=== PATIENT | male | born 1935 | race Caucasian/White ===

== ENCOUNTER → 2017-04-30 07:19 | Outpatient (REF) | payer MEDICARE, SELFPAY ==
[2017-04-30 08:04] LABS: Color, Urine Yellow (Yellow); Glucose, Dipstick 50 mg/dl (Normal); Ketone-Dipstick Negative (Negative); Leukocyte Esterase-Dipstick Negative /ul (Negative); Nitrite-Dipstick Negative (Negative); Occult Blood-Urine 150 /ul (Negative); Protein-Dipstick Negative (Negative); Urine Bilirubin Dipstick Negative (Negative); Urine Clarity Clear (Clear); Urine Urobilinogen 1 mg/dl (Normal); Urine pH 6.5 (5.0 - 8.0)
== END ==
LOC: OLS.WHLCAR 07:19
PROVIDERS: Visit Provider Family Medicine
DX: J18.9 Pneumonia, unspecified organism (principal); N40.1 Benign prostatic hyperplasia with lower urinary tract symptoms
CPT/HCPCS: 81002; 87086

== ENCOUNTER → 2017-05-02 05:00 | Outpatient (REF) | payer MEDICARE, OTHER, SELFPAY ==
[2017-05-02 09:34] LABS: Absolute Lymphocyte Count 1.07 X10^3/ul (0.83-4.51); Absolute Neutrophil Count 4.5 X10^3/uL (2.0-7.7); Basophil# 0.01 X10^3/uL; Basophil% 0.2 % (0-1); Eosinophil# 0.22 X10^3/uL; Eosinophils% 3.4 % (0-5); Hematocrit 33.1 % (40-54); Hemoglobin 10.2 g/dl (13.0-16.5); Lymphocyte # 1.07 X10^3/ul (4.0); Lymphocyte % 16.3 % (19-41); Mean Corp Hgb Conc 30.8 g/gl (32-36); Mean Corpuscular Hgb 29.3 pg (27.0-32.0); Mean Corpuscular Volume 95.1 fL (80-94); Mean Platelet Vol. 11.5 fl (6.2-12.0); Monocyte# 0.74 X10^3/uL; Monocyte% 11.3 % (0-10); Neutrophil # 4.52 X10^3/uL (2.7-7.7); Neutrophil % 68.8 % (47-70); POSITIVE COUNT NO; POSITIVE DIFFERENTIAL NO; POSITIVE MORPHOLOGY NO; Platelet Count 154 K/mm3 (150-450); RBC Distribution Width CV 15.7 % (11.6-14.6); RBC Distribution Width SD 54.6 fl (35.1-43.9); Red Blood Count 3.48 M/mm3 (4.6-6.2); White Blood Count 6.6 K/mm3 (4.4-11.0)
[2017-05-02 09:40] LABS: Anion Gap 8 (5-15); BUN 13 mg/dL (7-18); BUN/Creat Ratio 13.8 RATIO (10-20); Calcium,Total 8.9 mg/dL (8.5-10.1); Chloride 105 mmol/L (98-107); Creatinine, Serum 0.94 mg/dL (0.70-1.30); EST Glomerular Filtration Rate 81 mL/min (>60); Est Glom Filt Rate - Afr Amer 98 mL/min (>60); Glucose 82 mg/dL (70-110); Potassium 3.3 mmol/L (3.5-5.1); Sodium Level 141 mmol/L (136-145)
== END ==
LOC: OLS.WHLCAR 05:00
PROVIDERS: Visit Provider Family Medicine
DX: N39.0 Urinary tract infection, site not specified (principal)
CPT/HCPCS: 36415; 80048; 85025

== ENCOUNTER 2017-05-24 11:00 | Outpatient (RCR) | payer MEDICARE, OTHER, SELFPAY ==
[2017-05-01 00:58] VITALS: BP 136/76; PULSE 66; RESP 24; TEMP 36.6
[2017-05-10 10:59] VITALS: BP 106/57; PULSE 64; RESP 18; TEMP 36.1
--- NOTE | 2017-05-10 15:20 | PCM.WC.PN ---
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 Status: Chronic Current Visit: Yes Code(s): L97.322 - Non-pressure chronic ulcer of left ankle with fat layer exposed (2) Ulcer of left lower extremity with fat layer exposed Status: Acute Current Visit: Yes Code(s): L97.922 - Non-pressure chronic ulcer of unspecified part of left lower leg with fat layer exposed (3) Fall Status: Chronic Current Visit: Yes Qualifiers: Code(s): W19.XXXA - Unspecified fall, initial encounter (4) Peripheral vascular disease Status: Chronic Current Visit: Yes Code(s): I73.9 - Peripheral vascular disease, unspecified (5) Diabetes mellitus with polyneuropathy Status: Chronic Current Visit: Yes Qualifiers: Diabetes mellitus type: type 2 Code(s): E11.42 - Type 2 diabetes mellitus with diabetic polyneuropathy (6) 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 left ankle ulcer. Left leg new. History of Wound: This 81 year old male returns to clinic for bilateral ankle ulcerations and left leg ulcer. He denies fever, chills, nausea, vomiting. These are chronic. He denies pain. He wore his offloading donuts this past week. He applies Regranex daily. His caregiver is with him today and has confirmed his vascular surgery follow-up was May 04 and he missed it due to illness. This has been rescheduled for May 23. He had a new fall and has a new ulcer to his left leg. Progress of Wound: Left leg wound new. Stable right ankle. Stable left ankle - Physical Exam Vital Signs Temp Pulse Resp BP 96.9 F L 64 18 106/57 L 05/10/17 10:59 05/10/17 10:59 05/10/17 10:59 05/10/17 10:59 General: Alert, Oriented x3, Cooperative Extremities: No cyanosis, Capillary Refill Less than 3 Seconds, No Calf Tenderness - Negative Nusrat and Morrison sign bilateral, Diminished Peripheral Pulses, Edema - Bilateral lower extremity Skin: Ulcer/ Wound - No purulence, no erythema, no streaking, no deep tissue exposed. The skin is atrophic and hairless. Wound Measurements and Assessment - Nurse 1 - General Ulcer Measurement Start: 05/10/17 10:57 Freq: Status: Active Protocol: Activity Type Activity Date Activity User E-Sign Co-Sign Detail Recorded Client Recorded Date Recorded By Document 05/10/17 10:59 DL [id number] 05/10/17 11:19 DL 05/10/17 10:59 Wound Center Nurse 1 [Ulcer Assessment Protocol: WC.WD.LOC] #11 L So -Current Size (cm) - Length 1 -Current Size (cm) - Width 0.7 -Current Size (cm) - Depth 0.1 -Total Square Cm 0.7 -Photo Taken Yes -Exudate Amt Small (1-33%) -Exudate Type Sanguineous -Wound Margin Distinct, Outline Attached -Granulation Amt Large (67-100%) -Granulation Quality Red -Necrosis Amt Small (1-33%) -Necrotic Tissue Type Adherent Slough -Texture (Shawanda-wound Skin Appearance) No Abnormality -Moisture (Shawanda-wound Skin Appearance No Abnormality ) -Color (Shawanda-wound Skin Appearance) No Abnormality -Temperature (Shawanda-wound Skin No Abnormality Appearance) (Pt Warm) -Ulcer Cleansing Wound Cleanser -Foul Odor after Cleansing No -Anesthetic Used 4% Lidocaine Solution #12 L Med Lower leg -Current Size (cm) - Length 4.2 -Current Size (cm) - Width 3.8 -Current Size (cm) - Depth 0.1 -Total Square Cm 15.96 -Photo Taken Yes -Classification - Thickness Full Thickness without Exposed Support Structure -Exudate Amt Small (1-33%) -Exudate Type Serosanguineous -Wound Margin Distinct, Outline Attached -Granulation Amt Large (67-100%) -Granulation Quality [place] Red -Necrosis Amt Small (1-33%) -Necrotic Tissue Type Adherent Slough -Structure Exposed N/A -Texture (Shawanda-wound Skin Appearance) No Abnormality -Moisture (Shawanda-wound Skin Appearance No Abnormality ) -Color (Shawanda-wound Skin Appearance) Hemosiderin Staining -Temperature (Shawanda-wound Skin No Abnormality Appearance) (Pt Warm) -Ulcer Cleansing Wound Cleanser -Foul Odor after Cleansing No -Anesthetic Used 4% Lidocaine Solution #10- RT GR TOE (SKIN TEAR) -Current Size (cm) - Length 0.1 -Current Size (cm) - Width 0.1 -Current Size (cm) - Depth 0.1 -Total Square Cm 0.01 -Photo Taken No -Exudate Amt None Present (0 %) -Wound Margin Flat & Intact -Granulation Amt Large (67-100%) -Granulation Quality Pale -Necrosis Amt Small (1-33%) -Necrotic Tissue Type Adherent Slough -Structure Exposed N/A -Texture (Shawanda-wound Skin Appearance) Scarring -Moisture (Shawanda-wound Skin Appearance Dry/Scaly ) -Color (Shawanda-wound Skin Appearance) No Abnormality Hemosiderin Staining -Temperature (Shawanda-wound Skin No Abnormality Appearance) (Pt Warm) -Tenderness on Palpation (Shawanda-wound No Skin Appearance) -Ulcer Cleansing Rinsed/ Irrigated with Saline -Foul Odor after Cleansing No -Anesthetic Used 4% Lidocaine Solution #2 L Med Ankle -Current Size (cm) - Length 0.4 -Current Size (cm) - Width 0.5 -Current Size (cm) - Depth 0.1 -Total Square Cm 0.20 -Photo Taken No -Exudate Amt Small (1-33%) -Exudate Type Serosanguineous -Wound Margin Distinct, Outline Attached -Granulation Amt Small (1-33%) -Granulation Quality [place] -Necrosis Amt Small (1-33%) -Necrotic Tissue Type Adherent Slough -Structure Exposed N/A -Texture (Shawanda-wound Skin Appearance) Scarring -Moisture (Shawanda-wound Skin Appearance Dry/Scaly ) -Color (Shawanda-wound Skin Appearance) No Abnormality Hemosiderin Staining -Temperature (Shawanda-wound Skin No Abnormality Appearance) (Pt Warm) -Ulcer Cleansing Wound Cleanser -Foul Odor after Cleansing No -Anesthetic Used 4% Lidocaine Solution #1 R Lat Ankle -Current Size (cm) - Length 1 -Current Size (cm) - Width 0.5 -Current Size (cm) - Depth 0.2 -Total Square Cm 0.5 -Photo Taken No -Exudate Amt None Present (0 %) -Wound Margin Distinct, Outline Attached -Granulation Amt Large (67-100%) -Granulation Quality Pale [place] -Necrosis Amt Small (1-33%) -Necrotic Tissue Type Adherent Slough -Structure Exposed N/A -Texture (Shawanda-wound Skin Appearance) Scarring -Moisture (Shawanda-wound Skin Appearance Dry/Scaly ) -Color (Shawanda-wound Skin Appearance) Hemosiderin Staining -Temperature (Shawanda-wound Skin No Abnormality Appearance) (Pt Warm) -Tenderness on Palpation (Shawanda-wound No Skin Appearance) -Ulcer Cleansing Wound Cleanser -Foul Odor after Cleansing No -Anesthetic Used 4% Lidocaine Solution [Edema Assessment] -Point of measurement (cm from the 34 medial instep) -Point of Measurement (cm from the 20.7 medial instep) -Point of measurement (cm from the 37 medial instep) -Point of Measurement (cm from the 20.3 medial instep) WC - Nurse 2 - General Ulcer CM Notes Start: 05/10/17 10:57 Freq: Status: Active Protocol: Activity Type Activity Date Activity User E-Sign Co-Sign Detail Recorded Client Recorded Date Recorded By Document 05/10/17 11:32 [id number] 05/10/17 11:36 GHASSAN 05/10/17 11:32 Wound Center Nurse 2 [Procedure/Treatment] #11 L So -Time 11:33 -Correct Patient Yes -Correct Side, Site, Position Yes -Correct Procedure Yes -Procedure Performed Yes -Type of Procedure Debridement -Clinical Debridement Subcutaneous -Post Debridement Size (cm) - Length 1 -Post Debridement Size (cm) - Width 0.8 -Post Debridement Size (cm) - Depth 0.1 -Total Square Cm 0.8 -Wound/Ulcer Outcome Not Healed -Ulcer Cleansing Rinsed/ Irrigated with Saline -Foul Odor after Cleansing No -Bioengineered Tissue No -Cetacaine [place] No -Bleeding Controlled with Pressure -Treatment Response Procedure Tolerated Well #12 L Med Lower leg -Time 11:34 -Correct Patient Yes -Correct Side, Site, Position Yes -Correct Procedure Yes -Procedure Performed Yes -Type of Procedure Debridement -Clinical Debridement Subcutaneous -Post Debridement Size (cm) - Length 4.3 -Post Debridement Size (cm) - Width 3.8 -Post Debridement Size (cm) - Depth 0.1 -Total Square Cm 16.34 -Wound/Ulcer Outcome Not Healed -Ulcer Cleansing Rinsed/ Irrigated with Saline -Foul Odor after Cleansing No -Bioengineered Tissue No -Cetacaine [place] No -Bleeding Controlled with Pressure -Treatment Response Procedure Tolerated Well #10- RT GR TOE (SKIN TEAR) -Time 11:34 -Post Debridement Size (cm) - Length 0 -Post Debridement Size (cm) - Width 0 -Post Debridement Size (cm) - Depth 0 -Total Square Cm 0 -Wound/Ulcer Outcome Healed- Epithelialized #2 L Med Ankle -Time 11:34 -Correct Patient Yes -Correct Side, Site, Position Yes -Correct Procedure Yes -Procedure Performed Yes -Type of Procedure Debridement -Clinical Debridement Subcutaneous -Post Debridement Size (cm) - Length 0.5 -Post Debridement Size (cm) - Width 0.5 -Post Debridement Size (cm) - Depth 0.1 -Total Square Cm 0.25 -Wound/Ulcer Outcome Not Healed -Ulcer Cleansing Rinsed/ Irrigated with Saline -Foul Odor after Cleansing No -Bioengineered Tissue No -Cetacaine [place] No -Bleeding Controlled with Pressure -Treatment Response Procedure Tolerated Well #1 R Lat Ankle -Time 11:35 -Correct Patient Yes -Correct Side, Site, Position Yes -Correct Procedure Yes -Procedure Performed Yes -Type of Procedure Debridement -Clinical Debridement Subcutaneous -Post Debridement Size (cm) - Length 1 -Post Debridement Size (cm) - Width 0.6 -Post Debridement Size (cm) - Depth 0.2 -Total Square Cm 0.6 -Wound/Ulcer Outcome Not Healed -Ulcer Cleansing Rinsed/ Irrigated with Saline -Foul Odor after Cleansing No -Bioengineered Tissue No -Cetacaine [place] No -Bleeding Controlled with Pressure -Treatment Response Procedure Tolerated Well [See Physician Procedure note for Specifics] Pain Scale: 0-10 Numeric [Pain] -Is Patient Pain Free? Yes Musculoskeletal: No Tenderness to Palpation of Joints or Extremities, Muscle Wasting, Tenderness - Palpation to left leg ulcer Neurological: - - Lack of epicritic sensation of bilateral feet Psych/Mental Status: Normal Affect, Appropriate Debridement Note Post-Debridement Measurements/Treatment WC - Nurse 2 - General Ulcer CM Notes Start: 05/10/17 10:57 Freq: Status: Active Protocol: Activity Type Activity Date Activity User E-Sign Co-Sign Detail Recorded Client Recorded Date Recorded By Document 05/10/17 11:32 GHASSAN [id number] 05/10/17 11:36 GHASSAN 05/10/17 11:32 Wound Center Nurse 2 #11 L So -Time 11:33 -Correct Patient Yes -Correct Side, Site, Position Yes -Correct Procedure Yes -Procedure Performed Yes -Type of Procedure Debridement -Clinical Debridement Subcutaneous -Post Debridement Size (cm) - Length 1 -Post Debridement Size (cm) - Width 0.8 -Post Debridement Size (cm) - Depth 0.1 -Total Square Cm 0.8 -Wound/Ulcer Outcome Not Healed -Ulcer Cleansing Rinsed/ Irrigated with Saline -Foul Odor after Cleansing No -Bioengineered Tissue No -Cetacaine [place] No -Bleeding Controlled with Pressure -Treatment Response Procedure Tolerated Well #12 L Med Lower leg -Time 11:34 -Correct Patient Yes -Correct Side, Site, Position Yes -Correct Procedure Yes -Procedure Performed Yes -Type of Procedure Debridement -Clinical Debridement Subcutaneous -Post Debridement Size (cm) - Length 4.3 -Post Debridement Size (cm) - Width 3.8 -Post Debridement Size (cm) - Depth 0.1 -Total Square Cm 16.34 -Wound/Ulcer Outcome Not Healed -Ulcer Cleansing Rinsed/ Irrigated with Saline -Foul Odor after Cleansing No -Bioengineered Tissue No -Cetacaine [place] No -Bleeding Controlled with Pressure -Treatment Response Procedure Tolerated Well #10- RT GR TOE (SKIN TEAR) -Time 11:34 -Post Debridement Size (cm) - Length 0 -Post Debridement Size (cm) - Width 0 -Post Debridement Size (cm) - Depth 0 -Total Square Cm 0 -Wound/Ulcer Outcome Healed- Epithelialized #2 L Med Ankle -Time 11:34 -Correct Patient Yes -Correct Side, Site, Position Yes -Correct Procedure Yes -Procedure Performed Yes -Type of Procedure Debridement -Clinical Debridement Subcutaneous -Post Debridement Size (cm) - Length 0.5 -Post Debridement Size (cm) - Width 0.5 -Post Debridement Size (cm) - Depth 0.1 -Total Square Cm 0.25 -Wound/Ulcer Outcome Not Healed -Ulcer Cleansing Rinsed/ Irrigated with Saline -Foul Odor after Cleansing No -Bioengineered Tissue No -Cetacaine [place] No -Bleeding Controlled with Pressure -Treatment Response Procedure Tolerated Well #1 R Lat Ankle -Time 11:35 -Correct Patient Yes -Correct Side, Site, Position Yes -Correct Procedure Yes -Procedure Performed Yes -Type of Procedure Debridement -Clinical Debridement Subcutaneous -Post Debridement Size (cm) - Length 1 -Post Debridement Size (cm) - Width 0.6 -Post Debridement Size (cm) - Depth 0.2 -Total Square Cm 0.6 -Wound/Ulcer Outcome Not Healed -Ulcer Cleansing Rinsed/ Irrigated with Saline -Foul Odor after Cleansing No -Bioengineered Tissue No -Cetacaine [place] No -Bleeding Controlled with Pressure -Treatment Response Procedure Tolerated Well Pain Scale: 0-10 Numeric Is Patient Pain Free? Yes Wound debrided: Leg Laterality: Left Wound Grade/Stage: Grade 1 Type of Debridement: Excisional debridement Anesthesia Used: 4% Lidocaine Solution Depth: in the subcutaneous layer Percentage of wound debrided: 100 Instrument Used: 5mm curette Tissue Removed: Fibrous, devitalized subcutaneous, biofilm, slough Severity: Fat Layer Exposed Amount of bleeding with debridement: Mild Bleeding Controlled with: Pressure Patient tolerated procedure well - Additional Wound Wound debrided: Medial ankle Laterality: Left Wound Grade/Stage: Grade 1 Type of Debridement: Excisional debridement Anesthesia Used: 4% Lidocaine Solution Depth: Down to and including healthy tissue, in the subcutaneous layer Percentage of wound debrided: 100 Instrument Used: 5mm curette Tissue Removed: Fibrous, devitalized subcutaneous, biofilm, slough Severity: Fat Layer Exposed Amount of bleeding with debridement: Mild Bleeding Controlled with: Pressure Patient tolerated procedure: Patient tolerated procedure well - Additional Wound Wound debrided: Lateral ankle Laterality: Right Wound Grade/Stage: Grade 1 Type of Debridement: Excisional debridement Anesthesia Used: 4% Lidocaine Solution Depth: in the subcutaneous layer Percentage of wound debrided: 100 Instrument Used: 5mm curette Tissue Removed: Fibrous, devitalized subcutaneous, biofilm, slough Severity: Limited To Skin Breakdown Amount of bleeding with debridement: Mild Bleeding Controlled with: Pressure Patient tolerated procedure: Patient tolerated procedure well Assessment/Plan Active Problems 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 medial left ankle ulcer with fat layer exposed. Left leg ulcer -status post fall/recurrent. Uncontrolled diabetes with neuropathy. peripheral vascular disease. lower extremity edema. malnutrition. continued fall risk Plan: I reviewed and discussed his case. Subcutaneous debridement was performed to the right and left ankle ulcers and the left leg also. I educated him on the importance of offloading. To continue to wear offloading donut. Return to regranex daily use to the ankles. To apply hydrogel with collagen and Adaptic to the left leg. His last set of labs were also reviewed including CBC (9.7), CMP, hemoglobin A1C 14.0 to assess medical stability and healing potential. This was reviewed already. His labs will be updated at this time and the following were ordered: CBC, CMP, prealbumin. His hemoglobin A1c was 8% which demonstrates uncontrolled daily blood sugars. He does have a h/o PVD with intervention with Dr. Castro at an outside facility. To continue on pletal and plavix. To f/u with Dr. Castro has been rescheduled for May 23, 2017. He previously recommended a repeat TIFFANIE and his follow-up date was rescheduled for early May. Additional procedures will be considered if there is a status change and continued nonhealing. I reviewed his previous notes from Dr. 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 subtotal [employer] occlusion Left worse than right with reconstitution to mid popliteal and tibial distally. h/o right stent to old Right iliac stent. 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 PVR right thigh 0.55, calf 0.46, PT 0.44 nand DF 0.51 biphasic and digital brachial index 0.26. left PT 0.42 monophasic, DP 0.5 biphasic, and digital brachial index 0.23. His venous studies were obtained with vein abnormalities noted; f/u with Dr. Castro; the plan is to monitor. To optimize his diet from a diabetes and protein supplement standpoint. I recommended nutritional dietitian referral. He is demonstrating significant delays in healing and understands he is at continued risk for limb loss. Pending next vascular evaluation and potential recommendations he will be considered for a palliative care plan. He is already on a complex care plan at this time. To RTC 1 week or call sooner if problems or questions.
--- NOTE | 2017-05-10 15:31 | PN.PCM_ITS ---
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 Status: Chronic Current Visit: Yes Code(s): L97.322 - Non-pressure chronic ulcer of left ankle with fat layer exposed (2) Ulcer of left lower extremity with fat layer exposed Status: Acute Current Visit: Yes Code(s): L97.922 - Non-pressure chronic ulcer of unspecified part of left lower leg with fat layer exposed (3) Fall Status: Chronic Current Visit: Yes Qualifiers: Code(s): W19.XXXA - Unspecified fall, initial encounter (4) Peripheral vascular disease Status: Chronic Current Visit: Yes Code(s): I73.9 - Peripheral vascular disease, unspecified (5) Diabetes mellitus with polyneuropathy Status: Chronic Current Visit: Yes Qualifiers: Diabetes mellitus type: type 2 Code(s): E11.42 - Type 2 diabetes mellitus with diabetic polyneuropathy (6) 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 left ankle ulcer. Left leg new. History of Wound: This 81 year old male returns to clinic for bilateral ankle ulcerations and left leg ulcer. He denies fever, chills, nausea, vomiting. These are chronic. He denies pain. He wore his offloading donuts this past week. He applies Regranex daily. His caregiver is with him today and has confirmed his vascular surgery follow-up was May 04 and he missed it due to illness. This has been rescheduled for May 23. He had a new fall and has a new ulcer to his left leg. Progress of Wound: Left leg wound new. Stable right ankle. Stable left ankle - Physical Exam Vital Signs Temp Pulse Resp BP 96.9 F L 64 18 106/57 L 05/10/17 10:59 05/10/17 10:59 05/10/17 10:59 05/10/17 10:59 General: Alert, Oriented x3, Cooperative Extremities: No cyanosis, Capillary Refill Less than 3 Seconds, No Calf Tenderness - Negative Nusrat and Morrison sign bilateral, Diminished Peripheral Pulses, Edema - Bilateral lower extremity Skin: Ulcer/ Wound - No purulence, no erythema, no streaking, no deep tissue exposed. The skin is atrophic and hairless. Wound Measurements and Assessment - Nurse 1 - General Ulcer Measurement Start: 05/10/17 10:57 Freq: Status: Active Protocol: Activity Type Activity Date Activity User E-Sign Co-Sign Detail Recorded Client Recorded Date Recorded By Document 05/10/17 10:59 DL [id number] 05/10/17 11:19 DL 05/10/17 10:59 Wound Center Nurse 1 [Ulcer Assessment Protocol: WC.WD.LOC] #11 L So -Current Size (cm) - Length 1 -Current Size (cm) - Width 0.7 -Current Size (cm) - Depth 0.1 -Total Square Cm 0.7 -Photo Taken Yes -Exudate Amt Small (1-33%) -Exudate Type Sanguineous -Wound Margin Distinct, Outline Attached -Granulation Amt Large (67-100%) -Granulation Quality Red -Necrosis Amt Small (1-33%) -Necrotic Tissue Type Adherent Slough -Texture (Shawanda-wound Skin Appearance) No Abnormality -Moisture (Shawanda-wound Skin Appearance No Abnormality ) -Color (Shawanda-wound Skin Appearance) No Abnormality -Temperature (Shawanda-wound Skin No Abnormality Appearance) (Pt Warm) -Ulcer Cleansing Wound Cleanser -Foul Odor after Cleansing No -Anesthetic Used 4% Lidocaine Solution #12 L Med Lower leg -Current Size (cm) - Length 4.2 -Current Size (cm) - Width 3.8 -Current Size (cm) - Depth 0.1 -Total Square Cm 15.96 -Photo Taken Yes -Classification - Thickness Full Thickness without Exposed Support Structure -Exudate Amt Small (1-33%) -Exudate Type Serosanguineous -Wound Margin Distinct, Outline Attached -Granulation Amt Large (67-100%) -Granulation Quality [place] Red -Necrosis Amt Small (1-33%) -Necrotic Tissue Type Adherent Slough -Structure Exposed N/A -Texture (Shawanda-wound Skin Appearance) No Abnormality -Moisture (Shawanda-wound Skin Appearance No Abnormality ) -Color (Shawanda-wound Skin Appearance) Hemosiderin Staining -Temperature (Shawanda-wound Skin No Abnormality Appearance) (Pt Warm) -Ulcer Cleansing Wound Cleanser -Foul Odor after Cleansing No -Anesthetic Used 4% Lidocaine Solution #10- RT GR TOE (SKIN TEAR) -Current Size (cm) - Length 0.1 -Current Size (cm) - Width 0.1 -Current Size (cm) - Depth 0.1 -Total Square Cm 0.01 -Photo Taken No -Exudate Amt None Present (0 %) -Wound Margin Flat & Intact -Granulation Amt Large (67-100%) -Granulation Quality Pale -Necrosis Amt Small (1-33%) -Necrotic Tissue Type Adherent Slough -Structure Exposed N/A -Texture (Shawanda-wound Skin Appearance) Scarring -Moisture (Shawanda-wound Skin Appearance Dry/Scaly ) -Color (Shawanda-wound Skin Appearance) No Abnormality Hemosiderin Staining -Temperature (Shawanda-wound Skin No Abnormality Appearance) (Pt Warm) -Tenderness on Palpation (Shawanda-wound No Skin Appearance) -Ulcer Cleansing Rinsed/ Irrigated with Saline -Foul Odor after Cleansing No -Anesthetic Used 4% Lidocaine Solution #2 L Med Ankle -Current Size (cm) - Length 0.4 -Current Size (cm) - Width 0.5 -Current Size (cm) - Depth 0.1 -Total Square Cm 0.20 -Photo Taken No -Exudate Amt Small (1-33%) -Exudate Type Serosanguineous -Wound Margin Distinct, Outline Attached -Granulation Amt Small (1-33%) -Granulation Quality [place] -Necrosis Amt Small (1-33%) -Necrotic Tissue Type Adherent Slough -Structure Exposed N/A -Texture (Shawanda-wound Skin Appearance) Scarring -Moisture (Shawanda-wound Skin Appearance Dry/Scaly ) -Color (Shawanda-wound Skin Appearance) No Abnormality Hemosiderin Staining -Temperature (Shawanda-wound Skin No Abnormality Appearance) (Pt Warm) -Ulcer Cleansing Wound Cleanser -Foul Odor after Cleansing No -Anesthetic Used 4% Lidocaine Solution #1 R Lat Ankle -Current Size (cm) - Length 1 -Current Size (cm) - Width 0.5 -Current Size (cm) - Depth 0.2 -Total Square Cm 0.5 -Photo Taken No -Exudate Amt None Present (0 %) -Wound Margin Distinct, Outline Attached -Granulation Amt Large (67-100%) -Granulation Quality Pale [place] -Necrosis Amt Small (1-33%) -Necrotic Tissue Type Adherent Slough -Structure Exposed N/A -Texture (Shawanda-wound Skin Appearance) Scarring -Moisture (Shawanda-wound Skin Appearance Dry/Scaly ) -Color (Shawanda-wound Skin Appearance) Hemosiderin Staining -Temperature (Shawanda-wound Skin No Abnormality Appearance) (Pt Warm) -Tenderness on Palpation (Shawanda-wound No Skin Appearance) -Ulcer Cleansing Wound Cleanser -Foul Odor after Cleansing No -Anesthetic Used 4% Lidocaine Solution [Edema Assessment] -Point of measurement (cm from the 34 medial instep) -Point of Measurement (cm from the 20.7 medial instep) -Point of measurement (cm from the 37 medial instep) -Point of Measurement (cm from the 20.3 medial instep) WC - Nurse 2 - General Ulcer CM Notes Start: 05/10/17 10:57 Freq: Status: Active Protocol: Activity Type Activity Date Activity User E-Sign Co-Sign Detail Recorded Client Recorded Date Recorded By Document 05/10/17 11:32 [id number] 05/10/17 11:36 GHASSAN 05/10/17 11:32 Wound Center Nurse 2 [Procedure/Treatment] #11 L So -Time 11:33 -Correct Patient Yes -Correct Side, Site, Position Yes -Correct Procedure Yes -Procedure Performed Yes -Type of Procedure Debridement -Clinical Debridement Subcutaneous -Post Debridement Size (cm) - Length 1 -Post Debridement Size (cm) - Width 0.8 -Post Debridement Size (cm) - Depth 0.1 -Total Square Cm 0.8 -Wound/Ulcer Outcome Not Healed -Ulcer Cleansing Rinsed/ Irrigated with Saline -Foul Odor after Cleansing No -Bioengineered Tissue No -Cetacaine [place] No -Bleeding Controlled with Pressure -Treatment Response Procedure Tolerated Well #12 L Med Lower leg -Time 11:34 -Correct Patient Yes -Correct Side, Site, Position Yes -Correct Procedure Yes -Procedure Performed Yes -Type of Procedure Debridement -Clinical Debridement Subcutaneous -Post Debridement Size (cm) - Length 4.3 -Post Debridement Size (cm) - Width 3.8 -Post Debridement Size (cm) - Depth 0.1 -Total Square Cm 16.34 -Wound/Ulcer Outcome Not Healed -Ulcer Cleansing Rinsed/ Irrigated with Saline -Foul Odor after Cleansing No -Bioengineered Tissue No -Cetacaine [place] No -Bleeding Controlled with Pressure -Treatment Response Procedure Tolerated Well #10- RT GR TOE (SKIN TEAR) -Time 11:34 -Post Debridement Size (cm) - Length 0 -Post Debridement Size (cm) - Width 0 -Post Debridement Size (cm) - Depth 0 -Total Square Cm 0 -Wound/Ulcer Outcome Healed- Epithelialized #2 L Med Ankle -Time 11:34 -Correct Patient Yes -Correct Side, Site, Position Yes -Correct Procedure Yes -Procedure Performed Yes -Type of Procedure Debridement -Clinical Debridement Subcutaneous -Post Debridement Size (cm) - Length 0.5 -Post Debridement Size (cm) - Width 0.5 -Post Debridement Size (cm) - Depth 0.1 -Total Square Cm 0.25 -Wound/Ulcer Outcome Not Healed -Ulcer Cleansing Rinsed/ Irrigated with Saline -Foul Odor after Cleansing No -Bioengineered Tissue No -Cetacaine [place] No -Bleeding Controlled with Pressure -Treatment Response Procedure Tolerated Well #1 R Lat Ankle -Time 11:35 -Correct Patient Yes -Correct Side, Site, Position Yes -Correct Procedure Yes -Procedure Performed Yes -Type of Procedure Debridement -Clinical Debridement Subcutaneous -Post Debridement Size (cm) - Length 1 -Post Debridement Size (cm) - Width 0.6 -Post Debridement Size (cm) - Depth 0.2 -Total Square Cm 0.6 -Wound/Ulcer Outcome Not Healed -Ulcer Cleansing Rinsed/ Irrigated with Saline -Foul Odor after Cleansing No -Bioengineered Tissue No -Cetacaine [place] No -Bleeding Controlled with Pressure -Treatment Response Procedure Tolerated Well [See Physician Procedure note for Specifics] Pain Scale: 0-10 Numeric [Pain] -Is Patient Pain Free? Yes Musculoskeletal: No Tenderness to Palpation of Joints or Extremities, Muscle Wasting, Tenderness - Palpation to left leg ulcer Neurological: - - Lack of epicritic sensation of bilateral feet Psych/Mental Status: Normal Affect, Appropriate Debridement Note Post-Debridement Measurements/Treatment WC - Nurse 2 - General Ulcer CM Notes Start: 05/10/17 10:57 Freq: Status: Active Protocol: Activity Type Activity Date Activity User E-Sign Co-Sign Detail Recorded Client Recorded Date Recorded By Document 05/10/17 11:32 GHASSAN [id number] 05/10/17 11:36 GHASSAN 05/10/17 11:32 Wound Center Nurse 2 #11 L So -Time 11:33 -Correct Patient Yes -Correct Side, Site, Position Yes -Correct Procedure Yes -Procedure Performed Yes -Type of Procedure Debridement -Clinical Debridement Subcutaneous -Post Debridement Size (cm) - Length 1 -Post Debridement Size (cm) - Width 0.8 -Post Debridement Size (cm) - Depth 0.1 -Total Square Cm 0.8 -Wound/Ulcer Outcome Not Healed -Ulcer Cleansing Rinsed/ Irrigated with Saline -Foul Odor after Cleansing No -Bioengineered Tissue No -Cetacaine [place] No -Bleeding Controlled with Pressure -Treatment Response Procedure Tolerated Well #12 L Med Lower leg -Time 11:34 -Correct Patient Yes -Correct Side, Site, Position Yes -Correct Procedure Yes -Procedure Performed Yes -Type of Procedure Debridement -Clinical Debridement Subcutaneous -Post Debridement Size (cm) - Length 4.3 -Post Debridement Size (cm) - Width 3.8 -Post Debridement Size (cm) - Depth 0.1 -Total Square Cm 16.34 -Wound/Ulcer Outcome Not Healed -Ulcer Cleansing Rinsed/ Irrigated with Saline -Foul Odor after Cleansing No -Bioengineered Tissue No -Cetacaine [place] No -Bleeding Controlled with Pressure -Treatment Response Procedure Tolerated Well #10- RT GR TOE (SKIN TEAR) -Time 11:34 -Post Debridement Size (cm) - Length 0 -Post Debridement Size (cm) - Width 0 -Post Debridement Size (cm) - Depth 0 -Total Square Cm 0 -Wound/Ulcer Outcome Healed- Epithelialized #2 L Med Ankle -Time 11:34 -Correct Patient Yes -Correct Side, Site, Position Yes -Correct Procedure Yes -Procedure Performed Yes -Type of Procedure Debridement -Clinical Debridement Subcutaneous -Post Debridement Size (cm) - Length 0.5 -Post Debridement Size (cm) - Width 0.5 -Post Debridement Size (cm) - Depth 0.1 -Total Square Cm 0.25 -Wound/Ulcer Outcome Not Healed -Ulcer Cleansing Rinsed/ Irrigated with Saline -Foul Odor after Cleansing No -Bioengineered Tissue No -Cetacaine [place] No -Bleeding Controlled with Pressure -Treatment Response Procedure Tolerated Well #1 R Lat Ankle -Time 11:35 -Correct Patient Yes -Correct Side, Site, Position Yes -Correct Procedure Yes -Procedure Performed Yes -Type of Procedure Debridement -Clinical Debridement Subcutaneous -Post Debridement Size (cm) - Length 1 -Post Debridement Size (cm) - Width 0.6 -Post Debridement Size (cm) - Depth 0.2 -Total Square Cm 0.6 -Wound/Ulcer Outcome Not Healed -Ulcer Cleansing Rinsed/ Irrigated with Saline -Foul Odor after Cleansing No -Bioengineered Tissue No -Cetacaine [place] No -Bleeding Controlled with Pressure -Treatment Response Procedure Tolerated Well Pain Scale: 0-10 Numeric Is Patient Pain Free? Yes Wound debrided: Leg Laterality: Left Wound Grade/Stage: Grade 1 Type of Debridement: Excisional debridement Anesthesia Used: 4% Lidocaine Solution Depth: in the subcutaneous layer Percentage of wound debrided: 100 Instrument Used: 5mm curette Tissue Removed: Fibrous, devitalized subcutaneous, biofilm, slough Severity: Fat Layer Exposed Amount of bleeding with debridement: Mild Bleeding Controlled with: Pressure Patient tolerated procedure well - Additional Wound Wound debrided: Medial ankle Laterality: Left Wound Grade/Stage: Grade 1 Type of Debridement: Excisional debridement Anesthesia Used: 4% Lidocaine Solution Depth: Down to and including healthy tissue, in the subcutaneous layer Percentage of wound debrided: 100 Instrument Used: 5mm curette Tissue Removed: Fibrous, devitalized subcutaneous, biofilm, slough Severity: Fat Layer Exposed Amount of bleeding with debridement: Mild Bleeding Controlled with: Pressure Patient tolerated procedure: Patient tolerated procedure well - Additional Wound Wound debrided: Lateral ankle Laterality: Right Wound Grade/Stage: Grade 1 Type of Debridement: Excisional debridement Anesthesia Used: 4% Lidocaine Solution Depth: in the subcutaneous layer Percentage of wound debrided: 100 Instrument Used: 5mm curette Tissue Removed: Fibrous, devitalized subcutaneous, biofilm, slough Severity: Limited To Skin Breakdown Amount of bleeding with debridement: Mild Bleeding Controlled with: Pressure Patient tolerated procedure: Patient tolerated procedure well Assessment/Plan Active Problems 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 medial left ankle ulcer with fat layer exposed. Left leg ulcer -status post fall/ recurrent. Uncontrolled diabetes with neuropathy. peripheral vascular disease. lower extremity edema. malnutrition. continued fall risk Plan: I reviewed and discussed his case. Subcutaneous debridement was performed to the right and left ankle ulcers and the left leg also. I educated him on the importance of offloading. To continue to wear offloading donut. Return to regranex daily use to the ankles. To apply hydrogel with collagen and Adaptic to the left leg. His last set of labs were also reviewed including CBC (9.7), CMP, hemoglobin A1C 14.0 to assess medical stability and healing potential. This was reviewed already. His labs will be updated at this time and the following were ordered: CBC, CMP, prealbumin. His hemoglobin A1c was 8 % which demonstrates uncontrolled daily blood sugars. He does have a h/o PVD with intervention with Dr. Castro at an outside facility. To continue on pletal and plavix. To f/u with Dr. Castro has been rescheduled for May 23, 2017. He previously recommended a repeat TIFFANIE and his follow-up date was rescheduled for early May. Additional procedures will be considered if there is a status change and continued nonhealing. I reviewed his previous notes from Dr. 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 h/o right stent to old Right iliac stent. 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 PVR right thigh 0.55, calf 0.46, PT 0.44 nand DF 0.51 biphasic and digital brachial index 0.26. left PT 0.42 monophasic, DP 0.5 biphasic, and digital brachial index 0.23. His venous studies were obtained with vein abnormalities noted; f/u with Dr. Castro; the plan is to monitor. To optimize his diet from a diabetes and protein supplement standpoint. I recommended nutritional dietitian referral. He is demonstrating significant delays in healing and understands he is at continued risk for limb loss. Pending next vascular evaluation and potential recommendations he will be considered for a palliative care plan. He is already on a complex care plan at this time. To RTC 1 week or call sooner if problems or questions.
[2017-05-17 14:15] VITALS: BP 111/54; PULSE 67; RESP 16; TEMP 36.7
--- NOTE | 2017-05-17 21:20 | PN.PCM_ITS ---
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 Status: Chronic Code(s): L97.322 - Non-pressure chronic ulcer of left ankle with fat layer exposed (2) Ulcer of left lower extremity with fat layer exposed Status: Acute Code(s): L97.922 - Non-pressure chronic ulcer of unspecified part of left lower leg with fat layer exposed (3) Fall Status: Chronic Qualifiers: Code(s): W19.XXXA - Unspecified fall, initial encounter (4) Peripheral vascular disease Status: Chronic Code(s): I73.9 - Peripheral vascular disease, unspecified (5) Diabetes mellitus with polyneuropathy Status: Chronic Qualifiers: Diabetes mellitus type: type 2 Qualified Code(s): E11.42 - Type 2 diabetes mellitus with diabetic polyneuropathy Code(s): E11.42 - Type 2 diabetes mellitus with diabetic polyneuropathy (6) 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 left ankle ulcer. Left leg. History of Wound: This 81 year old male returns to clinic for bilateral ankle ulcerations and left leg ulcer. He denies fever, chills, nausea, vomiting. These are chronic. He denies pain. He wore his offloading donuts this past week. He also wears protective leg sleeps that are patent to prevent skin tears. He applies Regranex daily to the ankle ulcers and Lisa to his leg wound. His caregiver is with him today and has confirmed his vascular surgery follow-up was May 04 and he missed it due to illness. This has been rescheduled for May 23. Progress of Wound: Left leg wound. Stable right ankle. Stable left ankle - Physical Exam Vital Signs Temp Pulse Resp BP 98.0 F 67 16 111/54 L 05/17/17 14:15 05/17/17 14:15 05/17/17 14:15 05/17/17 14:15 General: Alert, Oriented x3, Cooperative Extremities: No cyanosis, Capillary Refill Less than 3 Seconds, No Calf Tenderness - Negative Nusrat and Morrison sign bilateral, Diminished Peripheral Pulses, Edema - Minimal bilateral lower extremities Skin: Ulcer/ Wound - No purulence, no erythema, streaking, odor, no infection. The skin is atrophic and hairless. Wound Measurements and Assessment - Nurse 1 - General Ulcer Measurement Start: 05/10/17 10:57 Freq: Status: Active Protocol: Activity Type Activity Date Activity User E-Sign Co-Sign Detail Recorded Client Recorded Date Recorded By Document 05/17/17 14:15 MW [id number] 05/17/17 14:38 MW 05/17/17 14:15 Wound Center Nurse 1 [Ulcer Assessment Protocol: WC.WD.LOC] #11 L So -Combined with other wound No -Current Size (cm) - Length 0.3 -Current Size (cm) - Width 0.3 -Current Size (cm) - Depth 0.1 -Total Square Cm 0.09 -Photo Taken No -Epithelialization None Present -Tunneling No -Undermining/Tunneling No -Circular Undermining No -Exudate Amt None Present (0 %) -Wound Margin Flat & Intact -Granulation Amt None Present (0 %) -Granulation Quality N/A -Slough/Fibrin Yes -Necrosis Amt Small (1-33%) -Necrotic Tissue Type Adherent Slough -Structure Exposed N/A -Texture (Shawanda-wound Skin Appearance) Assessed Localized Edema -Moisture (Shawanda-wound Skin Appearance Assessed ) Dry/Scaly -Color (Shawanda-wound Skin Appearance) No Abnormality Assessed -Temperature (Shawanda-wound Skin No Abnormality Appearance) (Pt Warm) -Tenderness on Palpation (Shawanda-wound No Skin Appearance) -Ulcer Cleansing Rinsed/ Irrigated with Saline -Foul Odor after Cleansing No -Anesthetic Used 4% Lidocaine Solution #12 L Med Lower leg -Combined with other wound No -Current Size (cm) - Length 3.4 -Current Size (cm) - Width 1.3 -Current Size (cm) - Depth 0.1 -Total Square Cm 4.42 -Photo Taken No -Epithelialization None Present -Tunneling No -Undermining/Tunneling No -Circular Undermining No -Exudate Amt Small (1-33%) -Exudate Type Serosanguineous -Wound Margin Flat & Intact -Granulation Amt Medium (34-66%) -Granulation Quality Red -Slough/Fibrin Yes -Necrosis Amt Small (1-33%) -Necrotic Tissue Type Adherent Slough -Structure Exposed N/A -Texture (Shawanda-wound Skin Appearance) Assessed Localized Edema -Moisture (Shawanda-wound Skin Appearance Assessed ) Dry/Scaly -Color (Shawanda-wound Skin Appearance) No Abnormality Assessed -Temperature (Shawanda-wound Skin No Abnormality Appearance) (Pt Warm) -Tenderness on Palpation (Shawanda-wound No Skin Appearance) -Ulcer Cleansing Rinsed/ Irrigated with Saline -Foul Odor after Cleansing No -Anesthetic Used 4% Lidocaine Solution #2 L Med Ankle -Combined with other wound No -Current Size (cm) - Length 0.3 -Current Size (cm) - Width 0.5 -Current Size (cm) - Depth 0.1 -Total Square Cm 0.15 -Photo Taken No -Epithelialization None Present -Tunneling No -Undermining/Tunneling No -Circular Undermining No -Exudate Amt Small (1-33%) -Exudate Type Serosanguineous -Wound Margin Flat & Intact -Granulation Amt Small (1-33%) -Granulation Quality [place] -Slough/Fibrin Yes -Necrosis Amt Medium (34-66%) -Necrotic Tissue Type Adherent Slough -Structure Exposed None/Limited to Skin Breakdown -Texture (Shawanda-wound Skin Appearance) Assessed Localized Edema -Moisture (Shawanda-wound Skin Appearance Assessed ) Dry/Scaly -Color (Shawanda-wound Skin Appearance) Assessed Erythema -Temperature (Shawanda-wound Skin No Abnormality Appearance) (Pt Warm) -Tenderness on Palpation (Shawanda-wound No Skin Appearance) -Ulcer Cleansing Rinsed/ Irrigated with Saline -Foul Odor after Cleansing No -Anesthetic Used 4% Lidocaine Solution #1 R Lat Ankle -Combined with other wound No -Current Size (cm) - Length 0.5 -Current Size (cm) - Width 0.5 -Current Size (cm) - Depth 0.1 -Total Square Cm 0.25 -Photo Taken No -Epithelialization None Present -Tunneling No -Undermining/Tunneling No -Circular Undermining No -Exudate Amt Small (1-33%) -Exudate Type Serosanguineous -Wound Margin Flat & Intact -Granulation Amt Small (1-33%) -Granulation Quality [place] -Slough/Fibrin Yes -Necrosis Amt Medium (34-66%) -Necrotic Tissue Type Adherent Slough -Structure Exposed None/Limited to Skin Breakdown -Texture (Shawanda-wound Skin Appearance) Assessed Localized Edema -Moisture (Shawanda-wound Skin Appearance Assessed ) Dry/Scaly -Color (Shawanda-wound Skin Appearance) Assessed Erythema -Temperature (Shawanda-wound Skin No Abnormality Appearance) (Pt Warm) -Tenderness on Palpation (Shawanda-wound No Skin Appearance) -Ulcer Cleansing Rinsed/ Irrigated with Saline -Foul Odor after Cleansing No -Anesthetic Used 4% Lidocaine Solution [Edema Assessment] -Lower Limb Edema Present Yes -Right Calf (cm) 36.0 -Right Ankle (cm) 21.6 -Left Calf (cm) 37.8 -Left Ankle (cm) 22.0 WC - Nurse 2 - General Ulcer CM Notes Start: 05/10/17 10:57 Freq: Status: Active Protocol: Activity Type Activity Date Activity User E-Sign Co-Sign Detail Recorded Client Recorded Date Recorded By Document 05/17/17 15:09 [id number] 05/17/17 15:12 05/17/17 15:09 Wound Center Nurse 2 [Procedure/Treatment] #11 L So -Time 15:09 -Correct Patient Yes -Correct Side, Site, Position Yes -Correct Procedure Yes -Procedure Performed Yes -Type of Procedure Debridement -Clinical Debridement Subcutaneous -Post Debridement Size (cm) - Length 0.4 -Post Debridement Size (cm) - Width 0.4 -Post Debridement Size (cm) - Depth 0.1 -Total Square Cm 0.16 -Wound/Ulcer Outcome Not Healed -Ulcer Cleansing Rinsed/ Irrigated with Saline -Foul Odor after Cleansing No -Bioengineered Tissue No -Cetacaine [place] No -Bleeding Controlled with Pressure -Treatment Response Procedure Tolerated Well #12 L Med Lower leg -Time 15:10 -Correct Patient Yes -Correct Side, Site, Position Yes -Correct Procedure Yes -Procedure Performed Yes -Type of Procedure Debridement -Clinical Debridement Subcutaneous -Post Debridement Size (cm) - Length 3.5 -Post Debridement Size (cm) - Width 1.3 -Post Debridement Size (cm) - Depth 0.1 -Total Square Cm 4.55 -Wound/Ulcer Outcome Not Healed -Ulcer Cleansing Rinsed/ Irrigated with Saline -Foul Odor after Cleansing No -Bioengineered Tissue No -Cetacaine [place] No -Bleeding Controlled with Pressure -Treatment Response Procedure Tolerated Well #2 L Med Ankle -Time 15:10 -Correct Patient Yes -Correct Side, Site, Position Yes -Correct Procedure Yes -Procedure Performed Yes -Type of Procedure Debridement -Clinical Debridement Subcutaneous -Post Debridement Size (cm) - Length 0.4 -Post Debridement Size (cm) - Width 0.5 -Post Debridement Size (cm) - Depth 0.1 -Total Square Cm 0.20 -Wound/Ulcer Outcome Not Healed -Ulcer Cleansing Rinsed/ Irrigated with Saline -Foul Odor after Cleansing No -Bioengineered Tissue No -Cetacaine [place] No -Bleeding Controlled with Pressure -Treatment Response Procedure Tolerated Well #1 R Lat Ankle -Time 15:11 -Correct Patient Yes -Correct Side, Site, Position Yes -Correct Procedure Yes -Procedure Performed Yes -Type of Procedure Debridement -Clinical Debridement Subcutaneous -Post Debridement Size (cm) - Length 0.6 -Post Debridement Size (cm) - Width 0.5 -Post Debridement Size (cm) - Depth 0.1 -Total Square Cm 0.30 -Wound/Ulcer Outcome Not Healed -Ulcer Cleansing Rinsed/ Irrigated with Saline -Foul Odor after Cleansing No -Bioengineered Tissue No -Cetacaine [place] No -Bleeding Controlled with Pressure -Treatment Response Procedure Tolerated Well [See Physician Procedure note for Specifics] Pain Scale: 0-10 Numeric [Pain] -Is Patient Pain Free? Yes Musculoskeletal: No Tenderness to Palpation of Joints or Extremities, Muscle Wasting, - - Compartments lower extremity soft bilateral Neurological: - - Lack of epicritic sensation to bilateral foot Psych/Mental Status: Normal Affect, Appropriate Debridement Note Post-Debridement Measurements/Treatment WC - Nurse 2 - General Ulcer CM Notes Start: 05/10/17 10:57 Freq: Status: Active Protocol: Activity Type Activity Date Activity User E-Sign Co-Sign Detail Recorded Client Recorded Date Recorded By Document 05/10/17 11:32 [id number] 05/10/17 11:36 Document 05/17/17 15:09 [id number] 05/17/17 15:12 05/10/17 05/17/17 11:32 15:09 Wound Center Nurse 2 #11 L So -Time 11:33 15:09 -Correct Patient Yes Yes -Correct Side, Site, Position Yes Yes -Correct Procedure Yes Yes -Procedure Performed Yes Yes -Type of Procedure Debridement Debridement -Clinical Debridement Subcutaneous Subcutaneous -Post Debridement Size (cm) - Length 1 0.4 -Post Debridement Size (cm) - Width 0.8 0.4 -Post Debridement Size (cm) - Depth 0.1 0.1 -Total Square Cm 0.8 0.16 -Wound/Ulcer Outcome Not Healed Not Healed -Ulcer Cleansing Rinsed/ Rinsed/ Irrigated with Irrigated with Saline Saline -Foul Odor after Cleansing No No -Bioengineered Tissue No No -Cetacaine [place] No No -Bleeding Controlled with Pressure Pressure -Treatment Response Procedure Procedure Tolerated Well Tolerated Well #12 L Med Lower leg -Time 11:34 15:10 -Correct Patient Yes Yes -Correct Side, Site, Position Yes Yes -Correct Procedure Yes Yes -Procedure Performed Yes Yes -Type of Procedure Debridement Debridement -Clinical Debridement Subcutaneous Subcutaneous -Post Debridement Size (cm) - Length 4.3 3.5 -Post Debridement Size (cm) - Width 3.8 1.3 -Post Debridement Size (cm) - Depth 0.1 0.1 -Total Square Cm 16.34 4.55 -Wound/Ulcer Outcome Not Healed Not Healed -Ulcer Cleansing Rinsed/ Rinsed/ Irrigated with Irrigated with Saline Saline -Foul Odor after Cleansing No No -Bioengineered Tissue No No -Cetacaine [place] No No -Bleeding Controlled with Pressure Pressure -Treatment Response Procedure Procedure Tolerated Well Tolerated Well #10- RT GR TOE (SKIN TEAR) -Time 11:34 -Post Debridement Size (cm) - Length 0 -Post Debridement Size (cm) - Width 0 -Post Debridement Size (cm) - Depth 0 -Total Square Cm 0 -Wound/Ulcer Outcome Healed- Epithelialized #2 L Med Ankle -Time 11:34 15:10 -Correct Patient Yes Yes -Correct Side, Site, Position Yes Yes -Correct Procedure Yes Yes -Procedure Performed Yes Yes -Type of Procedure Debridement Debridement -Clinical Debridement Subcutaneous Subcutaneous -Post Debridement Size (cm) - Length 0.5 0.4 -Post Debridement Size (cm) - Width 0.5 0.5 -Post Debridement Size (cm) - Depth 0.1 0.1 -Total Square Cm 0.25 0.20 -Wound/Ulcer Outcome Not Healed Not Healed -Ulcer Cleansing Rinsed/ Rinsed/ Irrigated with Irrigated with Saline Saline -Foul Odor after Cleansing No No -Bioengineered Tissue No No -Cetacaine [place] No No -Bleeding Controlled with Pressure Pressure -Treatment Response Procedure Procedure Tolerated Well Tolerated Well #1 R Lat Ankle -Time 11:35 15:11 -Correct Patient Yes Yes -Correct Side, Site, Position Yes Yes -Correct Procedure Yes Yes -Procedure Performed Yes Yes -Type of Procedure Debridement Debridement -Clinical Debridement Subcutaneous Subcutaneous -Post Debridement Size (cm) - Length 1 0.6 -Post Debridement Size (cm) - Width 0.6 0.5 -Post Debridement Size (cm) - Depth 0.2 0.1 -Total Square Cm 0.6 0.30 -Wound/Ulcer Outcome Not Healed Not Healed -Ulcer Cleansing Rinsed/ Rinsed/ Irrigated with Irrigated with Saline Saline -Foul Odor after Cleansing No No -Bioengineered Tissue No No -Cetacaine [place] No No -Bleeding Controlled with Pressure Pressure -Treatment Response Procedure Procedure Tolerated Well Tolerated Well Pain Scale: 0-10 Numeric Is Patient Pain Free? Yes Yes Wound debrided: Lateral ankle Laterality: Right Wound Grade/Stage: Grade 1 Type of Debridement: Excisional debridement Anesthesia Used: 4% Lidocaine Solution Depth: in the subcutaneous layer Percentage of wound debrided: 100 Instrument Used: #15 blade Tissue Removed: Fibrous, devitalized subcutaneous, biofilm, slough Severity: Fat Layer Exposed Amount of bleeding with debridement: Mild Bleeding Controlled with: Pressure Patient tolerated procedure well - Additional Wound Wound debrided: Medial ankle Laterality: Left Wound Grade/Stage: Grade 1 Type of Debridement: Excisional debridement Anesthesia Used: 4% Lidocaine Solution Depth: in the subcutaneous layer Percentage of wound debrided: 100 Instrument Used: #15 blade Tissue Removed: Fibrous, devitalized subcutaneous, biofilm, slough Severity: Fat Layer Exposed Amount of bleeding with debridement: Mild Bleeding Controlled with: Pressure Patient tolerated procedure: Patient tolerated procedure well - Additional Wound Wound debrided: Leg Laterality: Left Wound Grade/Stage: Grade 1 Type of Debridement: Excisional debridement Anesthesia Used: 4% Lidocaine Solution Depth: in the subcutaneous layer Percentage of wound debrided: 100 Instrument Used: #15 blade Tissue Removed: Fibrous, devitalized subcutaneous, biofilm, slough Severity: Fat Layer Exposed Amount of bleeding with debridement: Mild Bleeding Controlled with: Pressure Patient tolerated procedure: Patient tolerated procedure well Assessment/Plan Assessment: lateral right ankle ulcer with fat layer exposed. medial left ankle ulcer with fat layer exposed. Left leg ulcer with fat layer exposed. Uncontrolled diabetes with neuropathy. peripheral vascular disease. lower extremity edema. malnutrition. continued fall risk Plan: I reviewed and discussed his case. Subcutaneous debridement was performed to the right and left ankle ulcers and the left leg also. I educated him on the importance of offloading. To continue to wear offloading donut and protective leg sleeves bilateral. Return to regranex daily use to the ankles. To apply hydrogel with collagen and Adaptic to the left leg. His last set of labs were also reviewed including CBC (9.7), CMP, hemoglobin A1C 14.0 to assess medical stability and healing potential. This was reviewed already. His labs will be updated at this time and the following were ordered: CBC, CMP, prealbumin. His hemoglobin A1c was 8% which demonstrates uncontrolled daily blood sugars. He does have a h/o PVD with intervention with Dr. Castro at an outside facility. To continue on pletal and plavix. To f/u with Dr. Castro has been rescheduled for May 23, 2017. He previously recommended a repeat TIFFANIE and his follow-up date was rescheduled for early May. Additional procedures will be considered if there is a status change and continued nonhealing. I reviewed his previous notes from Dr. 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 subtotal SOFTWARE WRITER occlusion Left worse than right with reconstitution to mid popliteal and tibial distally. h/o right stent to old Right iliac stent. PREVENTIVE MEDICINE PHYSICIAN CVA and PREVENTIVE MEDICINE PHYSICIAN Left TIERRA through profunda. PVR right thigh 0.55, calf 0.46, PT 0.44 nand DF 0.51 biphasic and digital brachial index 0.26. left PT 0.42 monophasic, DP 0.5 biphasic, and digital brachial index 0.23. His venous studies were obtained with vein abnormalities noted; f/u with Dr. Castro; the plan is to monitor. To optimize his diet from a diabetes and protein supplement standpoint. He is demonstrating significant delays in healing and understands he is at continued risk for limb loss. Pending next vascular evaluation and potential recommendations he will be considered for a palliative care plan. He is already on a complex care plan at this time. To RTC 1 week or call sooner if problems or questions.
[2017-05-24 11:14] VITALS: BP 118/63; PULSE 71; RESP 16; TEMP 36.8
--- NOTE | 2017-05-24 15:37 | PN.PCM_ITS ---
(1) Ulcer of left lower extremity with fat layer exposed Status: Acute Code(s): L97.922 - Non-pressure chronic ulcer of unspecified part of left lower leg with fat layer exposed (2) Peripheral vascular disease Status: Chronic Code(s): I73.9 - Peripheral vascular disease, unspecified (3) Diabetes mellitus with polyneuropathy Status: Chronic Qualifiers: Diabetes mellitus type: type 2 Qualified Code(s): E11.42 - Type 2 diabetes mellitus with diabetic polyneuropathy Code(s): E11.42 - Type 2 diabetes mellitus with diabetic polyneuropathy (4) Malnutrition Status: Chronic Code(s): E46 - Unspecified protein-calorie malnutrition (5) 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 left ankle ulcer. Left leg. History of Wound: This 81 year old male returns to clinic for bilateral ankle ulcerations and left leg ulcer. He denies fever, chills, nausea, vomiting. These are chronic. He denies pain. He wore his offloading donuts this past week. He also wears protective leg sleeps that are patent to prevent skin tears. He applies Regranex daily to the ankle ulcers and Lisa to his leg wound. His caregiver is with him today and has confirmed his vascular surgery follow-up was May 04 and he missed it due to illness. This has been rescheduled for May 23 and his not request is still in process. Progress of Wound: Left leg wound. Stable right ankle. Stable left ankle - Physical Exam Vital Signs Temp Pulse Resp BP 98.2 F 71 16 118/63 05/24/17 11:14 05/24/17 11:14 05/24/17 11:14 05/24/17 11:14 General: Alert, Oriented x3, Cooperative Extremities: No cyanosis, Capillary Refill Less than 3 Seconds, No Calf Tenderness, Diminished Peripheral Pulses, Edema Skin: Ulcer/ Wound - No purulence, no erythema, no streaking, no infection, no kumar tissue loss. His skin is atrophic. Wound Measurements and Assessment - Nurse 1 - General Ulcer Measurement Start: 05/10/17 10:57 Freq: Status: Active Protocol: Activity Type Activity Date Activity User E-Sign Co-Sign Detail Recorded Client Recorded Date Recorded By Document 05/24/17 11:14 [facility] [id number] 05/24/17 11:28 [facility] 05/24/17 11:14 Wound Center Nurse 1 [Ulcer Assessment Protocol: KAT.WD.LOC] #11 L So -Combined with other wound No -Current Size (cm) - Length 0 -Current Size (cm) - Width 0 -Current Size (cm) - Depth 0 -Total Square Cm 0 -Epithelialization Large 67-100% #12 L Med Lower leg -Combined with other wound No -Current Size (cm) - Length 3.4 -Current Size (cm) - Width 1.3 -Current Size (cm) - Depth 0.1 -Total Square Cm 4.42 -Photo Taken No -Epithelialization Small 1-33% -Tunneling No -Undermining/Tunneling No -Exudate Amt Small (1-33%) -Exudate Type Serosanguineous -Wound Margin Distinct, Outline Attached -Granulation Amt Large (67-100%) -Granulation Quality Red -Slough/Fibrin No -Necrosis Amt None Present (0 %) -Structure Exposed None/Limited to Skin Breakdown -Texture (Shawanda-wound Skin Appearance) Scarring -Moisture (Shawanda-wound Skin Appearance Assessed ) -Color (Shawanda-wound Skin Appearance) Hemosiderin Staining -Temperature (Shawanda-wound Skin No Abnormality Appearance) (Pt Warm) -Tenderness on Palpation (Shawanda-wound No Skin Appearance) -Ulcer Cleansing Wound Cleanser -Foul Odor after Cleansing No -Anesthetic Used 5% Lidocaine Gel #2 L Med Ankle -Combined with other wound No -Current Size (cm) - Length 0.3 -Current Size (cm) - Width 0.4 -Current Size (cm) - Depth 0.1 -Total Square Cm 0.12 -Photo Taken No -Epithelialization Small 1-33% -Tunneling No -Undermining/Tunneling No -Exudate Amt Small (1-33%) -Exudate Type Serosanguineous -Wound Margin Distinct, Outline Attached -Granulation Amt Large (67-100%) -Granulation Quality [place] -Necrosis Amt Small (1-33%) -Necrotic Tissue Type Adherent Slough -Structure Exposed None/Limited to Skin Breakdown -Texture (Shawanda-wound Skin Appearance) Scarring -Moisture (Shawanda-wound Skin Appearance Assessed ) -Color (Shawanda-wound Skin Appearance) Erythema -Temperature (Shawanda-wound Skin No Abnormality Appearance) (Pt Warm) -Tenderness on Palpation (Shawanda-wound No Skin Appearance) -Ulcer Cleansing Wound Cleanser -Foul Odor after Cleansing No -Anesthetic Used 5% Lidocaine Gel #1 R Lat Ankle -Combined with other wound No -Current Size (cm) - Length 0.8 -Current Size (cm) - Width 0.3 -Current Size (cm) - Depth 0.2 -Total Square Cm 0.24 -Photo Taken No -Tunneling No -Undermining/Tunneling No -Exudate Amt Small (1-33%) -Exudate Type Serosanguineous -Wound Margin Distinct, Outline Attached -Granulation Amt None Present (0 %) -Slough/Fibrin Yes -Necrosis Amt Large (67-100%) -Necrotic Tissue Type Adherent Slough -Structure Exposed N/A -Texture (Shawanda-wound Skin Appearance) Scarring -Moisture (Shawanda-wound Skin Appearance Dry/Scaly ) -Color (Shawanda-wound Skin Appearance) Erythema -Temperature (Shawanda-wound Skin No Abnormality Appearance) (Pt Warm) -Tenderness on Palpation (Shawanda-wound No Skin Appearance) -Ulcer Cleansing Wound Cleanser -Foul Odor after Cleansing No -Anesthetic Used 5% Lidocaine Gel [Edema Assessment] -Lower Limb Edema Present Yes -Right Calf (cm) 33.7 -Right Ankle (cm) 22.3 -Left Calf (cm) 36.8 -Left Ankle (cm) 21.7 WC - Nurse 2 - General Ulcer CM Notes Start: 05/10/17 10:57 Freq: Status: Active Protocol: Activity Type Activity Date Activity User E-Sign Co-Sign Detail Recorded Client Recorded Date Recorded By Document 05/24/17 12:05 [id number] 05/24/17 12:07 05/24/17 12:05 Wound Center Nurse 2 [Procedure/Treatment] #12 L Med Lower leg -Time 12:05 -Correct Patient Yes -Correct Side, Site, Position Yes -Correct Procedure Yes -Procedure Performed Yes -Type of Procedure Debridement -Clinical Debridement Subcutaneous -Post Debridement Size (cm) - Length 3.5 -Post Debridement Size (cm) - Width 1.4 -Post Debridement Size (cm) - Depth 0.1 -Total Square Cm 4.90 -Wound/Ulcer Outcome Not Healed -Ulcer Cleansing Rinsed/ Irrigated with Saline -Foul Odor after Cleansing No -Bioengineered Tissue No -Cetacaine [place] No -Topical Lidocaine (%) 5 -Bleeding Controlled with Pressure -Treatment Response Procedure Tolerated Well #2 L Med Ankle -Time 12:06 -Correct Patient Yes -Correct Side, Site, Position Yes -Correct Procedure Yes -Procedure Performed Yes -Type of Procedure Debridement -Clinical Debridement Subcutaneous -Post Debridement Size (cm) - Length 0.4 -Post Debridement Size (cm) - Width 0.5 -Post Debridement Size (cm) - Depth 0.1 -Total Square Cm 0.20 -Wound/Ulcer Outcome Not Healed -Ulcer Cleansing Rinsed/ Irrigated with Saline -Foul Odor after Cleansing No -Bioengineered Tissue No -Cetacaine [place] No -Topical Lidocaine (%) 5 -Bleeding Controlled with Pressure -Treatment Response Procedure Tolerated Well #1 R Lat Ankle -Time 12:06 -Correct Patient Yes -Correct Side, Site, Position Yes -Correct Procedure Yes -Procedure Performed Yes -Type of Procedure Debridement -Clinical Debridement Subcutaneous -Post Debridement Size (cm) - Length 0.9 -Post Debridement Size (cm) - Width 0.3 -Post Debridement Size (cm) - Depth 0.2 -Total Square Cm 0.27 -Wound/Ulcer Outcome Not Healed -Ulcer Cleansing Rinsed/ Irrigated with Saline -Foul Odor after Cleansing No -Bioengineered Tissue No -Cetacaine [place] No -Topical Lidocaine (%) 5 -Bleeding Controlled with Pressure -Treatment Response Procedure Tolerated Well [See Physician Procedure note for Specifics] Pain Scale: 0-10 Numeric [Pain] -Is Patient Pain Free? Yes Musculoskeletal: Muscle Wasting Neurological: - - Lack of epicritic sensation light touch bilateral Psych/Mental Status: Normal Affect, Appropriate Debridement Note Post-Debridement Measurements/Treatment WC - Nurse 2 - General Ulcer CM Notes Start: 05/10/17 10:57 Freq: Status: Active Protocol: Activity Type Activity Date Activity User E-Sign Co-Sign Detail Recorded Client Recorded Date Recorded By Document 05/10/17 11:32 GHASSAN [id number] 05/10/17 11:36 JF Document 05/17/17 15:09 JF [id number] 05/17/17 15:12 JF Document 05/24/17 12:05 TM [id number] 05/24/17 12:07 TM 05/10/17 05/17/17 05/24/17 11:32 15:09 12:05 Wound Center Nurse 2 #11 L So -Time 11:33 15:09 -Correct Patient Yes Yes -Correct Side, Site, Position Yes Yes -Correct Procedure Yes Yes -Procedure Performed Yes Yes -Type of Procedure Debridement Debridement -Clinical Debridement Subcutaneous Subcutaneous -Post Debridement Size (cm) - Length 1 0.4 -Post Debridement Size (cm) - Width 0.8 0.4 -Post Debridement Size (cm) - Depth 0.1 0.1 -Total Square Cm 0.8 0.16 -Wound/Ulcer Outcome Not Healed Not Healed -Ulcer Cleansing Rinsed/ Rinsed/ Irrigated with Irrigated with Saline Saline -Foul Odor after Cleansing No No -Bioengineered Tissue No No -Cetacaine [place] No No -Bleeding Controlled with Pressure Pressure -Treatment Response Procedure Procedure Tolerated Well Tolerated Well #12 L Med Lower leg -Time 11:34 15:10 12:05 -Correct Patient Yes Yes Yes -Correct Side, Site, Position Yes Yes Yes -Correct Procedure Yes Yes Yes -Procedure Performed Yes Yes Yes -Type of Procedure Debridement Debridement Debridement -Clinical Debridement Subcutaneous Subcutaneous Subcutaneous -Post Debridement Size (cm) - Length 4.3 3.5 3.5 -Post Debridement Size (cm) - Width 3.8 1.3 1.4 -Post Debridement Size (cm) - Depth 0.1 0.1 0.1 -Total Square Cm 16.34 4.55 4.90 -Wound/Ulcer Outcome Not Healed Not Healed Not Healed -Ulcer Cleansing Rinsed/ Rinsed/ Rinsed/ Irrigated with Irrigated with Irrigated with Saline Saline Saline -Foul Odor after Cleansing No No No -Bioengineered Tissue No No No -Cetacaine [place] No No No -Topical Lidocaine (%) 5 -Bleeding Controlled with Pressure Pressure Pressure -Treatment Response Procedure Procedure Procedure Tolerated Well Tolerated Well Tolerated Well #10- RT GR TOE (SKIN TEAR) -Time 11:34 -Post Debridement Size (cm) - Length 0 -Post Debridement Size (cm) - Width 0 -Post Debridement Size (cm) - Depth 0 -Total Square Cm 0 -Wound/Ulcer Outcome Healed- Epithelialized #2 L Med Ankle -Time 11:34 15:10 12:06 -Correct Patient Yes Yes Yes -Correct Side, Site, Position Yes Yes Yes -Correct Procedure Yes Yes Yes -Procedure Performed Yes Yes Yes -Type of Procedure Debridement Debridement Debridement -Clinical Debridement Subcutaneous Subcutaneous Subcutaneous -Post Debridement Size (cm) - Length 0.5 0.4 0.4 -Post Debridement Size (cm) - Width 0.5 0.5 0.5 -Post Debridement Size (cm) - Depth 0.1 0.1 0.1 -Total Square Cm 0.25 0.20 0.20 -Wound/Ulcer Outcome Not Healed Not Healed Not Healed -Ulcer Cleansing Rinsed/ Rinsed/ Rinsed/ Irrigated with Irrigated with Irrigated with Saline Saline Saline -Foul Odor after Cleansing No No No -Bioengineered Tissue No No No -Cetacaine [place] No No No -Topical Lidocaine (%) 5 -Bleeding Controlled with Pressure Pressure Pressure -Treatment Response Procedure Procedure Procedure Tolerated Well Tolerated Well Tolerated Well #1 R Lat Ankle -Time 11:35 15:11 12:06 -Correct Patient Yes Yes Yes -Correct Side, Site, Position Yes Yes Yes -Correct Procedure Yes Yes Yes -Procedure Performed Yes Yes Yes -Type of Procedure Debridement Debridement Debridement -Clinical Debridement Subcutaneous Subcutaneous Subcutaneous -Post Debridement Size (cm) - Length 1 0.6 0.9 -Post Debridement Size (cm) - Width 0.6 0.5 0.3 -Post Debridement Size (cm) - Depth 0.2 0.1 0.2 -Total Square Cm 0.6 0.30 0.27 -Wound/Ulcer Outcome Not Healed Not Healed Not Healed -Ulcer Cleansing Rinsed/ Rinsed/ Rinsed/ Irrigated with Irrigated with Irrigated with Saline Saline Saline -Foul Odor after Cleansing No No No -Bioengineered Tissue No No No -Cetacaine [place] No No No -Topical Lidocaine (%) 5 -Bleeding Controlled with Pressure Pressure Pressure -Treatment Response Procedure Procedure Procedure Tolerated Well Tolerated Well Tolerated Well Pain Scale: 0-10 Numeric Is Patient Pain Free? Yes Yes Yes Wound debrided: Medial ankle Laterality: Left Wound Grade/Stage: Grade 1 Type of Debridement: Excisional debridement Anesthesia Used: 4% Lidocaine Solution Depth: in the subcutaneous layer Percentage of wound debrided: 100 Instrument Used: #15 blade Tissue Removed: Fibrous, devitalized subcutaneous, biofilm, slough Severity: Fat Layer Exposed Amount of bleeding with debridement: Mild Bleeding Controlled with: Pressure Patient tolerated procedure well - Additional Wound Wound debrided: Lateral ankle Laterality: Right Wound Grade/Stage: Grade 1 Type of Debridement: Excisional debridement Anesthesia Used: 4% Lidocaine Solution Depth: in the subcutaneous layer Percentage of wound debrided: 100 Instrument Used: #15 blade Tissue Removed: Fibrous, devitalized subcutaneous, biofilm, slough Severity: Fat Layer Exposed Amount of bleeding with debridement: Mild Bleeding Controlled with: Pressure Patient tolerated procedure: Patient tolerated procedure well - Additional Wound Wound debrided: Leg Laterality: Left Wound Grade/Stage: Grade 1 Type of Debridement: Excisional debridement Anesthesia Used: 4% Lidocaine Solution Depth: in the subcutaneous layer Percentage of wound debrided: 100 Instrument Used: #15 blade Tissue Removed: Fibrous, devitalized subcutaneous, biofilm, slough Severity: Fat Layer Exposed Amount of bleeding with debridement: Mild Bleeding Controlled with: Pressure Patient tolerated procedure: Patient tolerated procedure well Assessment/Plan Assessment: lateral right ankle ulcer with fat layer exposed. medial left ankle ulcer with fat layer exposed. Left leg ulcer with fat layer exposed. Uncontrolled diabetes with neuropathy. peripheral vascular disease. lower extremity edema. malnutrition. continued fall risk Plan: I reviewed and discussed his case. Subcutaneous debridement was performed to the right and left ankle ulcers and the left leg also. I educated him on the importance of offloading. To continue to wear offloading donut and protective leg sleeves bilateral. Return to regranex daily use to the ankles. To apply hydrogel with collagen and Adaptic to the left leg. His last set of labs were also reviewed including CBC (9.7), CMP, hemoglobin A1C 14.0 to assess medical stability and healing potential. This was reviewed already. His labs will be updated at this time and the following were ordered: CBC, CMP, prealbumin. His hemoglobin A1c was 8% which demonstrates uncontrolled daily blood sugars. He does have a h/o PVD with intervention with Dr. Castro at an outside facility. To continue on pletal and plavix. To f/u with Dr. Castro has been rescheduled for May 23, 2017. He previously recommended a repeat TIFFANIE and his follow-up date was rescheduled for early May. Additional procedures will be considered if there is a status change and continued nonhealing. I reviewed his previous notes from Dr. 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 h/o right stent to old Right iliac stent. 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 PVR right thigh 0.55, calf 0.46, PT 0.44 nand DF 0.51 biphasic and digital brachial index 0.26. left PT 0.42 monophasic, DP 0.5 biphasic, and digital brachial index 0.23. His venous studies were obtained with vein abnormalities noted; f/u with Dr. Castro; the plan is to monitor. Notes are requested and his forward going plan will be modified accordingly. To optimize his diet from a diabetes and protein supplement standpoint. He is demonstrating significant delays in healing and understands he is at continued risk for limb loss. . To RTC 1 week or call sooner if problems or questions.
== END 2017-05-31 23:59 ==
LOC: WC 11:00
PROVIDERS: Visit Provider Podiatrist
DX: E11.622 Type 2 diabetes mellitus with other skin ulcer (principal); L97.322 Non-pressure chronic ulcer of left ankle with fat layer exposed; E11.51 Type 2 diabetes mellitus with diabetic peripheral angiopathy without gangrene; E11.42 Type 2 diabetes mellitus with diabetic polyneuropathy; L97.312 Non-pressure chronic ulcer of right ankle with fat layer exposed; L97.822 Non-pressure chronic ulcer of other part of left lower leg with fat layer exposed; E11.65 Type 2 diabetes mellitus with hyperglycemia; R60.0 Localized edema
CPT/HCPCS: 11042

== ENCOUNTER → 2017-06-14 05:00 | Outpatient (REF) | payer MEDICARE, OTHER, SELFPAY ==
[2017-06-14 09:23] LABS: Hematocrit 32.9 % (40-54); Hemoglobin 10.2 g/dl (13.0-16.5); Mean Corpuscular Hgb 30.2 pg (27.0-32.0); Mean Corpuscular Volume 97.3 fL (80-94); Mean Platelet Vol. 12.1 fl (6.2-12.0); Platelet Count 143 K/mm3 (150-450); RBC Distribution Width SD 50.6 fl (35.1-43.9); Red Blood Count 3.38 M/mm3 (4.6-6.2); White Blood Count 4.8 K/mm3 (4.4-11.0)
[2017-06-14 09:26] LABS: Scan Indicated on CBC? Y/N NO
[2017-06-14 09:32] LABS: Anion Gap 7 (5-15); BUN 23 mg/dL (7-18); BUN/Creat Ratio 21.3 RATIO (10-20); Chloride 102 mmol/L (98-107); Creatinine, Serum 1.08 mg/dL (0.70-1.30); EST Glomerular Filtration Rate 69 mL/min (>60); Est Glom Filt Rate - Afr Amer 84 mL/min (>60); Glucose 130 mg/dL (74-106); Potassium 4.2 mmol/L (3.5-5.1); Sodium Level 138 mmol/L (136-145)
== END ==
LOC: OLS.WHLCAR 05:00
PROVIDERS: Visit Provider Family Medicine
DX: E11.9 Type 2 diabetes mellitus without complications (principal); E78.5 Hyperlipidemia, unspecified; J44.9 Chronic obstructive pulmonary disease, unspecified; I11.0 Hypertensive heart disease with heart failure; I50.9 Heart failure, unspecified
CPT/HCPCS: 36415; 80048; 85027

== ENCOUNTER → 2017-07-12 05:00 | Outpatient (REF) | payer MEDICARE, OTHER, SELFPAY ==
[2017-07-12 09:20] LABS: Anion Gap 7 (5-15); BUN 16 mg/dL (7-18); BUN/Creat Ratio 16.4 RATIO (10-20); Calcium,Total 8.3 mg/dL (8.5-10.1); Chloride 104 mmol/L (98-107); Creatinine, Serum 0.98 mg/dL (0.70-1.30); EST Glomerular Filtration Rate 78 mL/min (>60); Est Glom Filt Rate - Afr Amer 94 mL/min (>60); Glucose 106 mg/dL (74-106); Potassium 3.1 mmol/L (3.5-5.1); Sodium Level 142 mmol/L (136-145)
[2017-07-12 09:23] LABS: Hematocrit 30.5 % (40-54); Hemoglobin 9.3 g/dl (13.0-16.5); Mean Corp Hgb Conc 30.5 g/gl (32-36); Mean Corpuscular Hgb 30.5 pg (27.0-32.0); Mean Platelet Vol. 11.7 fl (6.2-12.0); Platelet Count 131 K/mm3 (150-450); RBC Distribution Width CV 14.9 % (11.6-14.6); RBC Distribution Width SD 52.5 fl (35.1-43.9); Red Blood Count 3.05 M/mm3 (4.6-6.2); Scan Indicated on CBC? Y/N NO; White Blood Count 5.5 K/mm3 (4.4-11.0)
[2017-07-12 09:32] LABS: BNP,B-Type NATRIURETIC PEPTIDE 700.3 pg/mL (0-100)
== END ==
LOC: OLS.WHLCAR 05:00
PROVIDERS: Visit Provider Family Medicine
DX: Z03.89 Encounter for observation for other suspected diseases and conditions ruled out (principal)
CPT/HCPCS: 36415; 80048; 83880; 85027

== ENCOUNTER → 2017-07-14 05:00 | Outpatient (REF) | payer MEDICARE, OTHER, SELFPAY ==
[2017-07-14 08:06] LABS: ALB/GLOB Ratio 0.9 RATIO (0.9-2.4); AST(SGOT) 17 U/L (15-37); Alanine Aminotransfer ALT/SGPT 32 U/L (16-61); Albumin, Serum 3.1 g/dL (3.2-5.0); Alkaline Phosphatase 182 U/L (45-117); Anion Gap 6 (5-15); BUN 16 mg/dL (7-18); BUN/Creat Ratio 15.4 RATIO (10-20); Calcium,Total 8.5 mg/dL (8.5-10.1); Chloride 104 mmol/L (98-107); Creatinine, Serum 1.04 mg/dL (0.70-1.30); EST Glomerular Filtration Rate 73 mL/min (>60); Est Glom Filt Rate - Afr Amer 88 mL/min (>60); Globulin 3.4 g/dL (2.2-4.2); Glucose 97 mg/dL (74-106); Potassium 3.5 mmol/L (3.5-5.1); Protein, Total 6.5 g/dL (6.4-8.2); Sodium Level 145 mmol/L (136-145)
[2017-07-14 08:10] LABS: International Normalized Ratio 1.2; Prothrombin Time (Protime)PT. 15.5 SECONDS (11.7-14.9)
== END ==
LOC: OLS.WHLCAR 05:00
PROVIDERS: Visit Provider Family Medicine
DX: Z79.01 Long term (current) use of anticoagulants (principal); Z79.899 Other long term (current) drug therapy
CPT/HCPCS: 36415; 80053; 85610

== ENCOUNTER → 2017-07-19 05:00 | Outpatient (REF) | payer MEDICARE, OTHER, SELFPAY ==
[2017-07-19 08:46] LABS: Anion Gap 6 (5-15); BUN 19 mg/dL (7-18); Calcium,Total 9.1 mg/dL (8.5-10.1); Chloride 98 mmol/L (98-107); Creatinine, Serum 1.12 mg/dL (0.70-1.30); EST Glomerular Filtration Rate 67 mL/min (>60); Est Glom Filt Rate - Afr Amer 81 mL/min (>60); Glucose 124 mg/dL (74-106); Potassium 3.7 mmol/L (3.5-5.1); Sodium Level 140 mmol/L (136-145)
[2017-07-19 09:13] LABS: BNP,B-Type NATRIURETIC PEPTIDE 728.2 pg/mL (0-100)
== END ==
LOC: OLS.WHLCAR 05:00
PROVIDERS: Visit Provider Family Medicine
DX: I50.9 Heart failure, unspecified (principal)
CPT/HCPCS: 36415; 80048; 83880

== ENCOUNTER → 2017-07-22 01:30 | Outpatient (REF) | payer MEDICARE, OTHER, SELFPAY | LOC: OLS.WHLCAR 01:30 | PROVIDERS: Visit Provider Family Medicine | DX: J18.9 Pneumonia, unspecified organism (principal) | CPT/HCPCS: 87449 ==

== ENCOUNTER → 2017-07-26 05:00 | Outpatient (REF) | payer MEDICARE, OTHER, SELFPAY ==
[2017-07-26 08:48] LABS: Anion Gap 6 (5-15); BUN 21 mg/dL (7-18); BUN/Creat Ratio 17.9 RATIO (10-20); Calcium,Total 9.1 mg/dL (8.5-10.1); Chloride 98 mmol/L (98-107); Creatinine, Serum 1.17 mg/dL (0.70-1.30); EST Glomerular Filtration Rate 63 mL/min (>60); Est Glom Filt Rate - Afr Amer 77 mL/min (>60); Glucose 146 mg/dL (74-106); Potassium 3.6 mmol/L (3.5-5.1); Sodium Level 138 mmol/L (136-145)
[2017-07-26 09:10] LABS: BNP,B-Type NATRIURETIC PEPTIDE 451.4 pg/mL (0-100)
== END ==
LOC: OLS.WHLCAR 05:00
PROVIDERS: Visit Provider Family Medicine
DX: I11.0 Hypertensive heart disease with heart failure (principal); I50.9 Heart failure, unspecified; E11.9 Type 2 diabetes mellitus without complications; E78.5 Hyperlipidemia, unspecified; J44.9 Chronic obstructive pulmonary disease, unspecified
CPT/HCPCS: 36415; 80048; 83880

== ENCOUNTER → 2017-09-11 06:55 | Outpatient (REF) | payer MEDICARE, OTHER, SELFPAY ==
[2017-09-11 09:25] LABS: Hematocrit 32.4 % (40-54); Hemoglobin 10.6 g/dl (13.0-16.5); Mean Corp Hgb Conc 32.7 g/gl (32-36); Mean Corpuscular Hgb 31.2 pg (27.0-32.0); Mean Corpuscular Volume 95.3 fL (80-94); Mean Platelet Vol. 11.8 fl (6.2-12.0); Platelet Count 170 K/mm3 (150-450); RBC Distribution Width CV 13.6 % (11.6-14.6); RBC Distribution Width SD 45.2 fl (35.1-43.9); White Blood Count 8.1 K/mm3 (4.4-11.0)
[2017-09-11 09:29] LABS: Scan Indicated on CBC? Y/N NO
[2017-09-11 09:29] LABS: Color, Urine Yellow (Yellow); Glucose, Dipstick 100 mg/dl (Normal); Ketone-Dipstick Negative (Negative); Leukocyte Esterase-Dipstick 500 /ul (Negative); Nitrite-Dipstick Negative (Negative); Occult Blood-Urine 250 /ul (Negative); Protein-Dipstick 30 mg/dl (Negative); Specific Gravity, Urine 1.015 (1.002-1.030); Urine Bilirubin Dipstick Negative (Negative); Urine Clarity Clear (Clear); Urine Urobilinogen Normal (Normal)
[2017-09-11 09:33] LABS: Anion Gap 11 (5-15); BUN 76 mg/dL (7-18); BUN/Creat Ratio 41.1 RATIO (10-20); Calcium,Total 9.5 mg/dL (8.5-10.1); Chloride 102 mmol/L (98-107); Creatinine, Serum 1.85 mg/dL (0.70-1.30); EST Glomerular Filtration Rate 37 mL/min (>60); Est Glom Filt Rate - Afr Amer 45 mL/min (>60); Glucose 246 mg/dL (74-106); Potassium 4.9 mmol/L (3.5-5.1); Sodium Level 136 mmol/L (136-145)
[2017-09-11 10:02] LABS: Hemoglobin A1c 9.4 % (4.2-6.3)
== END ==
LOC: OLS.WHLCAR 06:55
PROVIDERS: Visit Provider Family Medicine
DX: I11.0 Hypertensive heart disease with heart failure (principal); I50.9 Heart failure, unspecified; J44.9 Chronic obstructive pulmonary disease, unspecified; E11.9 Type 2 diabetes mellitus without complications; E78.5 Hyperlipidemia, unspecified; N40.0 Benign prostatic hyperplasia without lower urinary tract symptoms
CPT/HCPCS: 36415; 80048; 81002; 83036; 85027; 87086; 87088

== ENCOUNTER → 2017-09-15 05:30 | Outpatient (REF) | payer MEDICARE, OTHER, SELFPAY ==
[2017-09-15 07:25] LABS: Anion Gap 8 (5-15); BUN 89 mg/dL (7-18); BUN/Creat Ratio 37.4 RATIO (10-20); Chloride 101 mmol/L (98-107); Creatinine, Serum 2.38 mg/dL (0.70-1.30); EST Glomerular Filtration Rate 28 mL/min (>60); Est Glom Filt Rate - Afr Amer 34 mL/min (>60); Glucose 199 mg/dL (74-106); Potassium 5.4 mmol/L (3.5-5.1); Sodium Level 134 mmol/L (136-145)
== END ==
LOC: OLS.WHLCAR 05:30
PROVIDERS: Visit Provider Family Medicine
DX: I11.0 Hypertensive heart disease with heart failure (principal); I50.9 Heart failure, unspecified; J44.9 Chronic obstructive pulmonary disease, unspecified; E11.9 Type 2 diabetes mellitus without complications
CPT/HCPCS: 36415; 80048

== ENCOUNTER → 2017-09-16 13:00 | Outpatient (REF) | payer MEDICARE, OTHER, SELFPAY ==
[2017-09-16 14:34] LABS: Bacteria 0 SEEN /hpf (None Seen); Mucous, Urine 0 SEEN /hpf (<or=2+); Red Blood Cells-Urine 0 SEEN /hpf (0-5); Squamous Epithelial Cells - UA 0 SEEN /hpf (0-5)
[2017-09-16 14:40] LABS: Color, Urine Yellow (Yellow); Glucose, Dipstick Normal (Normal); Ketone-Dipstick 5 mg/dl (Negative); Leukocyte Esterase-Dipstick 500 /ul (Negative); Nitrite-Dipstick Negative (Negative); Occult Blood-Urine 250 /ul (Negative); Protein-Dipstick 100 mg/dl (Negative); Urine Bilirubin Dipstick Negative (Negative); Urine Clarity Turbid (Clear); Urine Urobilinogen Normal (Normal)
[2017-09-16 14:46] LABS: White Blood Cells 0-5 SEEN /hpf (0-5)
== END ==
LOC: OLS.WHLCAR 13:00
PROVIDERS: Visit Provider Family Medicine
DX: N39.0 Urinary tract infection, site not specified (principal)
CPT/HCPCS: 81001; 87086; 87088

== ENCOUNTER → 2017-09-18 05:00 | Outpatient (REF) | payer MEDICARE, OTHER, SELFPAY ==
[2017-09-18 09:42] LABS: Hematocrit 30.4 % (40-54); Hemoglobin 9.9 g/dl (13.0-16.5); Mean Corp Hgb Conc 32.6 g/gl (32-36); Mean Corpuscular Volume 95.3 fL (80-94); Mean Platelet Vol. 10.8 fl (6.2-12.0); Platelet Count 198 K/mm3 (150-450); RBC Distribution Width CV 13.6 % (11.6-14.6); RBC Distribution Width SD 44.6 fl (35.1-43.9); Red Blood Count 3.19 M/mm3 (4.6-6.2); White Blood Count 10.2 K/mm3 (4.4-11.0)
[2017-09-18 09:45] LABS: Scan Indicated on CBC? Y/N NO
[2017-09-18 10:01] LABS: BUN 77 mg/dL (7-18); Creatinine, Serum 1.55 mg/dL (0.70-1.30); Glucose 162 mg/dL (74-106)
[2017-09-18 10:02] LABS: Anion Gap 10 (5-15); BUN/Creat Ratio 49.7 RATIO (10-20); Calcium,Total 9.1 mg/dL (8.5-10.1); Chloride 106 mmol/L (98-107); EST Glomerular Filtration Rate 46 mL/min (>60); Est Glom Filt Rate - Afr Amer 55 mL/min (>60); Potassium 5.4 mmol/L (3.5-5.1); Sodium Level 139 mmol/L (136-145)
== END ==
LOC: OLS.WHLCAR 05:00
PROVIDERS: Visit Provider Family Medicine
DX: E11.9 Type 2 diabetes mellitus without complications (principal); I11.0 Hypertensive heart disease with heart failure; I50.9 Heart failure, unspecified
CPT/HCPCS: 36415; 80048; 85027

== ENCOUNTER → 2017-09-20 05:00 | Outpatient (REF) | payer MEDICARE, OTHER, SELFPAY ==
[2017-09-20 08:41] LABS: ALB/GLOB Ratio 0.7 RATIO (0.9-2.4); AST(SGOT) 24 U/L (15-37); Alanine Aminotransfer ALT/SGPT 45 U/L (16-61); Albumin, Serum 2.4 g/dL (3.2-5.0); Alkaline Phosphatase 105 U/L (45-117); Anion Gap 8 (5-15); BUN 59 mg/dL (7-18); BUN/Creat Ratio 43.4 RATIO (10-20); Calcium,Total 7.4 mg/dL (8.5-10.1); Chloride 100 mmol/L (98-107); Creatinine, Serum 1.36 mg/dL (0.70-1.30); EST Glomerular Filtration Rate 53 mL/min (>60); Est Glom Filt Rate - Afr Amer 64 mL/min (>60); Globulin 3.3 g/dL (2.2-4.2); Glucose 170 mg/dL (74-106); Potassium 4.5 mmol/L (3.5-5.1); Protein, Total 5.7 g/dL (6.4-8.2); Sodium Level 129 mmol/L (136-145)
[2017-09-20 08:45] LABS: Hematocrit 27.3 % (40-54); Hemoglobin 8.6 g/dl (13.0-16.5); Mean Corp Hgb Conc 31.5 g/gl (32-36); Mean Corpuscular Hgb 30.5 pg (27.0-32.0); Mean Corpuscular Volume 96.8 fL (80-94); Platelet Count 189 K/mm3 (150-450); RBC Distribution Width CV 13.5 % (11.6-14.6); Red Blood Count 2.82 M/mm3 (4.6-6.2); White Blood Count 9.4 K/mm3 (4.4-11.0)
[2017-09-20 08:46] LABS: Scan Indicated on CBC? Y/N NO
== END ==
LOC: OLS.WHLCAR 05:00
PROVIDERS: Visit Provider Family Medicine
DX: I50.9 Heart failure, unspecified (principal)
CPT/HCPCS: 36415; 80053; 85027

== ENCOUNTER → 2017-10-11 19:45 | Outpatient (REF) | payer MEDICARE, OTHER, SELFPAY ==
[2017-10-12 08:59] LABS: Color, Urine Yellow (Yellow); Glucose, Dipstick Normal (Normal); Ketone-Dipstick Negative (Negative); Leukocyte Esterase-Dipstick 500 /ul (Negative); Nitrite-Dipstick Negative (Negative); Occult Blood-Urine 50 /ul (Negative); Protein-Dipstick 100 mg/dl (Negative); Specific Gravity, Urine 1.015 (1.002-1.030); Urine Bilirubin Dipstick Negative (Negative); Urine Clarity Cloudy (Clear); Urine Urobilinogen Normal (Normal)
[2017-10-12 09:08] LABS: Bacteria 4+ /hpf (None Seen); Mucous, Urine RARE /hpf (<or=2+); Red Blood Cells-Urine 0-5 SEEN /hpf (0-5); Squamous Epithelial Cells - UA 0-5 SEEN /hpf (0-5); White Blood Cells 10-25 SEEN /hpf (0-5)
== END ==
LOC: OLS.WHLCAR 19:45
PROVIDERS: Visit Provider Family Medicine
DX: N40.0 Benign prostatic hyperplasia without lower urinary tract symptoms (principal); J44.9 Chronic obstructive pulmonary disease, unspecified
CPT/HCPCS: 81001; 87077; 87086; 87088; 87186

== ENCOUNTER → 2017-11-24 06:50 | Outpatient (REF) | payer MEDICARE, OTHER, SELFPAY ==
[2017-11-24 07:51] LABS: Anion Gap 7 (5-15); BUN 49 mg/dL (7-18); BUN/Creat Ratio 32.7 RATIO (10-20); Calcium,Total 8.8 mg/dL (8.5-10.1); Chloride 103 mmol/L (98-107); EST Glomerular Filtration Rate 48 mL/min (>60); Est Glom Filt Rate - Afr Amer 58 mL/min (>60); Glucose 175 mg/dL (74-106); Potassium 4.5 mmol/L (3.5-5.1); Sodium Level 140 mmol/L (136-145)
== END ==
LOC: OLS.WHLCAR 06:50
PROVIDERS: Visit Provider Family Medicine
DX: I50.9 Heart failure, unspecified (principal); N18.9 Chronic kidney disease, unspecified
CPT/HCPCS: 36415; 80048

== ENCOUNTER → 2017-12-12 05:00 | Outpatient (REF) | payer MEDICARE, OTHER, SELFPAY ==
[2017-12-12 10:21] LABS: Hematocrit 30.7 % (40-54); Hemoglobin 9.8 g/dl (13.0-16.5); Mean Corp Hgb Conc 31.9 g/gl (32-36); Mean Corpuscular Hgb 32.9 pg (27.0-32.0); Platelet Count 181 K/mm3 (150-450); RBC Distribution Width CV 12.5 % (11.6-14.6); RBC Distribution Width SD 45.9 fl (35.1-43.9); Red Blood Count 2.98 M/mm3 (4.6-6.2); White Blood Count 6.2 K/mm3 (4.4-11.0)
[2017-12-12 10:39] LABS: Scan Indicated on CBC? Y/N NO
[2017-12-12 11:11] LABS: Anion Gap 10 (5-15); BUN 53 mg/dL (7-18); BUN/Creat Ratio 32.3 RATIO (10-20); Calcium,Total 9.2 mg/dL (8.5-10.1); Chloride 101 mmol/L (98-107); Creatinine, Serum 1.64 mg/dL (0.70-1.30); EST Glomerular Filtration Rate 43 mL/min (>60); Est Glom Filt Rate - Afr Amer 52 mL/min (>60); Glucose 186 mg/dL (74-106); Potassium 4.3 mmol/L (3.5-5.1); Sodium Level 136 mmol/L (136-145)
== END ==
LOC: OLS.WHLCAR 05:00
PROVIDERS: Visit Provider Family Medicine
DX: I50.9 Heart failure, unspecified (principal); E11.9 Type 2 diabetes mellitus without complications; I10 Essential (primary) hypertension; E78.5 Hyperlipidemia, unspecified; J44.9 Chronic obstructive pulmonary disease, unspecified
CPT/HCPCS: 36415; 80048; 85027

== ENCOUNTER → 2018-03-05 05:00 | Outpatient (REF) | payer MEDICARE, OTHER, SELFPAY ==
[2018-03-05 08:42] LABS: Hematocrit 29.7 % (40-54); Hemoglobin 9.1 g/dl (13.0-16.5); Mean Corp Hgb Conc 30.6 g/gl (32-36); Mean Corpuscular Hgb 31.5 pg (27.0-32.0); Mean Corpuscular Volume 102.8 fL (80-94); Mean Platelet Vol. 11.1 fl (6.2-12.0); Platelet Count 156 K/mm3 (150-450); RBC Distribution Width CV 12.9 % (11.6-14.6); RBC Distribution Width SD 47.4 fl (35.1-43.9); Red Blood Count 2.89 M/mm3 (4.6-6.2); White Blood Count 6.8 K/mm3 (4.4-11.0)
[2018-03-05 08:48] LABS: Anion Gap 7 (5-15); BUN 30 mg/dL (7-18); BUN/Creat Ratio 24.6 RATIO (10-20); Calcium,Total 8.7 mg/dL (8.5-10.1); Chloride 103 mmol/L (98-107); Creatinine, Serum 1.22 mg/dL (0.70-1.30); EST Glomerular Filtration Rate 60 mL/min (>60); Est Glom Filt Rate - Afr Amer 73 mL/min (>60); Glucose 135 mg/dL (74-106); Potassium 3.6 mmol/L (3.5-5.1); Sodium Level 144 mmol/L (136-145)
[2018-03-05 08:50] LABS: Scan Indicated on CBC? Y/N NO
== END ==
LOC: OLS.WHLCAR 05:00
PROVIDERS: Visit Provider Family Medicine
DX: I50.9 Heart failure, unspecified (principal)
CPT/HCPCS: 36415; 80048; 85027

== ENCOUNTER → 2018-03-15 05:00 | Outpatient (REF) | payer MEDICARE, OTHER, SELFPAY ==
[2018-03-15 08:54] LABS: Anion Gap 7 (5-15); BUN 27 mg/dL (7-18); BUN/Creat Ratio 20.5 RATIO (10-20); Calcium,Total 8.5 mg/dL (8.5-10.1); Chloride 102 mmol/L (98-107); Creatinine, Serum 1.32 mg/dL (0.70-1.30); EST Glomerular Filtration Rate 55 mL/min (>60); Est Glom Filt Rate - Afr Amer 67 mL/min (>60); Glucose 144 mg/dL (74-106); Hematocrit 28.2 % (40-54); Hemoglobin 8.6 g/dl (13.0-16.5); Mean Corp Hgb Conc 30.5 g/gl (32-36); Mean Corpuscular Hgb 31.5 pg (27.0-32.0); Mean Corpuscular Volume 103.3 fL (80-94); Mean Platelet Vol. 11.6 fl (6.2-12.0); Platelet Count 162 K/mm3 (150-450); Potassium 3.8 mmol/L (3.5-5.1); RBC Distribution Width CV 13.2 % (11.6-14.6); RBC Distribution Width SD 47.9 fl (35.1-43.9); Red Blood Count 2.73 M/mm3 (4.6-6.2); Sodium Level 142 mmol/L (136-145); White Blood Count 5.8 K/mm3 (4.4-11.0)
[2018-03-15 09:02] LABS: Scan Indicated on CBC? Y/N NO
[2018-03-15 09:18] LABS: Hemoglobin A1c 7.6 % (4.2-6.3)
== END ==
LOC: OLS.WHLCAR 05:00
PROVIDERS: Visit Provider Family Medicine
DX: I11.0 Hypertensive heart disease with heart failure (principal); I50.9 Heart failure, unspecified; J44.9 Chronic obstructive pulmonary disease, unspecified; E11.9 Type 2 diabetes mellitus without complications; I10 Essential (primary) hypertension; E78.5 Hyperlipidemia, unspecified
CPT/HCPCS: 36415; 80048; 83036; 85027

== ENCOUNTER → 2018-04-02 04:00 | Outpatient (REF) | payer MEDICARE, OTHER, SELFPAY ==
[2018-04-02 07:55] LABS: Anion Gap 8 (5-15); BUN 105 mg/dL (7-18); BUN/Creat Ratio 52.8 RATIO (10-20); Chloride 100 mmol/L (98-107); Creatinine, Serum 1.99 mg/dL (0.70-1.30); EST Glomerular Filtration Rate 34 mL/min (>60); Est Glom Filt Rate - Afr Amer 41 mL/min (>60); Glucose 242 mg/dL (74-106); Potassium 4.8 mmol/L (3.5-5.1); Sodium Level 137 mmol/L (136-145)
[2018-04-02 08:10] LABS: Hematocrit 29.2 % (40-54); Hemoglobin 9.3 g/dl (13.0-16.5); Mean Corp Hgb Conc 31.8 g/gl (32-36); Mean Corpuscular Hgb 31.7 pg (27.0-32.0); Mean Corpuscular Volume 99.7 fL (80-94); Mean Platelet Vol. 12.3 fl (6.2-12.0); Platelet Count 150 K/mm3 (150-450); RBC Distribution Width CV 13.1 % (11.6-14.6); RBC Distribution Width SD 46.1 fl (35.1-43.9); Red Blood Count 2.93 M/mm3 (4.6-6.2); White Blood Count 7.5 K/mm3 (4.4-11.0)
[2018-04-02 08:24] LABS: Scan Indicated on CBC? Y/N NO
--- OUTSIDE RECORDS SUMMARY | 2018-05-26 02:38 | XMS RPT_ITS ---
:1935 Author Organization [place] Support Name Relationship Address Phone Erwin Laia Unavailable [address] + [place] [address] Judy Ojeda Unavailable [address] + [place] [address] R Unavailable Unavailable Unavailable Luke, Khushi Unavailable [address] + [place] [address] HardeepDillon stantone Unavailable [address] + [place] [address] R Unavailable Unavailable Unavailable Luke, Khushi Unavailable [address] + [place] [address] Judy Ojeda Unavailable [address] + [place] [address] R Unavailable Unavailable Unavailable Luke, Khushi Unavailable [address] + [place] [address] Dillon Ojedae Unavailable [address] + [place] [address] R Unavailable Unavailable Unavailable Luke, Kuhshi Unavailable [address] + [place] [address] Dillon Ojedae Unavailable [address] + [place] [address] R Unavailable Unavailable Unavailable Luke, Khushi Unavailable [address] + [place] [address] Dillon Ojedae Unavailable [address] + [place] [address] R Unavailable Unavailable Unavailable Luke, Khushi Unavailable [address] + [place] [address] HardeepDillon stantone Unavailable [address] + [place] [address] R Unavailable Unavailable Unavailable Luke, Khushi Unavailable [address] + [place] [address] HardeepDillon stantone Unavailable [address] + [place] [address] R Unavailable Unavailable Unavailable Luke, Khushi Unavailable [address] + [place] [address] Hardeep Judy Unavailable [address] + [place] [address] R Unavailable Unavailable Unavailable Luke, Khushi Unavailable [address] + [place] [address] Hardeep Judy Unavailable [address] + [place] [address] R Unavailable Unavailable Unavailable Luke, Khushi Unavailable [address] + [place] [address] Hardeep Ujdy Unavailable [address] + [place] [address] R Unavailable Unavailable Unavailable Luke, Khushi Unavailable [address] + [place] [address] HardeepDillon stantone Unavailable [address] + [place] [address] R Unavailable Unavailable Unavailable Luke, Khushi Unavailable [address] + [place] [address] Hardeep Judy Unavailable [address] + [place] [address] R Unavailable Unavailable Unavailable Luke, Khushi Unavailable [address] + [place] [address] Hardeep Judy Unavailable [address] + [place] [address] R Unavailable Unavailable Unavailable Luke, Khushi Unavailable [address] + [place] [address] Hardeep Judy Unavailable [address] + [place] [address] R Unavailable Unavailable Unavailable Luke, Khushi Unavailable [address] + [place] [address] Hardeep Judy Unavailable [address] + [place] [address] R Unavailable Unavailable Unavailable Luke, Khushi Unavailable [address] + [place] [address] Dillon Ojedae Unavailable [address] + [place] [address] R Unavailable Unavailable Unavailable Luke, Khushi Unavailable [address] + [place] [address] HardeepDillone Unavailable [address] + [place] [address] R Unavailable Unavailable Unavailable Luke, Khushi Unavailable [address] + [place] [address] HardeepDillone Unavailable [address] + [place] [address] R Unavailable Unavailable Unavailable Lkue, Khushi Unavailable [address] + [place] [address] HardeepDillon stantone Unavailable [address] + [place] [address] R Unavailable Unavailable Unavailable Luke, Khushi Unavailable [address] + [place] [address] HardeepDillon stantone Unavailable [address] + [place] [address] R Unavailable Unavailable Unavailable Luke, Khushi Unavailable [address] + [place] [address] HardeepDillone Unavailable [address] + [place] [address] R Unavailable Unavailable Unavailable Luke, Khushi Unavailable [facility] [address] + [place] [address] Dillon Ojedae Unavailable [address] + [place] [address] R Unavailable Unavailable Unavailable Luke, Khushi Unavailable [address] + [place] [address] HardeepDillon stantone Unavailable [address] + [place] [address] R Unavailable Unavailable Unavailable Luke, Khushi Unavailable [address] + [place] [address] HardeepDillon stantone Unavailable [address] + [place] [address] R Unavailable Unavailable Unavailable Luke, Khushi Unavailable [facility] [address] + [place] [address] Judy Ojeda Unavailable [address] + [place] [address] R Unavailable Unavailable Unavailable KHUSHI LAI Unavailable [facility] [address] + [place] [address] JUDY OJEDA Unavailable [address] + [place] [address] R Unavailable Unavailable Unavailable Care Team Providers Name Role Phone Xavier Cohen Attending Unavailable Fascione, Isamar Attending Unavailable Soto, Itz Primary Care Unavailable Fascione, Isamar Attending Unavailable Castro, José Antonio Stevenson Attending Unavailable Cohen, Xavier Primary Care Unavailable Cohen, Xavier Attending Unavailable Fascione, Isamar Attending Unavailable Cohen, Xavier Attending Unavailable Fascione, Isamar Attending Unavailable Cohen, Xavier Attending Unavailable Cohen, Xavier Attending Unavailable Cohen, Xavier Attending Unavailable Cohen, Xavier Attending Unavailable Cohen, Xavier Attending Unavailable Cohen, Xavier Attending Unavailable Cohen, Xavier Attending Unavailable Cohen, Xavier Attending Unavailable Cohen, Xavier Attending Unavailable Cohen, Xavier Attending Unavailable Cohen, Xavier Attending Unavailable Cohen, Xavier Attending Unavailable Cohen, Xavier Attending Unavailable Cohen, Xavier Attending Unavailable Cohen, Xavier Attending Unavailable Cohen, Xavier Attending Unavailable Cohen, Xavier Attending Unavailable Cohen, Xavier Attending Unavailable Cohen, Xavier Attending Unavailable PROBLEMS PROBLEMS DATE TYPE CONDITION / CODE ATTENDING STATUS SOURCE 04/12/2018 Unknown I50.9 - Heart Xavier Cohen Active [place] failure, unspecified Community / I50.9(ICD-10) Hospital Repository 04/05/2018 Unknown E11.9 - Type 2 Xavier Cohen Active [place] diabetes mellitus Community without complications Hospital / E11.9(ICD-10) Repository 04/05/2018 Unknown I10 - Essential Xavier Cohen Active [place] (primary) Community hypertension / Hospital I10(ICD-10) Repository 04/05/2018 Unknown E78.5 - Cohen, Xavier Active [place] Hyperlipidemia, Community unspecified / Hospital E78.5(ICD-10) Repository 04/05/2018 Unknown J44.9 - Chronic Xavier Cohen Active [place] obstructive pulmonary Community disease, unspecified Hospital / J44.9(ICD-10) Repository 01/10/2018 Unknown N18.9 - Chronic Noel, Xavier Active [place] kidney disease, Community unspecified / Hospital N18.9(ICD-10) Repository 01/19/2018 Unknown N40.0 - Benign Xavier Cohen Active [place] prostatic hyperplasia Community without lower urinary Hospital tract symptoms / Repository N40.0(ICD-10) 12/06/2017 Unknown N39.0 - Urinary tract Xavier Cohen Active [place] infection, site not Community specified / Hospital N39.0(ICD-10) Repository 09/22/2017 Unknown A48.1 - [employer]na[employer]' Xavier Cohen Active [place] disease / Community A48.1(ICD-10) Hospital Repository 10/24/2017 Unknown Z79.01 - detention Xavier Cohen Active [place] (current) use of Community anticoagulants / Hospital Z79.01(ICD-10) Repository 10/24/2017 Unknown Z79.899 - Other long Xavier Cohen Active [place] term (current) drug Community therapy / Hospital Z79.899(ICD-10) Repository 01/24/2018 Unknown Z03.89 - Encounter Xavier Cohen Active [place] for observation for Community other suspected Hospital diseases and Repository conditions ruled out / Z03.89(ICD-10) 05/23/2017 Unknown I70.222 - Castro, José Antonio A Active [place] Atherosclerosis of [facility] algaaciq arteries of Hospital extremities with rest Repository pain, left leg / I70.222(ICD-10) 05/23/2017 Unknown I70.238 - José Antonio Castro A Active [place] Atherosclerosis of [facility] algaaciq arteries of Hospital right leg with Repository ulceration of other part of lower right leg / I70.238(ICD-10) 05/23/2017 Unknown M79.89 - Other José Antonio Castro Active [place] specified soft tissue Community disorders / Hospital M79.89(ICD-10) Repository 05/23/2017 Unknown M79.604 - Pain in Janet Castrorodo Stevenson Active [place] right leg / Community M79.604(ICD-10) Hospital Repository 12/30/2016 Unknown PERIPHERAL VASCULAR Fascione, 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 Urine, Random TYPE CODE TESTS RESULT OUT OF RANGE REFERENCE UNITS LAB L400.3000 Yellow COLOR Normal Yellow LAB L400.3050 Clear Normal CLARITY Sl. Cloudy LAB L400.3200 Normal mg/dl Normal GLUCOSE, UR Normal LAB L400.3300 Negative mg/dL Normal BILIRUBIN URINE Negative LAB L400.3400 Negative mg/dl Normal KETONE UR Negative LAB L400.3465 1.002-1.030 Normal SP.GR. DIPSTX 1.015 LAB L400.3550 5.0 - 8.0 pH UR Normal 9.0 LAB L400.3600 Negative mg/dl High PROT DIPSTX 100 LAB L400.3700 Normal mg/dl Normal UROBILI Normal LAB L400.3750 Negative Normal NITRITE UR Negative LAB L400.3780 Negative /ul High OCCULT BLOOD-UR 250 LAB L400.3800 Negative /ul High LEUK ESTERASE 500 LAB L400.4050 0-5 /hpf WBC Normal >100 SEEN LAB L400.4100 0-5 /hpf Normal RBC-UA 0-5 SEEN LAB L400.4150 0-5 /hpf SQUAM Normal EPI 0-5 SEEN LAB L400.4300 None Seen /hpf 2+ Normal BACTERIA LAB L400.4350 <or=2+ /hpf 0 Normal MUCUS, URINE SEEN LAB L400.4800 <or=1+ /hpf Normal TRIPLE PHOS RARE Performed By: #### L400.0001 #### [facility] [address] [place], [address] Observed: 04/12/2018 Status: F Source: [place] CULTURE, URINE 12:00 AM [facility] NURSES AIDE WAS UNSURE IF RANDOM OR CLEAN CATCH, JUST THAT IT WAS COLLECTED IN A [facility] Urine Culture ORGANISM 1: Proteus mirabilis [place] Count >100,000 Proteus mirabilis: REACTION Amoxacillin/Clavulanic Acid $ <=2 S Ampicillin $ <=2 S Ampicillin/Sulbactam $ <=2 S Cefazolin $ <=4 S Cefepime $ <=1 S Ceftriaxone $ <=1 S Ciprofloxacin $ >=4 R Ertapenim $$$ <=0.5 S Gentamicin $ <=1 S Levofloxacin $ 4 I Nitrofurantoin $ 128 R Piperacillin/Tazobactam $$ <=4 S Tobramycin $ <=1 S Trimethoprim/Sulfametho $ <=20 S (NF) indicates non-formulary drug at [facility]. Approval by Infectious Disease Specialist required before non-formulary drugs may be ordered and/or dispensed. Performed By: #### M100.0650 #### [facility] [address] [place], [place], [address] BASIC METABOLIC Collected: 04/02/2018 Status: F Source: [place] PROFILE (BMP) 6:30 AM [facility] Order Comment: ROOM 302 TYPE CODE TESTS RESULT OUT OF RANGE REFERENCE UNITS LAB L501.0100 74-106 mg/dL High GLU 242 Result Comment: Glucose result greater than or equal to 200 mg/dL suggests DIABETES MELLITUS per A.D.A. criteria. Please note revised GLUCOSE reference range effective 2017. LAB L501.1000 7-18 mg/dL High alert BUN 105 Result Comment: Critical Result(s) Called at: 07:55:57 04/02/2018 by: Destinee Pederson to [facility] LAB L501.1100 0.70-1.30 mg/dL CREAT,SERUM High 1.99 Result Comment: The validity of the calculated GFR AND GFRAA in patients over 70 years has not been determined. Clinical correlation is essential. LAB L501.1110 >60 mL/min Low EST GFR 34 Result Comment: Non- GFR Calc LAB L501.1115 >60 mL/min Low EST GFR - AA 41 Result Comment: GFR Calc LAB L501.1300 10-20 RATIO High BUN/CRE 52.8 LAB L501.2200 8.5-10.1 mg/dL CA Normal 9.0 LAB L501.5300 136-145 mmol/L NA Normal 137 LAB L501.5600 3.5-5.1 mmol/L K Normal 4.8 LAB L501.5900 98-107 mmol/L CL Normal 100 LAB L501.6100 21.0-32.0 mmol/L Normal CO2 29.0 LAB L501.6200 5-15 Normal GAP 8 Performed By: #### L500.2500 #### [facility] [address] [place], [place], [address] CBC-COMPLETE BLOOD CNT Collected: 04/02/2018 Status: F Source: [place] NO DIFF 6:30 AM [facility] Order Comment: ROOM 302 TYPE CODE TESTS RESULT OUT OF RANGE REFERENCE UNITS LAB L100.1000 4.4-11.0 K/mm3 Normal WBC 7.5 LAB L100.1200 4.6-6.2 M/mm3 Low RBC 2.93 LAB L100.1300 13.0-16.5 g/dl Low HGB 9.3 LAB L100.1400 40-54 % Low HCT 29.2 LAB L100.1500 80-94 fL High MCV 99.7 LAB L100.1600 27.0-32.0 pg Normal MCH 31.7 LAB L100.1700 32-36 g/gl Low MCHC 31.8 LAB L100.1810 11.6-14.6 % Normal RDW CV 13.1 LAB L100.1820 35.1-43.9 fl High RDW SD 46.1 LAB L100.1900 150-450 K/mm3 Normal PLT 150 LAB L100.2000 6.2-12.0 fl High MPV 12.3 Performed By: #### L100.0500 #### [facility] [address] [place], [place], [address] BASIC METABOLIC Collected: 03/15/2018 Status: F Source: [place] PROFILE (BMP) 6:15 AM [facility] Order Comment: 302-1 TYPE CODE TESTS RESULT OUT OF RANGE REFERENCE UNITS LAB L501.0100 74-106 mg/dL High GLU 144 Result Comment: Fasting Glucose result greater than or equal to 126 mg/dL suggests DIABETES MELLITUS per A.D.A. criteria. Please note revised GLUCOSE reference range effective 2017. LAB L501.1000 7-18 mg/dL High BUN 27 LAB L501.1100 0.70-1.30 mg/dL High CREAT,SERUM 1.32 Result Comment: The validity of the calculated GFR AND GFRAA in patients over 70 years has not been determined. Clinical correlation is essential. LAB L501.1110 >60 mL/min Low EST GFR 55 Result Comment: Non- GFR Calc LAB L501.1115 >60 mL/min Normal EST GFR - AA 67 Result Comment: GFR Calc LAB L501.1300 10-20 RATIO High BUN/CRE 20.5 LAB L501.2200 8.5-10.1 mg/dL CA Normal 8.5 LAB L501.5300 136-145 mmol/L NA Normal 142 LAB L501.5600 3.5-5.1 mmol/L K Normal 3.8 LAB L501.5900 98-107 mmol/L CL Normal 102 LAB L501.6100 21.0-32.0 mmol/L High CO2 33.0 LAB L501.6200 5-15 Normal GAP 7 Performed By: #### L500.2500 #### [facility] [address] [place], [place], [id number] CBC-COMPLETE BLOOD CNT Collected: 03/15/2018 Status: F Source: [place] NO DIFF 6:15 AM [facility] Order Comment: 302-1 TYPE CODE TESTS RESULT OUT OF RANGE REFERENCE UNITS LAB L100.1000 4.4-11.0 K/mm3 Normal WBC 5.8 LAB L100.1200 4.6-6.2 M/mm3 Low RBC 2.73 LAB L100.1300 13.0-16.5 g/dl Low HGB 8.6 LAB L100.1400 40-54 % Low HCT 28.2 LAB L100.1500 80-94 fL High MCV 103.3 LAB L100.1600 27.0-32.0 pg Normal MCH 31.5 LAB L100.1700 32-36 g/gl Low MCHC 30.5 LAB L100.1810 11.6-14.6 % Normal RDW CV 13.2 LAB L100.1820 35.1-43.9 fl High RDW SD 47.9 LAB L100.1900 150-450 K/mm3 Normal PLT 162 LAB L100.2000 6.2-12.0 fl Normal MPV 11.6 Performed By: #### L100.0500 #### [facility] [address] [facility] [place], [place], [id number] HEMOGLOBIN A1C Collected: 03/15/2018 Status: F Source: [place] 6:15 AM [facility] Order Comment: 302-1 TYPE CODE TESTS RESULT OUT OF RANGE REFERENCE UNITS LAB L501.9985 4.2-6.3 % High HGB A1C 7.6 Performed By: #### L501.9985 #### [facility] [address] [place], [place], [id number] BASIC METABOLIC Collected: 03/05/2018 Status: F Source: [place] PROFILE (BMP) 6:35 AM [facility] Order Comment: 302-1 TYPE CODE TESTS RESULT OUT OF RANGE REFERENCE UNITS LAB L501.0100 74-106 mg/dL High GLU 135 Result Comment: Fasting Glucose result greater than or equal to 126 mg/dL suggests DIABETES MELLITUS per A.D.A. criteria. Please note revised GLUCOSE reference range effective 2017. LAB L501.1000 7-18 mg/dL High BUN 30 LAB L501.1100 0.70-1.30 mg/dL Normal CREAT,SERUM 1.22 Result Comment: The validity of the calculated GFR AND GFRAA in patients over 70 years has not been determined. Clinical correlation is essential. LAB L501.1110 >60 mL/min Normal EST GFR 60 Result Comment: Non- GFR Calc LAB L501.1115 >60 mL/min Normal EST GFR - AA 73 Result Comment: GFR Calc LAB L501.1300 10-20 RATIO High BUN/CRE 24.6 LAB L501.2200 8.5-10.1 mg/dL CA Normal 8.7 LAB L501.5300 136-145 mmol/L NA Normal 144 LAB L501.5600 3.5-5.1 mmol/L K Normal 3.6 LAB L501.5900 98-107 mmol/L CL Normal 103 LAB L501.6100 21.0-32.0 mmol/L High CO2 34.0 LAB L501.6200 5-15 Normal GAP 7 Performed By: #### L500.2500 #### [facility] [address] [place], [place], [address] CBC-COMPLETE BLOOD CNT Collected: 03/05/2018 Status: F Source: [place] NO DIFF 6:35 AM [facility] Order Comment: 302-1 TYPE CODE TESTS RESULT OUT OF RANGE REFERENCE UNITS LAB L100.1000 4.4-11.0 K/mm3 Normal WBC 6.8 LAB L100.1200 4.6-6.2 M/mm3 Low RBC 2.89 LAB L100.1300 13.0-16.5 g/dl Low HGB 9.1 LAB L100.1400 40-54 % Low HCT 29.7 LAB L100.1500 80-94 fL High MCV 102.8 LAB L100.1600 27.0-32.0 pg Normal MCH 31.5 LAB L100.1700 32-36 g/gl Low MCHC 30.6 LAB L100.1810 11.6-14.6 % Normal RDW CV 12.9 LAB L100.1820 35.1-43.9 fl High RDW SD 47.4 LAB L100.1900 150-450 K/mm3 Normal PLT 156 LAB L100.2000 6.2-12.0 fl Normal MPV 11.1 Performed By: #### L100.0500 #### [facility] [address] [place], [place], [id number] CBC-COMPLETE BLOOD CNT Collected: 12/12/2017 Status: F Source: [place] NO DIFF 9:10 AM [facility] Order Comment: 305/1 TYPE CODE TESTS RESULT OUT OF RANGE REFERENCE UNITS LAB L100.1000 4.4-11.0 K/mm3 Normal WBC 6.2 LAB L100.1200 4.6-6.2 M/mm3 Low RBC 2.98 LAB L100.1300 13.0-16.5 g/dl Low HGB 9.8 LAB L100.1400 40-54 % Low HCT 30.7 LAB L100.1500 80-94 fL High MCV 103.0 LAB L100.1600 27.0-32.0 pg High MCH 32.9 LAB L100.1700 32-36 g/gl Low MCHC 31.9 LAB L100.1810 11.6-14.6 % Normal RDW CV 12.5 LAB L100.1820 35.1-43.9 fl High RDW SD 45.9 LAB L100.1900 150-450 K/mm3 Normal PLT 181 LAB L100.2000 6.2-12.0 fl Normal MPV 11.0 Performed By: #### L100.0500 #### [facility] [address] [place], [address] BASIC METABOLIC Collected: 12/12/2017 Status: F Source: [place] PROFILE (BMP) 9:10 AM [facility] Order Comment: 305/1 TYPE CODE TESTS RESULT OUT OF RANGE REFERENCE UNITS LAB L501.0100 74-106 mg/dL High GLU 186 Result Comment: Fasting Glucose result greater than or equal to 126 mg/dL suggests DIABETES MELLITUS per A.D.A. criteria. Please note revised GLUCOSE reference range effective 2017. LAB L501.1000 7-18 mg/dL High BUN 53 LAB L501.1100 0.70-1.30 mg/dL High CREAT,SERUM 1.64 Result Comment: The validity of the calculated GFR AND GFRAA in patients over 70 years has not been determined. Clinical correlation is essential. LAB L501.1110 >60 mL/min Low EST GFR 43 Result Comment: Non- GFR Calc LAB L501.1115 >60 mL/min Low EST GFR - AA 52 Result Comment: GFR Calc LAB L501.1300 10-20 RATIO High BUN/CRE 32.3 LAB L501.2200 8.5-10.1 mg/dL CA Normal 9.2 LAB L501.5300 136-145 mmol/L NA Normal 136 LAB L501.5600 3.5-5.1 mmol/L K Normal 4.3 LAB L501.5900 98-107 mmol/L CL Normal 101 LAB L501.6100 21.0-32.0 mmol/L Normal CO2 25.0 LAB L501.6200 5-15 Normal GAP 10 Performed By: #### L500.2500 #### [facility] [address] [place] [address]. [place], [address] BASIC METABOLIC Collected: 11/24/2017 Status: F Source: [place] PROFILE (BMP) 6:50 AM [facility] TYPE CODE TESTS RESULT OUT OF RANGE REFERENCE UNITS LAB L501.0100 74-106 mg/dL High GLU 175 Result Comment: Fasting Glucose result greater than or equal to 126 mg/dL suggests DIABETES MELLITUS per A.D.A. criteria. Please note revised GLUCOSE reference range effective 2017. LAB L501.1000 7-18 mg/dL High BUN 49 LAB L501.1100 0.70-1.30 mg/dL High CREAT,SERUM 1.50 Result Comment: The validity of the calculated GFR AND GFRAA in patients over 70 years has not been determined. Clinical correlation is essential. LAB L501.1110 >60 mL/min Low EST GFR 48 Result Comment: Non- GFR Calc LAB L501.1115 >60 mL/min Low EST GFR - AA 58 Result Comment: GFR Calc LAB L501.1300 10-20 RATIO High BUN/CRE 32.7 LAB L501.2200 8.5-10.1 mg/dL CA Normal 8.8 LAB L501.5300 136-145 mmol/L NA Normal 140 LAB L501.5600 3.5-5.1 mmol/L K Normal 4.5 LAB L501.5900 98-107 mmol/L CL Normal 103 LAB L501.6100 21.0-32.0 mmol/L Normal CO2 30.0 LAB L501.6200 5-15 Normal GAP 7 Performed By: #### L500.2500 #### [facility] [address] [facility]. [place], [place], [address] HIV - [facility] Collected: 10/27/2017 Status: F Source: [place] 7:00 AM [facility] Order Comment: [facility]; PLEASE FAX RESULTS TO DON @ [employer] TYPE CODE TESTS RESULT OUT OF RANGE REFERENCE UNITS LAB L3890.6005 Nonreactive Normal HIV - [facility] Non-Reactive Performed By: #### L3890.6005 #### [facility] [address] [facility] [place], [place], [address] HEPATITIS B SURFACE Collected: 10/27/2017 Status: P Source: [place] AG 7:00 AM [facility] Order Comment: [facility]; PLEASE FAX RESULTS TO DON @ [facility] TYPE CODE TESTS RESULT OUT OF RANGE REFERENCE UNITS LAB L3100.0400 Negative Normal HB Negative SURF AG Result Comment: Performed at: - [facility] [id number] [employer]: David Tomas PhD, Phone: [phone] Performed By: #### L3100.0390, L3100.0725 #### [facility] (refer to report for specific site) refer to report for address and phone number HEPATITS C AB W/ Collected: 10/27/2017 Status: P Source: [place] VERIFICATION 7:00 AM [facility] Order Comment: [facility]; PLEASE FAX RESULTS TO DON @ [facility] TYPE CODE TESTS RESULT OUT OF RANGE REFERENCE UNITS LAB L3100.0750 0.0-0.9 s/co ratio Normal HCV Ab <0.1 LAB L3100.0765 . Normal COMMENT Comment Result Comment: Non reactive HCV antibody screen is consistent with no HCV infection, unless recent infection is suspected or other evidence exists to indicate HCV infection. Performed By: #### L3100.0390, L3100.0725 #### [facility] (refer to report for specific site) refer to report for address and phone number HEPATITIS B SURFACE Collected: 10/27/2017 Status: F Source: [place] AG 7:00 AM [facility] Order Comment: [facility]; PLEASE FAX RESULTS TO DON @ [facility] TYPE CODE TESTS RESULT OUT OF RANGE REFERENCE UNITS LAB L3100.0400 Negative Normal HB Negative SURF AG Result Comment: Performed at: [address] [id number] Gl[employer] Maker [employer]: David Tomas PhD, Phone: [phone] Performed By: #### L3100.0390, L3100.0725 #### [facility] (refer to report for specific site) refer to report for address and phone number HEPATITS C AB W/ Collected: 10/27/2017 Status: F Source: [place] VERIFICATION 7:00 AM [facility] Order Comment: [facility]; PLEASE FAX RESULTS TO DON @ [facility] TYPE CODE TESTS RESULT OUT OF RANGE REFERENCE UNITS LAB L3100.0750 0.0-0.9 s/co ratio Normal HCV Ab <0.1 LAB L3100.0765 . Normal COMMENT Comment Result Comment: Non reactive HCV antibody screen is consistent with no HCV infection, unless recent infection is suspected or other evidence exists to indicate HCV infection. Performed By: #### L3100.0390, L3100.0725 #### [facility] (refer to report for specific site) refer to report for address and phone number URINALYSIS, COMPLETE Collected: 10/11/2017 Status: F Source: [place] 7:45 PM [facility] Order Comment: How was Urine Obtained? Urine, Random TYPE CODE TESTS RESULT OUT OF RANGE REFERENCE UNITS LAB L400.3000 Yellow COLOR Normal Yellow LAB L400.3050 Clear Normal CLARITY Cloudy LAB L400.3200 Normal mg/dl Normal GLUCOSE, UR Normal LAB L400.3300 Negative mg/dL Normal BILIRUBIN URINE Negative LAB L400.3400 Negative mg/dl Normal KETONE UR Negative LAB L400.3465 1.002-1.030 Normal SP.GR. DIPSTX 1.015 LAB L400.3550 5.0 - 8.0 pH UR Normal 9.0 LAB L400.3600 Negative mg/dl High PROT DIPSTX 100 LAB L400.3700 Normal mg/dl Normal UROBILI Normal LAB L400.3750 Negative Normal NITRITE UR Negative LAB L400.3780 Negative /ul High 50 OCCULT BLOOD-UR LAB L400.3800 Negative /ul High LE[place] ESTERASE 500 LAB L400.4050 0-5 /hpf WBC Normal 10-25 SEEN LAB L400.4100 0-5 /hpf Normal RBC-UA 0-5 SEEN LAB L400.4150 0-5 /hpf SQUAM Normal EPI 0-5 SEEN LAB L400.4300 None Seen /hpf 4+ Normal BACTERIA LAB L400.4350 <or=2+ /hpf Normal MUCUS, URINE RARE Performed By: #### L400.0001 #### [facility] [address] [place], [place], [address] Observed: 10/11/2017 Status: F Source: [place] CULTURE, URINE 7:45 PM [facility] REPOS[facility] Urine Culture ORGANISM 1: Proteus mirabilis [place] Count >100,000 Proteus mirabilis: REACTION Amoxacillin/Clavulanic Acid $ 4 S Ampicillin $ <=2 S Ampicillin/Sulbactam $ <=2 S Cefazolin $ <=4 S Cefepime $ <=1 S Ceftriaxone $ <=1 S Ciprofloxacin $ 1 S Ertapenim $$$ <=0.5 S Gentamicin $ <=1 S Levofloxacin $ 1 S Nitrofurantoin $ 64 R Piperacillin/Tazobactam $$ <=4 S Tobramycin $ <=1 S Trimethoprim/Sulfametho $ <=20 S (NF) indicates non-formulary drug at [facility]. Approval by Infectious Disease Specialist required before non-formulary drugs may be ordered and/or dispensed. Performed By: #### M100.0650 #### [facility] [address] [place], [place], [address] BASIC METABOLIC Collected: 09/23/2017 Status: F Source: JACINTA CARRION ([facility]) 6:30 AM [facility] TYPE CODE TESTS RESULT OUT OF RANGE REFERENCE UNITS LAB L501.0100 74-106 mg/dL High GLU 152 Result Comment: Fasting Glucose result greater than or equal to 126 mg/dL suggests DIABETES MELLITUS per A.D.A. criteria. Please note revised GLUCOSE reference range effective 2017. LAB L501.1000 7-18 mg/dL High BUN 48 LAB L501.1100 0.70-1.30 mg/dL High CREAT,SERUM 1.45 Result Comment: The validity of the calculated GFR AND GFRAA in patients over 70 years has not been determined. Clinical correlation is essential. LAB L501.1110 >60 mL/min Low EST GFR 49 Result Comment: Non- GFR Calc LAB L501.1115 >60 mL/min Normal EST GFR - AA 60 Result Comment: GFR Calc LAB L501.1300 10-20 RATIO High BUN/CRE 33.1 LAB L501.2200 8.5-10.1 mg/dL CA Normal 9.2 LAB L501.5300 136-145 mmol/L Low NA 134 LAB L501.5600 3.5-5.1 mmol/L High K 5.3 LAB L501.5900 98-107 mmol/L CL Normal 104 LAB L501.6100 21.0-32.0 mmol/L Normal CO2 27.0 LAB L501.6200 5-15 Low GAP 3 Performed By: #### L500.2500 #### [facility] [address] [place], [address] COMPREHENSIVE METABOLIC Collected: 09/20/2017 Status: F Source: JACINTA LORENZANA 6:05 AM [facility] Order Comment: ROOM 305 TYPE CODE TESTS RESULT OUT OF RANGE REFERENCE UNITS LAB L501.0100 74-106 mg/dL High GLU 170 Result Comment: Fasting Glucose result greater than or equal to 126 mg/dL suggests DIABETES MELLITUS per A.D.A. criteria. Please note revised GLUCOSE reference range effective 2017. LAB L501.1000 7-18 mg/dL High BUN 59 LAB L501.1100 0.70-1.30 mg/dL High CREAT,SERUM 1.36 Result Comment: The validity of the calculated GFR AND GFRAA in patients over 70 years has not been determined. Clinical correlation is essential. LAB L501.1110 >60 mL/min Low EST GFR 53 Result Comment: Non- GFR Calc LAB L501.1115 >60 mL/min Normal EST GFR - AA 64 Result Comment: GFR Calc LAB L501.1300 10-20 RATIO High BUN/CRE 43.4 LAB L501.1500 6.4-8.2 g/dL Low T PROT 5.7 LAB L501.1800 3.2-5.0 g/dL Low ALB 2.4 LAB L501.1950 2.2-4.2 g/dL Normal GLOB 3.3 LAB L501.2000 0.9-2.4 RATIO Low A/G 0.7 LAB L501.2200 8.5-10.1 mg/dL Low CA 7.4 LAB L501.4100 15-37 U/L Normal AST 24 LAB L501.4305 45-117 U/L Normal ALK P 105 LAB L501.4405 16-61 U/L Normal ALT 45 LAB L501.4600 0.20-1.00 mg/dL T Normal BILI 0.20 LAB L501.5300 136-145 mmol/L Low NA 129 LAB L501.5600 3.5-5.1 mmol/L K Normal 4.5 LAB L501.5900 98-107 mmol/L CL Normal 100 LAB L501.6100 21.0-32.0 mmol/L Normal CO2 21.0 LAB L501.6200 5-15 Normal GAP 8 Performed By: #### L500.4050 #### [facility] [address] [place], [address] CBC-COMPLETE BLOOD CNT Collected: 09/20/2017 Status: F Source: JACINTA NO DIFF 6:05 AM [facility] Order Comment: ROOM 305 TYPE CODE TESTS RESULT OUT OF RANGE REFERENCE UNITS LAB L100.1000 4.4-11.0 K/mm3 Normal WBC 9.4 LAB L100.1200 4.6-6.2 M/mm3 Low RBC 2.82 LAB L100.1300 13.0-16.5 g/dl Low HGB 8.6 LAB L100.1400 40-54 % Low HCT 27.3 LAB L100.1500 80-94 fL High MCV 96.8 LAB L100.1600 27.0-32.0 pg Normal MCH 30.5 LAB L100.1700 32-36 g/gl Low MCHC 31.5 LAB L100.1810 11.6-14.6 % Normal RDW CV 13.5 LAB L100.1820 35.1-43.9 fl High RDW SD 45.0 LAB L100.1900 150-450 K/mm3 Normal PLT 189 LAB L100.2000 6.2-12.0 fl Normal MPV 11.0 Performed By: #### L100.0500 #### [facility] [address] [facility] [place], [place], [id number] CBC-COMPLETE BLOOD CNT Collected: 09/18/2017 Status: F Source: [place] NO DIFF 6:50 AM [facility] TYPE CODE TESTS RESULT OUT OF RANGE REFERENCE UNITS LAB L100.1000 4.4-11.0 K/mm3 Normal WBC 10.2 LAB L100.1200 4.6-6.2 M/mm3 Low RBC 3.19 LAB L100.1300 13.0-16.5 g/dl Low HGB 9.9 LAB L100.1400 40-54 % Low HCT 30.4 LAB L100.1500 80-94 fL High MCV 95.3 LAB L100.1600 27.0-32.0 pg Normal MCH 31.0 LAB L100.1700 32-36 g/gl Normal MCHC 32.6 LAB L100.1810 11.6-14.6 % Normal RDW CV 13.6 LAB L100.1820 35.1-43.9 fl High RDW SD 44.6 LAB L100.1900 150-450 K/mm3 Normal PLT 198 LAB L100.2000 6.2-12.0 fl Normal MPV 10.8 Performed By: #### L100.0500 #### [facility] [address] [facility] [place], [place], [id number] BASIC METABOLIC Collected: 09/18/2017 Status: F Source: [place] PROFILE (BMP) 6:50 AM [facility] Order Comment: ROOM 305 TYPE CODE TESTS RESULT OUT OF RANGE REFERENCE UNITS LAB L501.0100 74-106 mg/dL High GLU 162 Result Comment: Fasting Glucose result greater than or equal to 126 mg/dL suggests DIABETES MELLITUS per A.D.A. criteria. Please note revised GLUCOSE reference range effective 2017. LAB L501.1000 7-18 mg/dL High BUN 77 LAB L501.1100 0.70-1.30 mg/dL High CREAT,SERUM 1.55 Result Comment: The validity of the calculated GFR AND GFRAA in patients over 70 years has not been determined. Clinical correlation is essential. LAB L501.1110 >60 mL/min Low EST GFR 46 Result Comment: Non- GFR Calc LAB L501.1115 >60 mL/min Low EST GFR - AA 55 Result Comment: GFR Calc LAB L501.1300 10-20 RATIO High BUN/CRE 49.7 LAB L501.2200 8.5-10.1 mg/dL CA Normal 9.1 LAB L501.5300 136-145 mmol/L NA Normal 139 LAB L501.5600 3.5-5.1 mmol/L High K 5.4 LAB L501.5900 98-107 mmol/L CL Normal 106 LAB L501.6100 21.0-32.0 mmol/L Normal CO2 23.0 LAB L501.6200 5-15 Normal GAP 10 Performed By: #### L500.2500 #### [facility] [place] [place], [address] URINALYSIS, COMPLETE Collected: 09/16/2017 Status: F Source: [place] 1:00 PM [facility] Order Comment: How was Urine Obtained? Urine, Random TYPE CODE TESTS RESULT OUT OF RANGE REFERENCE UNITS LAB L400.3000 Yellow COLOR Normal Yellow LAB L400.3050 Clear Normal CLARITY Turbid LAB L400.3200 Normal mg/dl Normal GLUCOSE, UR Normal LAB L400.3300 Negative mg/dL Normal BILIRUBIN URINE Negative LAB L400.3400 Negative mg/dl High 5 KETONE UR LAB L400.3465 1.002-1.030 Normal SP.GR. DIPSTX 1.020 LAB L400.3550 5.0 - 8.0 pH UR Normal 6.0 LAB L400.3600 Negative mg/dl High PROT DIPSTX 100 LAB L400.3700 Normal mg/dl Normal UROBILI Normal LAB L400.3750 Negative Normal NITRITE UR Negative LAB L400.3780 Negative /ul High OCCULT BLOOD-UR 250 LAB L400.3800 Negative /ul High LEUK ESTERASE 500 LAB L400.4050 0-5 /hpf WBC Normal 0-5 SEEN LAB L400.4100 0-5 /hpf 0 Normal RBC-UA SEEN LAB L400.4150 0-5 /hpf SQUAM 0 Normal EPI SEEN LAB L400.4300 None Seen /hpf 0 Normal BACTERIA SEEN LAB L400.4350 <or=2+ /hpf 0 Normal MUCUS, URINE SEEN Performed By: #### L400.0001 #### [facility] [address] [facility] [place], [address] Observed: 09/16/2017 Status: F Source: [place] CULTURE, URINE 1:00 PM [facility] Urine Culture ORGANISM 1: Amber albicans [place] Count 25,000-50,000 Performed By: #### M100.0650 #### [facility] [address] [facility] [place], [address] BASIC METABOLIC Collected: 2017 Status: F Source: [place] PROFILE (BMP) 6:15 AM [facility] Order Comment: ROOM 305 TYPE CODE TESTS RESULT OUT OF RANGE REFERENCE UNITS LAB L501.0100 74-106 mg/dL High GLU 199 Result Comment: Fasting Glucose result greater than or equal to 126 mg/dL suggests DIABETES MELLITUS per A.D.A. criteria. Please note revised GLUCOSE reference range effective 2017. LAB L501.1000 7-18 mg/dL High BUN 89 LAB L501.1100 0.70-1.30 mg/dL High CREAT,SERUM 2.38 Result Comment: The validity of the calculated GFR AND GFRAA in patients over 70 years has not been determined. Clinical correlation is essential. LAB L501.1110 >60 mL/min Low EST GFR 28 Result Comment: Non- GFR Calc LAB L501.1115 >60 mL/min Low EST GFR - AA 34 Result Comment: GFR Calc LAB L501.1300 10-20 RATIO High BUN/CRE 37.4 LAB L501.2200 8.5-10.1 mg/dL CA Normal 9.0 LAB L501.5300 136-145 mmol/L Low NA 134 LAB L501.5600 3.5-5.1 mmol/L High K 5.4 LAB L501.5900 98-107 mmol/L CL Normal 101 LAB L501.6100 21.0-32.0 mmol/L Normal CO2 25.0 LAB L501.6200 5-15 Normal GAP 8 Performed By: #### L500.2500 #### [facility] [address] [facility] [place], [address] CBC-COMPLETE BLOOD CNT Collected: 09/11/2017 Status: F Source: [place] NO DIFF 6:55 AM [facility] TYPE CODE TESTS RESULT OUT OF RANGE REFERENCE UNITS LAB L100.1000 4.4-11.0 K/mm3 Normal WBC 8.1 LAB L100.1200 4.6-6.2 M/mm3 Low RBC 3.40 LAB L100.1300 13.0-16.5 g/dl Low HGB 10.6 LAB L100.1400 40-54 % Low HCT 32.4 LAB L100.1500 80-94 fL High MCV 95.3 LAB L100.1600 27.0-32.0 pg Normal MCH 31.2 LAB L100.1700 32-36 g/gl Normal MCHC 32.7 LAB L100.1810 11.6-14.6 % Normal RDW CV 13.6 LAB L100.1820 35.1-43.9 fl High RDW SD 45.2 LAB L100.1900 150-450 K/mm3 Normal PLT 170 LAB L100.2000 6.2-12.0 fl Normal MPV 11.8 Performed By: #### L100.0500 #### [facility] [address] [facility] [place], [place], [id number] BASIC METABOLIC Collected: 09/11/2017 Status: F Source: [place] PROFILE (BMP) 6:55 AM [facility] TYPE CODE TESTS RESULT OUT OF RANGE REFERENCE UNITS LAB L501.0100 74-106 mg/dL High GLU 246 Result Comment: Glucose result greater than or equal to 200 mg/dL suggests DIABETES MELLITUS per A.D.A. criteria. Please note revised GLUCOSE reference range effective 2017. LAB L501.1000 7-18 mg/dL High BUN 76 LAB L501.1100 0.70-1.30 mg/dL High CREAT,SERUM 1.85 Result Comment: The validity of the calculated GFR AND GFRAA in patients over 70 years has not been determined. Clinical correlation is essential. LAB L501.1110 >60 mL/min Low EST GFR 37 Result Comment: Non- GFR Calc LAB L501.1115 >60 mL/min Low EST GFR - AA 45 Result Comment: GFR Calc LAB L501.1300 10-20 RATIO High BUN/CRE 41.1 LAB L501.2200 8.5-10.1 mg/dL CA Normal 9.5 LAB L501.5300 136-145 mmol/L NA Normal 136 LAB L501.5600 3.5-5.1 mmol/L K Normal 4.9 LAB L501.5900 98-107 mmol/L CL Normal 102 LAB L501.6100 21.0-32.0 mmol/L Normal CO2 23.0 LAB L501.6200 5-15 Normal GAP 11 Performed By: #### L500.2500 #### [facility] [address] [facility] [place], [place], [address] HEMOGLOBIN A1C Collected: 09/11/2017 Status: F Source: [place] 6:55 AM [facility] TYPE CODE TESTS RESULT OUT OF RANGE REFERENCE UNITS LAB L501.9985 4.2-6.3 % High HGB A1C 9.4 Performed By: #### L501.9985 #### [facility] [address] [facility] [address] [place], [place], [address] URINALYSIS, ROUTINE Collected: 09/11/2017 Status: F Source: [place] ([place]) 1:00 AM [facility] Order Comment: How was Urine Obtained? Urine, Random TYPE CODE TESTS RESULT OUT OF RANGE REFERENCE UNITS LAB L400.3000 Yellow COLOR Normal Yellow LAB L400.3050 Clear Normal CLARITY Clear LAB L400.3200 Normal mg/dl High GLUCOSE, UR 100 LAB L400.3300 Negative mg/dL Normal BILIRUBIN URINE Negative LAB L400.3400 Negative mg/dl Normal KETONE UR Negative LAB L400.3465 1.002-1.030 Normal SP.GR. DIPSTX 1.015 LAB L400.3550 5.0 - 8.0 pH UR Normal 6.0 LAB L400.3600 Negative mg/dl High PROT 30 DIPSTX LAB L400.3700 Normal mg/dl Normal UROBILI Normal LAB L400.3750 Negative Normal NITRITE UR Negative LAB L400.3780 Negative /ul High OCCULT BLOOD-UR 250 LAB L400.3800 Negative /ul High LEUK ESTERASE 500 Performed By: #### L400.2011 #### [facility] [address] [place], [place], [address] Observed: 09/11/2017 Status: F Source: [place] CULTURE, URINE 1:00 AM [facility] Urine Culture ORGANISM 1: Mixed Gram Pos AND Gram Neg Org [place] Count 1000-10,000 MIX CULTURE Mixed contaminants. Submit a new specimen if indicated. Performed By: #### M100.0650 #### [facility] [address] [facility] [place], [address] BASIC METABOLIC Collected: 07/26/2017 Status: F Source: [place] PROFILE (BMP) 6:10 AM [facility] Order Comment: ROOM 305-1 HAMPDEN SYDNEY TYPE CODE TESTS RESULT OUT OF RANGE REFERENCE UNITS LAB L501.0100 74-106 mg/dL High GLU 146 Result Comment: Fasting Glucose result greater than or equal to 126 mg/dL suggests DIABETES MELLITUS per A.D.A. criteria. Please note revised GLUCOSE reference range effective 2017. LAB L501.1000 7-18 mg/dL High BUN 21 LAB L501.1100 0.70-1.30 mg/dL Normal CREAT,SERUM 1.17 Result Comment: The validity of the calculated GFR AND GFRAA in patients over 70 years has not been determined. Clinical correlation is essential. LAB L501.1110 >60 mL/min Normal EST GFR 63 Result Comment: Non- GFR Calc LAB L501.1115 >60 mL/min Normal EST GFR - AA 77 Result Comment: GFR Calc LAB L501.1300 10-20 RATIO Normal BUN/CRE 17.9 LAB L501.2200 8.5-10.1 mg/dL CA Normal 9.1 LAB L501.5300 136-145 mmol/L NA Normal 138 LAB L501.5600 3.5-5.1 mmol/L K Normal 3.6 LAB L501.5900 98-107 mmol/L CL Normal 98 LAB L501.6100 21.0-32.0 mmol/L High CO2 34.0 LAB L501.6200 5-15 Normal GAP 6 Performed By: #### L500.2500 #### [facility] [address] [place], [address] BNP,B-TYPE NATRIURETIC Collected: 07/26/2017 Status: F Source: [place] PEPTIDE 6:10 AM [facility] Order Comment: ROOM 305-1 MARIA ELENA TYPE CODE TESTS RESULT OUT OF RANGE REFERENCE UNITS LAB L503.6620 0-100 pg/mL High B-TYPE 451.4 RILEY PEP Performed By: #### L503.6620 #### [facility] [address] [facility] [place], [place], [address] Observed: 07/22/2017 Status: F Source: [place]TA LEGIONELLA ANTIGEN 1:30 AM [facility] REPOS[facility] Specimen Source: URINE, RANDOM Legionella, UR Legionella Antigen result interpretation: Negative Presumptive negative for Legionella pneumophila serogroup 1 antigen in urine, suggesting no recent or current infection. Legionella Ag, Urine Negative (See interpretation below) Performed By: #### M300.4500 #### [facility] [address] [facility] [place], [address] BASIC METABOLIC Collected: 07/19/2017 Status: F Source: [place] PROFILE (BMP) 6:20 AM [facility] Order Comment: ROOM 305-1 MARIA ELENA TYPE CODE TESTS RESULT OUT OF RANGE REFERENCE UNITS LAB L501.0100 74-106 mg/dL High GLU 124 Result Comment: Fasting Glucose result from 100 to 125 mg/dL suggests IMPAIRED HOMEOSTASIS per A.D.A. criteria. Please note revised GLUCOSE reference range effective 2017. LAB L501.1000 7-18 mg/dL High BUN 19 LAB L501.1100 0.70-1.30 mg/dL Normal CREAT,SERUM 1.12 Result Comment: The validity of the calculated GFR AND GFRAA in patients over 70 years has not been determined. Clinical correlation is essential. LAB L501.1110 >60 mL/min Normal EST GFR 67 Result Comment: Non- GFR Calc LAB L501.1115 >60 mL/min Normal EST GFR - AA 81 Result Comment: GFR Calc LAB L501.1300 10-20 RATIO Normal BUN/CRE 17.0 LAB L501.2200 8.5-10.1 mg/dL CA Normal 9.1 LAB L501.5300 136-145 mmol/L NA Normal 140 LAB L501.5600 3.5-5.1 mmol/L K Normal 3.7 LAB L501.5900 98-107 mmol/L CL Normal 98 LAB L501.6100 21.0-32.0 mmol/L High CO2 36.0 LAB L501.6200 5-15 Normal GAP 6 Performed By: #### L500.2500 #### [facility] [address] [place], [address] BNP,B-TYPE NATRIURETIC Collected: 07/19/2017 Status: F Source: [place] PEPTIDE 6:20 AM [facility] Order Comment: ROOM 305-1 MARIA ELENA TYPE CODE TESTS RESULT OUT OF RANGE REFERENCE UNITS LAB L503.6620 0-100 pg/mL High B-TYPE 728.2 RILEY PEP Performed By: #### L503.6620 #### [facility] [address] [place], [address] COMPREHENSIVE METABOLIC Collected: 07/14/2017 Status: F Source: [place] PROFIL 6:45 AM [facility] Order Comment: ROOM 305-1 TYPE CODE TESTS RESULT OUT OF RANGE REFERENCE UNITS LAB L501.0100 74-106 mg/dL Normal GLU 97 Result Comment: Please note revised GLUCOSE reference range effective 2017. LAB L501.1000 7-18 mg/dL Normal BUN 16 LAB L501.1100 0.70-1.30 mg/dL Normal CREAT,SERUM 1.04 Result Comment: The validity of the calculated GFR AND GFRAA in patients over 70 years has not been determined. Clinical correlation is essential. LAB L501.1110 >60 mL/min Normal EST GFR 73 Result Comment: Non- GFR Calc LAB L501.1115 >60 mL/min Normal EST GFR - AA 88 Result Comment: GFR Calc LAB L501.1300 10-20 RATIO Normal BUN/CRE 15.4 LAB L501.1500 6.4-8.2 g/dL T Normal PROT 6.5 LAB L501.1800 3.2-5.0 g/dL Low ALB 3.1 LAB L501.1950 2.2-4.2 g/dL Normal GLOB 3.4 LAB L501.2000 0.9-2.4 RATIO Normal A/G 0.9 LAB L501.2200 8.5-10.1 mg/dL CA Normal 8.5 LAB L501.4100 15-37 U/L Normal AST 17 LAB L501.4305 45-117 U/L High ALK P 182 LAB L501.4405 16-61 U/L Normal ALT 32 Result Comment: Please note revised ALT reference range effective 2017. LAB L501.4600 0.20-1.00 mg/dL Normal T BILI 0.80 LAB L501.5300 136-145 mmol/L Normal NA 145 LAB L501.5600 3.5-5.1 mmol/L Normal K 3.5 LAB L501.5900 98-107 mmol/L Normal CL 104 LAB L501.6100 21.0-32.0 mmol/L High CO2 35.0 LAB L501.6200 5-15 Normal GAP 6 Performed By: #### L500.4050 #### [facility] [address] [facility] [place], [place], [address] PROTHROMBIN TIME W/INR Collected: 07/14/2017 Status: F Source: [place] 6:45 AM [facility] Order Comment: ROOM 305-1 TYPE CODE TESTS RESULT OUT OF RANGE REFERENCE UNITS LAB L300.4150 11.7-14.9 SECONDS High PROTIME 15.5 LAB L300.4200 Normal INR 1.2 Performed By: #### L300.3900 #### [facility] [address] [facility] [place], [address] BASIC METABOLIC Collected: 07/12/2017 Status: F Source: [place] PROFILE (BMP) 7:10 AM [facility] Order Comment: ROOM 305-1 TYPE CODE TESTS RESULT OUT OF RANGE REFERENCE UNITS LAB L501.0100 74-106 mg/dL Normal GLU 106 Result Comment: Fasting Glucose result from 100 to 125 mg/dL suggests IMPAIRED HOMEOSTASIS per A.D.A. criteria. Please note revised GLUCOSE reference range effective 2017. LAB L501.1000 7-18 mg/dL Normal BUN 16 LAB L501.1100 0.70-1.30 mg/dL Normal CREAT,SERUM 0.98 Result Comment: The validity of the calculated GFR AND GFRAA in patients over 70 years has not been determined. Clinical correlation is essential. LAB L501.1110 >60 mL/min Normal EST GFR 78 Result Comment: Non- GFR Calc LAB L501.1115 >60 mL/min Normal EST GFR - AA 94 Result Comment: GFR Calc LAB L501.1300 10-20 RATIO Normal BUN/CRE 16.4 LAB L501.2200 8.5-10.1 mg/dL Low CA 8.3 LAB L501.5300 136-145 mmol/L NA Normal 142 LAB L501.5600 3.5-5.1 mmol/L Low K 3.1 LAB L501.5900 98-107 mmol/L CL Normal 104 LAB L501.6100 21.0-32.0 mmol/L Normal CO2 31.0 LAB L501.6200 5-15 Normal GAP 7 Performed By: #### L500.2500 #### [facility] [address] [place], [place], [address] CBC-COMPLETE BLOOD CNT Collected: 07/12/2017 Status: F Source: [place] NO DIFF 7:10 AM [facility] Order Comment: ROOM 305-1 TYPE CODE TESTS RESULT OUT OF RANGE REFERENCE UNITS LAB L100.1000 4.4-11.0 K/mm3 Normal WBC 5.5 LAB L100.1200 4.6-6.2 M/mm3 Low RBC 3.05 LAB L100.1300 13.0-16.5 g/dl Low HGB 9.3 LAB L100.1400 40-54 % Low HCT 30.5 LAB L100.1500 80-94 fL High MCV 100.0 LAB L100.1600 27.0-32.0 pg Normal MCH 30.5 LAB L100.1700 32-36 g/gl Low MCHC 30.5 LAB L100.1810 11.6-14.6 % High RDW CV 14.9 LAB L100.1820 35.1-43.9 fl High RDW SD 52.5 LAB L100.1900 150-450 K/mm3 Low PLT 131 LAB L100.2000 6.2-12.0 fl Normal MPV 11.7 Performed By: #### L100.0500 #### [facility] [address] [place], [address] BNP,B-TYPE NATRIURETIC Collected: 07/12/2017 Status: F Source: J[place] PEPTIDE 7:10 AM [facility] Order Comment: ROOM 305-1 TYPE CODE TESTS RESULT OUT OF RANGE REFERENCE UNITS LAB L503.6620 0-100 pg/mL High B-TYPE 700.3 RILEY PEP Performed By: #### L503.6620 #### [facility] [address] [facility] [place], [address] CBC-COMPLETE BLOOD CNT Collected: 06/14/2017 Status: F Source: [place] NO DIFF 7:03 AM [facility] Order Comment: ROOM 305-1 TYPE CODE TESTS RESULT OUT OF RANGE REFERENCE UNITS LAB L100.1000 4.4-11.0 K/mm3 Normal WBC 4.8 LAB L100.1200 4.6-6.2 M/mm3 Low RBC 3.38 LAB L100.1300 13.0-16.5 g/dl Low HGB 10.2 LAB L100.1400 40-54 % Low HCT 32.9 LAB L100.1500 80-94 fL High MCV 97.3 LAB L100.1600 27.0-32.0 pg Normal MCH 30.2 LAB L100.1700 32-36 g/gl Low MCHC 31.0 LAB L100.1810 11.6-14.6 % High RDW CV 15.0 LAB L100.1820 35.1-43.9 fl High RDW SD 50.6 LAB L100.1900 150-450 K/mm3 Low PLT 143 LAB L100.2000 6.2-12.0 fl High MPV 12.1 Performed By: #### L100.0500 #### [facility] [address] [place], [address] BASIC METABOLIC Collected: 06/14/2017 Status: F Source: [place] PROFILE (BMP) 7:03 AM [facility] Order Comment: ROOM 305-1 TYPE CODE TESTS RESULT OUT OF RANGE REFERENCE UNITS LAB L501.0100 74-106 mg/dL High GLU 130 Result Comment: Fasting Glucose result greater than or equal to 126 mg/dL suggests DIABETES MELLITUS per A.D.A. criteria. Please note revised GLUCOSE reference range effective 2017. LAB L501.1000 7-18 mg/dL High BUN 23 LAB L501.1100 0.70-1.30 mg/dL Normal CREAT,SERUM 1.08 Result Comment: The validity of the calculated GFR AND GFRAA in patients over 70 years has not been determined. Clinical correlation is essential. LAB L501.1110 >60 mL/min Normal EST GFR 69 Result Comment: Non- GFR Calc LAB L501.1115 >60 mL/min Normal EST GFR - AA 84 Result Comment: GFR Calc LAB L501.1300 10-20 RATIO High BUN/CRE 21.3 LAB L501.2200 8.5-10.1 mg/dL CA Normal 9.0 LAB L501.5300 136-145 mmol/L NA Normal 138 LAB L501.5600 3.5-5.1 mmol/L K Normal 4.2 LAB L501.5900 98-107 mmol/L CL Normal 102 LAB L501.6100 21.0-32.0 mmol/L Normal CO2 29.0 LAB L501.6200 5-15 Normal GAP 7 Performed By: #### L500.2500 #### [facility] [address] [place], [address] LOWER EXT ARTERIAL Observed: 05/24/2017 Status: F Source: [place] STUDY 11:27 AM [facility] REPOSITORY [facility] [address] [place] [address] 05/24/17 [id number] MR#: [id number] Acct: [id number] Name: Aundrea Ojeda Rep #: [id number] : 1935 81 From: José Antonio Castro MD Attending Dr: José Antonio Castro MD Status: REG CLI Ordering Dr: Date: 05/24/17 Location: [facility] Sex: M C Admitted: Arterial Study - Arterial Study Arterial Study: Patient: Aundrea Ojeda Record number: [id number] Date of scan 05/23/[address] Castro Indication patient with history of bilateral ulcers diabetes tobacco abuse Interpretation: Right lower extremity pulsatile flow noted at the ankle duplex with monophasic flow both vessels with an TIFFANIE 0.47 of the posterior tibial 0.51 in the dorsalis pedis Left lower extremity TIFFANIE 0.5 into the posterior tibial 0.67 of the dorsalis pedis with monophasic flow noted of both vessels. Impression: 1. 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 Left lower extremity with moderate arterial occlusive disease with monophasic flow noted and TIFFANIE 0.67 05/24/17 1127 <Electronically signed by José Antonio Castro MD> Date José Antonio Castro MD CC: Date Dictated: 05/24/17 1124 Date Transcribed: 05/24/17 112 Line Pilot: ELODIA Signed ARTERIAL DUPLEX US Observed: 05/24/2017 Status: F Source: [facility] 8:[address] [facility] Cardiovascular Services [address] [place] [address] Art Duplex US Bilat Lower Ext 05/23/17 1011 MR#: [id number] Acct: [id number] Name: Aundrea Ojeda Rep #: [id number] : 1935 81 From: José Antonio Castro MD Attending Dr: José Antonio Castro MD Status: REG CLI Ordering Dr: José Antonio Castro MD Date: 05/23/17 Location: [facility] Sex: M C Admitted: Reason For Study: Pain, ulcers, PVD Right Velocities Left Velocities Ext. Iliac Artery, dist = 260.0 cm./sec. Ext Iliac Artery, dist = 139.0 cm./sec. Common Femoral Artery, prox = 301.0 cm./sec. Common Femoral Artery, prox = 149.0 cm./sec. Profunda Femoral Artery = 165.0 cm./sec. Supf. Femoral Artery, prox = 10.2 cm./sec. Popliteal Artery, prox. = 55.7 cm./sec. Profunda Femoral Artery = 215.0 cm./sec. Popliteal Artery, mid = 64.5 cm./sec. Popliteal Artery, proximal, = 26.7 cm./sec. Popliteal Artery, dist = 29.9 cm./sec. Popliteal Artery, mid = 42.4 cm./sec. Post. Tibial Artery, prox = 26.4 cm./sec. Popliteal Artery, distal = 32.2 cm./sec. Ant. Tibial Artery, prox = 24.3 cm./sec. Post. Tibial Artery, prox = 33.4 cm./sec. Ant. Tibial Artery, mid = 21.7 cm./sec. Ant.Tibial Artery, prox = 19.2 cm./sec. Ant. Tibial Artery, dist = 16.0 cm./sec. Ant Tibial Artery, mid = 45.2 cm./sec. Unable to demonstrate flow SFA, Mid/Dist MOBILE CRANE OPERATOR and Ant. Tibial Artery, distal = 21.2 cm./sec. PER A. 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 Procedure Exam performed in department. Interpretation Summary 1. Right FACTORY ENGINEER stenosis. 2. Right sfa, posterior tibial and peroneal occlussion 3. Left sfa, posterior tibial and peroneal occlussion. Ordering Physician: José Antonio Castro Performed By: Brenda Beal RVT 05/24/17 0813 Date José Antonio Castro MD CC: José Antonio Castro MD Date Dictated: 05/23/17 101 Date Transcribed: 05/24/17812 Line Pilot: Signed CBC W/DIFF, AUTOMATED Collected: 05/02/2017 Status: F Source: [place] 7:20 AM [facility] Order Comment: 305-1 TYPE CODE TESTS RESULT OUT OF RANGE REFERENCE UNITS LAB L100.1000 4.4-11.0 K/mm3 Normal WBC 6.6 LAB L100.1200 4.6-6.2 M/mm3 Low RBC 3.48 LAB L100.1300 13.0-16.5 g/dl Low HGB 10.2 LAB L100.1400 40-54 % Low HCT 33.1 LAB L100.1500 80-94 fL High MCV 95.1 LAB L100.1600 27.0-32.0 pg Normal MCH 29.3 LAB L100.1700 32-36 g/gl Low MCHC 30.8 LAB L100.1810 11.6-14.6 % High RDW CV 15.7 LAB L100.1820 35.1-43.9 fl High RDW SD 54.6 LAB L100.1900 150-450 K/mm3 Normal PLT 154 LAB L100.2000 6.2-12.0 fl Normal MPV 11.5 LAB L100.2100 47-70 % Normal NEUT% 68.8 LAB L100.2200 19-41 % Low LY% 16.3 LAB L100.2300 0-10 % High MONO% 11.3 LAB L100.2400 0-5 % Normal EO% 3.4 LAB L100.2500 0-1 % Normal BASO% 0.2 LAB L100.2550 0.0-0.9 % Normal IM GRAN % 0.000 Result Comment: IG% - Immature Granulocytes (promyelocytes, myelocytes and metamyelocytes) > 1% indicates that a LEFT SHIFT is Present. LAB L100.2620 2.0-7.7 X10 3/uL Normal Absolute Neut 4.5 LAB L100.2720 0.83-4.51 X10 3/ul Normal Absolute Lymph 1.07 Performed By: #### L100.0100 #### [facility] [address] [place], [address] BASIC METABOLIC Collected: 05/02/2017 Status: F Source: [place] PROFILE (BMP) 7:20 AM [facility] Order Comment: 305-1 TYPE CODE TESTS RESULT OUT OF RANGE REFERENCE UNITS LAB L501.0100 70-110 mg/dL Normal GLU 82 LAB L501.1000 7-18 mg/dL Normal BUN 13 LAB L501.1100 0.70-1.30 mg/dL Normal 0.94 CREAT,SERUM Result Comment: The validity of the calculated GFR AND GFRAA in patients over 70 years has not been determined. Clinical correlation is essential. LAB L501.1110 >60 mL/min Normal EST GFR 81 Result Comment: Non- GFR Calc LAB L501.1115 >60 mL/min Normal EST GFR - AA 98 Result Comment: GFR Calc LAB L501.1300 10-20 RATIO Normal BUN/CRE 13.8 LAB L501.2200 8.5-10.1 mg/dL CA Normal 8.9 LAB L501.5300 136-145 mmol/L NA Normal 141 LAB L501.5600 3.5-5.1 mmol/L Low K 3.3 LAB L501.5900 98-107 mmol/L CL Normal 105 LAB L501.6100 21.0-32.0 mmol/L Normal CO2 28.0 LAB L501.6200 5-15 Normal GAP 8 Performed By: #### L500.2500 #### [facility] [address] [place], [address] URINALYSIS, ROUTINE Collected: 04/30/2017 Status: F Source: [place] (DIPSTICK) 12:00 AM [facility] Order Comment: How was Urine Obtained? CLEAN CATCH TYPE CODE TESTS RESULT OUT OF RANGE REFERENCE UNITS LAB L400.3000 Yellow COLOR Normal Yellow LAB L400.3050 Clear Normal CLARITY Clear LAB L400.3200 Normal mg/dl High 50 GLUCOSE, UR LAB L400.3300 Negative mg/dL Normal BILIRUBIN URINE Negative LAB L400.3400 Negative mg/dl Normal KETONE UR Negative LAB L400.3465 1.002-1.030 Normal SP.GR. DIPSTX 1.010 LAB L400.3550 5.0 - 8.0 pH UR Normal 6.5 LAB L400.3600 Negative mg/dl PROT Normal DIPSTX Negative LAB L400.3700 Normal mg/dl High 1 UROBILI LAB L400.3750 Negative Normal NITRITE UR Negative LAB L400.3780 Negative /ul High OCCULT BLOOD-UR 150 LAB L400.3800 Negative /ul LEUK Normal ESTERASE Negative Performed By: #### L400.2010 #### [facility] [address] [place], [address] Observed: 04/30/2017 Status: F Source: [place] CULTURE, URINE 12:00 AM [facility] Urine Culture Culture exhibits no growth. Performed By: #### M100.0650 #### [facility] [address] [place], [address] ALLERGIES ALLERGIES DATE TYPE / CODE NAME / CODE REACTION SEVERITY SOURCE 07/09/2016 Drug Iodinated Other Unknown [facility] Allergy/416 [facility] 302148(SNOM and IV Repository ED CT) Dye/[id number](R XNORM) 07/09/2016 Drug Iodinated Other Jacinta [facility] Allergy/416 [facility] 541234(SNOM and IV Repository ED CT) Dye/[id number](R XNORM) ENCOUNTERS ENCOUNTERS ADMIT/DISCHARGE ACCOUNT ADMITTING ENCOUNTER LOCATION SOURCE NUMBER [facility] 04/12/2018 [id number] Ambulatory Jacinta Massena 9 [facility] ing:KAYLEE.LEDALCA Repository R 04/02/2018 [id number] Ambulatory Massena Massena 0 [facility] ing:OLS.WHLCA Repository R 03/15/2018 [id number] Ambulatory Massena Massena 2 [facility] ing:KAYLEE.WHLCA Repository R 03/05/2018 [id number] Ambulatory Massena Massena 6 [facility] ing:KAYLEE.WHLCA Repository R 12/12/2017 [id number] Ambulatory Jacinta Jacinta 0 [facility] ing:KAYLEE.WHLCA Repository R 11/24/2017 [id number] Ambulatory Massena Mass[place] 6 [facility] ing:OLS.WHLCA Repository R 10/27/2017 [id number] Ambulatory Massena [facility] 1 [facility] ing:LABSPEC Repository 10/11/2017 [id number] Ambulatory Massena Jacinta 2 [facility] ing:OLS.WHLCA Repository R 09/23/2017 [id number] Ambulatory Jacinta Jacinta 3 [facility] ing:OLS.WHLCA Repository R 09/20/2017 [id number] Ambulatory Jacinta Jacinta 2 [facility] ing:OLS.WHLCA Repository R 09/18/2017 [id number] Ambulatory Massena Jacinta 0 [facility] ing:OLS.WHLCA Repository R 09/16/2017 [id number] Ambulatory Jacinta Massena 8 [facility] Hospital ing:OLS.WHLCA Repository R 2017 [id number] Ambulatory Jacinta Massena 9 [facility] Hospital ing:OLS.WHLCA Repository R 09/11/2017 [id number] Ambulatory Jacinta Jacinta 6 [facility] ing:OLS.WHLCA Repository R 07/26/2017 [id number] Ambulatory Jacinta Mass[place] 6 [facility] ing:OLS.WHLCA Repository R 07/22/2017 [id number] Ambulatory Massena Massena 1 [facility] ing:OLS.WHLCA Repository R 07/19/2017 [id number] Ambulatory Jacinta Jacinta 0 [facility] ing:OLS.WHLCA Repository R 07/14/2017 [id number] Ambulatory Massena Jacinta 4 [facility] ing:OLS.WHLCA Repository R 07/12/2017 [id number] Ambulatory Jacinta Massena 3 [facility] ing:OLS.WHLCA Repository R 06/14/2017 [id number] Ambulatory Massena Massena 3 [facility] ing:OLS.WHLCA Repository R 06/11/2017 [id number] Ambulatory Jacinta Jacinta 3 [facility] ing:WC Repository 05/24/2017/ [id number] Ambulatory Massena Jacinta 8 6 [facility] Hospital ing:WC Repository 05/23/2017 [id number] Ambulatory Jacinta Jacinta 0 [facility] ing:CVS Repository 05/02/2017 [id number] Ambulatory Jacinta Massena 3 [facility] ing:OLS.WHLCA Repository R 04/30/2017 [id number] Ambulatory Massena Jacinta 3 [facility] ing:OLS.WHLCA Repository R 04/26/2017/ [id number] Ambulatory Jacinta Massena 7 7 [facility] ing:WC Repository 04/19/2017 [id number] Ambulatory Jacinta Massena 8 [facility] ing:WC Repository PAYERS PAYERS ENCOUNTER GUARANTOR PAYER SUBSCRIBER SOURCE 04/12/2018 Duaine E [id number] Primary NOT GIVENUNK [place] Insurance:SELF PAY [place] Number: Effective Repository 269[address]Oqe: 330) Date:2018-04-12 [phone] () 04/02/2018 Duaine E [id number] Primary Duaine E [place] Insurance:MEDICARE MosesDOB: [facility] HEALTHY PART A [facility] [id number] Number: Repository [address]Pdm: [phone]) [id number] [phone] () Date:2018-04-02 04/02/2018 Secondary Duaine E Massena Insurance:[facility] [id number] Hospital Number: Repository [id number] Date:6395-16-41[address] [address]LI: 04/02/2018 Tertiary NOT GIVENUNK Jacinta Insurance:SELF PAY [facility] Number: Effective Repository Date:2018-04-02 03/15/2018 Duaine E [id number] Primary Duaine E [place] Insurance:MEDICARE MosesDOB[facility] [id number] Number: Repository [address]Qmq: 330 [id number] [phone] (HP) Date:2018-03-15 03/15/2018 Secondary Duaine E Massena Insurance:WPS MosesDOB: [facility] [id number] Hospital Number: Repository [id number] Date:5825-14-99CC [address], [place] [address]JM: 03/15/2018 Tertiary NOT GIVENUNK Jacinta Insurance:SELF PAY [facility] Hospital Number: Effective Repository Date:2018-03-15 03/05/2018 Duaine E [id number] Primary Duaine E [place] Insurance:MEDICARE MosesDOB: [place] [facility] [id number] Number: Repository [address]Alp: 330 [id number] [phone] () Date:2018-03-05 03/05/2018 Secondary Duaine E Massena Insurance:[facility] [id number] Hospital Number: Repository [id number] Date:5845-75-60[address], [place] [address]WI: 03/05/2018 Tertiary NOT GIVENUNK [place] Insurance:SELF PAY [facility] Hospital Number: Effective Repository Date:2018-03-05 12/12/2017 Duaine E [id number] Primary Duaine E [place] Insurance:MEDICARE MosesDOB: [facility] [place] [facility] [id number] Number: Repository [address]Agm: 330 [id number] [phone] (HP) Date:2017-12-12 12/12/2017 Secondary Duaine E Jacinta Insurance:S [facility]: [facility] [id number] Hospital Number: Repository [id number] Date:5748-06-49[address], [place] [address]FR: 12/12/2017 Tertiary NOT GIVENUNK [place] Insurance:SELF PAY Community [facility] Number: Effective Repository Date:2017-12-12 11/24/2017 Duaine E [id number] Primary Duaine E [place] Insurance:MEDICARE MosesDOB: [facility] [id number] [place] Number: Repository [address]Pfk: 330 [id number] [phone] () Date:2017-11-24 11/24/2017 Secondary Duaine E Massena Insurance:WPS MosesDOB: [facility] [id number] Hospital Number: Repository [id number] Date:9251-23-44UQ [address], [place] [address]TI: 11/24/2017 Tertiary NOT GIVENUNK Jacinta Insurance:SELF PAY [facility] Number: Effective Repository Date:2017-11-24 10/27/2017 Duaine E [id number] Primary NOT GIVENUNK [place] Insurance:SELF PAY [facility] [place] Number: Effective Repository [address]Qsd: 330) Date:2017-10-27 [phone] () 10/11/2017 Duaine E [id number] Primary Duaine E Jacinta [place] Insurance:MEDICARE MosesDOB: [facility] HEALTHY PART A [facility] [id number] State [facility], [place] Number: Repository [address]Xqo: 330 [id number] [phone] () Date:2017-10-11 10/11/2017 Secondary Duaine E Mass[place] Insurance:[facility]: [facility] [id number] Hospital Number: Repository [id number] Date:1150-30-53HZ [address], [place] [address]PB: 10/11/2017 Tertiary NOT GIVENUNK Jacinta Insurance:SELF PAY [facility] Number: Effective Repository Date:2017-10-11 09/23/2017 Duaine E [id number] Primary NOT GIVENUNK Jacinta [place] Insurance:SELF PAY [facility] [place] Number: Effective Repository [address]Piy: (330) Date:2017-09-23 [phone] () 09/20/2017 Duaine E [id number] Primary Duaine E [place] Insurance:MEDICARE MosesDOB: [place] [facility] [id number] State Hospital, [place] Number: Repository [address]Dwy: 330 [id number] [phone] (HP) Date:2017-09-20 09/20/2017 Secondary Duaine E Mass[place] Insurance:[facility] [id number] Hospital Number: Repository [id number] Date:9746-85-66QS [address], [place] [address]DY: 09/20/2017 Tertiary NOT GIVENUNK Jacinta Insurance:SELF PAY [facility] Number: Effective Repository Date:2017-09-20 09/18/2017 Duaine E [id number] Primary Duaine E [place] Insurance:MEDICARE MosesDOB: [facility] [facility] [id number][facility] [place] Number: Repository [address]Aym: 330 [id number] [phone] () Date:2017-09-18 09/18/2017 Secondary Duaine E Mass[place] Insurance:[facility]: [facility] [id number] Hospital Number: Repository [id number] Date:5943-28-96TY [address], [place] [address]KG: 09/18/2017 Tertiary NOT GIVENUNK Jacinta Insurance:SELF PAY [facility] Number: Effective Repository Date:2017-09-18 09/16/2017 Duaine E [id number] Primary Duaine E Mass[place] Insurance:MEDICARE MosesDOB: [facility]WE[place] [facility] [id number] State [facility], [place] Number: Repository [address]Gxj: 330 [id number] [phone] (HP) Date:2017-09-16 09/16/2017 Secondary Duaine E Massena Insurance:WPS MosesD[facility]: [facility] [id number] Hospital Number: Repository [id number] Date:2221-26-02RE [address], [place] [address]KA: 09/16/2017 Tertiary NOT GIVENUNK Jacinta Insurance:SELF PAY [facility] Hospital Number: Effective Repository Date:2017-09-16 2017 Duaine E [id number] Primary Duaine E Mass[place] Insurance:MEDICARE MosesDOB: [facility] [place] [facility] [id number] State [facility], [place] Number[place] Repository [address]Yba: 330 [id number] [phone] () Date:2017 2017 Secondary Duaine E Mass[place] Insurance:S [facility]resD[facility]: [facility] [id number] Hospital Number: Repository [id number] Date:9533-27-80DY [address], [place] [address]AZ: 2017 Tertiary NOT GIVENUNK Jacinta Insurance:SELF PAY [facility] Number: Effective Repository Date:2017 09/11/2017 Duaine E [id number] Primary Duaine E [place] Insurance:MEDICARE MosesDOB: [facility]WE[facility] [facility] [id number] State [facility], [place] Number: Repository [address]Fay: 330 [id number] [phone] (HP) Date:2017-09-11 09/11/2017 Secondary Duaine E Mass[place] Insurance:S MosesDOB: [facility] [id number] Hospital Number: Repository [id number] Date:4436-33-53EY [address], [place] [address]WV: 09/11/2017 Tertiary NOT GIVENUNK [place] Insurance:SELF PAY Community [facility] Hospital Number: Effective Repository Date:2017-09-11 07/26/2017 Duaine E [id number] Primary Duaine E [place] Insurance:MEDICARE MosesDOB: [place] [facility] [id number] Number: Repository [address]Fhp: (964) [id number] [phone] (HP) Date:2017-07-26 07/26/2017 Secondary Duaine E Mass[place] Insurance:WPS MosesDOB: [facility] FOR [facility] [id number] Hospital Number: Repository [id number] Date:4496-43-71HL [address], [place] [address]RQ: 07/26/2017 Tertiary NOT GIVENUNK Jacinta Insurance:SELF PAY Community [facility] Hospital Number: Effective Repository Date:2017-07-26 07/22/2017 Duaine E [id number] Primary Duaine E [place] Insurance:MEDICARE MosesDOB: [place] [facility] [id number]. Francis at [place] Number: Repository [address]Oey: 330 [id number] [phone] () Date:2017-07-22 07/22/2017 Secondary Duaine E Mass[place] Insurance:WPS MosesDOB: [facility] [id number] Hospital Number: Repository [id number] Date:0544-93-00JK [address], [place] [address]NW: 07/22/2017 Tertiary NOT GIVENUNK Jacinta Insurance:SELF PAY Community [facility] Hospital Number: Effective Repository Date:2017-07-22 07/19/2017 Duaine E [id number] Primary Duaine E [place] Insurance:MEDICARE MosesDOB: [place] [facility] [id number]. Francis at [place] Number: Repository [address]Mny: 330 [id number] [phone] (HP) Date:2017-07-19 07/19/2017 Secondary Duaine E Mass[place] Insurance:S MosesDOB: [facility] [id number] Hospital Number: Repository [id number] Date:7620-20-39GJ [address], [place] [address]JV: 07/19/2017 Tertiary NOT GIVENUNK Jacinta Insurance:SELF PAY [facility] Number: Effective Repository Date:2017-07-19 07/14/2017 Duaine E [id number] Primary Duaine E [place] Insurance:MEDICARE MosDOB: [facility] HEALTHY PART A [facility] [id number]. Francis at [place] Number: Repository [address]Enk: 330 [id number] [phone] () Date:2017-07-14 07/14/2017 Secondary Duaine E Jacinta Insurance:[facility] MosesDOB: [facility] [id number] Hospital Number: Repository [id number] Date:0460-68-35HJ [address], [place] [address]GE: 07/14/2017 Tertiary NOT GIVENUNK [place] Insurance:SELF PAY [facility] Number: Effective Repository Date:2017-07-14 07/12/2017 Duaine E [id number] Primary NOT GIVENUNK [place] Insurance:SELF PAY [facility] [place] Number: Effective Repository [address]Awh: 330) Date:2017-07-12 [phone] () 06/14/2017 Duaine E [id number] Primary Duaine E [place] Insurance:MEDICARE MosesDOB: [facility] [id number]. Francis at [place] Number: Repository [address]Bbi: 330 [id number] [phone] () Date:2017-06-14 06/14/2017 Secondary Duaine E Jacinta Insurance:S [facility]: [place] [id number] Hospital Number: Repository [id number] Date:7799-07-72RT [address], [place] [address]XX: 06/14/2017 Tertiary NOT GIVENUNK [place] Insurance:SELF PAY [facility] Hospital Number: Effective Repository Date:2017-06-14 06/11/2017 DUAINE E [id number] Primary DUAINE E [place] Insurance:MEDICARE MOSESDOB: [place] [facility] [id number][place] Number: Repository [address]Nwl: 330 [id number] [phone] () Date:1999[birth year]08-30 06/11/2017 Secondary DUAINE E [place] Insurance:WPS MOSESDOB: [facility] [id number] Hospital Number: Repository [id number] Date:6652-23-21UD [address], [place] [address]AW: 06/11/2017 Tertiary NOT GIVENUNK [place] Insurance:SELF PAY [facility] Hospital Number: Effective Repository Date:2017-06-01 05/24/2017 DUAINE E [id number] Primary DUAINE E [place] Insurance:MEDICARE MOSESDOB: [facility] [id number]. Francis [facility] [place] Number: Repository [address]Mdj: 330 [id number] [phone] (HP) Date:1999-08-30 05/24/2017 Secondary DUAINE E [place] Insurance:WPS MOSESDOB: [facility] [id number] Hospital Number: Repository [id number] Date:9382-51-23MQ [address], [place] [address]CB: 05/24/2017 Tertiary NOT GIVENUNK [place] Insurance:SELF PAY [facility] Hospital Number: Effective Repository Date:2017-05-01 05/23/2017 DUAINE E [id number] Primary DUAINE E Jacinta [place] Insurance:MEDICARE MOSESDOB: [place] [facility] [id number], [place] Number: Repository [address]Hvz: 330 [id number] [phone] () Date:2017-04-25 05/23/2017 Secondary DUAINE E Jacinta Insurance:[facility]: [facility] [id number] Hospital Number: Repository [id number] Date:6227-51-71FD [facility] [address], [place] [address]QU: 05/23/2017 Tertiary NOT GIVENUNK [place] Insurance:SELF PAY [facility] [facility] Hospital Number: Effective Repository Date:2017-04-25 05/02/2017 Duaine E [id number] Primary Duaine E [place] Insurance:MEDICARE MosesDOB: [facility] [id number] [place] Repository [id number]: [phone] [id number] [phone] () Date:2017-05-02 05/02/2017 Secondary Duaine E Jacinta Insurance:[facility]: [facility] [place] [id number] Hospital Number: Repository [id number] Date:5936-63-84HI [facility] [address], [place] [address]NM: 05/02/2017 Tertiary NOT GIVENUNK Jacinta Insurance:SELF PAY [facility] Hospital Number: Effective Repository Date:2017-05-02 04/30/2017 Duaine E [id number] Primary Duaine E [place] Insurance:MEDICARE MosesDOB: [facility] [id number] Number: Repository [id number]: [phone] [id number] [phone] () Date:2017-04-30 04/30/2017 Secondary NOT GIVENUNK [place] Insurance:SELF PAY [facility] Hospital Number: Effective Repository Date:2017-04-30 04/26/2017 Duaine E [id number] Primary Duaine E Jac[place] Insurance:MEDICARE MosesDOB[facility] [id number] Number: Repository [id number]: [id number] [phone] Date:1999-08-30 () 04/26/2017 Secondary Duaine E Jacinta Insurance:[facility]: [facility] [place] [id number] Hospital Number: Repository [id number] Date:1027-36-[address] [address]MI: 04/26/2017 Tertiary NOT GIVENUNK Jacinta Insurance:SELF PAY [facility] Number: Effective Repository Date:2017-04-02 04/19/2017 DUAINE E [id number] Primary DUAINE E Jacinta [place], [place] Insurance:MEDICARE MOSDOB: [facility] [id number]: (330) PART A [facility] [id number] Hospital [phone] () Number: Repository [id number] Date:1999-08-30 04/19/2017 Secondary KENDY E Jacinta Insurance:[facility]: [facility] [place] [id number] Hospital Number: Repository [id number] Date:8539-28-93[address], [place] [address]QJ:
== END ==
LOC: OLS.WHLCAR 04:00
PROVIDERS: Visit Provider Family Medicine
DX: I50.9 Heart failure, unspecified (principal)
CPT/HCPCS: 36415; 80048; 85027

== ENCOUNTER → 2018-04-12 07:49 | Outpatient (REF) | payer MEDICARE, OTHER, SELFPAY ==
[2018-04-13 07:50] LABS: Mucous, Urine 0 SEEN /hpf (<or=2+)
[2018-04-13 08:14] LABS: Color, Urine Yellow (Yellow); Glucose, Dipstick Normal (Normal); Ketone-Dipstick Negative (Negative); Leukocyte Esterase-Dipstick 500 /ul (Negative); Nitrite-Dipstick Negative (Negative); Occult Blood-Urine 250 /ul (Negative); Protein-Dipstick 100 mg/dl (Negative); Specific Gravity, Urine 1.015 (1.002-1.030); Urine Bilirubin Dipstick Negative (Negative); Urine Clarity Sl. Cloudy (Clear); Urine Urobilinogen Normal (Normal)
[2018-04-13 08:21] LABS: White Blood Cells >100 SEEN /hpf (0-5)
[2018-04-13 08:22] LABS: Red Blood Cells-Urine 0-5 SEEN /hpf (0-5); Squamous Epithelial Cells - UA 0-5 SEEN /hpf (0-5)
[2018-04-13 08:25] LABS: Triple Phosphate Crystals Ur RARE /hpf (<or=1+)
[2018-04-13 08:28] LABS: Bacteria 2+ /hpf (None Seen)
--- OUTSIDE RECORDS SUMMARY | 2018-05-29 19:22 | XMS RPT_ITS ---
:1935 Author Organization [place] Support Name Relationship Address Phone RENETTA LAIA Unavailable [address] + [place] [address] JUDY MEIER Unavailable [address] + [place] [address] R Unavailable Unavailable Unavailable MING, KHUSHI Unavailable [address] + [place] [address] HARDEEPASHLYN STANTONE Unavailable [address] + [place] [address] R Unavailable Unavailable Unavailable MING, KHUSHI Unavailable [address] + [place] [address] JUDY MEIER Unavailable [address] + [place] [address] R Unavailable Unavailable Unavailable MING, KHUSHI Unavailable [address] + [place] [address] ASHLYN MEIERE Unavailable [address] + [place] [address] R Unavailable Unavailable Unavailable MING, KHUSHI Unavailable [address] + [place] [address] ASHLYN MEIERE Unavailable [address] + [place] [address] R Unavailable Unavailable Unavailable MING, KHUSHI Unavailable [address] + [place] [address] ASHLYN MEIERE Unavailable [address] + [place] [address] R Unavailable Unavailable Unavailable MING, KHUSHI Unavailable [address] + [place] [address] HARDEEPASHLYNE Unavailable [address] + [place] [address] R Unavailable Unavailable Unavailable Ming, Khushi Unavailable [address] + [place] [address] HardeepAshlyn stantone Unavailable [address] + [place] [address] R Unavailable Unavailable Unavailable Ming, Khushi Unavailable [address] + [place] [address] Hardeep Judy Unavailable [address] + [place] [address] R Unavailable Unavailable Unavailable Ming, Khushi Unavailable [address] + [place] [address] Hardeep Judy Unavailable [address] + [place] [address] R Unavailable Unavailable Unavailable Ming, Khushi Unavailable [address] + [place] [address] Hardeep Judy Unavailable [address] + [place] [address] R Unavailable Unavailable Unavailable Ming, Khushi Unavailable [address] + [place] [address] HardeepAshlyn stantone Unavailable [address] + [place] [address] R Unavailable Unavailable Unavailable Ming, Khushi Unavailable [address] + [place] [address] Hardeep Judy Unavailable [address] + [place] [address] R Unavailable Unavailable Unavailable Ming, Khushi Unavailable [address] + [place] [address] Hardeep Judy Unavailable [address] + [place] [address] R Unavailable Unavailable Unavailable Ming, Khushi Unavailable [address] + [place] [address] Hardeep Judy Unavailable [address] + [place] [address] R Unavailable Unavailable Unavailable Ming, Khushi Unavailable [address] + [place] [address] Hardeep Judy Unavailable [address] + [place] [address] R Unavailable Unavailable Unavailable Ming, Khushi Unavailable [address] + [place] [address] Judy Meier Unavailable [address] + [place] [address] R Unavailable Unavailable Unavailable Ming, Khushi Unavailable [address] + [place] [address] HardeepAshlyne Unavailable [address] + [place] [address] R Unavailable Unavailable Unavailable Ming, Khushi Unavailable [address] + [place] [address] HardeepAshlyne Unavailable [address] + [place] [address] R Unavailable Unavailable Unavailable Ming, Khushi Unavailable [address] + [place] [address] HardeepAshlyn stantone Unavailable [address] + [place] [address] R Unavailable Unavailable Unavailable Ming, Khushi Unavailable [address] + [place] [address] HardeepAshlyn stantone Unavailable [address] + [place] [address] R Unavailable Unavailable Unavailable Ming, Khushi Unavailable [address] + [place] [address] HardeepAshlyn stantone Unavailable [address] + [place] [address] R Unavailable Unavailable Unavailable Ming, Khushi Unavailable [address] + [place] [address] Ashlyn Meiere Unavailable [address] + [place] [address] R Unavailable Unavailable Unavailable Ming, Khushi Unavailable [address] + [place] [address] HardeepAshlyn stantone Unavailable [address] + [place] [address] R Unavailable Unavailable Unavailable Ming, Khushi Unavailable [address] + [place] [address] HardeepAshlyn stantone Unavailable [address] + [place] [address] R Unavailable Unavailable Unavailable Ming, Khushi Unavailable [address] + [place] [address] Judy Meier Unavailable [address] + [place] [address] R Unavailable Unavailable Unavailable Khushi Lai Unavailable [facility] [address] + [place] [address] Judy Meier Unavailable [address] + [place] [address] R Unavailable Unavailable Unavailable Khushi Lai Unavailable [facility] [address] + [place] [address] Judy Meier Unavailable [address] + [place] [address] R Unavailable Unavailable Unavailable Khushi Lai Unavailable [facility] [address] + [place] [address] Ashlyn Meiere Unavailable [address] + [place] [address] R Unavailable Unavailable Unavailable Khushi Lai Unavailable [facility] [address] + [place] [address] Judy Meier Unavailable [address] + [place] [address] R Unavailable Unavailable Unavailable Care Team Providers Name Role Phone Nela Marrufo Attending Unavailable Marrufo, Nela Primary Care Unavailable Jopperi, Narciso Admitting Unavailable Jopperi, Narciso Referring Unavailable Bill, Javier Attending Unavailable Jopperi, Narciso Admitting Unavailable Jopperi, Narciso Attending Unavailable Jopperi, Narciso Referring Unavailable Marrufo, Nela Primary Care Unavailable Jopperi, Narciso Consulting Unavailable Jopperi, Narciso Admitting Unavailable Bill, Javier Attending Unavailable Jopperi, Narciso Referring Unavailable Marrufo, Nela Primary Care Unavailable Bill, Javier Consulting Unavailable Jopperi, Narciso Admitting Unavailable Bill, Javier Attending Unavailable Jopperi, Narciso Referring Unavailable Marrufo, Nela Primary Care Unavailable Bill, Javier Consulting Unavailable Jopperi, Narciso Admitting Unavailable Bill, Javier Attending Unavailable Jopperi, Narciso Referring Unavailable Marrufo, Nela Primary Care Unavailable Bill, Javier Consulting Unavailable Isamar Kitchen Attending Unavailable Isamar Kitchen Attending Unavailable Nela Marrufo Attending Unavailable Marrufo, Nela Attending Unavailable MarrufoNela Attending Unavailable Marrufo, Nela Attending Unavailable Jopperi, Narciso Admitting Unavailable Bill, Javier Attending Unavailable Jopperi, Narciso Referring Unavailable Marrufo, Nela Primary Care Unavailable Bill, Javier Consulting Unavailable Jopperi, Narciso Admitting Unavailable Bill, Javier Attending Unavailable Jopperi, Narciso Referring Unavailable Marrufo, Nela Primary Care Unavailable Bill, Javier Consulting Unavailable Marrufo, Nela Attending Unavailable Marrufo, Nela Attending Unavailable Marrufo, Nela Attending Unavailable Marrufo, Nela Attending Unavailable Marrufo, Nela Attending Unavailable Marrufo, Nela Attending Unavailable Marrufo, Nela Attending Unavailable Marrufo, Nela Attending Unavailable Marrufo, Nela Attending Unavailable Marrufo, Nela Attending Unavailable Marrufo, Nela Attending Unavailable Marrufo, Nela Attending Unavailable Marrufo, Nela Attending Unavailable Marrufo, Nela Attending Unavailable Marrufo, Nela Attending Unavailable José Antonio Maldonado Attending Unavailable Marrufo, Nela Primary Care Unavailable PROBLEMS PROBLEMS DATE TYPE CONDITION / CODE ATTENDING STATUS SOURCE 05/23/2018 Unknown I50.9 - Heart Bill, Javier Active [place] failure, unspecified Community / I50.9(ICD-10) Hospital Repository 05/03/2018 Unknown R31.9 - Hematuria, Nela Marrufo Active [place] unspecified / Community R31.9(ICD-10) Hospital Repository 04/05/2018 Unknown E11.9 - Type 2 Nela Marrufo Active [place] diabetes mellitus Community without complications Hospital / E11.9(ICD-10) Repository 04/05/2018 Unknown I10 - Essential Nela Marrufo Active [place] (primary) Community hypertension / Hospital I10(ICD-10) Repository 04/05/2018 Unknown E78.5 - Nela Marrufo Active [place] Hyperlipidemia, Community unspecified / Hospital E78.5(ICD-10) Repository 04/05/2018 Unknown J44.9 - Chronic Nela Marrufo Active [place] obstructive pulmonary Community disease, unspecified Hospital / J44.9(ICD-10) Repository 01/10/2018 Unknown N18.9 - Chronic Nela Marrufo Active [place] kidney disease, Community unspecified / Hospital N18.9(ICD-10) Repository 01/19/2018 Unknown N40.0 - Benign Nela Marrufo Active [place] prostatic hyperplasia Community without lower urinary Hospital tract symptoms / Repository N40.0(ICD-10) 12/06/2017 Unknown N39.0 - Urinary tract Nela Marrufo Active [place] infection, site not Community specified / Hospital N39.0(ICD-10) Repository 09/22/2017 Unknown 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 - 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 / Community A48.1(ICD-10) Hospital Repository 10/24/2017 Unknown Z79.01 - FDC Nela Marrufo Active [place] (current) use of Community anticoagulants / Hospital Z79.01(ICD-10) Repository 10/24/2017 Unknown Z79.899 - Other long Nela Marrufo Active [place] term (current) drug Community therapy / Hospital Z79.899(ICD-10) Repository 01/24/2018 Unknown Z03.89 - Encounter Nela Marrufo Active [place] for observation for Community other suspected Hospital diseases and Repository conditions ruled out / Z03.89(ICD-10) 05/23/2017 Unknown I70.222 - José Antonio Maldonado A Active [place] Atherosclerosis of Community [place] arteries of Hospital extremities with rest Repository pain, left leg / I70.222(ICD-10) 05/23/2017 Unknown I70.238 - José Antonio Maldonado Active [place] Atherosclerosis of [facility] [place] arteries of Hospital right leg with Repository ulceration of other part of lower right leg / I70.238(ICD-10) 05/23/2017 Unknown M79.89 - Other José Antonio Maldonado Active [place] specified soft tissue Community disorders / Hospital M79.89(ICD-10) Repository 05/23/2017 Unknown M79.604 - Pain in Matthew José Antonio Stevenson Active [place] right leg / Community M79.604(ICD-10) Hospital Repository PROCEDURES PROCEDURES No Procedure Records FoundRESULTS RESULTS TRANSFER TO EXTENDED Observed: 05/18/2018 Status: F Source: [facility] 5:16 PM [facility] REPOSITORY [facility] Medical Records Department [address] [place] [id number] Transfer to Extended Care MR#: [id number] Acct: [id number] Name: ED MEIER Rep #: [id number] : 1935 82 From: Javier Khan MD PCP: Nela Marrufo MD Status: DIS IN ED MEIER (Patient) (Health Ins. Claim No.) (Day of Discharge to Facility) Certification of patient admission REQUIRED AT TIME OF ADMISSION. I CERTIFY THAT POST-HOSPITAL ECF SERVICES ARE REQUIRED TO BE GIVEN ON AN IN-PATIENT BASIS BECAUSE OF THE ABOVE NAMED PATIENT'S NEED FOR LONG TERM CARE ON A CONTINUING BASIS FOR THE CONDITION(S) FOR WHICH HE/SHE WAS RECEIVING IN-PATIENT HOSPITAL SERVICES PRIOR TO HIS/HER TRANSFER TO THE [facility]. 05/18/18 1129 <Electronically signed by Javier Khan MD> Date Javier Khan MD ADDENDUM by Javier Khan MD on 05/18/18 at 1716 Code Visit In and examined on 05/18/2018. Discharge medication reconciliation done. Patient is stable to be discharged today. 05/18/18 1716 <Electronically signed by Javier Khan MD> Date Javier Khan MD cc: Nela Marrufo MD * Signed - Diet 05/13/18 20:27 Diet: Cardiac/Low Cholesterol Food consistency:: Regular Liquid Consistency:: Regular/Thin Type of Dietary Supplement:: Glucerna Shake - Routine Orders/Code Status Suppository Type: Dulcolax 10mg Suppository Frequency: Daily PRN Routine Lab Work: CBC, BMP - every week starting on 05/21/18 for electrolytes - Wound(s) bridge of nose Wound Type: Abrasion - Therapies Weight Bearing: Weight bearing as tolerated Extremity Affected:: Bilateral Lower Physical Therapy: Eval and Treat Occupational Therapy: Eval and Treat Speech Therapy: Eval and Treat - Allergies/Procedures Done in Hospital Allergies/Adverse Reactions: Allergies Iodinated Contrast- Oral and IV Dye [Iodinated Contrast Media - IV Dye] Allergy (Verified 07/09/16 19:04) Other - Type of Care/Length of Stay Estimated LOS: Convalescent Care Less Than 30 days Type of Care Needed: Skilled Rehab Potential: Good Prognosis: Good - Additional Orders/Day of Discharge Day of Discharge: 05/17/18 - Dietary and Speech Recommendations Dietitian Recommendations/Changes: Suggest diet change to 1800 calorie, cardiac, low sodium with 1500 ml FR. Skin appears intact--? need for continued Lloyd. Will make glucerna shake with meals only 120 ml due to fluid restriction AND good PO at this time. - Follow Up Care Primary Care Physician: Nela Marrufo MD [Primary Care Provider] - Please follow up with your Primary Care Physician in: in 1 weeks Please Follow Up With: Gilmar Haddad MD When: 2-3 weeks Please Follow Up With: Panfilo Cifuentes MD When: in 4 weeks 05/18/18 1129 <Electronically signed by Javier Khan MD> Date Javier Khan MD CC: Nela Marrufo MD Signed DISCHARGE SUMMARY Observed: 05/18/2018 Status: F Source: [place] 5:15 PM [facility] REPOSITORY [facility] Medical Records Department [address] [place] [address] [place] [address] Discharge Summary 05/18/18 1712 MR#: [id number] Acct: [id number] Name: ED MEIER Rep #: [id number] : 1935 82 From: Javier Khan MD PCP: Nela Marrufo MD Status: DIS IN Y Location: [place] [id number] 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) Chronic ulcer of left ankle with fat layer exposed (Chronic) Ulcer of right foot with fat layer exposed (Chronic) Fall (Chronic) Congestive heart failure (Chronic) Acute kidney injury (Chronic) Peripheral vascular disease (Chronic) Diabetes mellitus with polyneuropathy (Chronic) 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) Edema, lower extremity (Chronic) Malnutrition (Chronic) BPH (benign prostatic hypertrophy) (Chronic) Hypertension (Chronic) Coronary artery disease (Chronic) Chronic ulcer of ankle (Chronic) Edema (Chronic) PAOD (peripheral arterial occlusive disease) (Chronic) Aortic valve stenosis (Chronic) Benign essential hypertension (Chronic) Chronic obstructive lung disease (Chronic) DM type 2 (diabetes mellitus, type 2) (Chronic) CAD (coronary artery disease) (Chronic) Hx of CABG (Chronic) Peripheral neuropathy (Chronic) Venous (peripheral) insufficiency (Chronic) Hyperlipidemia (Chronic) Hospital Course and Treatment Operations: None Summary of Care Provided: [] This 82-year-old gentleman with history of congestive heart failure, peripheral arterial disease was admitted with progressive worsening of shortness of breath for several days. Patient was started on BiPAP and diuretics. Patient also has pyuria in UA, 5200 cells but nitrite negative. 1. Acute heart failure, systolic in nature: 2D echo was done shows then reported estimated EF 40% with moderate segmental systolic dysfunction with akinetic inferobasal and inferior septal region. He lost about 10 pounds of fluid weight Lasix 40 mg IV is decreased to twice daily. Patient had total 6-7 times urine output on the top, he is urinary incontinent and on diaper. Fluid restriction of 1500 cc/day. Patient is discharged on Lasix 40 mg oral twice daily. Follow-up BMP and CBC on Monday in consultation with PCP. Near syncope secondary to hypotension/intravascular fluid shift: Advised to hold Lasix if systolic blood pressures less than 120. Monitor intake and output in care home. 2. Acute Proteus mirabilis UTI on recurrent UTI Urine culture shows more than 100,000 Proteus mirabilis pansensitive except nitrofurantoin. As patient has recently Keflex, antibiotic changed to amoxicillin. Does have a history of Proteus and Pseudomonas urinary tract infection. Most recently was Proteus which was sensitive to ceftriaxone. Recently treated with Keflex for 7 days in care home in March 2018. Patient discharged on 3 more days of amoxicillin. Patient may benefited by urology follow-up with history of recurrent UTI to look for a stone. 3. Acute hypoxic respiratory failure Improved with BiPAP Wean as tolerated 4. DVT prophylaxis patient is already on Eliquis 5. Advanced care planning: Confirmed the patient still is DNR Comfort Care arrest Discharge medication reconciliation done. Discharge follow- up instructions completed. Discharge process discussed with the patient. Patient is being discharged to care home. Total time spent, exact 35 minutes on discharge meds reconciliation, examination, review of imaging and blood test and discussion with the patient on follow-up instructions. Subjective: Discharge was held yesterday as patient got dizzy and mild hypotensive before discharge. Blood pressure was 90/54 for which patient was given normal saline bolus and blood pressure recovered. The morning patient did not have chest pain or shortness of breath or dizziness or near syncope symptoms. Objective: General: Alert, Oriented x3, Cooperative HEENT: Atraumatic, PERRLA, EOMI, Normocephalic Neck: Supple, No JVD, Negative Carotid Bruits Lungs: Air entry diminished in bilateral lung bases. Bibasilar occasional crepitations present. Cardiovascular: Regular rate, Normal S1, Normal S2, systolic murmur at left sternal border Abdomen: Bowel Sounds Present, Soft, Non Tender Extremities: Capillary Refill Less than 3 Seconds, Edema Skin: No rashes, No breakdown Musculoskeletal: No Tenderness to Palpation of Joints or Extremities Neurological: Cranial nerves II-XII grossly intact Psych/Mental Status: Normal Affect, Appropriate - Physical Exam Vital Signs Temp Pulse Resp BP Pulse Ox 98.4 F 70 18 113/39 L 93 05/18/18 12:30 05/18/18 12:30 05/18/18 12:30 05/18/18 12:30 05/18/18 12:30 Oxygen Flow Rate (L/min) 2 Oxygen Delivery Method Room Air Weight: 211 lb 13.828 oz Body Mass Index (BMI) 29.8 Finger Stick Blood Glucose 134 Intake and Output for Last 24 Hours Intake Total 1350 / 1350 920 / 920 460 / 460 Output Total 50 / 50 Balance 1350 / 1350 870 / 870 460 / 460 POC Glucose POC Glucose 171 H 134 H 181 H POC Glucose 135 H 101 87 Home Medications: Medications to take at Discharge Loratadine [Claritin] 10 mg PO DAILY 10/30/13 Metoprolol Tartrate [Lopressor (beta melissa)] 50 mg PO BID 10/30/13 Clopidogrel Bisulfate [Plavix] 75 mg PO DAILY 02/04/16 Finasteride [Proscar] 5 mg PO DAILY tablet 07/13/16 Acetaminophen [Tylenol] 1,000 mg PO Q8H PRN #0 tablet 08/22/16 Bisacodyl [Dulcolax] 10 mg RECTAL DAILY PRN #0 suppos. 08/22/16 Fluoxetine [Prozac] 20 mg PO DAILY capsule 08/22/16 Ipratropium/Albuterol Sulfate [Duoneb] 3 ml INHALATION Q4H.RT PRN #0 ampul.neb 08/22/16 Iron Polysaccharide Complex [Ferrex 150] 150 mg PO DAILYCM capsule 08/22/16 Nutritional Supplement [Lloyd - ORANGE FLAVOR] 1 packet PO BIDCM packet 08/22/16 Polyethylene Glycol 3350 [Miralax] 17 gm PO DAILY packet 08/22/16 Senna/Docusate Sodium [Senokot-S] 2 tablet PO BID tablet 08/22/16 Albuterol Aerosols [Ventolin Aerosols] 2.5 mg INHALATION Q4H PRN PRN 05/13/18 Apixaban [Eliquis] 2.5 mg PO BID 05/13/18 Aspirin E.C. [Ecotrin] 81 mg PO DAILY@0800 05/13/18 Guaifenesin [Mucinex] 600 mg PO BID 05/13/18 Insulin Aspart [Novolog Flexpen] 10 units SC TIDAC 05/13/18 Insulin Detemir [Levemir FlexPen] 50 units SC DAILY 05/13/18 Lisinopril [Zestril] 20 mg PO DAILY 05/13/18 Metolazone [Zaroxolyn] 2.5 mg PO DAILY 05/13/18 Omeprazole [Prilosec] 20 mg PO DAILY 05/13/18 Tamsulosin HCl [Flomax] 0.4 mg PO DAILY 05/13/18 Amoxicillin [Amoxil] 500 mg PO Q12 #7 cap 05/17/18 Furosemide [Lasix] 40 mg PO BID #0 05/17/18 Potassium Chloride [K-Dur] 40 meq PO DAILYCM #14 tablet 05/17/18 Following Prescrptions Were Given to Patient: Amoxicillin [Amoxil] 500 mg PO Q12 #7 cap Potassium Chloride [K-Dur] 40 meq PO DAILYCM #14 tablet Primary Care Physician: Nela Marrufo MD [Primary Care Provider] - Please follow up with your Primary Care Physician in: in 1 weeks Please Follow Up With: Gilmar Haddad MD When: 2-3 weeks Please Follow Up With: Panfilo Cifuentes MD When: in 4 weeks Medical Necessity - Tobacco Use Smoking Status: Former smoker Tobacco Use: Non-smoker Meaningful Use Info Meaningful Use Diagnoses (Choose all that apply): None applicable Code Visit Inpatient E AND M: 43445 Disch Hosp 05/18/18 7924 <Electronically signed by Javier Bill MD> Date Javier Khan MD Cosigner Signature (if applicable): Date CC: Nela Marrufo MD; Javier Khan MD Signed BEDSIDE GLUCOSE Collected: 05/18/2018 Status: F Source: [place] 11:52 AM [facility] REPOSITORY TYPE CODE TESTS RESULT OUT OF REFERENCE UNITS RANGE LAB L501.080 70-110 mg/dL High BEDSIDE GLU 171 Result Comment: MANAGEMENT OF PATIENT CARE PER NURSING PROTOCOL Performed By: #### L501.080 #### [facility] Laboratory Point of Care [address] [place], [place] [id number] BEDSIDE GLUCOSE Collected: 05/18/2018 Status: F Source: [place] 6:46 AM [facility] REPOSITORY TYPE CODE TESTS RESULT OUT OF REFERENCE UNITS RANGE LAB L501.080 70-110 mg/dL High BEDSIDE GLU 134 Result Comment: MANAGEMENT OF PATIENT CARE PER NURSING PROTOCOL Performed By: #### L501.080 #### [facility] Laboratory Point of Care [address] [place] [address] BEDSIDE GLUCOSE Collected: 05/17/2018 Status: F Source: [place] 10:29 PM [facility] REPOSITORY TYPE CODE TESTS RESULT OUT OF REFERENCE UNITS RANGE LAB L501.080 70-110 mg/dL High BEDSIDE GLU 181 Result Comment: MANAGEMENT OF PATIENT CARE PER NURSING PROTOCOL Performed By: #### L501.080 #### [facility] Laboratory Point of Care [address] [place] [address] BEDSIDE GLUCOSE Collected: 05/17/2018 Status: F Source: [place] 7:24 PM [facility] REPOSITORY TYPE CODE TESTS RESULT OUT OF REFERENCE UNITS RANGE LAB L501.080 70-110 mg/dL High BEDSIDE GLU 135 Result Comment: MANAGEMENT OF PATIENT CARE PER NURSING PROTOCOL Performed By: #### L501.080 #### [facility] Laboratory Point of Care [address] [place] [address] BEDSIDE GLUCOSE Collected: 05/17/2018 Status: F Source: [place] 6:29 PM [facility] REPOSITORY TYPE CODE TESTS RESULT OUT OF RANGE REFERENCE UNITS LAB L501.080 70-110 mg/dL Normal BEDSIDE GLU 101 Result Comment: MANAGEMENT OF PATIENT CARE PER NURSING PROTOCOL Performed By: #### L501.080 #### [facility] Laboratory Point of Care [address] [place] [address] BEDSIDE GLUCOSE Collected: 05/17/2018 Status: F Source: [place] 5:50 PM [facility] REPOSITORY TYPE CODE TESTS RESULT OUT OF RANGE REFERENCE UNITS LAB L501.080 70-110 mg/dL Normal BEDSIDE GLU 87 Result Comment: MANAGEMENT OF PATIENT CARE PER NURSING PROTOCOL Performed By: #### L501.080 #### [facility] Laboratory Point of Care [address] [place] [address] TRANSFER TO EXTENDED Observed: 05/17/2018 Status: F Source: [place] [facility] 5:21 PM [facility] REPOSITORY [facility] Medical Records Department [address] [place] [address] Transfer to Extended Care MR#: [id number] Acct: [id number] Name: ED MEIER Rep #: [id number] : 1935 82 From: Javier Khan MD PCP: Nela Marrufo MD Status: ADM IN ED MEIER (Patient) (Health Ins. Claim No.) (Day of Discharge to Facility) Certification of patient admission REQUIRED AT TIME OF ADMISSION. I CERTIFY THAT POST-HOSPITAL ECF SERVICES ARE REQUIRED TO BE GIVEN ON AN IN-PATIENT BASIS BECAUSE OF THE ABOVE NAMED PATIENT'S NEED FOR LONG TERM CARE ON A CONTINUING BASIS FOR THE CONDITION(S) FOR WHICH HE/SHE WAS RECEIVING IN-PATIENT HOSPITAL SERVICES PRIOR TO HIS/HER TRANSFER TO THE F. 05/17/18 1336 <Electronically signed by Javier Khan MD> Date Javier Khan MD ADDENDUM by Javier Khan MD on 05/17/18 at 1721 Code Visit Follow-up urologist, in 3-4 weeks for recurrent UTI 05/17/18 1721 <Electronically signed by Javier Khan MD> Date Javier Khan MD cc: Nela Marrufo MD * Signed - Diet 05/13/18 20:27 Diet: Cardiac/Low Cholesterol Food consistency:: Regular Liquid Consistency:: Regular/Thin Type of Dietary Supplement:: Glucerna Shake - Routine Orders/Code Status Suppository Type: Dulcolax 10mg Suppository Frequency: Daily PRN Routine Lab Work: CBC, BMP - every week starting on 05/21/18 for electrolytes - Wound(s) bridge of nose Wound Type: Abrasion - Therapies Weight Bearing: Weight bearing as tolerated Extremity Affected:: Bilateral Lower Physical Therapy: Eval and Treat Occupational Therapy: Eval and Treat Speech Therapy: Eval and Treat - Allergies/Procedures Done in Hospital Allergies/Adverse Reactions: Allergies Iodinated Contrast- Oral and IV Dye [Iodinated Contrast Media - IV Dye] Allergy (Verified 07/09/16 19:04) Other - Type of Care/Length of Stay Estimated LOS: Convalescent Care Less Than 30 days Type of Care Needed: Skilled Rehab Potential: Good Prognosis: Good - Additional Orders/Day of Discharge Day of Discharge: 05/17/18 - Dietary and Speech Recommendations Dietitian Recommendations/Changes: Suggest diet change to 1800 calorie, cardiac, low sodium with 1500 ml FR. Skin appears intact--? need for continued Lloyd. Will make glucerna shake with meals only 120 ml due to fluid restriction AND good PO at this time. - Follow Up Care Primary Care Physician: Nela Marrufo MD [Primary Care Provider] - Please follow up with your Primary Care Physician in: in 1 weeks Please Follow Up With: Gilmar Haddad MD When: 2-3 weeks Please Follow Up With: Panfilo Cifuentes MD When: in 4 weeks 05/17/18 1336 <Electronically signed by Javier Khan MD> Date Javier Khan MD CC: Nela Marrufo MD Signed DISCHARGE SUMMARY Observed: 05/17/2018 Status: F Source: [place] 5:20 PM [facility] REPOSITORY [facility] Medical Records Department [address] [place] [address] Discharge Summary 05/17/18 1141 MR#: [id number] Acct: [id number] Name: ED MEIER Rep #: [id number] : 1935 82 From: Javier Khan MD PCP: Nela Marrufo MD Status: ADM IN Location: [place] [address] 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) Chronic ulcer of left ankle with fat layer exposed (Chronic) Ulcer of right foot with fat layer exposed (Chronic) Fall (Chronic) Congestive heart failure (Chronic) Acute kidney injury (Chronic) Peripheral vascular disease (Chronic) Diabetes mellitus with polyneuropathy (Chronic) 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) Edema, lower extremity (Chronic) Malnutrition (Chronic) BPH (benign prostatic hypertrophy) (Chronic) Hypertension (Chronic) Coronary artery disease (Chronic) Chronic ulcer of ankle (Chronic) Edema (Chronic) PAOD (peripheral arterial occlusive disease) (Chronic) Aortic valve stenosis (Chronic) Benign essential hypertension (Chronic) Chronic obstructive lung disease (Chronic) DM type 2 (diabetes mellitus, type 2) (Chronic) CAD (coronary artery disease) (Chronic) Hx of CABG (Chronic) Peripheral neuropathy (Chronic) Venous (peripheral) insufficiency (Chronic) Hyperlipidemia (Chronic) Hospital Course and Treatment Operations: None Summary of Care Provided: [] This 82-year-old gentleman with history of congestive heart failure, peripheral arterial disease was admitted with progressive worsening of shortness of breath for several days. Patient was started on BiPAP and diuretics. Patient also has pyuria in UA, 5200 cells but nitrite negative. 1. Acute heart failure, systolic in nature: 2D echo was done shows then reported estimated EF 40% with moderate segmental systolic dysfunction with akinetic inferobasal and inferior septal region. He lost about 10 pounds of fluid weight Lasix 40 mg IV is decreased to twice daily. Patient had total 6-7 times urine output on the top, he is urinary incontinent and on diaper. Fluid restriction of 1500 cc/day. Patient is discharged on Lasix 40 mg oral twice daily. Follow-up BMP and CBC on Monday in consultation with PCP. 2. Acute Proteus mirabilis UTI on recurrent UTI Urine culture shows more than 100,000 Proteus mirabilis pansensitive except nitrofurantoin. As patient has recently Keflex, antibiotic changed to amoxicillin. Does have a history of Proteus and Pseudomonas urinary tract infection. Most recently was Proteus which was sensitive to ceftriaxone. Recently treated with Keflex for 7 days in care home in March 2018. Patient discharged on 3 more days of amoxicillin. Patient may benefited by urology follow-up with history of recurrent UTI to look for a stone. 3. Acute hypoxic respiratory failure Improved with BiPAP Wean as tolerated 4. DVT prophylaxis patient is already on Eliquis 5. Advanced care planning: Confirmed the patient still is DNR Comfort Care arrest Discharge medication reconciliation done. Discharge follow- up instructions completed. Discharge process discussed with the patient. Patient is being discharged to care home. Total time spent, exact 35 minutes on discharge meds reconciliation, examination, review of imaging and blood test and discussion with the patient on follow-up instructions. Patient Problems: Active and Suspected Problems CHF (congestive heart failure) (Acute) UTI (urinary tract infection) (Acute) Subjective: Seen and examined. Patient is more comfortable. Pulse ox 93% on room air although he is on baseline 3 L of oxygen at home. No shortness of breath. Objective: General: Alert, Oriented x3, Cooperative HEENT: Atraumatic, PERRLA, EOMI, Normocephalic Neck: Supple, No JVD, Negative Carotid Bruits Lungs: Air entry diminished in bilateral lung bases, although improved. Bibasilar occasional crepitations present. Cardiovascular: Regular rate, Normal S1, Normal S2, systolic murmur at left sternal border Abdomen: Bowel Sounds Present, Soft, Non Tender Extremities: Capillary Refill Less than 3 Seconds, Edema Skin: No rashes, No breakdown Musculoskeletal: No Tenderness to Palpation of Joints or Extremities Neurological: Cranial nerves II-XII grossly intact Psych/Mental Status: Normal Affect, Appropriate - Physical Exam Vital Signs Temp Pulse Resp BP Pulse Ox 97.9 F 63 17 102/52 L 93 05/17/18 11:20 05/17/18 11:20 05/17/18 11:20 05/17/18 11:20 05/17/18 11:20 Oxygen Flow Rate (L/min) 2 Oxygen Delivery Method Room Air Weight: 210 lb 15.718 oz Body Mass Index (BMI) 29.8 Finger Stick Blood Glucose 134 Intake and Output for Last 24 Hours Intake Total 1040 / 1040 1350 / 1350 595 / 595 Output Total 300 / 300 50 / 50 Balance 740 / 740 1350 / 1350 545 / 545 Microbiology Past 72 Hours 05/13/18 17:58 Urine Culture - Final Urine Catheter - Catheter Proteus mirabilis Laboratory Tests Past 24 Hrs WBC 8.1 RBC 3.20 L Hgb 9.9 L Hct 32.7 L MCV 102.2 H MCH 30.9 MCHC 30.3 L RDW 12.9 POC Glucose POC Glucose 172 H 146 H 201 H POC Glucose 200 H 93 87 Home Medications: Medications to take at Discharge Loratadine [Claritin] 10 mg PO DAILY 10/30/13 Metoprolol Tartrate [Lopressor (beta melissa)] 50 mg PO BID 10/30/13 Clopidogrel Bisulfate [Plavix] 75 mg PO DAILY 02/04/16 Finasteride [Proscar] 5 mg PO DAILY tablet 07/13/16 Acetaminophen [Tylenol] 1,000 mg PO Q8H PRN #0 tablet 08/22/16 Bisacodyl [Dulcolax] 10 mg RECTAL DAILY PRN #0 suppos. 08/22/16 Fluoxetine [Prozac] 20 mg PO DAILY capsule 08/22/16 Ipratropium/Albuterol Sulfate [Duoneb] 3 ml INHALATION Q4H.RT PRN #0 ampul.neb 08/22/16 Iron Polysaccharide Complex [Ferrex 150] 150 mg PO DAILYCM capsule 08/22/16 Nutritional Supplement [Lloyd - ORANGE FLAVOR] 1 packet PO BIDCM packet 08/22/16 Polyethylene Glycol 3350 [Miralax] 17 gm PO DAILY packet 08/22/16 Senna/Docusate Sodium [Senokot-S] 2 tablet PO BID tablet 08/22/16 Albuterol Aerosols [Ventolin Aerosols] 2.5 mg INHALATION Q4H PRN PRN 05/13/18 Apixaban [Eliquis] 2.5 mg PO BID 05/13/18 Aspirin E.C. [Ecotrin] 81 mg PO DAILY@0800 05/13/18 Guaifenesin [Mucinex] 600 mg PO BID 05/13/18 Insulin Aspart [Novolog Flexpen] 10 units SC TIDAC 05/13/18 Insulin Detemir [Levemir FlexPen] 50 units SC DAILY 05/13/18 Lisinopril [Zestril] 20 mg PO DAILY 05/13/18 Metolazone [Zaroxolyn] 2.5 mg PO DAILY 05/13/18 Omeprazole [Prilosec] 20 mg PO DAILY 05/13/18 Tamsulosin HCl [Flomax] 0.4 mg PO DAILY 05/13/18 Amoxicillin [Amoxil] 500 mg PO Q12 #7 cap 05/17/18 Furosemide [Lasix] 40 mg PO BID #0 05/17/18 Potassium Chloride [K-Dur] 40 meq PO DAILYCM #14 tablet 05/17/18 Following Prescrptions Were Given to Patient: Amoxicillin [Amoxil] 500 mg PO Q12 #7 cap Potassium Chloride [K-Dur] 40 meq PO DAILYCM #14 tablet Primary Care Physician: Nela Marrufo MD [Primary Care Provider] - Medical Necessity - Tobacco Use Smoking Status: Former smoker Tobacco Use: Non-smoker Meaningful Use Info Meaningful Use Diagnoses (Choose all that apply): None applicable Code Visit Inpatient E AND M: 02636 Disch Hosp 05/17/18 1720 <Electronically signed by Javier Khan MD> Date Javier Khan MD Cosigner Signature (if applicable): Date CC: Nela Marrufo MD; Javier Khan MD Signed BEDSIDE GLUCOSE Collected: 05/17/2018 Status: F Source: [place] 11:23 AM [facility] REPOSITORY TYPE CODE TESTS RESULT OUT OF REFERENCE UNITS RANGE LAB L501.080 70-110 mg/dL High BEDSIDE GLU 172 Result Comment: MANAGEMENT OF PATIENT CARE PER NURSING PROTOCOL Performed By: #### L501.080 #### [facility] Point of Care [address] [place] [address] BEDSIDE GLUCOSE Collected: 05/17/2018 Status: F Source: [place] 6:49 AM [facility] REPOSITORY TYPE CODE TESTS RESULT OUT OF REFERENCE UNITS RANGE LAB L501.080 70-110 mg/dL High BEDSIDE GLU 146 Result Comment: MANAGEMENT OF PATIENT CARE PER NURSING PROTOCOL Performed By: #### L501.080 #### [facility] Point of Care [address] [place] [address] CBC W/DIFF, AUTOMATED Collected: 05/17/2018 Status: F Source: [place] 6:15 AM [facility] REPOSITORY TYPE CODE TESTS RESULT OUT OF RANGE REFERENCE UNITS LAB L100.1000 4.4-11.0 K/mm3 Normal WBC 8.1 LAB L100.1200 4.6-6.2 M/mm3 Low RBC 3.20 LAB L100.1300 13.0-16.5 g/dl Low HGB 9.9 LAB L100.1400 40-54 % Low HCT 32.7 LAB L100.1500 80-94 fL High MCV 102.2 LAB L100.1600 27.0-32.0 pg Normal MCH 30.9 LAB L100.1700 32-36 g/gl Low MCHC 30.3 LAB L100.1810 11.6-14.6 % Normal RDW CV 12.9 LAB L100.1820 35.1-43.9 fl High RDW SD 46.9 LAB L100.1900 150-450 K/mm3 Normal PLT 231 LAB L100.2000 6.2-12.0 fl Normal MPV 10.5 LAB L100.2100 47-70 % Normal NEUT% 62.6 LAB L100.2200 19-41 % Low LY% 16.5 LAB L100.2300 0-10 % High MONO% 13.4 LAB L100.2400 0-5 % High EO% 5.3 LAB L100.2500 0-1 % Normal BASO% 0.7 LAB L100.2550 0.0-0.9 % High IM GRAN % 1.500 Result Comment: IG% - Immature Granulocytes (promyelocytes, myelocytes and metamyelocytes) > 1% indicates that a LEFT SHIFT is Present. LAB L100.2620 2.0-7.7 X10 3/uL Normal Absolute Neut 5.1 LAB L100.2720 0.83-4.51 X10 3/ul Normal Absolute Lymph 1.34 Performed By: #### L100.0100 #### [facility] [address] [place], [address] BASIC METABOLIC Collected: 05/17/2018 Status: F Source: [place] PROFILE (BMP) 6:15 AM [facility] REPOSITORY TYPE CODE TESTS RESULT OUT OF RANGE REFERENCE UNITS LAB L501.0100 74-106 mg/dL High GLU 142 Result Comment: Fasting Glucose result greater than or equal to 126 mg/dL suggests DIABETES MELLITUS per A.D.A. criteria. Please note revised GLUCOSE reference range effective 2017. LAB L501.1000 7-18 mg/dL High BUN 79 LAB L501.1100 0.70-1.30 mg/dL High CREAT,SERUM 1.82 Result Comment: The validity of the calculated GFR AND GFRAA in patients over 70 years has not been determined. Clinical correlation is essential. LAB L501.1110 >60 mL/min Low EST GFR 38 Result Comment: Non- GFR Calc LAB L501.1115 >60 mL/min Low EST GFR - AA 46 Result Comment: GFR Calc LAB L501.1255 ml/min Normal Estimated CRCL 33.75 LAB L501.1300 10-20 RATIO High BUN/CRE 43.4 LAB L501.2200 8.5-10 mg/dL Normal .1 CA 9.7 LAB L501.5300 136-14 mmol/L Normal 5 NA 141 LAB L501.5600 3.5-5. mmol/L Normal 1 K 3.9 LAB L501.5900 98-107 mmol/L Normal CL 99 LAB L501.6100 21.0-3 mmol/L High 2.0 CO2 34.0 LAB L501.6200 5-15 Normal GAP 8 Performed By: #### L500.2500 #### [facility] [address] [place], [address] BEDSIDE GLUCOSE Collected: 05/16/2018 Status: F Source: [place] 9:11 PM [facility] REPOSITORY TYPE CODE TESTS RESULT OUT OF REFERENCE UNITS RANGE LAB L501.080 70-110 mg/dL High BEDSIDE GLU 201 Result Comment: MANAGEMENT OF PATIENT CARE PER NURSING PROTOCOL Performed By: #### L501.080 #### [facility] Point of Care [address] [place] [address] BEDSIDE GLUCOSE Collected: 05/16/2018 Status: F Source: [place] 4:34 PM [facility] REPOSITORY TYPE CODE TESTS RESULT OUT OF REFERENCE UNITS RANGE LAB L501.080 70-110 mg/dL High BEDSIDE GLU 200 Result Comment: Dr Leong Followed MANAGEMENT OF PATIENT CARE PER NURSING PROTOCOL Performed By: #### L501.080 #### [facility] Point of Care [address] [place] [address] BEDSIDE GLUCOSE Collected: 05/16/2018 Status: F Source: [place] 11:33 AM [facility] REPOSITORY TYPE CODE TESTS RESULT OUT OF RANGE REFERENCE UNITS LAB L501.080 70-110 mg/dL Normal BEDSIDE GLU 93 Result Comment: MANAGEMENT OF PATIENT CARE PER NURSING PROTOCOL Performed By: #### L501.080 #### [facility] Point of Care [address] [place] [address] BEDSIDE GLUCOSE Collected: 05/16/2018 Status: F Source: [place] 11:32 AM [facility] REPOSITORY TYPE CODE TESTS RESULT OUT OF RANGE REFERENCE UNITS LAB L501.080 70-110 mg/dL Normal BEDSIDE GLU 87 Result Comment: MANAGEMENT OF PATIENT CARE PER NURSING PROTOCOL Performed By: #### L501.080 #### [facility] Point of Care [address] [place] [address] BEDSIDE GLUCOSE Collected: 05/16/2018 Status: F Source: [place] 7:07 AM [facility] REPOSITORY TYPE CODE TESTS RESULT OUT OF REFERENCE UNITS RANGE LAB L501.080 70-110 mg/dL High BEDSIDE GLU 137 Result Comment: MANAGEMENT OF PATIENT CARE PER NURSING PROTOCOL Performed By: #### L501.080 #### [facility] Point of Care [address] [place] [address] BASIC METABOLIC Collected: 05/16/2018 Status: F Source: [place] PROFILE (BMP) 5:45 AM [facility] REPOSITORY TYPE CODE TESTS RESULT OUT OF RANGE REFERENCE UNITS LAB L501.0100 74-106 mg/dL High GLU 142 Result Comment: Fasting Glucose result greater than or equal to 126 mg/dL suggests DIABETES MELLITUS per A.D.A. criteria. Please note revised GLUCOSE reference range effective 2017. LAB L501.1000 7-18 mg/dL High BUN 56 LAB L501.1100 0.70-1.30 mg/dL High CREAT,SERUM 1.55 Result Comment: The validity of the calculated GFR AND GFRAA in patients over 70 years has not been determined. Clinical correlation is essential. LAB L501.1110 >60 mL/min Low EST GFR 46 Result Comment: Non- GFR Calc LAB L501.1115 >60 mL/min Low EST GFR - AA 55 Result Comment: GFR Calc LAB L501.1255 ml/min Normal Estimated CRCL 39.63 LAB L501.1300 10-20 RATIO High BUN/CRE 36.1 LAB L501.2200 8.5-10 mg/dL Normal .1 CA 9.2 LAB L501.5300 136-14 mmol/L Normal 5 NA 140 LAB L501.5600 3.5-5. mmol/L Normal 1 K 3.9 LAB L501.5900 98-107 mmol/L Normal CL 101 LAB L501.6100 21.0-3 mmol/L High 2.0 CO2 33.0 LAB L501.6200 5-15 Normal GAP 6 Performed By: #### L500.2500, L501.5200 #### [facility] [address] [place], [address] MAGNESIUM Collected: 05/16/2018 Status: F Source: [place] 5:45 AM [facility] REPOSITORY TYPE CODE TESTS RESULT OUT OF RANGE REFERENCE UNITS LAB L501.5200 1.6-2.6 mg/dL Normal MG 2.3 Performed By: #### L500.2500, L501.5200 #### [facility] [address] [place], [address] BEDSIDE GLUCOSE Collected: 05/15/2018 Status: F Source: [place] 9:54 PM [facility] REPOSITORY TYPE CODE TESTS RESULT OUT OF REFERENCE UNITS RANGE LAB L501.080 70-110 mg/dL High BEDSIDE GLU 113 Result Comment: MANAGEMENT OF PATIENT CARE PER NURSING PROTOCOL Performed By: #### L501.080 #### [facility] Point of Care [address] [place] [address] 12 LEAD ELECTROCARDIOGRAM Observed: 05/15/2018 Status: F Source: [place] 5:10 PM [facility] REPOSITORY [facility] Cardiovascular Services [address] [place] [address] 12 Lead EKG 05/13/18 1503 MR#: [id number] Acct: [id number] Name: ED MEIER Rep #: [id number] : 1935 82 From: Gilmar Haddad MD [facility]ending Dr[facility]: ADM IN Ordering Dr: Domonique Brown MD Date: 05/13/18 Location: U Sex: M C Admitted: 05/13/18 Test Reason : SOB Blood Pressure : / mmHG Vent. Rate : 059 BPM Atrial Rate : 061 BPM P-R Int : 000 ms QRS Dur : 128 ms QT Int : 458 ms P-R-T Axes : -20 -27 080 degrees QTc Int : 453 ms Normal sinus rhythm Left bundle branch block Abnormal ECG Confirmed by GILMAR HADDAD MD ([id number]), mapping editor EUGENE MARRUFO ([id number]) on 05/15/2018 5:10:02 PM Referred By: Narciso Gordon Confirmed By:GILMAR HADDAD MD 05/15/18 1710 Date Gilmar Haddad MD CC: Domonique Brown MD; Narciso Gordon DO; Nela Marrufo MD; Javier Khan MD Signed BEDSIDE GLUCOSE Collected: 05/15/2018 Status: F Source: [place] 4:05 PM [facility] REPOSITORY TYPE CODE TESTS RESULT OUT OF REFERENCE UNITS RANGE LAB L501.080 70-110 mg/dL High BEDSIDE GLU 221 Result Comment: MANAGEMENT OF PATIENT CARE PER NURSING PROTOCOL Performed By: #### L501.080 #### [facility] Point of Care [address] [place] [address] BEDSIDE GLUCOSE Collected: 05/15/2018 Status: F Source: [place] 11:05 AM [facility] REPOSITORY TYPE CODE TESTS RESULT OUT OF REFERENCE UNITS RANGE LAB L501.080 70-110 mg/dL High BEDSIDE GLU 173 Result Comment: MANAGEMENT OF PATIENT CARE PER NURSING PROTOCOL Performed By: #### L501.080 #### [facility] Point of Care [address] [place] [address] BEDSIDE GLUCOSE Collected: 05/15/2018 Status: F Source: [place] 6:40 AM [facility] REPOSITORY TYPE CODE TESTS RESULT OUT OF REFERENCE UNITS RANGE LAB L501.080 70-110 mg/dL High BEDSIDE GLU 152 Result Comment: MANAGEMENT OF PATIENT CARE PER NURSING PROTOCOL Performed By: #### L501.080 #### [facility] Point of Care [address] [place] [address] CBC W/DIFF, AUTOMATED Collected: 05/15/2018 Status: F Source: [place] 6:00 AM [facility] REPOSITORY TYPE CODE TESTS RESULT OUT OF RANGE REFERENCE UNITS LAB L100.1000 4.4-11.0 K/mm3 Normal WBC 7.7 LAB L100.1200 4.6-6.2 M/mm3 Low RBC 2.73 LAB L100.1300 13.0-16.5 g/dl Low HGB 8.5 LAB L100.1400 40-54 % Low HCT 28.2 LAB L100.1500 80-94 fL High MCV 103.3 LAB L100.1600 27.0-32.0 pg Normal MCH 31.1 LAB L100.1700 32-36 g/gl Low MCHC 30.1 LAB L100.1810 11.6-14.6 % Normal RDW CV 13.5 LAB L100.1820 35.1-43.9 fl High RDW SD 50.4 LAB L100.1900 150-450 K/mm3 Normal PLT 185 LAB L100.2000 6.2-12.0 fl Normal MPV 10.6 LAB L100.2100 47-70 % Normal NEUT% 66.5 LAB L100.2200 19-41 % Low LY% 14.2 LAB L100.2300 0-10 % High MONO% 17.3 LAB L100.2400 0-5 % Normal EO% 1.4 LAB L100.2500 0-1 % Normal BASO% 0.3 LAB L100.2550 0.0-0.9 % Normal IM GRAN % 0.300 Result Comment: IG% - Immature Granulocytes (promyelocytes, myelocytes and metamyelocytes) > 1% indicates that a LEFT SHIFT is Present. LAB L100.2620 2.0-7.7 X10 3/uL Normal Absolute Neut 5.1 LAB L100.2720 0.83-4.51 X10 3/ul Normal Absolute Lymph 1.09 Performed By: #### L100.0100 #### [facility] [address] [place] [address]. [place], [address] BASIC METABOLIC Collected: 05/15/2018 Status: F Source: [place] PROFILE (BMP) 6:00 AM [facility] REPOSITORY TYPE CODE TESTS RESULT OUT OF RANGE REFERENCE UNITS LAB L501.0100 74-106 mg/dL High GLU 153 Result Comment: Fasting Glucose result greater than or equal to 126 mg/dL suggests DIABETES MELLITUS per A.D.A. criteria. Please note revised GLUCOSE reference range effective 2017. LAB L501.1000 7-18 mg/dL High BUN 46 LAB L501.1100 0.70-1.30 mg/dL High CREAT,SERUM 1.53 Result Comment: The validity of the calculated GFR AND GFRAA in patients over 70 years has not been determined. Clinical correlation is essential. LAB L501.1110 >60 mL/min Low EST GFR 46 Result Comment: Non- GFR Calc LAB L501.1115 >60 mL/min Low EST GFR - AA 56 Result Comment: GFR Calc LAB L501.1255 ml/min Normal Estimated CRCL 40.15 LAB L501.1300 10-20 RATIO High BUN/CRE 30.1 LAB L501.2200 8.5-10 mg/dL Normal .1 CA 9.0 LAB L501.5300 136-14 mmol/L Normal 5 NA 141 LAB L501.5600 3.5-5. mmol/L Low 1 K 3.4 LAB L501.5900 98-107 mmol/L Normal CL 103 LAB L501.6100 21.0-3 mmol/L Normal 2.0 CO2 32.0 LAB L501.6200 5-15 Normal GAP 6 Performed By: #### L500.2500 #### [facility] [address] [place], [address] BEDSIDE GLUCOSE Collected: 05/14/2018 Status: F Source: [place] 9:34 PM [facility] REPOSITORY TYPE CODE TESTS RESULT OUT OF REFERENCE UNITS RANGE LAB L501.080 70-110 mg/dL High BEDSIDE GLU 175 Result Comment: MANAGEMENT OF PATIENT CARE PER NURSING PROTOCOL Performed By: #### L501.080 #### [facility] Point of Care [address] [place] [address] BEDSIDE GLUCOSE Collected: 05/14/2018 Status: F Source: [place] 4:30 PM [facility] REPOSITORY TYPE CODE TESTS RESULT OUT OF REFERENCE UNITS RANGE LAB L501.080 70-110 mg/dL Low BEDSIDE GLU 64 Result Comment: MANAGEMENT OF PATIENT CARE PER NURSING PROTOCOL Performed By: #### L501.080 #### [facility] Point of Care [address] [place] [address] ECHOCARDIOGRAM COMPLETE Observed: 05/14/2018 Status: F Source: [place] 3:17 PM [facility] REPOSITORY [facility] Cardiovascular Services [address] [place] [address] Echo Complete 05/14/18 1332 MR#: [id number] Acct: [id number] Name: ED MEIER Rep #: [id number] : 1935 82 From: Gilmar Haddad MD Attending Dr: Javier Khan MD Status: ADM IN Ordering Dr: Narciso Gordon DO Date: 05/13/18 Location: [facility] Sex: M C Admitted: 05/13/18 Reason For Study: CHF Procedure This was a 2D Doppler, Color Flow transthoracic echocardiogram. The study was technically limited. Exam performed portable in patient room. Left Ventricle Normal LV size. The estimated ejection fraction is 40 %. Moderate segmental systolic dysfunction (see wall motion). Infero-Basal: Akinetic. Basal inferoseptal: Akinetic. Mid-anteroseptal : Akinetic. The rest of the wall segments are hypokinetic. Right Ventricle Normal RV size. ICD or pacer leads identified within the right ventricle. Normal systolic function. Atria The left atrium is mildly enlarged. Normal right atrium. Mitral Valve Normal mitral valve. Mild (1+) eccentric mitral valve insufficiency. Tricuspid Valve Normal tricuspid valve. Moderate (2+) tricuspid valve insufficiency. Pulmonary artery systolic pressure is 74 mmHg. Severe pulmonary hypertension. Aortic Valve Trisinus/trileaflet aortic valve. Pulmonic Valve Normal pulmonic valve. Great Vessels Normal aortic root. The pulmonary artery is normal size. Normal inferior vena cava. Pericardium/Pleural No pericardial effusion. Medication Definity deferred due to elevated PAP. MMode/2D Measurements AND Calculations LVIDd: 5.2 cm IVSd: 0.95 cm Ao root diam: 3.0 cm LVIDs: 4.3 cm LVPWd: 0.93 cm RVDd: 4.1 cm FS: 15.7 % LAV(MOD-bp): 82.1 ml LA A4 area: 25.5 cm2 LA dimension(2D): 4.6 cm LAV(MOD-bp) Indexed: 35.2 ml/m2 LAV(MOD-sp2): 82.6 ml LAV(MOD-sp4): 82.0 ml RA A4 area: 20.1 cm2 Time Measurements MV dec time: 0.23 sec Doppler Measurements AND Calculations MV E max nedra: 130.3 cm/sec Ao V2 max: 154.4 cm/sec LV V1 max: 85.8 cm/sec MV A max nedra: 47.6 cm/sec Ao max P.5 mmHg LV V1 max P.9 mmHg MV E/A: 2.7 TR max nedra: 413.8 cm/sec TR max P.5 mmHg Interpretation Summary Normal LV size. The estimated ejection fraction is 40 %. Pulmonary artery systolic pressure is 74 mmHg. Severe pulmonary hypertension. Moderate segmental systolic dysfunction (see wall motion). Compared to the previous the RV pressures are higher Ordering Physician: Narciso Gordon Referring Physician: NELA MARRUFO Performed By: Essie Nolasco, DANIEL, RVT 05/14/18 1517 Date Gilmar Haddad MD CC: Narciso Gordon DO; Nela Marrufo MD; Javier Khan MD Date Dictated: 05/14/18 1332 Date Transcribed: 05/14/18 1517 Is Technician: Signed BEDSIDE GLUCOSE Collected: 05/14/2018 Status: F Source: [place] 11:26 AM [facility] REPOSITORY TYPE CODE TESTS RESULT OUT OF REFERENCE UNITS RANGE LAB L501.080 70-110 mg/dL High BEDSIDE GLU 220 Result Comment: MANAGEMENT OF PATIENT CARE PER NURSING PROTOCOL Performed By: #### L501.080 #### [facility] Point of Care [address] [place], [place] [address] BEDSIDE GLUCOSE Collected: 05/14/2018 Status: F Source: [place] 6:43 AM [facility] REPOSITORY TYPE CODE TESTS RESULT OUT OF REFERENCE UNITS RANGE LAB L501.080 70-110 mg/dL High BEDSIDE GLU 198 Result Comment: MANAGEMENT OF PATIENT CARE PER NURSING PROTOCOL Performed By: #### L501.080 #### [facility] Point of Care [address] [place] [address] BASIC METABOLIC Collected: 05/14/2018 Status: F Source: [place] PROFILE (BMP) 2:57 AM [facility] REPOSITORY TYPE CODE TESTS RESULT OUT OF RANGE REFERENCE UNITS LAB L501.0100 74-106 mg/dL High GLU 165 Result Comment: Fasting Glucose result greater than or equal to 126 mg/dL suggests DIABETES MELLITUS per A.D.A. criteria. Please note revised GLUCOSE reference range effective 2017. LAB L501.1000 7-18 mg/dL High BUN 33 LAB L501.1100 0.70-1.30 mg/dL High CREAT,SERUM 1.43 Result Comment: The validity of the calculated GFR AND GFRAA in patients over 70 years has not been determined. Clinical correlation is essential. LAB L501.1110 >60 mL/min Low EST GFR 50 Result Comment: Non- GFR Calc LAB L501.1115 >60 mL/min Normal EST GFR - AA 61 Result Comment: GFR Calc LAB L501.1255 ml/min Normal Estimated CRCL 42.96 LAB L501.1300 10-20 RATIO High BUN/CRE 23.1 LAB L501.2200 8.5-10 mg/dL Normal .1 CA 8.8 LAB L501.5300 136-14 mmol/L Normal 5 NA 144 LAB L501.5600 3.5-5. mmol/L Normal 1 K 3.9 LAB L501.5900 98-107 mmol/L Normal CL 106 LAB L501.6100 21.0-3 mmol/L Normal 2.0 CO2 29.0 LAB L501.6200 5-15 Normal GAP 9 Performed By: #### L500.2500 #### [facility] [address] [facility] [place], [place], [address] TROPONIN-I Collected: 05/14/2018 Status: F Source: [place] 2:57 AM [facility] REPOSITORY Order Comment: 'TROP' Serial specimen #1, #2 or #3: 3 TYPE CODE TESTS RESULT OUT OF RANGE REFERENCE UNITS LAB L501.4010 <0.045 ng/mL High 0.122 TROPONIN-I Result Comment: TROPONIN-I EXPECTED VALUES <0.045 Negative 0.045 - 0.590 Consistent with Cardiac Damage > OR = 0.600 Critical Value Not every elevated troponin is indicative of AK. These values should be used with clinical judgement in examining the patient's clinical picture for diagnosis. To establish a diagnosis of AK versus myocardial injury, there must be a demonstrated rise and/or fall in the troponin values, in addition to ischemic symptoms, EKG changes, new regional wall motion abnormality, and/or angiographical evidence. PLEASE NOTE: REFERENCE RANGES EDITED 17 Performed By: #### L501.4010 #### [facility] [address] [facility] [place], [place], [address] CBC W/DIFF, AUTOMATED Collected: 05/14/2018 Status: F Source: [place] 2:57 AM [facility] REPOSITORY TYPE CODE TESTS RESULT OUT OF RANGE REFERENCE UNITS LAB L100.1000 4.4-11.0 K/mm3 Normal WBC 9.2 LAB L100.1200 4.6-6.2 M/mm3 Low RBC 2.94 LAB L100.1300 13.0-16.5 g/dl Low HGB 9.1 LAB L100.1400 40-54 % Low HCT 30.1 LAB L100.1500 80-94 fL High MCV 102.4 LAB L100.1600 27.0-32.0 pg Normal MCH 31.0 LAB L100.1700 32-36 g/gl Low MCHC 30.2 LAB L100.1810 11.6-14.6 % Normal RDW CV 13.5 LAB L100.1820 35.1-43.9 fl High RDW SD 51.3 LAB L100.1900 150-450 K/mm3 Normal PLT 192 LAB L100.2000 6.2-12.0 fl Normal MPV 10.7 LAB L100.2100 47-70 % High NEUT% 78.4 LAB L100.2200 19-41 % Low LY% 10.6 LAB L100.2300 0-10 % High MONO% 10.7 LAB L100.2400 0-5 % Normal EO% 0.0 LAB L100.2500 0-1 % Normal BASO% 0.1 LAB L100.2550 0.0-0.9 % Normal IM GRAN % 0.200 Result Comment: IG% - Immature Granulocytes (promyelocytes, myelocytes and metamyelocytes) > 1% indicates that a LEFT SHIFT is Present. LAB L100.2620 2.0-7.7 X10 3/uL Normal Absolute Neut 7.2 LAB L100.2720 0.83-4.51 X10 3/ul Normal Absolute Lymph 0.98 Performed By: #### L100.0100 #### [facility] [address] [place], [address] TROPONIN-I Collected: 05/14/2018 Status: F Source: [place] 12:03 AM [facility] REPOSITORY Order Comment: 'TROP' Serial specimen #1, #2 or #3: 2 TYPE CODE TESTS RESULT OUT OF RANGE REFERENCE UNITS LAB L501.4010 <0.045 ng/mL Normal < 0.015 TROPONIN-I Result Comment: TROPONIN-I EXPECTED VALUES <0.045 Negative 0.045 - 0.590 Consistent with Cardiac Damage > OR = 0.600 Critical Value Not every elevated troponin is indicative of AK. These values should be used with clinical judgement in examining the patient's clinical picture for diagnosis. To establish a diagnosis of AK versus myocardial injury, there must be a demonstrated rise and/or fall in the troponin values, in addition to ischemic symptoms, EKG changes, new regional wall motion abnormality, and/or angiographical evidence. PLEASE NOTE: REFERENCE RANGES EDITED 17 Performed By: #### L501.4010 #### [facility] [address] [place], [address] EMERGENCY DEPARTMENT Observed: 05/13/2018 Status: F Source: [place] SUMMARY 10:56 PM [facility] REPOSITORY [facility] Medical Records Department [address] [place] [address] Emergency Department Summary 05/13/18 1459 MR#: [id number] Acct: [id number] Name: ED MEIER Rep #: [id number] : 1935 82 From: Domonique Brown MD PCP: Nela Marrufo MD Status: ADM IN - ER Visit Summary Date of Service: 05/13/18 Chief Complaint: Shortness of breath History of Present Illness: The patient is a 82 M presenting with shortness of breath. He states this has been worsening over the past 2-3 days. He has had a cough. He denies chest pain. Denies fever. Denies abdominal pain, vomiting, diarrhea. He has a history of CAD, CHF, COPD, diabetes, hypertension. He is a previous smoker. Physical Examination: Blood pressure 135/59, temp 97.6, heart rate 64, respiratory rate 29. Pulse ox 94% on room air. Alert no acute distress. HEENT exam is unremarkable. Neck is supple. Lungs are rhonchorous bilaterally. Heart is regular rate and rhythm. Abdomen is soft nontender nondistended. Extremities are unremarkable. Skin is warm and dry. No focal neurologic deficit. Remainder of exam is unremarkable. Emergency Department Course and Treatment: Patient was initially given albuterol, Atrovent aerosols with no improvement. He continues to have tachypnea with respiratory rate in the 30s. He was started on BiPAP with much improvement. Chest x-ray shows small left pleural effusion. CBC shows hemoglobin 8.8. Chemistries show glucose 70, BUN 34, creatinine 1.48. Troponin negative. Lactic acid 2.3. Influenza negative. Repeat BGT was 48. He was given D50 and a meal with improvement. Urinalysis shows 50-100 white blood cells. Urine culture is sent. He was given Rocephin IV. After taking off his BiPAP noted to have tachypnea and hypoxia. BiPAP was started again. He had improvement. Discussed with the hospitalist for admission. Disposition: Admission Impression: CHF exacerbation, anemia, UTI, hypoglycemia This note was generated with [facility] dictation software. It may contain incorrect words, spelling, and punctuation that were not noted in review of the chart prior to signing ED Disposition - Plan for ED Patient: Chief Complaint: Shortness of Breath Referrals: Nela Marrufo MD [Primary Care Provider] - What to do if you have Problems For any increased pain, shortness of breath, bleeding, nausea or vomiting, chest pain, or any unexpected problems, contact your Primary Care Provider. Call [facility] ([phone]) or report to the closest Emergency Room. Call 911 if necessary. 05/13/18 4182 <Electronically signed by Domonique Brown MD> Date Domonique Brown MD Cosigner Signature (If Indicated): Date CC: Nela Marrufo MD BEDSIDE GLUCOSE Collected: 05/13/2018 Status: F Source: [place] 8:36 PM [facility] REPOSITORY TYPE CODE TESTS RESULT OUT OF REFERENCE UNITS RANGE LAB L501.080 70-110 mg/dL High BEDSIDE GLU 139 Result Comment: MANAGEMENT OF PATIENT CARE PER NURSING PROTOCOL Performed By: #### L501.080 #### [facility] Point of Care [address] [place] [address] HISTORY AND PHYSICAL Observed: 05/13/2018 Status: F Source: [place] EXAM 8:33 PM [facility] REPOSITORY [facility] Medical Records Department [address] [place] [address] History and Physical 05/13/182025 MR#: [id number] Acct: [id number] Name: ED MEIER Rep #: [id number] : 1935 82 From: Narciso Gordon DO PCP: Nela Marrufo MD Status: ADM IN Y Location: [place] [address] Problem List (1) CHF (congestive heart failure) Status: Acute Qualifiers: Heart failure type: unspecified Heart failure chronicity: acute Qualified Code(s): I50.9 - Heart failure, unspecified (2) UTI (urinary tract infection) Status: Acute Qualifiers: Indwelling urinary catheter type: unspecified Encounter type: initial encounter History of Present Illness Date of Admission: 05/13/18 Chief Complaint: shortness of breath. The patient is a 82 year old M Phan with a several day history of increasing shortness of breath. Presented to the emergency room and was noted to be tachypneic. Patient was never hypoxic during evaluation. Patient was put on a BiPAP and improved. Patient was taken off the BiPAP so that he can eat and then started to regress and so was placed back up on the BiPAP. Currently patient feels fine. Patient feels that he is put on some weight and has some lower extremity edema but does have a history significant with CHF. Patient denies any history of COPD. Denies any chest pain. 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) Chronic ulcer of left ankle with fat layer exposed (Chronic) Ulcer of right foot with fat layer exposed (Chronic) Fall (Chronic) Congestive heart failure (Chronic) Acute kidney injury (Chronic) Peripheral vascular disease (Chronic) Diabetes mellitus with polyneuropathy (Chronic) 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) Edema, lower extremity (Chronic) Malnutrition (Chronic) BPH (benign prostatic hypertrophy) (Chronic) Hypertension (Chronic) Coronary artery disease (Chronic) Chronic ulcer of ankle (Chronic) Edema (Chronic) PAOD (peripheral arterial occlusive disease) (Chronic) Aortic valve stenosis (Chronic) Benign essential hypertension (Chronic) Chronic obstructive lung disease (Chronic) DM type 2 (diabetes mellitus, type 2) (Chronic) CAD (coronary artery disease) (Chronic) Hx of CABG (Chronic) Peripheral neuropathy (Chronic) Venous (peripheral) insufficiency (Chronic) Hyperlipidemia (Chronic) Allergies Iodinated Contrast- Oral and IV Dye [Iodinated Contrast Media - IV Dye] Allergy (Verified 07/09/16 19:04) Other Home Medications: Ambulatory Orders Medication Instructions Recorded Loratadine [Claritin] 10 mg PO DAILY 10/30/13 Surgical History: coronary bypass surgery - x 4., pacemaker implantation, TURP, - - AICD, Back surgery. reports pad stents in right leg by dr maldonado Psychiatric History: No pertinent psych hx Smoking Status: Former smoker - 40 years ago Tobacco Use: Non-smoker Alcohol: None Drugs: None - *Family History Paternal History Items: Heart Disease Maternal History Items: Diabetes Review of Systems Constitutional: Denies: Anorexia, Chills, Fever, Night Sweats Eyes: Denies: Blurred vision, Double vision HEENT: Denies: Head Aches, Sinus Congestion, Sinus Drainage Cardiovascular: Reports: Edema. Denies: Chest Pain, Palpitations Respiratory: Reports: Shortness of Breath. Denies: Sputum production Gastrointestinal: Denies: Abdominal Pain, Nausea, Vomiting Genitourinary: Denies: Dysuria Musculoskeletal: Denies: Joint Pain, Joint Tenderness Skin: Denies: Rash, Wounds Neurological: Denies: Blurred vision, Double vision, Focal weakness, Numbness, Tingling Psychiatric: Denies: Anxiety, Depression Endocrine: Reports: Change in Body Habitus - Weight gain. Denies: Heat/ Cold Intolerance Hematologic/ Lymphatic: Reports: Easy Bruising. Denies: Easy Bleeding, Hx of blood clot Comment: A 10 point review of systems were negative except as mentioned in the history of present illness and the other review of systems. VTE Information - Inpt Only VTE Present on Admission: No VTE Mechan Device Prophylaxis: None VTE Pharm Prophylaxis ordered?: Yes Patient Problems: Active and Suspected Problems CHF (congestive heart failure) (Acute) UTI (urinary tract infection) (Acute) - Physical Exam General: Alert, Cooperative, No apparent distress HEENT: Atraumatic, Normocephalic, - - No scleral icterus nor conjunctival injection Oral: Moist Mucosa, No Gingival or Mucosal Lesions/ Ulcerations Neck: No Nodes, Thyroid Normal Size and Texture Lungs: Diminished, - - Coarse breath sounds bilaterally Cardiovascular: Regular rate, Regular Rhythm, Normal S1, Normal S2 Abdomen: Bowel Sounds Present, Soft, Non Tender, Non-Distended, No Hepato-splenomegaly Extremities: No Calf Tenderness, Edema - Trace Skin: No rashes, No breakdown Musculoskeletal: No Tenderness to Palpation of Joints or Extremities, No Muscle Wasting Neurological: Muscle tone normal, Coordination normal Psych/Mental Status: Normal Affect, Appropriate Vital Signs Temp Pulse Resp BP Pulse Ox 36.4 C L 80 26 H 149/53 H 98 05/13/18 14:47 05/13/18 19:00 05/13/18 19:00 05/13/18 19:00 05/13/18 19:00 Oxygen Delivery Method Bi-pap Weight: 113.398 kg Body Mass Index (BMI) 33.9 Finger Stick Blood Glucose 134 Microbiology Past 72 Hours 05/13/18 16:10 Influenza Types A,B Direct FA (CHRIS) - Final Mucosa - Nasopharyngeal Laboratory Tests Past 24 Hrs WBC 7.7 RBC 2.83 L Hgb 8.8 L Hct 29.3 L MCV 103.5 H MCH 31.1 MCHC 30.0 L RDW 13.6 RDW Differential 51.4 H WBC RBC POC Glucose POC Glucose 132 H 48 L Chest x-ray consistent with bilateral pulmonary edema Assessment/Plan All Active Problems CHF (congestive heart failure) (Acute) UTI (urinary tract infection) (Acute) Ulcer of left lower extremity with fat layer exposed (Acute) Chronic ulcer of left foot with fat layer exposed (Acute) Ulcer of right foot with fat layer exposed (Acute) Chronic ulcer of right foot (Acute) Weakness (Acute) Chronic diarrhea (Acute) UTI (urinary tract infection) (Acute) Bladder outlet obstruction (Acute) FTT (failure to thrive) in adult (Acute) Urinary retention (Acute) Atonic bladder (Acute) Infection due to Amber albicans (Acute) 1. Acute heart failure Unknown type Check an echocardiogram Received IV Lasix in the emergency room and will continue with IV Lasix Strict I's and O's Fluid restriction of 1500 cc/day 2. UTI Rocephin Does have a history of Proteus and Pseudomonas urinary tract infection. Most recently was Proteus which was sensitive to ceftriaxone 3. Acute respiratory insufficiency Improved with BiPAP Wean as tolerated 4. DVT prophylaxis patient is already on Eliquis 5. Advanced care planning: Confirmed the patient still is DNR Comfort Care arrest Code Visit Inpatient E AND M: 93539 Init Hosp L3 05/13/182032 <Electronically signed by Narciso Gordon DO> Date Narciso Gordon DO Cosigner Signature: Date (if applicable) CC: Narciso Gordon DO; Nela Marrufo MD Signed LACTIC ACID Collected: 05/13/2018 Status: F Source: [place] 7:56 PM [facility] REPOSITORY TYPE CODE TESTS RESULT OUT OF RANGE REFERENCE UNITS LAB L503.6005 0.4-2.0 mmol/L Normal LACTIC ACID 1.7 Performed By: #### L503.6005 #### [facility] [address] [place], [address] URINALYSIS, COMPLETE Collected: 05/13/2018 Status: F Source: [place] 5:58 PM [facility] REPOSITORY Order Comment: Order Date: 05/13/18 How was Urine Obtained? CLEAN CATCH TYPE [...] L400.3550 5.0 - 8.0 pH UR Normal 8.0 LAB L400.3600 Negative mg/dl High PROT 30 DIPSTX LAB L400.3700 Normal mg/dl Normal UROBILI Normal LAB L400.3750 Negative Normal NITRITE UR Negative LAB L400.3780 Negative /ul High OCCULT BLOOD-UR 250 LAB L400.3800 Negative /ul High LEUK ESTERASE 500 LAB L400.4050 0-5 /hpf WBC Normal 50-100 SEEN LAB L400.4100 0-5 /hpf Normal RBC-UA 5-10 SEEN LAB L400.4150 0-5 /hpf SQUAM Normal EPI 0-5 SEEN LAB L400.4300 None Seen /hpf Normal BACTERIA RARE LAB L400.4350 <or=2+ /hpf 0 Normal MUCUS, URINE SEEN Performed By: #### L400.0001 #### [facility] [address] [place], [address] Observed: 05/13/2018 Status: F Source: [place] CULTURE, URINE 5:58 PM [facility] REPOSITORY Order Date: 05/13/18 Urine Culture ORGANISM 1: Proteus mirabilis [place] Count >100,000 Proteus mirabilis: REACTION Amoxacillin/Clavulanic Acid $ <=2 S Ampicillin $ <=2 S Ampicillin/Sulbactam $ <=2 S Cefazolin $ <=4 S Cefepime $ <=1 S Ceftriaxone $ <=1 S Ciprofloxacin $ 1 S Ertapenim $$$ <=0.5 S Gentamicin $ <=1 S Levofloxacin $ 1 S Nitrofurantoin $ 128 R Piperacillin/Tazobactam $$ <=4 S Tobramycin $ <=1 S Trimethoprim/Sulfametho $ <=20 S (NF) indicates non-formulary drug at [facility]. Approval by Infectious Disease Specialist required before non-formulary drugs may be ordered and/or dispensed. Performed By: #### M100.0650 #### [facility] [address] [facility] [place], [address] BEDSIDE GLUCOSE Collected: 05/13/2018 Status: F Source: [place] 5:54 PM [facility] REPOSITORY TYPE CODE TESTS RESULT OUT OF REFERENCE UNITS RANGE LAB L501.080 70-110 mg/dL High BEDSIDE GLU 132 Result Comment: MANAGEMENT OF PATIENT CARE PER NURSING PROTOCOL Performed By: #### L501.080 #### [facility] Point of Care [address] [place] [address] BEDSIDE GLUCOSE Collected: 05/13/2018 Status: F Source: [place] 4[facility] TYPE CODE TESTS RESULT OUT OF REFERENCE UNITS RANGE LAB L501.080 70-110 mg/dL Low BEDSIDE GLU 48 Result Comment: MANAGEMENT OF PATIENT CARE PER NURSING PROTOCOL Performed By: #### L501.080 #### [facility] Point of Care [address] [place], [place] [address] Observed: 05/13/2018 Status: F Source: [place] INFLUENZA A+B (RAPID 4:10 PM [facility]) REPOSITORY FLU A/B Rapid Negative test results should be confirmed with FLU PANEL MOLECULAR if indicated. Influenza Ag, Direct Presumptive NEGATIVE for Influenza A/B Antigen (See Note) Performed By: #### M101.0101 #### [facility] [address] [place] [address], [id number] CBC W/DIFF, AUTOMATED Collected: 05/13/2018 Status: F Source: [place] 3:00 PM [facility] REPOSITORY TYPE CODE TESTS RESULT OUT OF RANGE REFERENCE UNITS LAB L100.1000 4.4-11.0 K/mm3 Normal WBC 7.7 LAB L100.1200 4.6-6.2 M/mm3 Low RBC 2.83 LAB L100.1300 13.0-16.5 g/dl Low HGB 8.8 LAB L100.1400 40-54 % Low HCT 29.3 LAB L100.1500 80-94 fL High MCV 103.5 LAB L100.1600 27.0-32.0 pg Normal MCH 31.1 LAB L100.1700 32-36 g/gl Low MCHC 30.0 LAB L100.1810 11.6-14.6 % Normal RDW CV 13.6 LAB L100.1820 35.1-43.9 fl High RDW SD 51.4 LAB L100.1900 150-450 K/mm3 Normal PLT 174 LAB L100.2000 6.2-12.0 fl Normal MPV 11.1 LAB L100.2100 47-70 % High NEUT% 71.7 LAB L100.2200 19-41 % Low LY% 8.5 LAB L100.2300 0-10 % High MONO% 18.3 LAB L100.2400 0-5 % Normal EO% 1.3 LAB L100.2500 0-1 % Normal BASO% 0.1 LAB L100.2550 0.0-0.9 % Normal IM GRAN % 0.100 Result Comment: IG% - Immature Granulocytes (promyelocytes, myelocytes and metamyelocytes) > 1% indicates that a LEFT SHIFT is Present. LAB L100.2620 2.0-7.7 X10 3/uL Normal Absolute Neut 5.5 LAB L100.2720 0.83-4.51 X10 3/ul Low Absolute Lymph 0.65 Performed By: #### L100.0100 #### [facility] [address] [place], [place], [address] BASIC METABOLIC Collected: 05/13/2018 Status: F Source: [place] PROFILE ([facility]) 3:00 PM [facility] REPOSITORY TYPE CODE TESTS RESULT OUT OF RANGE REFERENCE UNITS LAB L501.0100 74-106 mg/dL Low GLU 70 Result Comment: Please note revised GLUCOSE reference range effective 2017. LAB L501.1000 7-18 mg/dL High BUN 34 LAB L501.1100 0.70-1.30 mg/dL High CREAT,SERUM 1.48 Result Comment: The validity of the calculated GFR AND GFRAA in patients over 70 years has not been determined. Clinical correlation is essential. LAB L501.1110 >60 mL/min Low EST GFR 48 Result Comment: Non- GFR Calc LAB L501.1115 >60 mL/min Low EST GFR - AA 58 Result Comment: GFR Calc LAB L501.1255 ml/min Normal Estimated CRCL 41.51 LAB L501.1300 10-20 RATIO High BUN/CRE 23.0 LAB L501.2200 8.5-10 mg/dL Normal .1 CA 8.8 LAB L501.5300 136-14 mmol/L Normal 5 NA 144 LAB L501.5600 3.5-5. mmol/L Normal 1 K 4.1 LAB L501.5900 98-107 mmol/L High CL 109 LAB L501.6100 21.0-3 mmol/L Normal 2.0 CO2 28.0 LAB L501.6200 5-15 Normal GAP 7 Performed By: #### L500.2500, L501.4010 #### [facility] [address] [place], [address] TROPONIN-I Collected: 05/13/2018 Status: F Source: [place] 3:00 PM [facility] REPOSITORY TYPE CODE TESTS RESULT OUT OF RANGE REFERENCE UNITS LAB L501.4010 <0.045 ng/mL Normal < 0.015 TROPONIN-I Result Comment: TROPONIN-I EXPECTED VALUES <0.045 Negative 0.045 - 0.590 Consistent with Cardiac Damage > OR = 0.600 Critical Value Not every elevated troponin is indicative of AK. These values should be used with clinical judgement in examining the patient's clinical picture for diagnosis. To establish a diagnosis of AK versus myocardial injury, there must be a demonstrated rise and/or fall in the troponin values, in addition to ischemic symptoms, EKG changes, new regional wall motion abnormality, and/or angiographical evidence. PLEASE NOTE: REFERENCE RANGES EDITED 17 Performed By: #### L500.2500, L501.4010 #### [facility] [address] [place], [address] LACTIC ACID Collected: 05/13/2018 Status: F Source: [place] 3:00 PM [facility] REPOSITORY Order Comment: Yes/No query for Sepsis Lactate Rule Y TYPE CODE TESTS RESULT OUT OF REFERENCE UNITS RANGE LAB L503.6005 0.4-2.0 mmol/L High LACTIC ACID 2.3 Result Comment: Critical Result(s) Called at: 15:41:07 05/13/2018 by: Paulina Curry Performed By: #### L503.6005 #### [facility] [address] [place], [address] THYROID STIM HORMONE Collected: 05/13/2018 Status: F Source: [place] (TSH) 3:00 PM [facility] REPOSITORY TYPE CODE TESTS RESULT OUT OF RANGE REFERENCE UNITS LAB L501.9520 0.358-3.74 uIU/mL Normal TSH 0.63 Performed By: #### L501.9520 #### [facility] [address] [place], [address] CHEST 1 VIEW Observed: 05/13/2018 Status: F Source: [place] (PORTABLE) 2:57 PM [facility] Imaging Services [address] [place] [address] Chest 1 View (Portable) MR#: [id number] Acct: [id number] Name: ED MEIER Rep #: [id number] : 1935 M 82 From: Fer Hobbs MD PCP: eNla Marrufo MD Status: REG ER Study: Chest 1 View (Portable) Date of Exam: 05/13/18 Exam# [id number] Ordering Dr: Domonique Brown MD STUDY: X-RAY CHEST REASON FOR EXAM: Male, 82 years old. Shortness of breath. TECHNIQUE: Single frontal view of the chest. COMPARISON: July 17, 2016 FINDINGS: There is low volume inspiration with a diffuse interstitial pattern, relatively unchanged. There is no demonstrated pleural abnormality. There is cardiomegaly with sternotomy wires, changes of coronary artery bypass grafting and a cardiac pacer, unaltered. Normal mediastinum and kisha. Normal visualized pulmonary arteries. Normal visualized aortic arch and descending thoracic aorta. Normal visualized thoracic spine. Normal visualized ribs, clavicles, and shoulders. There is no demonstrated abnormality of the visualized soft tissue structures of the upper abdomen. RAD/Chest 1 View (Portable) IMPRESSION: Stable appearance of the chest with no new or acute finding. Electronically Signed: Fer Hobbs MD at 16:03 EST , Service support , CC: Domonique Brown MD; Nela Marrufo MD Is Technician: Signed URINALYSIS, COMPLETE Collected: 04/12/2018 Status: F Source: [place] 12:00 AM [facility] REPOSITORY Order Comment: How was Urine Obtained? [...] PHOS RARE Performed By: #### L400.0001 #### [facility] [address] [place], [place], [address] Observed: 04/12/2018 Status: F Source: [place] CULTURE, URINE 12:00 AM [facility] REPOSITORY NURSES AIDE WAS UNSURE IF RANDOM OR CLEAN CATCH, JUST THAT IT WAS COLLECTED IN A [facility] Urine Culture ORGANISM 1: Proteus mirabilis [place] Count >100,000 Proteus mirabilis: REACTION Amoxacillin/Clavulanic Acid [...] <=20 S (NF) indicates non-formulary drug at [facility]. Approval by Infectious Disease Specialist required before non-formulary drugs may be ordered and/or dispensed. Performed By: #### M100.0650 #### [facility] [address] [place], [place], [address] BASIC METABOLIC Collected: 04/02/2018 Status: F Source: [place] PROFILE (BMP) 6:30 AM [facility] REPOSITORY Order Comment: ROOM 302 TYPE CODE [...] at: 07:55:57 04/02/2018 by: Destinee Pederson to [facility] L501.1100 0.70-1.30 mg/dL CREAT,SERUM High 1.99 [...] GAP 8 Performed By: #### L500.2500 #### [facility] [address] [place], [place], [address] CBC-COMPLETE BLOOD CNT Collected: 04/02/2018 Status: F Source: [place] NO DIFF 6:30 AM [facility] REPOSITORY Order Comment: ROOM 302 TYPE CODE [...] MPV 12.3 Performed By: #### L100.0500 #### [facility] [address] [place], [address] BASIC METABOLIC Collected: 03/15/2018 Status: F Source: [place] PROFILE (BMP) 6:15 AM [facility] REPOSITORY Order Comment: 302-1 TYPE CODE TESTS [...] GAP 7 Performed By: #### L500.2500 #### [facility] [address] [place], [place], [address] CBC-COMPLETE BLOOD CNT Collected: 03/15/2018 Status: F Source: [place] NO DIFF 6:15 AM [facility] REPOSITORY Order Comment: 302-1 TYPE CODE TESTS [...] MPV 11.6 Performed By: #### L100.0500 #### [facility] [address] [place], [place], [address] HEMOGLOBIN A1C Collected: 03/15/2018 Status: F Source: [place] 6:15 AM [facility] REPOSITORY Order Comment: 302-1 TYPE CODE TESTS RESULT OUT OF RANGE REFERENCE UNITS LAB L501.9985 4.2-6.3 % High HGB A1C 7.6 Performed By: #### L501.9985 #### [facility] [address] [facility] [place], [address] BASIC METABOLIC Collected: 03/05/2018 Status: F Source: [place] PROFILE (BMP) 6:35 AM [facility] REPOSITORY Order Comment: 302-1 TYPE CODE TESTS [...] GAP 7 Performed By: #### L500.2500 #### [facility] [address], [address] CBC-COMPLETE BLOOD CNT Collected: 03/05/2018 Status: F Source: [place] NO DIFF 6:35 AM [facility] REPOSITORY Order Comment: 302-1 TYPE CODE TESTS [...] MPV 11.1 Performed By: #### L100.0500 #### [facility] [address] [place], [address] CBC-COMPLETE BLOOD CNT Collected: 12/12/2017 Status: F Source: [place] NO DIFF 9:10 AM [facility] REPOSITORY Order Comment: 305/1 TYPE CODE TESTS [...] MPV 11.0 Performed By: #### L100.0500 #### [facility] [address] [facility] [place], [place], [address] BASIC METABOLIC Collected: 12/12/2017 Status: F Source: [place] PROFILE (BMP) 9:10 AM [facility] REPOSITORY Order Comment: 305/1 TYPE CODE TESTS [...] GAP 10 Performed By: #### L500.2500 #### [facility] [address] [place], [address] BASIC METABOLIC Collected: 11/24/2017 Status: F Source: [place] PROFILE ([facility]) 6:50 AM [facility] REPOSITORY TYPE CODE TESTS RESULT OUT OF [...] GAP 7 Performed By: #### L500.2500 #### [facility] [address], [place], [address] HIV - [facility] Collected: 10/27/2017 Status: F Source: [place] 7:00 AM [facility] REPOSITORY Order Comment: [facility]; PLEASE FAX RESULTS TO DON @ [employer] TYPE CODE TESTS RESULT OUT OF RANGE REFERENCE UNITS LAB L3890.6005 Nonreactive Normal HIV - [facility] Non-Reactive Performed By: #### L3890.6005 #### [facility] [address] [place], [address] HEPATITIS B SURFACE Collected: 10/27/2017 Status: P Source: [place] AG 7:00 AM [facility] REPOSITORY Order Comment: [facility]; PLEASE FAX RESULTS TO DON @ [employer] TYPE CODE TESTS RESULT OUT OF RANGE REFERENCE UNITS LAB L3100.0400 Negative Normal HB Negative SURF AG Result Comment: Performed at: - [facility] [id number] Social Media Intern: David Tomas PhD, Phone: [phone] Performed By: #### L3100.0390, L3100.0789 #### [facility] (refer to report for specific site) refer to report for address and phone number HEPATITS C AB W/ Collected: 10/27/2017 Status: P Source: [place] VERIFICATION 7:00 AM [facility] REPOSITORY Order Comment: [facility]; PLEASE [...] Status: F Source: [place] AG 7:00 AM [facility] REPOSITORY Order Comment: [facility]; PLEASE FAX RESULTS TO DON @ [facility] TYPE CODE TESTS RESULT OUT OF RANGE REFERENCE UNITS LAB L3100.0400 Negative Normal HB Negative SURF AG Result Comment: Performed at: [address] [id number] Social Media Intern: David Tomas PhD, Phone: [phone] Performed By: #### L3100.0390, L3100.0725 #### [facility] (refer to report for specific site) refer to report for address and phone number HEPATITS C AB W/ Collected: 10/27/2017 Status: F Source: [place] VERIFICATION 7:00 AM [facility] REPOSITORY Order Comment: [facility]; PLEASE [...] 10/11/2017 Status: F Source: [place] 7:45 PM [facility] REPOSITORY Order Comment: How was Urine Obtained? [...] URINE RARE Performed By: #### L400.0001 #### [facility] [address] [place], [place], [address] Observed: 10/11/2017 Status: F Source: [place] CULTURE, URINE 7:45 PM [facility] REPOSITORY Urine Culture ORGANISM 1: Proteus mirabilis [place] Count >100,000 Proteus mirabilis: REACTION Amoxacillin/Clavulanic Acid [...] <=20 S (NF) indicates non-formulary drug at [facility]. Approval by Infectious Disease Specialist required before non-formulary drugs may be ordered and/or dispensed. Performed By: #### M100.0650 #### [facility] [address] [place], [place], [address] BASIC METABOLIC Collected: 09/23/2017 Status: F Source: [place] ([facility]) 6:30 AM [facility] REPOSITORY TYPE CODE TESTS RESULT OUT OF [...] GAP 3 Performed By: #### L500.2500 #### [facility] [address] [place], [place], [address] COMPREHENSIVE METABOLIC Collected: 09/20/2017 Status: F Source: [place] [facility] 6:05 AM [facility] REPOSITORY Order Comment: ROOM 305 TYPE CODE [...] GAP 8 Performed By: #### L500.4050 #### [facility] [address] [place], [place], [address] CBC-COMPLETE BLOOD CNT Collected: 09/20/2017 Status: F Source: [place] NO DIFF 6:05 AM [facility] REPOSITORY Order Comment: ROOM 305 TYPE CODE [...] MPV 11.0 Performed By: #### L100.0500 #### [facility] [address] [facility] [place], [place], [address] CBC-COMPLETE BLOOD CNT Collected: 09/18/2017 Status: F Source: [place] NO DIFF 6:50 AM [facility] REPOSITORY TYPE CODE TESTS RESULT OUT OF [...] MPV 10.8 Performed By: #### L100.0500 #### [facility] [address] [facility] [place], [address] BASIC METABOLIC Collected: 09/18/2017 Status: F Source: [place] PROFILE (BMP) 6:50 AM [facility] REPOSITORY Order Comment: ROOM 305 TYPE CODE [...] GAP 10 Performed By: #### L500.2500 #### [facility] [address] [place], [address] URINALYSIS, COMPLETE Collected: 09/16/2017 Status: F Source: [place] 1:00 PM [facility] REPOSITORY Order Comment: How was Urine Obtained? [...] URINE SEEN Performed By: #### L400.0001 #### [facility] [address] [place], [address] Observed: 09/16/2017 Status: F Source: [place] CULTURE, URINE 1:00 PM [facility] REPOSITORY Urine Culture ORGANISM 1: Amber albicans [place] Count 25,000-50,000 Performed By: #### M100.0650 #### [facility] [address] [place], [address] BASIC METABOLIC Collected: 2017 Status: F Source: [place] PROFILE (BMP) 6:15 AM [facility] REPOSITORY Order Comment: ROOM 305 TYPE CODE [...] GAP 8 Performed By: #### L500.2500 #### [facility] [address] [facility] [place], [address] CBC-COMPLETE BLOOD CNT Collected: 09/11/2017 Status: F Source: [place] NO DIFF 6:55 AM [facility] REPOSITORY TYPE CODE TESTS RESULT OUT OF [...] MPV 11.8 Performed By: #### L100.0500 #### [facility] [address] [facility] [place], [place], [address] BASIC METABOLIC Collected: 09/11/2017 Status: F Source: [place] PROFILE (BMP) 6:55 AM [facility] REPOSITORY TYPE CODE TESTS RESULT OUT OF [...] GAP 11 Performed By: #### L500.2500 #### [facility] [address] [place], [address] HEMOGLOBIN A1C Collected: 09/11/2017 Status: F Source: [place] 6:55 AM [facility] REPOSITORY TYPE CODE TESTS RESULT OUT OF RANGE REFERENCE UNITS LAB L501.9985 4.2-6.3 % High HGB A1C 9.4 Performed By: #### L501.9985 #### [facility] [address] [place], [address] URINALYSIS, ROUTINE Collected: 09/11/2017 Status: F Source: [place] (DIPSTICK) 1:00 AM [facility] REPOSITORY Order Comment: How was Urine Obtained? [...] High LEUK ESTERASE 500 Performed By: #### L400.2010 #### [facility] [address] [place], [address] Observed: 09/11/2017 Status: F Source: [place] CULTURE, URINE 1:00 AM [facility] REPOSITORY Urine Culture ORGANISM 1: Mixed Gram Pos AND Gram Neg Org [place] Count 1000-10,000 MIX CULTURE Mixed contaminants. Submit a new specimen if indicated. Performed By: #### M100.0650 #### [facility] [address] [facility] [place], [address] BASIC METABOLIC Collected: 07/26/2017 Status: F Source: [place] PROFILE (BMP) 6:10 AM [facility] REPOSITORY Order Comment: ROOM 305-1 [place] TYPE CODE TESTS RESULT OUT OF RANGE [...] GAP 6 Performed By: #### L500.2500 #### [facility] [address] [place], [address] BNP,B-TYPE NATRIURETIC Collected: 07/26/2017 Status: F Source: [place] PEPTIDE 6:10 AM [facility] REPOSITORY Order Comment: ROOM 305-1 MARIA ELENA TYPE CODE TESTS RESULT OUT OF RANGE REFERENCE UNITS LAB L503.6620 0-100 pg/mL High B-TYPE 451.4 RILEY PEP Performed By: #### L503.6620 #### [facility] [address] [place], [address] Observed: 07/22/2017 Status: F Source: [place] LEGIONELLA ANTIGEN 1:30 AM [facility] URINE REPOSITORY Specimen Source: URINE, RANDOM Legionella, UR Legionella Antigen result interpretation: Negative Presumptive negative for Legionella pneumophila serogroup 1 antigen in urine, suggesting no recent or current infection. Legionella Ag, Urine Negative (See interpretation below) Performed By: #### M300.4500 #### [facility] [address] [facility] [place], [address] BASIC METABOLIC Collected: 07/19/2017 Status: F Source: [place] PROFILE (BMP) 6:20 AM [facility] REPOSITORY Order Comment: ROOM 305-1 MARIA ELENA [...] GAP 6 Performed By: #### L500.2500 #### [facility] [address] [place], [address] BNP,B-TYPE NATRIURETIC Collected: 07/19/2017 Status: F Source: [place]PTIDE 6:20 AM [facility] REPOSITORY Order Comment: ROOM 305-1 MARIA ELENA TYPE CODE TESTS RESULT OUT OF RANGE REFERENCE UNITS LAB L503.6620 0-100 pg/mL High B-TYPE 728.2 RILEY PEP Performed By: #### L503.6620 #### [facility] [address] [place], [address] COMPREHENSIVE METABOLIC Collected: 07/14/2017 Status: F Source: [place] PROFIL 6:45 AM [facility] REPOSITORY Order Comment: ROOM 305-1 TYPE CODE [...] GAP 6 Performed By: #### L500.4050 #### [facility] [address] [place], [place], [address] PROTHROMBIN TIME W/INR Collected: 07/14/2017 Status: F Source: [place] 6:45 AM [facility] REPOSITORY Order Comment: ROOM 305-1 TYPE CODE TESTS RESULT OUT OF RANGE REFERENCE UNITS LAB L300.4150 11.7-14.9 SECONDS High PROTIME 15.5 LAB L300.4200 Normal INR 1.2 Performed By: #### L300.3900 #### [facility] [address] [place], [place], [address] BASIC METABOLIC Collected: 07/12/2017 Status: F Source: [place] PROFILE (BMP) 7:10 AM [facility] REPOSITORY Order Comment: ROOM 305-1 TYPE CODE [...] GAP 7 Performed By: #### L500.2500 #### [facility] [address] [place], [address] CBC-COMPLETE BLOOD CNT Collected: 07/12/2017 Status: F Source: [place] NO DIFF 7:10 AM [facility] REPOSITORY Order Comment: ROOM 305-1 TYPE CODE [...] MPV 11.7 Performed By: #### L100.0500 #### [facility] [address] [place], [place], [address] BNP,B-TYPE NATRIURETIC Collected: 07/12/2017 Status: F Source: [place] PEPTIDE 7:10 AM [facility] REPOSITORY Order Comment: ROOM 305-1 TYPE CODE TESTS RESULT OUT OF RANGE REFERENCE UNITS LAB L503.6620 0-100 pg/mL High B-TYPE 700.3 RILEY PEP Performed By: #### L503.6620 #### [facility] [address] [facility] [place], [place], [address] CBC-COMPLETE BLOOD CNT Collected: 06/14/2017 Status: F Source: [place] NO DIFF 7:03 AM [facility] REPOSITORY Order Comment: ROOM 305-1 TYPE CODE [...] MPV 12.1 Performed By: #### L100.0500 #### [facility] [address] [place], [address] BASIC METABOLIC Collected: 06/14/2017 Status: F Source: [place] PROFILE (BMP) 7:03 AM [facility] REPOSITORY Order Comment: ROOM 305-1 TYPE CODE [...] GAP 7 Performed By: #### L500.2500 #### [facility] [address] [place], [address] LOWER EXT ARTERIAL Observed: 05/24/2017 Status: F Source: [place] STUDY 11:27 AM [facility] REPOSITORY [facility] Cardiovascular Services [address] [place] [address] 05/24/17 1124 MR#: [id number] Acct: [id number] Name: Ed Meier Rep #: [id number] : 1935 81 From: José Antonio Maldonado MD Attending Dr: José Antonio Maldonado MD Status: REG CLI Ordering Dr: Date: 05/24/17 Location: [facility] Sex: M C Admitted: Arterial Study - Arterial Study Arterial Study: Patient: Ed Meier Record number: [id number] Date of scan 05/23/[address] Maldonado Indication patient with history of bilateral ulcers [...] 05/24/17 1127 <Electronically signed by José Antonio Maldonado MD> Date José Antonio Maldoando MD CC: Date Dictated: 05/24/17 1124 Date Transcribed: 05/24/17 1124 Is Technician: ELODIA Signed ARTERIAL DUPLEX US Observed: 05/24/2017 Status: F Source: [facility] 8:14 AM [facility] Cardiovascular Services [address] [place] [address] Art Duplex US Bilat Lower Ext 05/23/17 1011 MR#: [id number] Acct: [id number] Name: Ed Meier Rep #: [id number] : 1935 81 From: José Antonio Maldonado MD Attending Dr: José Antonio Maldonado MD Status: REG CLI Ordering Dr: José Antonio Maldonado MD Date: 05/23/17 Location: [facility] Sex: M [...] cm./sec. Unable to demonstrate flow SFA, Mid/Dist MEAT LOINER and Ant. Tibial Artery, distal = 21.2 cm./sec. PER A. Unable to demonstrate flow Mid/dist SFA, Mid/ Dist MEAT LOINER and PER A. Procedure Exam performed in department. Interpretation Summary 1. Right ENFORCEMENT OFFICER stenosis. 2. Right sfa, posterior tibial and peroneal occlussion 3. Left sfa, posterior tibial and peroneal occlussion. Ordering Physician: José Antonio Maldonado Performed By: Brenda Beal RVT 05/24/17 0813 Date José Antonio Maldonado MD CC: José Antonio Maldonado MD Date Dictated: 05/23/17 1011 Date Transcribed: 05/24/17812 Is Technician: Signed ALLERGIES ALLERGIES DATE TYPE / CODE NAME / CODE REACTION SEVERITY SOURCE 07/09/2016 Drug Iodinated Other Unknown [place] [facility] Allergy/416 [facility] 448205(SNOM and IV Repository ED CT) Dye/[id number](R XNORM) ENCOUNTERS ENCOUNTERS ADMIT/DISCHARGE ACCOUNT ADMITTING ENCOUNTER LOCATION SOURCE NUMBER CLASS 05/13/2018/01/18/ [id number] Narciso Gordon Inpatient [place] 9 4 Encounter [facility] ing:PCURoom: Repository [id number]: [id number] 05/13/2018 [id number] Narciso Gordon Ambulatory BMSBuilding:B [place] 9 [facility] Repository 05/13/2018 [id number] Narciso Gordon Ambulatory BMSBuilding:B [place] 8 [facility] Repository 05/13/2018 [id number] Narciso Gordon Ambulatory BMSBuilding:B [place] 2 [facility] Repository 05/13/2018 [id number] Narciso Gordon Ambulatory BMSBuilding:B [place] 5 [facility] Repository 05/13/2018 [id number] Narciso Gordon Ambulatory BMSBuilding:B [place] 7 [facility] Repository 05/13/2018 [id number] Narciso Gordon Ambulatory BMSBuilding:B [place] 3 [facility] Repository 04/12/2018 [id number] Ambulatory [place] 9 [facility] ing:OLS.[facility] Repository R 04/02/2018 [id number] Ambulatory [place] 0 [facility] ing:OLS.LCA Repository R 03/15/2018 [id number] Ambulatory [place] 2 [facility] Hospital ing:OLS.WHLCA Repository R 03/05/2018 [id number] Ambulatory [place] 6 [facility] ing:OLS.LCA Repository R 12/12/2017 [id number] [facility] [place] [facility] Repository R 11/24/2017 [id number] Ambulatory [place] 6 [facility] ing:OLS.WHLCA Repository R 10/27/2017 [id number] Ambulatory [place] 1 [facility] ing:[facility] Repository 10/11/2017 [id number] Ambulatory [place] 2 [facility] ing:OLS.WHLCA Repository R 09/23/2017 [id number] Ambulatory [place] 3 [facility] ing:OLS.WHLCA Repository R 09/20/2017 [id number] Ambulatory [place] 2 [facility] ing:OLS.WHLCA Repository R 09/18/2017 [id number] Ambulatory [place] 0 [facility] ing:OLS.WHLCA Repository R 09/16/2017 [id number] Ambulatory [place] 8 [facility] ing:OLS.WHLCA Repository R 2017 [id number] Ambulatory [place] 9 [facility] ing:OLS.WHLCA Repository R 09/11/2017 [id number] Ambulatory [place] 6 [facility] ing:OLS.WHLCA Repository R 07/26/2017 [id number] Ambulatory [place] 6 [facility] Hospital ing:OLS.WHLCA Repository R 07/22/2017 [id number] Ambulatory [place] 1 [facility] ing:OLS.WHLCA Repository R 07/19/2017 [id number] Ambulatory [place] 0 [facility] ing:OLS.WHLCA Repository R 07/14/2017 [id number] Ambulatory [place] 4 [facility] ing:OLS.WHLCA Repository R 07/12/2017 [id number] Ambulatory [place] 3 [facility] ing:OLS.WHLCA Repository R 06/14/2017 [id number] Ambulatory [place] 3 [facility] ing:OLS.WHLCA Repository R 06/11/2017 [id number] Ambulatory [place] 3 [facility] ing:WC Repository 05/24/2017/ [id number] Ambulatory [place] 8 6 [facility] ing:WC Repository 05/23/2017 [id number] Ambulatory [place] 0 [facility] ing:CVS Repository PAYERS PAYERS ENCOUNTER GUARANTOR PAYER SUBSCRIBER SOURCE 05/13/2018 DUAINE Jose Juan [id number] Primary DUAINE E [place] Insurance:MEDICARE MOSESDOB: [facility] [id number] Number: Repository [id number]: 330 [id number] [phone] () Date:2018-05-13 05/13/2018 Secondary DUAINE E [place] [facility] [place] [id number] Number: Repository [id number] Date:[id number], [place] [address]FY: 05/13/2018 Tertiary DUAINE E [place] Insurance:[facility] Number: [id number] [place] [address] [id number] Repository Date:2018-05-13[address]ATTN: [place] [address]PH: 05/13/2018 Tertiary NOT GIVENUNK [place] Insurance:SELF PAY [facility] Number: Effective Repository Date:2018-05-13 05/13/2018 DUAINE E [id number] Primary DUAINE E [place] Insurance:MEDICARE MOSESDOB: [facility] [id number] Number: Repository [id number]: [phone] [id number] [phone] ([phone] Date:2018-05-13 05/13/2018 Secondary DUAINE E [place] Insurance:[facility]: [facility] [id number] Number: Repository [id number] Date:0682-40-96[address], [place] [address]VW: 05/13/2018 Tertiary NOT GIVENUNK [place] Insurance:SELF PAY [facility] Number: Effective Repository Date:2018-05-13 05/13/2018 DUAINE E [id number] Primary DUAINE E [place] Insurance:MEDICARE MOSESDOB: Community [facility] [id number] Number: Repository [phone]: [phone] [id number] [phone] () Date:2018-05-13 05/13/2018 Secondary DUAINE E [place] Insurance:S MOSESDOB: [facility] [id number] [place] [address] Number: Repository [id number] Date:0865-63-76[address], [place] [address]NM: 05/13/2018 Tertiary DUAINE E [place] Insurance:CARESOURCEP MOSESDOB: [facility] Number: [id number] [place] [address] [id number] Repository Date:2018-05-13[address]ATTN: [place] [address]KK: 05/13/2018 Tertiary NOT GIVENUNK [place] Insurance:SELF PAY [facility] Number: Effective Repository Date:2018-05-13 05/13/2018 DUAINE E [id number] Primary DUAINE E [place] Insurance:MEDICARE MOSESDOB: [facility] [id number] [place] Number: Repository [phone]: [phone] [id number] [phone] () Date:2018-05-13 05/13/2018 Secondary DUAINE E [place] Insurance:WPS MOSESDOB: [facility] [id number] Hospital Number: Repository [id number] Date:3320-90-89EI [address], [place] [address]HB: 05/13/2018 Tertiary DUAINE E [place] Insurance:CARESOURCEP MOSESDOB: [facility] Number: [id number] Hospital [id number] Repository Date:2018-05-13[address]ATTN: [place] [address]CW: 05/13/2018 Tertiary NOT GIVENUNK [place] Insurance:SELF PAY [facility] Number: Effective Repository Date:2018-05-13 05/13/2018 DUAINE E [id number] Primary DUAINE E [place] Insurance:MEDICARE MOSESDOB: [facility] [id number] [place] Number: Repository [address]Bau: 330 [id number] [phone] (HP) Date:2018-05-13 05/13/2018 Secondary DUAINE E [place] Insurance:[facility] RUSTVYB: [facility] [id number] Number: Repository [id number] Date:7020-77-19[address], [place] [address]KZ: 05/13/2018 Tertiary DUAINE E [place] Insurance:CARESOURCEP MOSESDOB: [facility] Number: [id number] Hospital [id number] Repository Date:2018-05-13[address]ATTN: [place] [address]JS: 05/13/2018 Tertiary NOT GIVENUNK [place] Insurance:SELF PAY [facility] Number: Effective Repository Date:2018-05-13 05/13/2018 DUAINE E [id number] Primary DUAINE E [place] Insurance:MEDICARE MOSESDOB: [facility] [id number] Number: Repository [phone]: [phone] [id number] [phone] (HP) Date:2018-05-13 05/13/2018 Secondary DUAINE E [place] Insurance:WPS MOSESDOB: [facility] [id number] Hospital Number: Repository [id number] Date:9504-78-23ST [address], [place] [address]EB: 05/13/2018 Tertiary DUAINE E [place] Insurance:CARESOURCEP [facility] Number: [id number] Hospital [id number] Repository Date:2018-05-13[address]ATTN: [place] [address]IH: 05/13/2018 Tertiary NOT GIVENUNK [place] Insurance:SELF PAY [facility] Number: Effective Repository Date:2018-05-13 05/13/2018 DUAINE E [id number] Primary DUAINE E [place] Insurance:MEDICARE [facility]: [facility] [id number] [place] Number: Repository [address]Ufk: [phone] [id number] [phone] () Date:2018-05-13 05/13/2018 Secondary DUAINE E [place] Insurance:[facility]: [facility] [id number] Hospital Number: Repository [id number] Date:1610-88-00HR [address], [place] [address]DW: 05/13/2018 Tertiary DUAINE E [place] Insurance:CARESOURCEP [facility] Number: [id number] Hospital [id number] Repository Date:2018-05-13[address]ATTN: [place] [address]MF: 05/13/2018 Tertiary NOT GIVENUNK [place] Insurance:SELF PAY [facility] Number: Effective Repository Date:2018-05-13 04/12/2018 Duaine E [id number] Primary Duaine E [place] Insurance:MEDICARE MosesDOB: [facility] [id number] County Hospital [place] Number: Repository [address]Npf: 330 [id number] [phone] (HP) Date:2018-04-12 04/12/2018 Secondary Duaine E [place] Insurance:WPS MosesDOB: [facility]Advanced [facility] Hospital[facility] [id number] Hospital Number: Repository [id number] Date:3919-65-57BU [address] [address]ED: 04/12/2018 Tertiary NOT GIVENUNK [place] Insurance:SELF PAY [facility] Number: Effective Repository Date:2018-04-12 04/02/2018 Duaine E [id number] Primary Duaine E [place] Insurance:MEDICARE MosesDOB: Community [facility] [id number] County Hospital [place] Number: Repository [address]Ugu: 330 [id number] [phone] () Date:2018-04-02 04/02/2018 Secondary Duaine E [place] Insurance:WPS MosesDOB: [facility] FOR [facility] [id number] Hospital Number: Repository [id number] Date:0232-83-40ZO [address] [address]DZ: 04/02/2018 Tertiary NOT GIVENUNK [place] Insurance:SELF PAY [facility] Hospital Number: Effective Repository Date:2018-04-02 03/15/2018 Duaine E [id number] Primary Duaine E [place] Insurance:MEDICARE MosesDOB: Community [facility] [id number] [facility] Number: Repository [id number]: 330 [id number] [phone] (HP) Date:2018-03-15 03/15/2018 Secondary Duaine E [place] Insurance:S MosesDOB: [facility] [id number] Hospital Number: Repository [id number] Date:8159-15-97[address], [place] [address]TC: 03/15/2018 Tertiary NOT GIVENUNK [place] Insurance:SELF PAY [facility] Number: Effective Repository Date:2018-03-15 03/05/2018 Duaine E [id number] Primary Duaine E [place] Insurance:MEDICARE MosesDOB: Community [facility] [id number] [place] Number: Repository [id number]: 330 [id number] [phone] (HP) Date:2018-03-05 03/05/2018 Secondary Duaine E [place] [facility] [id number] Hospital Number: Repository [id number] Date:7281-81-15ZG [address], [place] [address]EY: 03/05/2018 Tertiary NOT GIVENUNK [place] Insurance:SELF PAY [facility] Hospital Number: Effective Repository Date:2018-03-05 12/12/2017 Duaine E [id number] Primary Duaine E [place] Insurance:MEDICARE MosesDOB: [facility] [id number] County Hospital [place] Number: Repository [address]Ogb: 330 [id number] [phone] () Date:2017-12-12 12/12/2017 Secondary Duaine E [place] [facility] HospitalB: [facility] [id number] Hospital Number: Repository [id number] Date:9796-91-99ZF [address], [place] [address]CD: 12/12/2017 Tertiary NOT GIVENUNK [place] Insurance:SELF PAY [facility] Hospital Number: Effective Repository Date:2017-12-12 11/24/2017 Duaine E [id number] Primary Duaine E [place] Insurance:MEDICARE MosesDOB: Community [facility] [id number] County Hospital [place] Number: Repository [address]Xhw: 330 [id number] [phone] (HP) Date:2017-11-24 11/24/2017 Secondary Duaine E [place] Insurance:S MosesDOB: [facility] [id number] Hospital Number: Repository [id number] Date:1274-26-61LA [address], [place] [address]OS: 11/24/2017 Tertiary NOT GIVENUNK [place] Insurance:SELF PAY [facility] Number: Effective Repository Date:2017-11-24 10/27/2017 Duaine E [id number] Primary NOT GIVENUNK [place] Insurance:SELF PA[place] [facility] Number: Effective Repository [phone]: 330) Date:2017-10-27 [phone] () 10/11/2017 Duaine E [id number] Primary Duaine E [place] Insurance:MEDICARE MosesDOB: [facility] PART A [facility] [id number] County Hospital, [place] Number: Repository [address]Qhz: 330 [id number] [phone] () Date:2017-10-11 10/11/2017 Secondary Duaine E [place] [facility] MosesDOB: [facility] [id number] Hospital Number: Repository [id number] Date:5177-25-56YR [address], [place] [address]DI: 10/11/2017 Tertiary NOT GIVENUNK [place] Insurance:SELF PAY [facility] Number: Effective Repository Date:2017-10-11 09/23/2017 Duaine E [id number] Primary NOT GIVENUNK [place] Insurance:SELF PA[place] [facility] Number: Effective Repository [id number]: 330) Date:2017-09-23 [phone] () 09/20/2017 Duaine E [id number] Primary Duaine E [place] Insurance:MEDICARE MosesDOB: [facility] PART A [facility] [id number] County Hospital [place] Number: Repository [address]Dgh: 330 [id number] [phone] (HP) Date:2017-09-20 09/20/2017 Secondary Duaine E [place] Insurance:S MosesDOB: [facility] [id number] Hospital Number: Repository [id number] Date:7948-20-06UB [address], [place] [address]UX: 09/20/2017 Tertiary NOT GIVENUNK [place] Insurance:SELF PAY [facility] Hospital Number: Effective Repository Date:2017-09-20 09/18/2017 Duaine E [id number] Primary Duaine E [place] Insurance:MEDICARE MosesDOB: Community [facility] [id number] County Hospital [place] Number: Repository [address]Ipy: 330 [id number] [phone] (HP) Date:2017-09-18 09/18/2017 Secondary Duaine E [place] Insurance:WPS MosesDOB: [facility] [id number] Hospital Number: Repository [id number] Date:0699-02-22KK [address], [place] [address]OY: 09/18/2017 Tertiary NOT GIVENUNK [place] Insurance:SELF PAY [facility] Hospital Number: Effective Repository Date:2017-09-18 09/16/2017 Duaine E [id number] Primary Duaine E [place] Insurance:MEDICARE MosesDOB: Community [facility] [id number] [place] Number: Repository [address]Dqp: 330 [id number] [phone] (HP) Date:2017-09-16 09/16/2017 Secondary Duaine E [place] Insurance:S MosesDOB: [facility] [id number] Hospital Number: Repository [id number] Date:4640-55-48TV [address] [address]UD: 09/16/2017 Tertiary NOT GIVENUNK [place] Insurance:SELF PAY [facility] Number: Effective Repository Date:2017-09-16 2017 Duaine E [id number] Primary Duaine E [place] Insurance:MEDICARE MosesDOB: [facility] [id number] [place] Number: Repository [address]Ggn: 330 [id number] [phone] (HP) Date:2017 2017 Secondary Duaine E [place] Insurance:WPS MosesDOB: [facility] [id number] Hospital Number: Repository [id number] Date:6886-17-57DI [address], [place] [address]OH: 2017 Tertiary NOT GIVENUNK [place] Insurance:SELF PAY [facility] Number: Effective Repository Date:2017 09/11/2017 Duaine E [id number] Primary Duaine E [place] Insurance:MEDICARE MosesDOB: [facility] [id number] View, [place] Number: Repository [id number]: 330 [id number] [phone] (HP) Date:2017-09-11 09/11/2017 Secondary Duaine E [place] Insurance:WPS MosesDOB: [facility] [id number] Hospital Number: Repository [id number] Date:1682-41-61LL [address], [place] [address]BJ: 09/11/2017 Tertiary NOT GIVENUNK [place] Insurance:SELF PAY [facility] Number: Effective Repository Date:2017-09-11 07/26/2017 Duaine E [id number] Primary Duaine E [place] Insurance:MEDICARE MosesDOB: [facility] [facility] [id number] County Hospital [place] Number: Repository [address]Ipe: 330 [id number] [phone] (HP) Date:2017-07-26 07/26/2017 Secondary Duaine E [place] Insurance:WPS MosesDOB: [facility]Advanced [facility] Hospital[facility] [id number] Hospital Number: Repository [id number] Date:7401-36-01KV [address]NA[place] [address]HC: 07/26/2017 Tertiary NOT GIVENUNK [place] Insurance:SELF PAY [facility] Hospital Number: Effective Repository Date:2017-07-26 07/22/2017 Duaine E [id number] Primary Duaine E [place] Insurance:MEDICARE MosesDOB: Community [facility] [id number] County Hospital [place] Number: Repository [address]Orm: 330 [id number] [phone] (HP) Date:2017-07-22 07/22/2017 Secondary Duaine E [place] Insurance:WPS MosesDOB: [facility] [id number] Hospital Number: Repository [id number] Date:1035-14-75JN [address], [place] [address]QT: 07/22/2017 Tertiary NOT GIVENUNK [place] Insurance:SELF PAY [facility] Hospital Number: Effective Repository Date:2017-07-22 07/19/2017 Duaine E [id number] Primary Duaine E [place] Insurance:MEDICARE MosesDOB: [facility] [id number] County Hospital[place] Number: Repository [address]Gsm: 330 [id number] [phone] (HP) Date:2017-07-19 07/19/2017 Secondary Duaine E [place] Insurance:S MosesDOB: [facility] [id number] Hospital Number: Repository [id number] Date:5496-51-87RK [address], [place] [address]JH: 07/19/2017 Tertiary NOT GIVENUNK [place] Insurance:SELF PAY [facility] Number: Effective Repository Date:2017-07-19 07/14/2017 Duaine E [id number] Primary Duaine E [place] Insurance:MEDICARE MosesD[facility] [id number] County Hospital [place] Number: Repository [id number]: 330 [id number] [phone] (HP) Date:2017-07-14 07/14/2017 Secondary Duaine E [place] [facility] [id number] Hospital Number: Repository [id number] Date:4840-40-70LU [address], [place] [address]VK: 07/14/2017 Tertiary NOT GIVENUNK [place] Insurance:SELF PAY [facility] Number: Effective Repository Date:2017-07-14 07/12/2017 Duaine E [id number] Primary NOT GIVENUNK [place] Insurance:SELF [place] Number: Effective Repository [id number]: 330) Date:2017-07-12 [phone] () 06/14/2017 Duaine E [id number] Primary Duaine E [place] Insurance:MEDICARE MosesDOB: [facility] [id number] County Hospital [place] Number: Repository [address]Uoa: 330 [id number] [phone] () Date:2017-06-14 06/14/2017 Secondary Duaine E [place] [facility]: [facility] [id number] Hospital Number: Repository [id number] Date:7678-37-43KF [address] [address]SA: 06/14/2017 Tertiary NOT GIVENUNK [place] Insurance:SELF PAY [facility] Number: Effective Repository Date:2017-06-14 06/11/2017 DUAINE E [id number] Primary DUAINE E [place] Insurance:MEDICARE MOSESDOB: [facility] [id number] County Hospital, [place] Number: Repository [address]Jdq: 330 [id number] [phone] (HP) Date:1999-08-30 06/11/2017 Secondary DUAINE E [place] [facility] [id number] Hospital Number: Repository [id number] Date:0155-00-92GL [address], [place] [address]VN: 06/11/2017 Tertiary NOT GIVENUNK [place] Insurance:SELF PAY [facility] Number: Effective Repository Date:2017-06-01 05/24/2017 DUAINE E [id number] Primary DUAINE E [place] Insurance:MEDICARE MOSESDOB: [facility] [id number] County Hospital, [place] Number: Repository [id number]: 330 [id number] [phone] () Date:1999-08-30 05/24/2017 Secondary DUAINE E [place] [facility] [id number] Hospital Number: Repository [id number] Date:0374-20-76DK [facility] [address], [place] [address]EA: 05/24/2017 Tertiary NOT GIVENUNK [place] Insurance:SELF PAY [facility] Number: Effective Repository Date:2017-05-01 05/23/2017 DUAINE E [id number] Primary DUAINE E [place] Insurance:MEDICARE MOSESDOB: [facility] [id number] County Hospital, [place] Number: Repository [id number]: [phone] [id number] [phone] () Date:2017-04-25 05/23/2017 Secondary DUAINE E [place] Insurance:WPS DEE CRUZB: [facility] FOR LIFEPolicy [id number] Hospital Number: Repository [id number] Date:5664-92-64SW [address] [address]RT: 05/23/2017 Tertiary NOT GIVENUNK [place] Insurance:SELF PAY [facility] Number: Effective Repository Date:2017-04-25
== END ==
LOC: OLS.WHLCAR 07:49
PROVIDERS: Visit Provider Family Medicine
DX: R31.9 Hematuria, unspecified (principal)
CPT/HCPCS: 81001; 87077; 87086; 87088; 87186

== ENCOUNTER 2018-05-13 14:44 | Inpatient (IN) | payer MEDICARE, OTHER, MEDICAID, SELFPAY ==
[2018-05-13] VITALS (18 sets, daily range): BP systolic 135–158; BP diastolic 53–73; PULSE 58–103; RESP 12–54; TEMP 36.4–37.1; O2SAT 91–99; BMI 33.9; BMI 29.8
--- NOTE | 2018-05-13 14:54 | EKG12_ITS ---
Test Reason : SOB Blood Pressure : / mmHG Vent. Rate : 059 BPM Atrial Rate : 061 BPM P-R Int : 000 ms QRS Dur : 128 ms QT Int : 458 ms P-R-T Axes : -20 -27 080 degrees QTc Int : 453 ms Normal sinus rhythm Left bundle branch block Abnormal ECG Confirmed by MARIELENA WOODWARD, REGGIE ([id number]), assignment editor EUGENE MARRUFO ([id number]) on 05/15/2018 5:10:02 PM Referred By: Narciso Gordon Confirmed By:REGGIE PEGUERO MD
--- NOTE | 2018-05-13 15:02 | ED.DCSUM_ITS ---
- ER Visit Summary Date of Service: 05/13/18 Chief Complaint: Shortness of breath History of Present Illness: The patient is a 82 M presenting with shortness of breath. He states this has been worsening over the past 2-3 days. He has had a cough. He denies chest pain. Denies fever. Denies abdominal pain, vomiting, diarrhea. He has a history of CAD, CHF, COPD, diabetes, hypertension. He is a previous smoker. Physical Examination: Blood pressure 135/59, temp 97.6, heart rate 64, respiratory rate 29. Pulse ox 94% on room air. Alert no acute distress. HEENT exam is unremarkable. Neck is supple. Lungs are rhonchorous bilaterally. Heart is regular rate and rhythm. Abdomen is soft nontender nondistended. Extremities are unremarkable. Skin is warm and dry. No focal neurologic deficit. Remainder of exam is unremarkable. Emergency Department Course and Treatment: Patient was initially given albuterol, Atrovent aerosols with no improvement. He continues to have tachypnea with respiratory rate in the 30s. He was started on BiPAP with much improvement. Chest x-ray shows small left pleural effusion. CBC shows hemoglobin 8.8. Chemistries show glucose 70, BUN 34, creatinine 1.48. Troponin negative. Lactic acid 2.3. Influenza negative. Repeat BGT was 48. He was given D50 and a meal with improvement. Urinalysis shows 50-100 white blood cells. Urine culture is sent. He was given Rocephin IV. After taking off his BiPAP noted to have tachypnea and hypoxia. BiPAP was started again. He had improvement. Discussed with the hospitalist for admission. Disposition: Admission Impression: CHF exacerbation, anemia, UTI, hypoglycemia This note was generated with [employer] dictation software. It may contain incorrect words, spelling, and punctuation that were not noted in review of the chart prior to signing ED Disposition - Plan for ED Patient: Chief Complaint: Shortness of Breath Referrals: Xavier Cohen MD [Primary Care Provider] -
[2018-05-13] MEDS: Ipratropium/Albuterol Sulfate 3 ML AMPUL.NEB INHALATION (15:09)
[2018-05-13 15:11] LABS: Absolute Lymphocyte Count 0.65 X10^3/ul (0.83-4.51); Absolute Neutrophil Count 5.5 X10^3/uL (2.0-7.7); Basophil# 0.01 X10^3/uL; Basophil% 0.1 % (0-1); Eosinophils% 1.3 % (0-5); Hematocrit 29.3 % (40-54); Hemoglobin 8.8 g/dl (13.0-16.5); Lymphocyte # 0.65 X10^3/ul (4.0); Lymphocyte % 8.5 % (19-41); Mean Corpuscular Hgb 31.1 pg (27.0-32.0); Mean Corpuscular Volume 103.5 fL (80-94); Mean Platelet Vol. 11.1 fl (6.2-12.0); Monocyte% 18.3 % (0-10); Neutrophil # 5.49 X10^3/uL (2.7-7.7); Neutrophil % 71.7 % (47-70); Platelet Count 174 K/mm3 (150-450); RBC Distribution Width CV 13.6 % (11.6-14.6); RBC Distribution Width SD 51.4 fl (35.1-43.9); Red Blood Count 2.83 M/mm3 (4.6-6.2); White Blood Count 7.7 K/mm3 (4.4-11.0)
[2018-05-13 15:13] LABS: POSITIVE COUNT NO; POSITIVE DIFFERENTIAL NO; POSITIVE MORPHOLOGY NO
[2018-05-13 15:31] LABS: Anion Gap 7 (5-15); BUN 34 mg/dL (7-18); Calcium,Total 8.8 mg/dL (8.5-10.1); Chloride 109 mmol/L (98-107); Creatinine, Serum 1.48 mg/dL (0.70-1.30); EST Glomerular Filtration Rate 48 mL/min (>60); Est Glom Filt Rate - Afr Amer 58 mL/min (>60); Estimated Creatinine Clearance 41.51 ml/min; Glucose 70 mg/dL (74-106); Potassium 4.1 mmol/L (3.5-5.1); Sodium Level 144 mmol/L (136-145)
--- NOTE | 2018-05-13 15:35 | RAD_ITS ---
STUDY: X-RAY CHEST REASON FOR EXAM: Male, 82 years old. Shortness of breath. TECHNIQUE: Single frontal view of the chest. COMPARISON: July 17, 2016 FINDINGS: There is low volume inspiration with a diffuse interstitial pattern, relatively unchanged. There is no demonstrated pleural abnormality. There is cardiomegaly with sternotomy wires, changes of coronary artery bypass grafting and a cardiac pacer, unaltered. Normal mediastinum and kisha. Normal visualized pulmonary arteries. Normal visualized aortic arch and descending thoracic aorta. Normal visualized thoracic spine. Normal visualized ribs, clavicles, and shoulders. There is no demonstrated abnormality of the visualized soft tissue structures of the upper abdomen. RAD/Chest 1 View (Portable) IMPRESSION: Stable appearance of the chest with no new or acute finding. Electronically Signed: Fer Hobbs MD at 16:03 EST , Service support ,
[2018-05-13 15:41] LABS: Lactic Acid 2.3 mmol/L (0.4-2.0)
--- NOTE | 2018-05-13 15:41 | ED.RN ---
ELEVATED LACTIC ACID RESULT RECEIVED FROM LAB. DR AMIN NOTIFIED.
[2018-05-13] MEDS: Albuterol 2.5 MG/3 ML VIAL.NEB. INHALATION ×2 (16:12→16:30)
--- NOTE | 2018-05-13 16:16 | CPS ---
Patient taken off Bipap x 5 minutes, flu swab done at this time.
[2018-05-13 16:55] LABS: Bedside Glucose 48 mg/dL (70-110)
--- NOTE | 2018-05-13 16:58 | CPS ---
Patient taken off BiPAP at this time. Sats on room air at 95%.
[2018-05-13] MEDS: Dextrose 50%-Water 25 GM/50 ML DISP.SYRIN IV (17:02)
[2018-05-13 18:05] LABS: Bedside Glucose 132 mg/dL (70-110)
[2018-05-13 18:08] LABS: Mucous, Urine 0 SEEN /hpf (<or=2+)
--- NOTE | 2018-05-13 18:11 | CPS ---
RN called and requested patient be placed back on BiPAP. Patient placed back on BiPAP.
[2018-05-13 18:15] LABS: Color, Urine Yellow (Yellow); Glucose, Dipstick Normal (Normal); Ketone-Dipstick Negative (Negative); Leukocyte Esterase-Dipstick 500 /ul (Negative); Nitrite-Dipstick Negative (Negative); Occult Blood-Urine 250 /ul (Negative); Protein-Dipstick 30 mg/dl (Negative); Urine Bilirubin Dipstick Negative (Negative); Urine Clarity Sl. Cloudy (Clear); Urine Urobilinogen Normal (Normal)
[2018-05-13 18:17] LABS: Red Blood Cells-Urine 5-10 SEEN /hpf (0-5)
[2018-05-13 18:18] LABS: Bacteria RARE /hpf (None Seen); Squamous Epithelial Cells - UA 0-5 SEEN /hpf (0-5); White Blood Cells 50-100 SEEN /hpf (0-5)
[2018-05-13 19:04] LABS: Reflex Lactate? Y
[2018-05-13] MEDS: Ceftriaxone 1 GM/50 ML BAG IV (19:11)
[2018-05-13] MEDS: Furosemide 40 MG/4 ML Vial IV (20:10)
[2018-05-13 20:25] LABS: Lactic Acid 1.7 mmol/L (0.4-2.0)
--- NOTE | 2018-05-13 20:26 | ECHOD_ITS ---
Reason For Study: CHF Procedure This was a 2D Doppler, Color Flow transthoracic echocardiogram. The study was technically limited. Exam performed portable in patient room. Left Ventricle Normal LV size. The estimated ejection fraction is 40 %. Moderate segmental systolic dysfunction (see wall motion). Infero-Basal: Akinetic. Basal inferoseptal: Akinetic. Mid-anteroseptal : Akinetic. The rest of the wall segments are hypokinetic. Right Ventricle Normal RV size. ICD or pacer leads identified within the right ventricle. Normal systolic function. Atria The left atrium is mildly enlarged. Normal right atrium. Mitral Valve Normal mitral valve. Mild (1+) eccentric mitral valve insufficiency. Tricuspid Valve Normal tricuspid valve. Moderate (2+) tricuspid valve insufficiency. Pulmonary artery systolic pressure is 74 mmHg. Severe pulmonary hypertension. Aortic Valve Trisinus/trileaflet aortic valve. Pulmonic Valve Normal pulmonic valve. Great Vessels Normal aortic root. The pulmonary artery is normal size. Normal inferior vena cava. Pericardium/Pleural No pericardial effusion. Medication Definity deferred due to elevated PAP. MMode/2D Measurements & Calculations LVIDd: 5.2 cm IVSd: 0.95 cm Ao root diam: 3.0 cm LVIDs: 4.3 cm LVPWd: 0.93 cm RVDd: 4.1 cm FS: 15.7 % LAV(MOD-bp): 82.1 ml LA A4 area: 25.5 cm2 LA dimension(2D): 4.6 cm LAV(MOD-bp) Indexed: 35.2 ml/m2 LAV(MOD-sp2): 82.6 ml LAV(MOD-sp4): 82.0 ml RA A4 area: 20.1 cm2 Time Measurements MV dec time: 0.23 sec Doppler Measurements & Calculations MV E max nedra: 130.3 cm/sec Ao V2 max: 154.4 cm/sec LV V1 max: 85.8 cm/sec MV A max nedra: 47.6 cm/sec Ao max P.5 mmHg LV V1 max P.9 mmHg MV E/A: 2.7 TR max nedra: 413.8 cm/sec TR max P.5 mmHg Interpretation Summary Normal LV size. The estimated ejection fraction is 40 %. Pulmonary artery systolic pressure is 74 mmHg. Severe pulmonary hypertension. Moderate segmental systolic dysfunction (see wall motion). Compared to the previous the RV pressures are higher Ordering Physician: Narciso Gordon Referring Physician: NELA MARRUFO Performed By: Essie Nolasco RDCS, RVT
--- NOTE | 2018-05-13 20:31 | HP.PCM_ITS ---
Problem List (1) CHF (congestive heart failure) Status: Acute Qualifiers: Heart failure type: unspecified Heart failure chronicity: acute Qualified Code(s): I50.9 - Heart failure, unspecified (2) UTI (urinary tract infection) Status: Acute Qualifiers: Indwelling urinary catheter type: unspecified Encounter type: initial encounter History of Present Illness Date of Admission: 05/13/18 Chief Complaint: shortness of breath. The patient is a 82 year old Letha Chisholm with a several day history of increasing shortness of breath. Presented to the emergency room and was noted to be tachypneic. Patient was never hypoxic during evaluation. Patient was put on a BiPAP and improved. Patient was taken off the BiPAP so that he can eat and then started to regress and so was placed back up on the BiPAP. Currently patient feels fine. Patient feels that he is put on some weight and has some lower extremity edema but does have a history significant with CHF. Patient denies any history of COPD. Denies any chest pain. 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) Chronic ulcer of left ankle with fat layer exposed (Chronic) Ulcer of right foot with fat layer exposed (Chronic) Fall (Chronic) Congestive heart failure (Chronic) Acute kidney injury (Chronic) Peripheral vascular disease (Chronic) Diabetes mellitus with polyneuropathy (Chronic) 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) Edema, lower extremity (Chronic) Malnutrition (Chronic) BPH (benign prostatic hypertrophy) (Chronic) Hypertension (Chronic) Coronary artery disease (Chronic) Chronic ulcer of ankle (Chronic) Edema (Chronic) PAOD (peripheral arterial occlusive disease) (Chronic) Aortic valve stenosis (Chronic) Benign essential hypertension (Chronic) Chronic obstructive lung disease (Chronic) DM type 2 (diabetes mellitus, type 2) (Chronic) CAD (coronary artery disease) (Chronic) Hx of CABG (Chronic) Peripheral neuropathy (Chronic) Venous (peripheral) insufficiency (Chronic) Hyperlipidemia (Chronic) Allergies Iodinated Contrast- Oral and IV Dye [Iodinated Contrast Media - IV Dye] Allergy (Verified 07/09/16 19:04) Other Home Medications: Ambulatory Orders Medication Instructions Recorded Loratadine [Claritin] 10 mg PO DAILY 10/30/13 Metoprolol Tartrate [Lopressor 50 mg PO BID 10/30/13 (beta melissa)] Clopidogrel Bisulfate [Plavix] 75 mg PO DAILY 02/04/16 Finasteride [Proscar] 5 mg PO DAILY tablet 07/13/16 Acetaminophen [Tylenol] 1,000 mg PO Q8H PRN #0 tablet 08/22/16 Bisacodyl [Dulcolax] 10 mg RECTAL DAILY PRN #0 suppos. 08/22/16 Fluoxetine [Prozac] 20 mg PO DAILY capsule 08/22/16 Ipratropium/Albuterol Sulfate 3 ml INHALATION Q4H.RT PRN #0 08/22/16 [Duoneb] ampul.neb Iron Polysaccharide Complex 150 mg PO DAILYCM capsule 08/22/16 [Ferrex 150] Nutritional Supplement [Lloyd - 1 packet PO BIDCM packet 08/22/16 ORANGE FLAVOR] Polyethylene Glycol 3350 [Miralax] 17 gm PO DAILY packet 08/22/16 Senna/Docusate Sodium [Senokot-S] 2 tablet PO BID tablet 08/22/16 Albuterol Aerosols [Ventolin 2.5 mg INHALATION Q4H PRN PRN 05/13/18 Aerosols] Apixaban [Eliquis] 2.5 mg PO BID 05/13/18 Aspirin E.C. [Ecotrin] 81 mg PO DAILY@0800 05/13/18 Furosemide [Lasix] 40 mg PO DAILY 05/13/18 Guaifenesin [Mucinex] 600 mg PO BID 05/13/18 Insulin Aspart [Novolog Flexpen] 10 units SC TIDAC 05/13/18 Insulin Detemir [Levemir (BKC)] 50 units SC DAILY 05/13/18 Lisinopril [Zestril] 20 mg PO DAILY 05/13/18 Metolazone [Zaroxolyn] 2.5 mg PO DAILY 05/13/18 Omeprazole [Prilosec] 20 mg PO DAILY 05/13/18 Tamsulosin HCl [Flomax] 0.4 mg PO DAILY 05/13/18 Surgical History: coronary bypass surgery - x 4., pacemaker implantation, TURP, - - AICD, Back surgery. reports pad stents in right leg by dr maldonado Psychiatric History: No pertinent psych hx Smoking Status: Former smoker - 40 years ago Tobacco Use: Non-smoker Alcohol: None Drugs: None - *Family History Paternal History Items: Heart Disease Maternal History Items: Diabetes Review of Systems Constitutional: Denies: Anorexia, Chills, Fever, Night Sweats Eyes: Denies: Blurred vision, Double vision HEENT: Denies: Head Aches, Sinus Congestion, Sinus Drainage Cardiovascular: Reports: Edema. Denies: Chest Pain, Palpitations Respiratory: Reports: Shortness of Breath. Denies: Sputum production Gastrointestinal: Denies: Abdominal Pain, Nausea, Vomiting Genitourinary: Denies: Dysuria Musculoskeletal: Denies: Joint Pain, Joint Tenderness Skin: Denies: Rash, Wounds Neurological: Denies: Blurred vision, Double vision, Focal weakness, Numbness, Tingling Psychiatric: Denies: Anxiety, Depression Endocrine: Reports: Change in Body Habitus - Weight gain. Denies: Heat/ Cold Intolerance Hematologic/ Lymphatic: Reports: Easy Bruising. Denies: Easy Bleeding, Hx of blood clot Comment: A 10 point review of systems were negative except as mentioned in the history of present illness and the other review of systems. VTE Information - Inpt Only VTE Present on Admission: No VTE Mechan Device Prophylaxis: None VTE Pharm Prophylaxis ordered?: Yes Patient Problems: Active and Suspected Problems CHF (congestive heart failure) (Acute) UTI (urinary tract infection) (Acute) - Physical Exam General: Alert, Cooperative, No apparent distress HEENT: Atraumatic, Normocephalic, - - No scleral icterus nor conjunctival injection Oral: Moist Mucosa, No Gingival or Mucosal Lesions/ Ulcerations Neck: No Nodes, Thyroid Normal Size and Texture Lungs: Diminished, - - Coarse breath sounds bilaterally Cardiovascular: Regular rate, Regular Rhythm, Normal S1, Normal S2 Abdomen: Bowel Sounds Present, Soft, Non Tender, Non-Distended, No Hepato- splenomegaly Extremities: No Calf Tenderness, Edema - Trace Skin: No rashes, No breakdown Musculoskeletal: No Tenderness to Palpation of Joints or Extremities, No Muscle Wasting Neurological: Muscle tone normal, Coordination normal Psych/Mental Status: Normal Affect, Appropriate Vital Signs Temp Pulse Resp BP Pulse Ox 36.4 C L 80 26 H 149/53 H 98 05/13/18 14:47 05/13/18 19:00 05/13/18 19:00 05/13/18 19:00 05/13/18 19:00 Oxygen Delivery Method Bi-pap Weight: 113.398 kg Body Mass Index (BMI) 33.9 Finger Stick Blood Glucose 134 Microbiology Past 72 Hours 05/13/18 16:10 Influenza Types A,B Direct FA (CHRIS) - Final Mucosa - Nasopharyngeal Laboratory Tests Past 24 Hrs 05/13/18 05/13/18 05/13/18 15:00 15:00 15:00 WBC 7.7 RBC 2.83 L Hgb 8.8 L Hct 29.3 L MCV 103.5 H MCH 31.1 MCHC 30.0 L RDW 13.6 RDW Differential 51.4 H Plt Count 174 MPV 11.1 Immature Gran % (Auto) 0.100 Neut % (Auto) 71.7 H Lymph % (Auto) 8.5 L [place] % (Auto) 18.3 H Eos % (Auto) 1.3 Baso % (Auto) 0.1 Absolute Neuts (auto) 5.5 Absolute Lymphs (auto) 0.65 L Total Counted Not Reportable Sodium 144 Potassium 4.1 Chloride 109 H Carbon Dioxide 28.0 Anion Gap 7 BUN 34 H Creatinine 1.48 H Estim Creat Clear Calc 41.51 Est GFR (MDRD) Af Amer 58 L Est GFR (MDRD) Non-Af 48 L BUN/Creatinine Ratio 23.0 H Glucose 70 L Lactic Acid 2.3 H Calcium 8.8 Troponin I < 0.015 Urine Color Urine Clarity Urine pH Ur Specific [place] Urine Protein Urine Glucose (UA) Urine Ketones Urine Occult Blood Urine Nitrite Urine Bilirubin Urine Urobilinogen Ur Leukocyte Esterase Urine RBC Urine WBC Ur Squamous Epith Cells Urine Bacteria Urine Mucus 05/13/18 05/13/18 17:58 19:56 WBC RBC Hgb Hct MCV MCH MCHC RDW RDW Differential Plt Count MPV Immature Gran % (Auto) Neut % (Auto) Lymph % (Auto) [place] % (Auto) Eos % (Auto) Baso % (Auto) Absolute Neuts (auto) Absolute Lymphs (auto) Total Counted Sodium Potassium Chloride Carbon Dioxide Anion Gap BUN Creatinine Estim Creat Clear Calc Est GFR (MDRD) Af Amer Est GFR (MDRD) Non-Af BUN/Creatinine Ratio Glucose Lactic Acid 1.7 Calcium Troponin I Urine Color Yellow Urine Clarity Sl. Cloudy Urine pH 8.0 Ur Specific [place] 1.010 Urine Protein 30 H Urine Glucose (UA) Normal Urine Ketones Negative Urine Occult Blood 250 H Urine Nitrite Negative Urine Bilirubin Negative Urine Urobilinogen Normal Ur Leukocyte Esterase 500 H Urine RBC 5-10 SEEN Urine WBC 50-100 SEEN Ur Squamous Epith Cells 0-5 SEEN Urine Bacteria RARE Urine Mucus 0 SEEN POC Glucose 05/13/18 05/13/18 17:54 16:50 POC Glucose 132 H 48 L Chest x-ray consistent with bilateral pulmonary edema Assessment/Plan All Active Problems CHF (congestive heart failure) (Acute) UTI (urinary tract infection) (Acute) Ulcer of left lower extremity with fat layer exposed (Acute) Chronic ulcer of left foot with fat layer exposed (Acute) Ulcer of right foot with fat layer exposed (Acute) Chronic ulcer of right foot (Acute) Weakness (Acute) Chronic diarrhea (Acute) UTI (urinary tract infection) (Acute) Bladder outlet obstruction (Acute) FTT (failure to thrive) in adult (Acute) Urinary retention (Acute) Atonic bladder (Acute) Infection due to Amber albicans (Acute) 1. Acute heart failure Unknown type Check an echocardiogram Received IV Lasix in the emergency room and will continue with IV Lasix Strict I's and O's Fluid restriction of 1500 cc/day 2. UTI Rocephin Does have a history of Proteus and Pseudomonas urinary tract infection. Most recently was Proteus which was sensitive to ceftriaxone 3. Acute respiratory insufficiency Improved with BiPAP Wean as tolerated 4. DVT prophylaxis patient is already on Eliquis 5. Advanced care planning: Confirmed the patient still is DNR Comfort Care arrest Code Visit Inpatient E&M: 42256 Init Hosp L3
[2018-05-13 21:12] LABS: Thyroid Stim Hormone (TSH) 0.63 uIU/mL (0.358-3.74)
[2018-05-13] MEDS: Metoprolol Tartrate 50 MG Tablet PO (22:47)
[2018-05-13] MEDS: Senna/Docusate Sodium 1 Tablet 2 TABLET PO (22:48)
[2018-05-13] MEDS: guaiFENesin 600 MG Tablet PO (22:49)
[2018-05-13] MEDS: APIXABAN 2.5 MG TABLET PO (22:49)
[2018-05-13] MEDS: 0.9% NaCl Peripheral Flush Adult/Peds IV (22:59)
[2018-05-13 23:16] LABS: Bedside Glucose 139 mg/dL (70-110)
[2018-05-14] VITALS (19 sets, daily range): BP systolic 114–159; BP diastolic 50–87; PULSE 57–99; RESP 12–42; TEMP 36.6–37.1; O2SAT 94–100
[2018-05-14] MEDS: Furosemide 40 MG/4 ML Vial IV ×3 (01:28→18:10)
[2018-05-14] MEDS: 0.9% NaCl Peripheral Flush Adult/Peds IV ×4 (01:28→21:25)
[2018-05-14 03:13] LABS: Absolute Lymphocyte Count 0.98 X10^3/ul (0.83-4.51); Absolute Neutrophil Count 7.2 X10^3/uL (2.0-7.7); Basophil# 0.01 X10^3/uL; Basophil% 0.1 % (0-1); Hematocrit 30.1 % (40-54); Hemoglobin 9.1 g/dl (13.0-16.5); Lymphocyte # 0.98 X10^3/ul (4.0); Lymphocyte % 10.6 % (19-41); Mean Corp Hgb Conc 30.2 g/gl (32-36); Mean Corpuscular Volume 102.4 fL (80-94); Mean Platelet Vol. 10.7 fl (6.2-12.0); Monocyte# 0.99 X10^3/uL; Monocyte% 10.7 % (0-10); Neutrophil # 7.21 X10^3/uL (2.7-7.7); Neutrophil % 78.4 % (47-70); Platelet Count 192 K/mm3 (150-450); RBC Distribution Width CV 13.5 % (11.6-14.6); RBC Distribution Width SD 51.3 fl (35.1-43.9); Red Blood Count 2.94 M/mm3 (4.6-6.2); White Blood Count 9.2 K/mm3 (4.4-11.0)
[2018-05-14 03:30] LABS: Anion Gap 9 (5-15); BUN 33 mg/dL (7-18); BUN/Creat Ratio 23.1 RATIO (10-20); Calcium,Total 8.8 mg/dL (8.5-10.1); Chloride 106 mmol/L (98-107); Creatinine, Serum 1.43 mg/dL (0.70-1.30); EST Glomerular Filtration Rate 50 mL/min (>60); Est Glom Filt Rate - Afr Amer 61 mL/min (>60); Estimated Creatinine Clearance 42.96 ml/min; Glucose 165 mg/dL (74-106); Potassium 3.9 mmol/L (3.5-5.1); Sodium Level 144 mmol/L (136-145)
[2018-05-14 04:10] LABS: POSITIVE COUNT NO; POSITIVE DIFFERENTIAL NO; POSITIVE MORPHOLOGY NO
[2018-05-14 06:46] LABS: Bedside Glucose 198 mg/dL (70-110)
[2018-05-14] MEDS: FLUoxetine 20 MG Capsule PO (09:00)
[2018-05-14] MEDS: Aspirin E.C. 81 MG Tablet PO (09:00)
[2018-05-14] MEDS: Clopidogrel Bisulfate 75 MG Tablet PO (09:00)
[2018-05-14] MEDS: Senna/Docusate Sodium 1 Tablet 2 TABLET PO ×2 (09:00→21:21)
[2018-05-14] MEDS: Iron Polysaccharide Complex 150 MG CAPSULE PO (09:01)
[2018-05-14] MEDS: APIXABAN 2.5 MG TABLET PO ×2 (09:01→21:21)
[2018-05-14] MEDS: Pantoprazole Sodium 20 MG Tablet PO (09:01)
[2018-05-14] MEDS: Loratadine 10 MG Tablet PO (09:01)
[2018-05-14] MEDS: Metoprolol Tartrate 50 MG Tablet PO ×2 (09:01→21:23)
[2018-05-14] MEDS: Metolazone 2.5 MG Tablet PO (09:01)
[2018-05-14] MEDS: Lisinopril 20 MG Tablet PO (09:01)
[2018-05-14] MEDS: guaiFENesin 600 MG Tablet PO ×2 (09:01→21:23)
[2018-05-14] MEDS: Polyethylene Glycol 3350 17 GM PACKET PO (09:02)
[2018-05-14] MEDS: Finasteride 5 MG Tablet PO (09:02)
[2018-05-14] MEDS: Tamsulosin HCl 0.4 MG Capsule PO (09:03)
[2018-05-14] MEDS: Insulin Lispro 100 UNIT/ML INSULN.PEN 10 UNIT SC ×2 (09:13→11:28)
[2018-05-14] MEDS: Insulin Lispro 100 UNIT/ML INSULN.PEN SQ ×2 (09:14→11:28)
--- NOTE | 2018-05-14 10:15 | CASEMGMT ---
Patient is from [facility]. MIGUEL faxed clinicals to [facility]. Felicita URBAN MSW
[2018-05-14 11:41] LABS: Bedside Glucose 220 mg/dL (70-110)
[2018-05-14 16:40] LABS: Bedside Glucose 64 mg/dL (70-110)
--- NOTE | 2018-05-14 16:47 | PCM.PN.HOSP ---
Patient Problems: Active and Suspected Problems CHF (congestive heart failure) (Acute) UTI (urinary tract infection) (Acute) Subjective: Patient shortness of breath is better after being on BiPAP last night. Still on oxygen 5-6 l. Patient has significant peripheral arterial disease in both lower legs. Patient also has history of UTI and recently treated with Keflex for 7 days in March 2018 Vitals/I&O's: Vital Signs Temp Pulse Resp BP Pulse Ox 97.9 F 57 L 22 H 139/61 H 99 05/14/18 14:52 05/14/18 15:42 05/14/18 14:52 05/14/18 14:52 05/14/18 14:52 Oxygen Flow Rate (L/min) 5 Oxygen Delivery Method Bi-pap Weight: 220 lb 0.341 oz Body Mass Index (BMI) 29.8 Finger Stick Blood Glucose 134 Intake and Output for Last 24 Hours 05/12/18 05/13/18 05/14/18 23:59 23:59 23:59 Intake Total 630 / 630 Output Total 875 / 875 Balance -245 / -245 General: Alert, Oriented x3, Cooperative HEENT: Atraumatic, PERRLA, EOMI, Normocephalic, - - Hard of hearing Oral: Dry Mucosa Neck: Supple, No JVD, Negative Carotid Bruits Lungs: Diminished - Air entry diminished., Rales - Bilateral fine rales present, Rhonchi Cardiovascular: Regular rate, Regular Rhythm, Normal S1, Normal S2, No murmurs Abdomen: Bowel Sounds Present, Soft, Non Tender, Non-Distended Extremities: No edema, Capillary Refill Less than 3 Seconds, Diminished Peripheral Pulses Skin: No rashes, No breakdown, - - Cox pigmentation on bilateral lower legs. Musculoskeletal: No Tenderness to Palpation of Joints or Extremities, Arthritic Changes Lymphatic: No Cervical, Supraclavicular, or Inguinal Adenopathy Neurological: Cranial nerves II-XII grossly intact, Deep Tendon Reflexes 2+/4 and Symmetrical, Neuro grossly intact Psych/Mental Status: Normal Affect, Appropriate Microbiology Past 72 Hours 05/13/18 17:58 Urine Catheter - Catheter Urine Culture - Preliminary Gram negative desmond 05/13/18 16:10 Mucosa - Nasopharyngeal Influenza Types A,B Direct FA (CHRIS) - Final Laboratory Results 05/13/18 15:00: TSH 0.63 05/13/18 16:50: POC Glucose 48 L 05/13/18 17:54: POC Glucose 132 H 05/13/18 17:58: Urine Color Yellow, Urine Clarity Sl. Cloudy, Urine pH 8.0, Ur Specific [place] 1.010, Urine Protein 30 H, Urine Glucose (UA) Normal, Urine Ketones Negative, Urine Occult Blood 250 H, Urine Nitrite Negative, Urine Bilirubin Negative, Urine Urobilinogen Normal, Ur Leukocyte Esterase 500 H, Urine RBC 5-10 SEEN, Urine WBC 50-100 SEEN, Ur Squamous Epith Cells 0-5 SEEN, Urine Bacteria RARE, Urine Mucus 0 SEEN 05/13/18 19:56: Lactic Acid 1.7 05/13/18 20:36: POC Glucose 139 H 05/13/18 21:30: Troponin I < 0.015 05/14/18 00:03: Troponin I < 0.015 05/14/18 02:57: WBC 9.2, RBC 2.94 L, Hgb 9.1 L, Hct 30.1 L, MCV 102.4 H, MCH 31.0, MCHC 30.2 L, RDW 13.5, RDW Differential 51.3 H, Plt Count 192, MPV 10.7, Immature Gran % (Auto) 0.200, Neut % (Auto) 78.4 H, Lymph % (Auto) 10.6 L, [place] % (Auto) 10.7 H, Eos % (Auto) 0.0, Baso % (Auto) 0.1, Absolute Neuts (auto) 7.2, Absolute Lymphs (auto) 0.98, Total Counted Not Reportable 05/14/18 02:57: Sodium 144, Potassium 3.9, Chloride 106, Carbon Dioxide 29.0, Anion Gap 9, BUN 33 H, Creatinine 1.43 H, Estim Creat Clear Calc 42.96, Est GFR (MDRD) Af Amer 61, Est GFR (MDRD) Non-Af 50 L, BUN/Creatinine Ratio 23.1 H, Glucose 165 H, Calcium 8.8 05/14/18 02:57: Troponin I 0.122 H 05/14/18 06:43: POC Glucose 198 H 05/14/18 11:26: POC Glucose 220 H 05/14/18 16:30: POC Glucose 64 L Current Medications Acetaminophen (Tylenol) 1,000 mg PO Q8H PRN PRN PRN Reason: MILD PAIN (1-3/10) Albuterol Sulfate (Ventolin Aerosols) 2.5 mg INHALATION Q4H PRN PRN PRN Reason: Bronchodilation Albuterol/Ipratropium (Duoneb) 3 ml INHALATION Q4H.RT PRN PRN Reason: SOB &/OR WHEEZING Apixaban (Eliquis) 2.5 mg PO BID [facility] Last Admin: 05/14/18 09:01 Dose: 2.5 mg Aspirin (Ecotrin) 81 mg PO DAILY@0800 [facility] Last Admin: 05/14/18 09:00 Dose: 81 mg Bisacodyl (Dulcolax) 10 mg RECTAL DAILY PRN PRN Reason: Constipation Clopidogrel Bisulfate (Plavix) 75 mg PO DAILY [facility] Last Admin: 05/14/18 09:00 Dose: 75 mg Dextrose (D50w Syringe) 0 gm IV X1 PRN; Protocol PRN Reason: Hypoglycemia Finasteride (Proscar) 5 mg PO DAILY [facility] Last Admin: 05/14/18 09:02 Dose: 5 mg Fluoxetine HCl (Prozac) 20 mg PO DAILY [facility] Last Admin: 05/14/18 09:00 Dose: 20 mg Furosemide (Lasix) 40 mg IV BIDLX [facility] Last Admin: 05/14/18 09:02 Dose: 40 mg Glucagon () 1 mg IM .X1 PRN PRN Reason: Hypoglycemia Guaifenesin (Mucinex) 600 mg PO BID [facility] Last Admin: 05/14/18 09:01 Dose: 600 mg Ceftriaxone Sodium (Rocephin) 1 gm in 50 mls @ 100 mls/hr IV Q24@2200 [facility] Insulin Glargine (Lantus (Bkc)) 50 units SC DAILY [facility] Last Admin: 05/14/18 09:08 Dose: 50 units Insulin Human Lispro (Humalog Kwikpen (Bkc)) 10 unit SC TIDAC [facility] Last Admin: 05/14/18 16:39 Dose: Not Given Insulin Human Lispro (Humalog Kwikpen (Bkc)) 0 unit SQ TIDAC [facility]; Protocol Last Admin: 05/14/18 16:39 Dose: Not Given Lisinopril (Zestril) 20 mg PO DAILY [facility] Last Admin: 05/14/18 09:01 Dose: 20 mg Loratadine (Claritin) 10 mg PO DAILY [facility] Last Admin: 05/14/18 09:01 Dose: 10 mg Magnesium Hydroxide (Milk Of Magnesia) 30 ml PO DAILY PRN PRN Reason: Constipation Metolazone (Zaroxolyn) 2.5 mg PO DAILY [facility] Last Admin: 05/14/18 09:01 Dose: 2.5 mg Metoprolol Tartrate (Lopressor (Beta Tyree)) 50 mg PO BID [facility] Last Admin: 05/14/18 09:01 Dose: 50 mg Nutritional Formula (Lloyd - [place] Flavor) [facility] Admin: 05/14/18 09:01 Dose: 1 packet Ondansetron HCl (Zofran) 4 mg IV Q8H PRN PRN PRN Reason: Nausea Pantoprazole Sodium (Protonix) 20 mg PO DAILY [facility] Last Admin: 05/14/18 09:01 Dose: 20 mg Polyethylene Glycol (Miralax) 17 gm PO DAILY [facility] Last Admin: 05/14/18 09:02 Dose: 17 gm Polysaccharide Iron Complex (Ferrex 150) [facility] Last Admin: 05/14/18 09:01 Dose: 150 mg Senna/Docusate Sodium (Senokot-S, [place]-Colace) 2 tablet PO BID [facility] Last Admin: 05/14/18 09:00 Dose: 2 tablet Sodium Chloride () 5 - 15 ml IV UD PRN PRN Reason: SALINE FLUSH Last Admin: 05/14/18 09:11 Dose: 15 ml Tamsulosin HCl (Flomax) 0.4 mg PO DAILY [facility] Last Admin: 05/14/18 09:03 Dose: 0.4 mg Medical Necessity - Tobacco Use Smoking Status: Former smoker Tobacco Use: Non-smoker Assessment/Plan All Active Problems CHF (congestive heart failure) (Acute) UTI (urinary tract infection) (Acute) Ulcer of left lower extremity with fat layer exposed (Acute) Chronic ulcer of left foot with fat layer exposed (Acute) Ulcer of right foot with fat layer exposed (Acute) Chronic ulcer of right foot (Acute) Weakness (Acute) Chronic diarrhea (Acute) UTI (urinary tract infection) (Acute) Bladder outlet obstruction (Acute) FTT (failure to thrive) in adult (Acute) Urinary retention (Acute) 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 Patient was started on BiPAP and diuretics. Patient also has pyuria in UA, 5200 cells but nitrite negative. 1. Acute heart failure, systolic in nature: 2D echo was done shows then reported estimated EF 40% with moderate segmental systolic dysfunction with akinetic inferobasal and inferior septal region. Continue Lasix. Strict I's and O's Fluid restriction of 1500 cc/day 2. UTI Urine culture shows more than 100,000 gram-negative rods. Follow-up full culture report. Empirically continue Rocephin Does have a history of Proteus and Pseudomonas urinary tract infection. Most recently was Proteus which was sensitive to ceftriaxone. Recently treated with Keflex for 7 days in halfway in March 2018 3. Acute hypoxic respiratory failure Improved with BiPAP Wean as tolerated 4. DVT prophylaxis patient is already on Eliquis 5. Advanced care planning: Confirmed the patient still is DNR Comfort Care arrest Hospital course and management plan discussed with the patient's daughter near the bedside. Code Visit Inpatient E&M: 12736 Subs Hosp L3
--- NOTE | 2018-05-14 16:54 | PN_ITS ---
Patient Problems: Active and Suspected Problems CHF (congestive heart failure) (Acute) UTI (urinary tract infection) (Acute) Subjective: Patient shortness of breath is better after being on BiPAP last night. Still on oxygen 5-6 l. Patient has significant peripheral arterial disease in both lower legs. Patient also has history of UTI and recently treated with Keflex for 7 days in March 2018 Vitals/I&O's: Vital Signs Temp Pulse Resp BP Pulse Ox 97.9 F 57 L 22 H 139/61 H 99 05/14/18 14:52 05/14/18 15:42 05/14/18 14:52 05/14/18 14:52 05/14/18 14:52 Oxygen Flow Rate (L/min) 5 Oxygen Delivery Method Bi-pap Weight: 220 lb 0.341 oz Body Mass Index (BMI) 29.8 Finger Stick Blood Glucose 134 Intake and Output for Last 24 Hours 05/12/18 05/13/18 05/14/18 23:59 23:59 23:59 Intake Total 630 / 630 Output Total 875 / 875 Balance -245 / -245 General: Alert, Oriented x3, Cooperative HEENT: Atraumatic, PERRLA, EOMI, Normocephalic, - - Hard of hearing Oral: Dry Mucosa Neck: Supple, No JVD, Negative Carotid Bruits Lungs: Diminished - Air entry diminished., Rales - Bilateral fine rales present, Rhonchi Cardiovascular: Regular rate, Regular Rhythm, Normal S1, Normal S2, No murmurs Abdomen: Bowel Sounds Present, Soft, Non Tender, Non-Distended Extremities: No edema, Capillary Refill Less than 3 Seconds, Diminished Peripheral Pulses Skin: No rashes, No breakdown, - - Cox pigmentation on bilateral lower legs. Musculoskeletal: No Tenderness to Palpation of Joints or Extremities, Arthritic Changes Lymphatic: No Cervical, Supraclavicular, or Inguinal Adenopathy Neurological: Cranial nerves II-XII grossly intact, Deep Tendon Reflexes 2+/4 and Symmetrical, Neuro grossly intact Psych/Mental Status: Normal Affect, Appropriate Microbiology Past 72 Hours 05/13/18 17:58 Urine Catheter - Catheter Urine Culture - Preliminary Gram negative desmond 05/13/18 16:10 Mucosa - Nasopharyngeal Influenza Types A,B Direct FA ([facility]IS) - Final Laboratory Results 05/13/18 15:00: TSH 0.63 05/13/18 16:50: POC Glucose 48 L 05/13/18 17:54: POC Glucose 132 H 05/13/18 17:58: Urine Color Yellow, Urine Clarity Sl. Cloudy, Urine pH 8.0, Ur Specific [place] 1.010, Urine Protein 30 H, Urine Glucose (UA) Normal, Urine Ketones Negative, Urine Occult Blood 250 H, Urine Nitrite Negative, Urine Bilirubin Negative, Urine Urobilinogen Normal, Ur Leukocyte Esterase 500 H, Urine RBC 5-10 SEEN, Urine WBC 50-100 SEEN, Ur Squamous Epith Cells 0-5 SEEN, Urine Bacteria RARE, Urine Mucus 0 SEEN 05/13/18 19:56: Lactic Acid 1.7 05/13/18 20:36: POC Glucose 139 H 05/13/18 21:30: Troponin I < 0.015 05/14/18 00:03: Troponin I < 0.015 05/14/18 02:57: WBC 9.2, RBC 2.94 L, Hgb 9.1 L, Hct 30.1 L, MCV 102.4 H, MCH 31.0, MCHC 30.2 L, RDW 13.5, RDW Differential 51.3 H, Plt Count 192, MPV 10.7, Immature Gran % (Auto) 0.200, Neut % (Auto) 78.4 H, Lymph % (Auto) 10.6 L, [place] % (Auto) 10.7 H, Eos % (Auto) 0.0, Baso % (Auto) 0.1, Absolute Neuts (auto) 7.2, Absolute Lymphs (auto) 0.98, Total Counted Not Reportable 05/14/18 02:57: Sodium 144, Potassium 3.9, Chloride 106, Carbon Dioxide 29.0, Anion Gap 9, BUN 33 H, Creatinine 1.43 H, Estim Creat Clear Calc 42.96, Est GFR (MDRD) Af Amer 61, Est GFR (MDRD) Non-Af 50 L, BUN/Creatinine Ratio 23.1 H, Glucose 165 H, Calcium 8.8 05/14/18 02:57: Troponin I 0.122 H 05/14/18 06:43: POC Glucose 198 H 05/14/18 11:26: POC Glucose 220 H 05/14/18 16:30: POC Glucose 64 L Current Medications Acetaminophen (Tylenol) 1,000 mg PO Q8H PRN PRN PRN Reason: MILD PAIN (1-3/10) Albuterol Sulfate (Ventolin Aerosols) 2.5 mg INHALATION Q4H PRN PRN PRN Reason: Bronchodilation Albuterol/Ipratropium (Duoneb) 3 ml INHALATION Q4H.RT PRN PRN Reason: SOB &/OR WHEEZING Apixaban (Eliquis) 2.5 mg PO BID [facility] Last Admin: 05/14/18 09:01 Dose: 2.5 mg Aspirin (Ecotrin) 81 mg PO DAILY@0800 [facility] Last Admin: 05/14/18 09:00 Dose: 81 mg Bisacodyl (Dulcolax) 10 mg RECTAL DAILY PRN PRN Reason: Constipation Clopidogrel Bisulfate (Plavix) 75 mg PO DAILY [facility] Last Admin: 05/14/18 09:00 Dose: 75 mg Dextrose (D50w Syringe) 0 gm IV X1 PRN; Protocol PRN Reason: Hypoglycemia Finasteride (Proscar) 5 mg PO DAILY [facility] Last Admin: 05/14/18 09:02 Dose: 5 mg Fluoxetine HCl (Prozac) 20 mg PO DAILY [facility] Last Admin: 05/14/18 09:00 Dose: 20 mg Furosemide (Lasix) 40 mg IV BIDLX [facility] Last Admin: 05/14/18 09:02 Dose: 40 mg Glucagon () 1 mg IM .X1 PRN PRN Reason: Hypoglycemia Guaifenesin (Mucinex) 600 mg PO BID [facility] Last Admin: 05/14/18 09:01 Dose: 600 mg Ceftriaxone Sodium (Rocephin) 1 gm in 50 mls @ 100 mls/hr IV Q24@2200 [facility] Insulin Glargine (Lantus (Bkc)) 50 units SC DAILY [facility] Last Admin: 05/14/18 09:08 Dose: 50 units Insulin Human Lispro (Humalog Kwikpen (Bkc)) 10 unit SC TIDAC [facility] Last Admin: 05/14/18 16:39 Dose: Not Given Insulin Human Lispro (Humalog Kwikpen (Bkc)) 0 unit SQ TIDAC [facility]; Protocol Last Admin: 05/14/18 16:39 Dose: Not Given Lisinopril (Zestril) 20 mg PO DAILY [facility] Last Admin: 05/14/18 09:01 Dose: 20 mg Loratadine (Claritin) 10 mg PO DAILY [facility] Last Admin: 05/14/18 09:01 Dose: 10 mg Magnesium Hydroxide (Milk Of Magnesia) 30 ml PO DAILY PRN PRN Reason: Constipation Metolazone (Zaroxolyn) 2.5 mg PO DAILY [facility] Last Admin: 05/14/18 09:01 Dose: 2.5 mg Metoprolol Tartrate (Lopressor (Beta Tyree)) 50 mg PO BID [facility] Last Admin: 05/14/18 09:01 Dose: 50 mg Nutritional Formula ([place] - [place] Fl[facility]) [facility] Last Admin: 05/14/18 09:01 Dose: 1 packet Ondansetron HCl (Zofran) 4 mg IV Q8H PRN PRN PRN Reason: Nausea Pantoprazole Sodium (Protonix) 20 mg PO DAILY [facility] Last Admin: 05/14/18 09:01 Dose: 20 mg Polyethylene Glycol (Miralax) 17 gm PO DAILY [facility] Last Admin: 05/14/18 09:02 Dose: 17 gm Polysaccharide Iron Complex (Ferrex 150) [facility] Last Admin: 05/14/18 09:01 Dose: 150 mg Senna/Docusate Sodium (Senokot-S, [place]-Colace) 2 tablet PO BID [facility] Last Admin: 05/14/18 09:00 Dose: 2 tablet Sodium Chloride () 5 - 15 ml IV UD PRN PRN Reason: SALINE FLUSH Last Admin: 05/14/18 09:11 Dose: 15 ml Tamsulosin HCl (Flomax) 0.4 mg PO DAILY [facility] Last Admin: 05/14/18 09:03 Dose: 0.4 mg Medical Necessity - Tobacco Use Smoking Status: Former smoker Tobacco Use: Non-smoker Assessment/Plan All Active Problems CHF (congestive heart failure) (Acute) UTI (urinary tract infection) (Acute) Ulcer of left lower extremity with fat layer exposed (Acute) Chronic ulcer of left foot with fat layer exposed (Acute) Ulcer of right foot with fat layer exposed (Acute) Chronic ulcer of right foot (Acute) Weakness (Acute) Chronic diarrhea (Acute) UTI (urinary tract infection) (Acute) Bladder outlet obstruction (Acute) FTT (failure to thrive) in adult (Acute) Urinary retention (Acute) 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 Patient was started on BiPAP and diuretics. Patient also has pyuria in UA, 5200 cells but nitrite negative. 1. Acute heart failure, systolic in nature: 2D echo was done shows then reported estimated EF 40% with moderate segmental systolic dysfunction with akinetic inferobasal and inferior septal region. Continue Lasix. Strict I's and O's Fluid restriction of 1500 cc/day 2. UTI Urine culture shows more than 100,000 gram-negative rods. Follow-up full culture report. Empirically continue Rocephin Does have a history of Proteus and Pseudomonas urinary tract infection. Most recently was Proteus which was sensitive to ceftriaxone. Recently treated with Keflex for 7 days in [place] [facility] in March 2018 3. Acute hypoxic respiratory failure Improved with BiPAP Wean as tolerated 4. DVT prophylaxis patient is already on Eliquis 5. Advanced care planning: Confirmed the patient still is DNR Comfort Care arrest Hospital course and management plan discussed with the patient's daughter near the bedside. Code Visit Inpatient E&M: 53552 Subs Hosp L3
--- NOTE | 2018-05-14 20:51 | CPS ---
PT STATES HE DOESNT WANT TO WEAR BIPAP.
[2018-05-14] MEDS: Ceftriaxone 1 GM/50 ML BAG IV (21:22)
[2018-05-14 22:06] LABS: Bedside Glucose 175 mg/dL (70-110)
[2018-05-15] VITALS (16 sets, daily range): BP systolic 136–149; BP diastolic 48–56; PULSE 55–92; RESP 12–30; TEMP 36.6–37.1; O2SAT 92–99
[2018-05-15 06:23] LABS: Absolute Lymphocyte Count 1.09 X10^3/ul (0.83-4.51); Absolute Neutrophil Count 5.1 X10^3/uL (2.0-7.7); Basophil# 0.02 X10^3/uL; Basophil% 0.3 % (0-1); Eosinophil# 0.11 X10^3/uL; Eosinophils% 1.4 % (0-5); Hematocrit 28.2 % (40-54); Hemoglobin 8.5 g/dl (13.0-16.5); Lymphocyte # 1.09 X10^3/ul (4.0); Lymphocyte % 14.2 % (19-41); Mean Corp Hgb Conc 30.1 g/gl (32-36); Mean Corpuscular Hgb 31.1 pg (27.0-32.0); Mean Corpuscular Volume 103.3 fL (80-94); Mean Platelet Vol. 10.6 fl (6.2-12.0); Monocyte# 1.33 X10^3/uL; Monocyte% 17.3 % (0-10); Neutrophil # 5.11 X10^3/uL (2.7-7.7); Neutrophil % 66.5 % (47-70); Platelet Count 185 K/mm3 (150-450); RBC Distribution Width CV 13.5 % (11.6-14.6); RBC Distribution Width SD 50.4 fl (35.1-43.9); Red Blood Count 2.73 M/mm3 (4.6-6.2); White Blood Count 7.7 K/mm3 (4.4-11.0)
[2018-05-15 06:25] LABS: POSITIVE COUNT NO; POSITIVE DIFFERENTIAL NO; POSITIVE MORPHOLOGY NO
[2018-05-15 06:37] LABS: Anion Gap 6 (5-15); BUN 46 mg/dL (7-18); BUN/Creat Ratio 30.1 RATIO (10-20); Chloride 103 mmol/L (98-107); Creatinine, Serum 1.53 mg/dL (0.70-1.30); EST Glomerular Filtration Rate 46 mL/min (>60); Est Glom Filt Rate - Afr Amer 56 mL/min (>60); Estimated Creatinine Clearance 40.15 ml/min; Glucose 153 mg/dL (74-106); Potassium 3.4 mmol/L (3.5-5.1); Sodium Level 141 mmol/L (136-145)
[2018-05-15 06:50] LABS: Bedside Glucose 152 mg/dL (70-110)
[2018-05-15] MEDS: Insulin Lispro 100 UNIT/ML INSULN.PEN SQ ×2 (10:39→16:36)
[2018-05-15] MEDS: Aspirin E.C. 81 MG Tablet PO (10:40)
[2018-05-15] MEDS: Iron Polysaccharide Complex 150 MG CAPSULE PO (10:41)
[2018-05-15] MEDS: Insulin Lispro 100 UNIT/ML INSULN.PEN 10 UNIT SC ×3 (10:42→16:34)
[2018-05-15] MEDS: Loratadine 10 MG Tablet PO (10:44)
[2018-05-15] MEDS: APIXABAN 2.5 MG TABLET PO ×2 (10:45→21:38)
[2018-05-15] MEDS: Tamsulosin HCl 0.4 MG Capsule PO (10:45)
[2018-05-15] MEDS: Furosemide 40 MG/4 ML Vial IV ×2 (10:46→21:39)
[2018-05-15] MEDS: guaiFENesin 600 MG Tablet PO ×2 (10:48→21:39)
[2018-05-15] MEDS: Clopidogrel Bisulfate 75 MG Tablet PO (10:48)
[2018-05-15] MEDS: Polyethylene Glycol 3350 17 GM PACKET PO (10:48)
[2018-05-15] MEDS: Finasteride 5 MG Tablet PO (10:49)
[2018-05-15] MEDS: FLUoxetine 20 MG Capsule PO (10:49)
[2018-05-15] MEDS: Lisinopril 20 MG Tablet PO (10:51)
[2018-05-15] MEDS: Senna/Docusate Sodium 1 Tablet 2 TABLET PO ×2 (10:51→21:38)
[2018-05-15] MEDS: Pantoprazole Sodium 20 MG Tablet PO (10:51)
[2018-05-15] MEDS: Metolazone 2.5 MG Tablet PO (10:51)
--- NOTE | 2018-05-15 11:18 | NURSING ---
Pt up sitting in chair. Denies needs. Lunch ordered. Call light within reach.
[2018-05-15 11:26] LABS: Bedside Glucose 173 mg/dL (70-110)
[2018-05-15] MEDS: AMOXICILLIN 500 MG CAPSULE PO ×2 (12:54→21:39)
--- NOTE | 2018-05-15 14:53 | PCM.PN.HOSP ---
Patient Problems: Active and Suspected Problems CHF (congestive heart failure) (Acute) UTI (urinary tract infection) (Acute) Subjective: Patient is still mild short of breath and was on BiPAP at night. Lower extremity edema. Mild tachypnea respiratory rate 22-24/min. On 4 L of oxygen. Intake and output shows positive fluid balance of 425 mL with urine output 875 mL but seems patient has 3 large urinary incontinence and therefore is no accurate measurement. Vitals/I&O's: Vital Signs Temp Pulse Resp BP Pulse Ox 98.5 F 58 L 24 H 138/54 H 99 05/15/18 08:35 05/15/18 11:19 05/15/18 08:35 05/15/18 08:35 05/15/18 08:35 Oxygen Flow Rate (L/min) 4 Oxygen Delivery Method Nasal Cannula Weight: 217 lb 2.485 oz Body Mass Index (BMI) 29.8 Finger Stick Blood Glucose 134 Intake and Output for Last 24 Hours 05/13/18 05/14/18 05/15/18 23:59 23:59 23:59 Intake Total 1300 / 1300 530 / 530 Output Total 875 / 875 300 / 300 Balance 425 / 425 230 / 230 General: Alert, Oriented x3, Cooperative HEENT: Atraumatic, PERRLA, EOMI, Normocephalic Neck: Supple, No JVD, Negative Carotid Bruits Lungs: Diminished - Air entry diminished, Short of Breath Cardiovascular: Regular rate, Regular Rhythm, Normal S1, Normal S2, No murmurs, Irregular Rate Abdomen: Bowel Sounds Present, Soft, Non Tender, Non-Distended Extremities: Capillary Refill Less than 3 Seconds, Edema Skin: No rashes, No breakdown Musculoskeletal: No Tenderness to Palpation of Joints or Extremities, Arthritic Changes, Muscle Wasting Neurological: Cranial nerves II-XII grossly intact Psych/Mental Status: Normal Affect, Appropriate Microbiology Past 72 Hours 05/13/18 17:58 Urine Catheter - Catheter Urine Culture - Final Proteus mirabilis 05/13/18 16:10 Mucosa - Nasopharyngeal Influenza Types A,B Direct FA ([facility]) - Final Laboratory Results 05/14/18 16:30: POC Glucose 64 L 05/14/18 21:34: POC Glucose 175 H 05/15/18 06:00: WBC 7.7, RBC 2.73 L, Hgb 8.5 L, Hct 28.2 L, MCV 103.3 H, MCH 31.1, MCHC 30.1 L, RDW 13.5, RDW Differential 50.4 H, Plt Count 185, MPV 10.6, Immature Gran % (Auto) 0.300, Neut % (Auto) 66.5, Lymph % (Auto) 14.2 L, [place] % (Auto) 17.3 H, Eos % (Auto) 1.4, Baso % (Auto) 0.3, Absolute Neuts (auto) 5.1, Absolute Lymphs (auto) 1.09, Total Counted Not Reportable 05/15/18 06:00: Sodium 141, Potassium 3.4 L, Chloride 103, Carbon Dioxide 32.0, Anion Gap 6, BUN 46 H, Creatinine 1.53 H, Estim Creat Clear Calc 40.15, Est GFR (MDRD) Af Amer 56 L, Est GFR (MDRD) Non-Af 46 L, BUN/Creatinine Ratio 30.1 H, Glucose 153 H, Calcium 9.0 05/15/18 06:40: POC Glucose 152 H 05/15/18 11:05: POC Glucose 173 H Current Medications Acetaminophen (Tylenol) 1,000 mg PO Q8H PRN PRN PRN Reason: MILD PAIN (1-310) Albuterol Sulfate (Ventolin Aerosols) 2.5 mg INHALATION Q4H PRN PRN PRN Reason: Bronchodilation Albuterol/Ipratropium (Duoneb) 3 ml INHALATION Q4H.RT PRN PRN Reason: SOB &/OR WHEEZING Amoxicillin (Amoxil) 500 mg PO Q12 [facility] Apixaban (Eliquis) 2.5 mg PO BID [facility] Last Admin: 05/15/18 10:45 Dose: 2.5 mg Aspirin (Ecotrin) 81 mg PO DAILY@0800 [facility] Last Admin: 05/15/18 10:40 Dose: 81 mg Bisacodyl (Dulcolax) 10 mg RECTAL DAILY PRN PRN Reason: Constipation Clopidogrel Bisulfate (Plavix) 75 mg PO DAILY [facility] Last Admin: 05/15/18 10:48 Dose: 75 mg Dextrose (D50w Syringe) 0 gm IV X1 PRN; Protocol PRN Reason: Hypoglycemia Finasteride (Proscar) 5 mg PO DAILY [facility] Last Admin: 05/15/18 10:49 Dose: 5 mg Fluoxetine HCl (Prozac) 20 mg PO DAILY [facility] Last Admin: 05/15/18 10:49 Dose: 20 mg Furosemide (Lasix) 40 mg IV BIDLX [facility] Last Admin: 05/15/18 10:46 Dose: 40 mg Glucagon () 1 mg IM .X1 PRN PRN Reason: Hypoglycemia Guaifenesin (Mucinex) 600 mg PO BID [facility] Last Admin: 05/15/18 10:48 Dose: 600 mg Insulin Glargine (Lantus (Bkc)) 50 units SC DAILY [facility] Last Admin: 05/15/18 10:45 Dose: 50 units Insulin Human Lispro (Humalog Kwikpen (Bkc)) 10 unit SC TIDAC [facility] Last Admin: 05/15/18 12:38 Dose: 10 units Insulin Human Lispro (Humalog Kwikpen (Bkc)) 0 unit SQ TIDAC [facility]; Protocol Last Admin: 05/15/18 12:16 Dose: Not Given Lisinopril (Zestril) 20 mg PO DAILY [facility] Last Admin: 05/15/18 10:51 Dose: 20 mg Loratadine (Claritin) 10 mg PO DAILY [facility] Last Admin: 05/15/18 10:44 Dose: 10 mg Magnesium Hydroxide (Milk Of Magnesia) 30 ml PO DAILY PRN PRN Reason: Constipation Metolazone (Zaroxolyn) 2.5 mg PO DAILY [facility] Last Admin: 05/15/18 10:51 Dose: 2.5 mg Metoprolol Tartrate (Lopressor (Beta Tyree)) 50 mg PO BID [facility] Last Admin: 05/15/18 11:19 Dose: Not Given Nutritional Formula ([place] - [place] Flavor) [facility] Last Admin: 05/15/18 10:43 Dose: 1 packet Ondansetron HCl (Zofran) 4 mg IV Q8H PRN PRN PRN Reason: Nausea Pantoprazole Sodium (Protonix) 20 mg PO DAILY [facility] Last Admin: 05/15/18 10:51 Dose: 20 mg Polyethylene Glycol (Miralax) 17 gm PO DAILY [facility] Last Admin: 05/15/18 10:48 Dose: 17 gm Polysaccharide Iron Complex (Ferrex 150) 150 [facility] Last Admin: 05/15/18 10:41 Dose: 150 mg Potassium Chloride (K-Dur) 40 meq PO DAILYUN[facility] Senna/Docusate Sodium (Senokot-S, [place]-Colace) 2 tablet PO BID [facility] Last Admin: 05/15/18 10:51 Dose: 2 tablet Sodium Chloride () 5 - 15 ml IV UD PRN PRN Reason: SALINE FLUSH Last Admin: 05/14/18 21:25 Dose: 10 ml Tamsulosin HCl (Flomax) 0.4 mg PO DAILY [facility] Last Admin: 05/15/18 10:45 Dose: 0.4 mg Medical Necessity - Tobacco Use Smoking Status: Former smoker Tobacco Use: Non-smoker Assessment/Plan All Active Problems CHF (congestive heart failure) (Acute) UTI (urinary tract infection) (Acute) Ulcer of left lower extremity with fat layer exposed (Acute) Chronic ulcer of left foot with fat layer exposed (Acute) Ulcer of right foot with fat layer exposed (Acute) Chronic ulcer of right foot (Acute) Weakness (Acute) Chronic diarrhea (Acute) UTI (urinary tract infection) (Acute) Bladder outlet obstruction (Acute) FTT (failure to thrive) in adult (Acute) Urinary retention (Acute) 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 Patient was started on BiPAP and diuretics. Patient also has pyuria in UA, 5200 cells but nitrite negative. 1. Acute heart failure, systolic in nature: 2D echo was done shows then reported estimated EF 40% with moderate segmental systolic dysfunction with akinetic inferobasal and inferior septal region. Continue Lasix 40 mg IV twice daily. Patient lost about 3 pounds in 2 days. Patient has urinary incontinence and same time UTI. Check weight daily. Fluid restriction of 1500 cc/day 2. UTI Urine culture shows more than 100,000 Proteus mirabilis pansensitive except nitrofurantoin. As patient has recently Keflex, antibiotic changed to amoxicillin. Empirically continue Rocephin Does have a history of Proteus and Pseudomonas urinary tract infection. Most recently was Proteus which was sensitive to ceftriaxone. Recently treated with Keflex for 7 days in [facility] in March 2018 3. Acute hypoxic respiratory failure Improved with BiPAP Wean as tolerated 4. DVT prophylaxis patient is already on Eliquis 5. Advanced care planning: Confirmed the patient still is DNR Comfort Care arrest Hospital course and management plan discussed with the patient near the bedside. Code Visit Inpatient E&M: 48033 Subs Hosp L3
--- NOTE | 2018-05-15 14:58 | PN_ITS ---
Patient Problems: Active and Suspected Problems CHF (congestive heart failure) (Acute) UTI (urinary tract infection) (Acute) Subjective: Patient is still mild short of breath and was on BiPAP at night. Lower extremity edema. Mild tachypnea respiratory rate 22-24/min. On 4 L of oxygen. Intake and output shows positive fluid balance of 425 mL with urine output 875 mL but seems patient has 3 large urinary incontinence and therefore is no accurate measurement. Vitals/I&O's: Vital Signs Temp Pulse Resp BP Pulse Ox 98.5 F 58 L 24 H 138/54 H 99 05/15/18 08:35 05/15/18 11:19 05/15/18 08:35 05/15/18 08:35 05/15/18 08:35 Oxygen Flow Rate (L/min) 4 Oxygen Delivery Method Nasal Cannula Weight: 217 lb 2.485 oz Body Mass Index (BMI) 29.8 Finger Stick Blood Glucose 134 Intake and Output for Last 24 Hours 05/13/18 05/14/18 05/15/18 23:59 23:59 23:59 Intake Total 1300 / 1300 530 / 530 Output Total 875 / 875 300 / 300 Balance 425 / 425 230 / 230 General: Alert, Oriented x3, Cooperative HEENT: Atraumatic, PERRLA, EOMI, Normocephalic Neck: Supple, No JVD, Negative Carotid Bruits Lungs: Diminished - Air entry diminished, Short of Breath Cardiovascular: Regular rate, Regular Rhythm, Normal S1, Normal S2, No murmurs, Irregular Rate Abdomen: Bowel Sounds Present, Soft, Non Tender, Non-Distended Extremities: Capillary Refill Less than 3 Seconds, Edema Skin: No rashes, No breakdown Musculoskeletal: No Tenderness to Palpation of Joints or Extremities, Arthritic Changes, Muscle Wasting Neurological: Cranial nerves II-XII grossly intact Psych/Mental Status: Normal Affect, Appropriate Microbiology Past 72 Hours 05/13/18 17:58 Urine Catheter - Catheter Urine Culture - Final Proteus mirabilis 05/13/18 16:10 Mucosa - Nasopharyngeal Influenza Types A,B Direct FA ([facility]) - Final Laboratory Results 05/14/18 16:30: POC Glucose 64 L 05/14/18 21:34: POC Glucose 175 H 05/15/18 06:00: WBC 7.7, RBC 2.73 L, Hgb 8.5 L, Hct 28.2 L, MCV 103.3 H, MCH 31.1, MCHC 30.1 L, RDW 13.5, RDW Differential 50.4 H, Plt Count 185, MPV 10.6, Immature Gran % (Auto) 0.300, Neut % (Auto) 66.5, Lymph % (Auto) 14.2 L, [place] % (Auto) 17.3 H, Eos % (Auto) 1.4, Baso % (Auto) 0.3, Absolute Neuts (auto) 5.1, Absolute Lymphs (auto) 1.09, Total Counted Not Reportable 05/15/18 06:00: Sodium 141, Potassium 3.4 L, Chloride 103, Carbon Dioxide 32.0, Anion Gap 6, BUN 46 H, Creatinine 1.53 H, Estim Creat Clear Calc 40.15, Est GFR (MDRD) Af Amer 56 L, Est GFR (MDRD) Non-Af 46 L, BUN/Creatinine Ratio 30.1 H, Glucose 153 H, Calcium 9.0 05/15/18 06:40: POC Glucose 152 H 05/15/18 11:05: POC Glucose 173 H Current Medications Acetaminophen (Tylenol) 1,000 mg PO Q8H PRN PRN PRN Reason: MILD PAIN (1-310) Albuterol Sulfate (Ventolin Aerosols) 2.5 mg INHALATION Q4H PRN PRN PRN Reason: Bronchodilation Albuterol/Ipratropium (Duoneb) 3 ml INHALATION Q4H.RT PRN PRN Reason: SOB &/OR WHEEZING Amoxicillin (Amoxil) 500 mg PO Q12 [facility] Apixaban (Eliquis) 2.5 mg PO BID [facility] Last Admin: 05/15/18 10:45 Dose: 2.5 mg Aspirin (Ecotrin) 81 mg PO DAILY@0800 [facility] Last Admin: 05/15/18 10:40 Dose: 81 mg Bisacodyl (Dulcolax) 10 mg RECTAL DAILY PRN PRN Reason: Constipation Clopidogrel Bisulfate (Plavix) 75 mg PO DAILY [facility] Last Admin: 05/15/18 10:48 Dose: 75 mg Dextrose (D50w Syringe) 0 gm IV X1 PRN; Protocol PRN Reason: Hypoglycemia Finasteride (Proscar) 5 mg PO DAILY [facility] Last Admin: 05/15/18 10:49 Dose: 5 mg Fluoxetine HCl (Prozac) 20 mg PO DAILY [facility] Last Admin: 05/15/18 10:49 Dose: 20 mg Furosemide (Lasix) 40 mg IV BIDLX [facility] Last Admin: 05/15/18 10:46 Dose: 40 mg Glucagon () 1 mg IM .X1 PRN PRN Reason: Hypoglycemia Guaifenesin (Mucinex) 600 mg PO BID [facility] Last Admin: 05/15/18 10:48 Dose: 600 mg Insulin Glargine (Lantus (Bkc)) 50 units SC DAILY [facility] Last Admin: 05/15/18 10:45 Dose: 50 units Insulin Human Lispro (Humalog Kwikpen (Bkc)) 10 unit SC TIDAC [facility] Last Admin: 05/15/18 12:38 Dose: 10 units Insulin Human Lispro (Humalog Kwikpen (Bkc)) 0 unit SQ TIDAC [facility]; Protocol Last Admin: 05/15/18 12:16 Dose: Not Given Lisinopril (Zestril) 20 mg PO DAILY [facility] Last Admin: 05/15/18 10:51 Dose: 20 mg Loratadine (Claritin) 10 mg PO DAILY [facility] Last Admin: 05/15/18 10:44 Dose: 10 mg Magnesium Hydroxide (Milk Of Magnesia) 30 ml PO DAILY PRN PRN Reason: Constipation Metolazone (Zaroxolyn) 2.5 mg PO DAILY [facility] Last Admin: 05/15/18 10:51 Dose: 2.5 mg Metoprolol Tartrate (Lopressor (Beta Tyree)) 50 mg PO BID [facility] Last Admin: 05/15/18 11:19 Dose: Not Given Nutritional Formula ([place] - [place] Flavor) [facility] Last Admin: 05/15/18 10:43 Dose: 1 packet Ondansetron HCl (Zofran) 4 mg IV Q8H PRN PRN PRN Reason: Nausea Pantoprazole Sodium (Protonix) 20 mg PO DAILY [facility] Last Admin: 05/15/18 10:51 Dose: 20 mg Polyethylene Glycol (Miralax) 17 gm PO DAILY [facility] Last Admin: 05/15/18 10:48 Dose: 17 gm Polysaccharide Iron Complex (Ferrex 150) 150 mg [facility] Last Admin: 05/15/18 10:41 Dose: 150 mg Potassium Chloride (K-Dur) 40 meq PO [facility]ILY[facility] Senna/Docusate Sodium (Senokot-S, [place]-Colace) 2 tablet PO BID [facility] Last Admin: 05/15/18 10:51 Dose: 2 tablet Sodium Chloride () 5 - 15 ml IV UD PRN PRN Reason: SALINE FLUSH Last Admin: 05/14/18 21:25 Dose: 10 ml Tamsulosin HCl (Flomax) 0.4 mg PO DAILY [facility] Last Admin: 05/15/18 10:45 Dose: 0.4 mg Medical Necessity - Tobacco Use Smoking Status: Former smoker Tobacco Use: Non-smoker Assessment/Plan All Active Problems CHF (congestive heart failure) (Acute) UTI (urinary tract infection) (Acute) Ulcer of left lower extremity with fat layer exposed (Acute) Chronic ulcer of left foot with fat layer exposed (Acute) Ulcer of right foot with fat layer exposed (Acute) Chronic ulcer of right foot (Acute) Weakness (Acute) Chronic diarrhea (Acute) UTI (urinary tract infection) (Acute) Bladder outlet obstruction (Acute) FTT (failure to thrive) in adult (Acute) Urinary retention (Acute) 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 Patient was started on BiPAP and diuretics. Patient also has pyuria in UA, 5200 cells but nitrite negative. 1. Acute heart failure, systolic in nature: 2D echo was done shows then reported estimated EF 40% with moderate segmental systolic dysfunction with akinetic inferobasal and inferior septal region. Continue Lasix 40 mg IV twice daily. Patient lost about 3 pounds in 2 days. Patient has urinary incontinence and same time UTI. Check weight daily. Fluid restriction of 1500 cc/day 2. UTI Urine culture shows more than 100,000 Proteus mirabilis pansensitive except nitrofurantoin. As patient has recently Keflex, antibiotic changed to amoxicillin. Empirically continue Rocephin Does have a history of Proteus and Pseudomonas urinary tract infection. Most recently was Proteus which was sensitive to ceftriaxone. [facility] 3. Acute hypoxic respiratory failure Improved with BiPAP Wean as tolerated 4. DVT prophylaxis patient is already on Eliquis 5. Advanced care planning: Confirmed the patient still is DNR Comfort Care arrest Hospital course and management plan discussed with the patient near the bedside. Code Visit Inpatient E&M: 69627 Subs Hosp L3
[2018-05-15 16:10] LABS: Bedside Glucose 221 mg/dL (70-110)
[2018-05-15] MEDS: guaiFENesin 10 ML UDC (200MG/10ML) PO (21:38)
[2018-05-15] MEDS: Metoprolol Tartrate 50 MG Tablet PO (21:39)
[2018-05-15] MEDS: 0.9% NaCl Peripheral Flush Adult/Peds IV (21:39)
[2018-05-15 22:15] LABS: Bedside Glucose 113 mg/dL (70-110)
--- NOTE | 2018-05-15 23:50 | CPS ---
pt refuses Bipap
[2018-05-16] VITALS (14 sets, daily range): BP systolic 105–137; BP diastolic 36–72; PULSE 57–81; RESP 18–19; TEMP 36.6–36.9; O2SAT 94–100
[2018-05-16 06:45] LABS: Anion Gap 6 (5-15); BUN 56 mg/dL (7-18); BUN/Creat Ratio 36.1 RATIO (10-20); Calcium,Total 9.2 mg/dL (8.5-10.1); Chloride 101 mmol/L (98-107); Creatinine, Serum 1.55 mg/dL (0.70-1.30); EST Glomerular Filtration Rate 46 mL/min (>60); Est Glom Filt Rate - Afr Amer 55 mL/min (>60); Estimated Creatinine Clearance 39.63 ml/min; Glucose 142 mg/dL (74-106); Magnesium 2.3 mg/dL (1.6-2.6); Potassium 3.9 mmol/L (3.5-5.1); Sodium Level 140 mmol/L (136-145)
[2018-05-16 07:15] LABS: Bedside Glucose 137 mg/dL (70-110)
[2018-05-16] MEDS: Ipratropium/Albuterol Sulfate 3 ML AMPUL.NEB INHALATION ×2 (07:15→19:21)
[2018-05-16] MEDS: Insulin Lispro 100 UNIT/ML INSULN.PEN 10 UNIT SC ×2 (09:02→17:26)
[2018-05-16] MEDS: Aspirin E.C. 81 MG Tablet PO (09:03)
[2018-05-16] MEDS: Iron Polysaccharide Complex 150 MG CAPSULE PO (09:03)
[2018-05-16] MEDS: Polyethylene Glycol 3350 17 GM PACKET PO (09:08)
[2018-05-16] MEDS: AMOXICILLIN 500 MG CAPSULE PO ×2 (09:12→21:13)
[2018-05-16] MEDS: APIXABAN 2.5 MG TABLET PO ×2 (09:12→21:13)
[2018-05-16] MEDS: Loratadine 10 MG Tablet PO (09:12)
[2018-05-16] MEDS: Pantoprazole Sodium 20 MG Tablet PO (09:13)
[2018-05-16] MEDS: FLUoxetine 20 MG Capsule PO (09:13)
[2018-05-16] MEDS: guaiFENesin 600 MG Tablet PO ×2 (09:13→21:13)
[2018-05-16] MEDS: Tamsulosin HCl 0.4 MG Capsule PO (09:13)
[2018-05-16] MEDS: Metoprolol Tartrate 50 MG Tablet PO ×2 (09:14→21:13)
[2018-05-16] MEDS: Clopidogrel Bisulfate 75 MG Tablet PO (09:14)
[2018-05-16] MEDS: Finasteride 5 MG Tablet PO (09:15)
[2018-05-16] MEDS: Furosemide 40 MG/4 ML Vial IV ×3 (09:15→21:13)
[2018-05-16] MEDS: Metolazone 2.5 MG Tablet PO (09:15)
[2018-05-16] MEDS: Senna/Docusate Sodium 1 Tablet 2 TABLET PO ×2 (09:15→21:13)
[2018-05-16] MEDS: 0.9% NaCl Peripheral Flush Adult/Peds IV ×2 (09:18→15:54)
--- NOTE | 2018-05-16 12:02 | CASEMGMT ---
MIGUEL faxed more updates to [facility]. Felicita [employer]
[2018-05-16 12:46] LABS: Bedside Glucose 93 mg/dL (70-110)
[2018-05-16 12:46] LABS: Bedside Glucose 87 mg/dL (70-110)
[2018-05-16] MEDS: Acetaminophen 500 MG Tablet 1000 MG PO (15:52)
[2018-05-16 16:40] LABS: Bedside Glucose 200 mg/dL (70-110)
[2018-05-16] MEDS: Insulin Lispro 100 UNIT/ML INSULN.PEN SQ (17:26)
--- NOTE | 2018-05-16 17:47 | PN_ITS ---
Patient Problems: Active and Suspected Problems CHF (congestive heart failure) (Acute) UTI (urinary tract infection) (Acute) Subjective: Seen and examined. Patient is still short of breath but there is improvement. On 3 L of oxygen. Vitals/I&O's: Vital Signs Temp Pulse Resp BP Pulse Ox 98.2 F 64 19 H 137/59 H 99 05/16/18 14:50 05/16/18 15:14 05/16/18 14:50 05/16/18 14:50 05/16/18 14:50 Oxygen Flow Rate (L/min) 3 Oxygen Delivery Method Nasal Cannula Weight: 211 lb 10.3 oz Body Mass Index (BMI) 29.8 Finger Stick Blood Glucose 134 Intake and Output for Last 24 Hours 05/14/18 05/15/18 05/16/18 23:59 23:59 23:59 Intake Total 1300 / 1300 1040 / 1040 1230 / 1230 Output Total 875 / 875 300 / 300 Balance 425 / 425 740 / 740 1230 / 1230 General: Alert, Oriented x3, Cooperative HEENT: Atraumatic, PERRLA, EOMI, Normocephalic Neck: Supple, No JVD, Negative Carotid Bruits Cardiovascular: Regular rate, Regular Rhythm, Normal S1, Normal S2, Murmur Abdomen: Bowel Sounds Present, Soft, Non Tender Extremities: Capillary Refill Less than 3 Seconds, Edema Skin: No rashes, No breakdown Musculoskeletal: No Tenderness to Palpation of Joints or Extremities Neurological: Cranial nerves II-XII grossly intact Psych/Mental Status: Normal Affect, Appropriate Microbiology Past 72 Hours 05/13/18 17:58 Urine Catheter - Catheter Urine Culture - Final Proteus mirabilis 05/13/18 16:10 Mucosa - Nasopharyngeal Influenza Types A,B Direct FA (CHRIS) - Final Laboratory Results 05/15/18 21:54: POC Glucose 113 H 05/16/18 05:45: Sodium 140, Potassium 3.9, Chloride 101, Carbon Dioxide 33.0 H, Anion Gap 6, BUN 56 H, Creatinine 1.55 H, Estim Creat Clear Calc 39.63, Est GFR (MDRD) Af Amer 55 L, Est GFR (MDRD) Non-Af 46 L, BUN/Creatinine Ratio 36.1 H, Glucose 142 H, Calcium 9.2, Magnesium 2.3 05/16/18 07:07: POC Glucose 137 H 05/16/18 11:32: POC Glucose 87 05/16/18 11:33: POC Glucose 93 05/16/18 16:34: POC Glucose 200 H Current Medications Acetaminophen (Tylenol) 1,000 mg PO Q8H PRN PRN PRN Reason: MILD PAIN (1-3/10) Last Admin: 05/16/18 15:52 Dose: 1,000 mg Albuterol Sulfate (Ventolin Aerosols) 2.5 mg INHALATION Q4H PRN PRN PRN Reason: Bronchodilation Albuterol/Ipratropium (Duoneb) 3 ml INHALATION Q6HWA.RT [facility] Last Admin: 05/16/18 13:28 Dose: Not Given Amoxicillin (Amoxil) 500 mg PO Q12 [facility] Last Admin: 05/16/18 09:12 Dose: 500 mg Apixaban (Eliquis) 2.5 mg PO BID [facility] Last Admin: 05/16/18 09:12 Dose: 2.5 mg Aspirin (Ecotrin) 81 mg PO DAILY@0800 [facility] Last Admin: 05/16/18 09:03 Dose: 81 mg Bisacodyl (Dulcolax) 10 mg RECTAL DAILY PRN PRN Reason: Constipation Clopidogrel Bisulfate (Plavix) 75 mg PO DAILY [facility] Last Admin: 05/16/18 09:14 Dose: 75 mg Dextrose (D50w Syringe) 0 gm IV X1 PRN; Protocol PRN Reason: Hypoglycemia Finasteride (Proscar) 5 mg PO DAILY [facility] Last Admin: 05/16/18 09:15 Dose: 5 mg Fluoxetine HCl (Prozac) 20 mg PO DAILY [facility] Last Admin: 05/16/18 09:13 Dose: 20 mg Furosemide (Lasix) 40 mg IV Q8 [facility] Last Admin: 05/16/18 15:53 Dose: 40 mg Glucagon () 1 mg IM .X1 PRN PRN Reason: Hypoglycemia Guaifenesin (Mucinex) 600 mg PO BID [facility] Last Admin: 05/16/18 09:13 Dose: 600 mg Guaifenesin (Robitussin) 10 ml PO Q4H PRN PRN PRN Reason: COUGH Last Admin: 05/15/18 21:38 Dose: 10 ml Insulin Glargine (Lantus (Bkc)) 50 units SC DAILY [facility] Last Admin: 05/16/18 09:17 Dose: 50 units Insulin Human Lispro (Humalog Kwikpen (Bkc)) 10 unit SC TIDAC [facility] Last Admin: 05/16/18 17:26 Dose: 10 units Insulin Human Lispro (Humalog Kwikpen (Bkc)) 0 unit SQ TIDAC [facility]; Protocol Last Admin: 05/16/18 17:26 Dose: 2 units Loratadine (Claritin) 10 mg PO DAILY [facility] Last Admin: 05/16/18 09:12 Dose: 10 mg Magnesium Hydroxide (Milk Of Magnesia) 30 ml PO DAILY PRN PRN Reason: Constipation Metolazone (Zaroxolyn) 2.5 mg PO DAILY [facility] Last Admin: 05/16/18 09:15 Dose: 2.5 mg Metoprolol Tartrate (Lopressor (Beta Tyree)) 50 mg PO BID [facility] Last Admin: 05/16/18 09:14 Dose: 50 mg Nutritional Formula ([place]oyd - [place] Flavor) [facility] Admin: 05/16/18 17:26 Dose: 1 packet Ondansetron HCl (Zofran) 4 mg IV Q8H PRN PRN PRN Reason: Nausea Pantoprazole Sodium (Protonix) 20 mg PO DAILY [facility] Last Admin: 05/16/18 09:13 Dose: 20 mg Polyethylene Glycol (Miralax) 17 gm PO DAILY [facility] Last Admin: 05/16/18 09:08 Dose: 17 gm Polysaccharide Iron Complex (Ferrex 150) [facility] Last Admin: 05/16/18 09:03 Dose: 150 mg Potassium Chloride (K-Dur) [facility] Last Admin: 05/16/18 09:11 Dose: 40 meq Senna/Docusate Sodium (Senokot-S, [place]-Colace) 2 tablet PO BID [facility] Last Admin: 05/16/18 09:15 Dose: 2 tablet Sodium Chloride () 5 - 15 ml IV UD PRN PRN Reason: SALINE FLUSH Last Admin: 05/16/18 15:54 Dose: 10 ml Tamsulosin HCl (Flomax) 0.4 mg PO DAILY [facility] Last Admin: 05/16/18 09:13 Dose: 0.4 mg Medical Necessity - Tobacco Use Smoking Status: Former smoker Tobacco Use: Non-smoker Assessment/Plan All Active Problems CHF (congestive heart failure) (Acute) UTI (urinary tract infection) (Acute) Ulcer of left lower extremity with fat layer exposed (Acute) Chronic ulcer of left foot with fat layer exposed (Acute) Ulcer of right foot with fat layer exposed (Acute) Chronic ulcer of right foot (Acute) Weakness (Acute) Chronic diarrhea (Acute) UTI (urinary tract infection) (Acute) Bladder outlet obstruction (Acute) FTT (failure to thrive) in adult (Acute) Urinary retention (Acute) 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 Patient was started on BiPAP and diuretics. Patient also has pyuria in UA, 5200 cells but nitrite negative. 1. Acute heart failure, systolic in nature: 2D echo was done shows then reported estimated EF 40% with moderate segmental systolic dysfunction with akinetic inferobasal and inferior septal region. Lasix 40 mg IV increased to 8 hourly. Patient lost about 3 pounds in 2 days. Patient has urinary incontinence and same time UTI. Check weight daily. Fluid restriction of 1500 cc/day 2. UTI Urine culture shows more than 100,000 Proteus mirabilis pansensitive except nitrofurantoin. As patient has recently Keflex, antibiotic changed to amoxicillin. Empirically continue Rocephin Does have a history of Proteus and Pseudomonas urinary tract infection. Most recently was Proteus which was sensitive to ceftriaxone. Recently treated with Keflex for 7 days in correction in March 2018 3. Acute hypoxic respiratory failure Improved with BiPAP Wean as tolerated 4. DVT prophylaxis patient is already on Eliquis 5. Advanced care planning: Confirmed the patient still is DNR Comfort Care arrest Hospital course and management plan discussed with the patient near the bedside. Walking pulse oximetry. PT and OT. Code Visit Inpatient E&M: 53181 Subs Hosp L3
[2018-05-16 21:25] LABS: Bedside Glucose 201 mg/dL (70-110)
[2018-05-17] VITALS (18 sets, daily range): BP systolic 90–132; BP diastolic 46–85; PULSE 56–89; RESP 16–25; TEMP 36.4–37.2; O2SAT 92–98
--- NOTE | 2018-05-17 03:40 | CPS ---
pt refuses bipap
[2018-05-17] MEDS: Furosemide 40 MG/4 ML Vial IV (05:32)
[2018-05-17 06:31] LABS: Absolute Lymphocyte Count 1.34 X10^3/ul (0.83-4.51); Absolute Neutrophil Count 5.1 X10^3/uL (2.0-7.7); Basophil# 0.06 X10^3/uL; Basophil% 0.7 % (0-1); Eosinophil# 0.43 X10^3/uL; Eosinophils% 5.3 % (0-5); Hematocrit 32.7 % (40-54); Hemoglobin 9.9 g/dl (13.0-16.5); Lymphocyte # 1.34 X10^3/ul (4.0); Lymphocyte % 16.5 % (19-41); Mean Corp Hgb Conc 30.3 g/gl (32-36); Mean Corpuscular Hgb 30.9 pg (27.0-32.0); Mean Corpuscular Volume 102.2 fL (80-94); Mean Platelet Vol. 10.5 fl (6.2-12.0); Monocyte# 1.09 X10^3/uL; Monocyte% 13.4 % (0-10); Neutrophil % 62.6 % (47-70); Platelet Count 231 K/mm3 (150-450); RBC Distribution Width CV 12.9 % (11.6-14.6); RBC Distribution Width SD 46.9 fl (35.1-43.9); White Blood Count 8.1 K/mm3 (4.4-11.0)
[2018-05-17 06:36] LABS: POSITIVE COUNT NO; POSITIVE DIFFERENTIAL NO; POSITIVE MORPHOLOGY NO
[2018-05-17 06:50] LABS: Anion Gap 8 (5-15); BUN 79 mg/dL (7-18); BUN/Creat Ratio 43.4 RATIO (10-20); Calcium,Total 9.7 mg/dL (8.5-10.1); Chloride 99 mmol/L (98-107); Creatinine, Serum 1.82 mg/dL (0.70-1.30); EST Glomerular Filtration Rate 38 mL/min (>60); Est Glom Filt Rate - Afr Amer 46 mL/min (>60); Estimated Creatinine Clearance 33.75 ml/min; Glucose 142 mg/dL (74-106); Potassium 3.9 mmol/L (3.5-5.1); Sodium Level 141 mmol/L (136-145)
[2018-05-17 06:56] LABS: Bedside Glucose 146 mg/dL (70-110)
[2018-05-17] MEDS: Ipratropium/Albuterol Sulfate 3 ML AMPUL.NEB INHALATION ×3 (06:57→19:52)
[2018-05-17] MEDS: Polyethylene Glycol 3350 17 GM PACKET PO (09:16)
[2018-05-17] MEDS: Insulin Lispro 100 UNIT/ML INSULN.PEN 10 UNIT SC ×2 (09:16→13:21)
[2018-05-17] MEDS: Aspirin E.C. 81 MG Tablet PO (09:17)
[2018-05-17] MEDS: Iron Polysaccharide Complex 150 MG CAPSULE PO (09:18)
[2018-05-17] MEDS: Loratadine 10 MG Tablet PO (09:19)
[2018-05-17] MEDS: AMOXICILLIN 500 MG CAPSULE PO ×2 (09:19→21:37)
[2018-05-17] MEDS: APIXABAN 2.5 MG TABLET PO ×2 (09:19→22:27)
[2018-05-17] MEDS: Tamsulosin HCl 0.4 MG Capsule PO (09:20)
[2018-05-17] MEDS: Metoprolol Tartrate 50 MG Tablet PO (09:21)
[2018-05-17] MEDS: Clopidogrel Bisulfate 75 MG Tablet PO (09:21)
[2018-05-17] MEDS: guaiFENesin 600 MG Tablet PO ×2 (09:21→21:36)
[2018-05-17] MEDS: Finasteride 5 MG Tablet PO (09:22)
[2018-05-17] MEDS: Pantoprazole Sodium 20 MG Tablet PO (09:22)
[2018-05-17] MEDS: Senna/Docusate Sodium 1 Tablet 2 TABLET PO ×2 (09:23→21:36)
[2018-05-17] MEDS: Metolazone 2.5 MG Tablet PO (09:23)
[2018-05-17] MEDS: FLUoxetine 20 MG Capsule PO (09:23)
--- NOTE | 2018-05-17 11:35 | PCM.TXEXTCAR ---
- Diet 05/13/18 20:27 Diet: Cardiac/Low Cholesterol Food consistency:: Regular Liquid Consistency:: Regular/Thin Type of Dietary Supplement:: Glucerna Shake - Routine Orders/Code Status Suppository Type: Dulcolax 10mg Suppository Frequency: Daily PRN Routine Lab Work: CBC, BMP - every week starting on 05/21/18 for electrolytes - Wound(s) bridge of nose Wound Type: Abrasion - Therapies Weight Bearing: Weight bearing as tolerated Extremity Affected:: Bilateral Lower Physical Therapy: Eval and Treat Occupational Therapy: Eval and Treat Speech Therapy: Eval and Treat - Allergies/Procedures Done in Hospital Allergies/Adverse Reactions: Allergies Iodinated Contrast- Oral and IV Dye [Iodinated Contrast Media - IV Dye] Allergy (Verified 07/09/16 19:04) Other - Type of Care/Length of Stay Estimated LOS: Convalescent Care Less Than 30 days Type of Care Needed: Skilled Rehab Potential: Good Prognosis: Good - Additional Orders/Day of Discharge Day of Discharge: 05/17/18 - Dietary and Speech Recommendations Dietitian Recommendations/Changes: Suggest diet change to 1800 calorie, cardiac, low sodium with 1500 ml FR. Skin appears intact--? need for continued Lloyd. Will make glucerna shake with meals only 120 ml due to fluid restriction & good PO at this time. - Follow Up Care Primary Care Physician: Xavier Cohen MD [Primary Care Provider] - Please follow up with your Primary Care Physician in: in 1 weeks Please Follow Up With: Gilmar Haddad MD When: 2-3 weeks Please Follow Up With: Panfilo Cifuentes MD When: in 4 weeks
[2018-05-17 11:40] LABS: Bedside Glucose 172 mg/dL (70-110)
--- NOTE | 2018-05-17 11:41 | DCINST_ITS ---
- Discharge Diagnoses Current Active Problems: Current Active and Chronic Problems CHF (congestive heart failure) (Acute) UTI (urinary tract infection) (Acute) Allergies/Adverse Reactions: Allergies Iodinated Contrast- Oral and IV Dye [Iodinated Contrast Media - IV Dye] Allergy (Verified 07/09/16 19:04) Other Medications to take at Discharge Loratadine [Claritin] 10 mg PO DAILY 10/30/13 Metoprolol Tartrate [Lopressor (beta melissa)] 50 mg PO BID 10/30/13 Clopidogrel Bisulfate [Plavix] 75 mg PO DAILY 02/04/16 Finasteride [Proscar] 5 mg PO DAILY tablet 07/13/16 Acetaminophen [Tylenol] 1,000 mg PO Q8H PRN #0 tablet 08/22/16 Bisacodyl [Dulcolax] 10 mg RECTAL DAILY PRN #0 suppos. 08/22/16 Fluoxetine [Prozac] 20 mg PO DAILY capsule 08/22/16 Ipratropium/Albuterol Sulfate [Duoneb] 3 ml INHALATION Q4H.RT PRN #0 ampul.neb 08/22/16 Iron Polysaccharide Complex [Ferrex 150] 150 mg PO DAILYCM capsule 08/22/16 Nutritional Supplement [Lloyd - ORANGE FLAVOR] 1 packet PO BIDCM packet 08/22/16 Polyethylene Glycol 3350 [Miralax] 17 gm PO DAILY packet 08/22/16 Senna/Docusate Sodium [Senokot-S] 2 tablet PO BID tablet 08/22/16 Albuterol Aerosols [Ventolin Aerosols] 2.5 mg INHALATION Q4H PRN PRN 05/13/18 Apixaban [Eliquis] 2.5 mg PO BID 05/13/18 Aspirin E.C. [Ecotrin] 81 mg PO DAILY@0800 05/13/18 Guaifenesin [Mucinex] 600 mg PO BID 05/13/18 Insulin Aspart [Novolog Flexpen] 10 units SC TIDAC 05/13/18 Insulin Detemir [Levemir FlexPen] 50 units SC DAILY 05/13/18 Lisinopril [Zestril] 20 mg PO DAILY 05/13/18 Metolazone [Zaroxolyn] 2.5 mg PO DAILY 05/13/18 Omeprazole [Prilosec] 20 mg PO DAILY 05/13/18 Tamsulosin HCl [Flomax] 0.4 mg PO DAILY 05/13/18 Amoxicillin [Amoxil] 500 mg PO Q12 #7 capsule 05/17/18 Furosemide [Lasix] 40 mg PO BID #0 05/17/18 Potassium Chloride [K-Dur] 40 meq PO DAILYCM #14 tablet 05/17/18 The following prescriptions were given: Amoxicillin [Amoxil] 500 mg PO Q12 #7 capsule Potassium Chloride [K-Dur] 40 meq PO DAILYCM #14 tablet Primary Care Physician: Xavier Cohen MD [Primary Care Provider] - Test Results: Test results from this visit will be discussed in further detail at your follow- up appointment, if applicable.
--- NOTE | 2018-05-17 11:41 | DS.PCM_ITS ---
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) Chronic ulcer of left ankle with fat layer exposed (Chronic) Ulcer of right foot with fat layer exposed (Chronic) Fall (Chronic) Congestive heart failure (Chronic) Acute kidney injury (Chronic) Peripheral vascular disease (Chronic) Diabetes mellitus with polyneuropathy (Chronic) 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) Edema, lower extremity (Chronic) Malnutrition (Chronic) BPH (benign prostatic hypertrophy) (Chronic) Hypertension (Chronic) Coronary artery disease (Chronic) Chronic ulcer of ankle (Chronic) Edema (Chronic) PAOD (peripheral arterial occlusive disease) (Chronic) Aortic valve stenosis (Chronic) Benign essential hypertension (Chronic) Chronic obstructive lung disease (Chronic) DM type 2 (diabetes mellitus, type 2) (Chronic) CAD (coronary artery disease) (Chronic) Hx of CABG (Chronic) Peripheral neuropathy (Chronic) Venous (peripheral) insufficiency (Chronic) Hyperlipidemia (Chronic) Hospital Course and Treatment Operations: None Summary of Care Provided: [] This 82-year-old gentleman with history of congestive heart failure, peripheral arterial disease was admitted with progressive worsening of shortness of breath for several days. Patient was started on BiPAP and diuretics. [place] also has pyuria in UA, 5200 cells but nitrite negative. 1. Acute heart failure, systolic in nature: 2D echo was done shows then reported estimated EF 40% with moderate segmental systolic dysfunction with akinetic inferobasal and inferior septal region. He lost about 10 pounds of fluid weight Lasix 40 mg IV is decreased to twice daily. Patient had total 6-7 times urine output on the top, he is urinary incontinent and on diaper. Fluid restriction of 1500 cc/day. Patient is discharged on Lasix 40 mg oral twice daily. Follow-up BMP and CBC on Monday in consultation with PCP. 2. Acute Proteus mirabilis UTI on recurrent UTI Urine culture shows more than 100,000 Proteus mirabilis pansensitive except nitrofurantoin. As patient has recently Keflex, antibiotic changed to amoxicillin. Does have a history of Proteus and Pseudomonas urinary tract infection. Most recently was Proteus which was sensitive to ceftriaxone. Recently treated with Keflex for 7 days in long term in March 2018. Patient discharged on 3 more days of amoxicillin. Patient may benefited by urology follow-up with history of recurrent UTI to look for a stone. 3. Acute hypoxic respiratory failure Improved with BiPAP Wean as tolerated 4. DVT prophylaxis patient is already on Eliquis 5. Advanced care planning: Confirmed the patient still is DNR Comfort Care arrest Discharge medication reconciliation done. Discharge follow-up instructions completed. Discharge process discussed with the patient. Patient is being discharged to long term. Total time spent, exact 35 minutes on discharge meds reconciliation, examination, review of imaging and blood test and discussion with the patient on follow-up instructions. Patient Problems: Active and Suspected Problems CHF (congestive heart failure) (Acute) UTI (urinary tract infection) (Acute) Subjective: Seen and examined. Patient is more comfortable. Pulse ox 93% on room air although he is on baseline 3 L of oxygen at home. No shortness of breath. Objective: General: Alert, Oriented x3, Cooperative HEENT: Atraumatic, PERRLA, EOMI, Normocephalic Neck: Supple, No JVD, Negative Carotid Bruits Lungs: Air entry diminished in bilateral lung bases, although improved. Bibasilar occasional crepitations present. Cardiovascular: Regular rate, Normal S1, Normal S2, systolic murmur at left sternal border Abdomen: Bowel Sounds Present, Soft, Non Tender Extremities: Capillary Refill Less than 3 Seconds, Edema Skin: No rashes, No breakdown Musculoskeletal: No Tenderness to Palpation of Joints or Extremities Neurological: Cranial nerves II-XII grossly intact Psych/Mental Status: Normal Affect, Appropriate - Physical Exam Vital Signs Temp Pulse Resp BP Pulse Ox 97.9 F 63 17 102/52 L 93 05/17/18 11:20 05/17/18 11:20 05/17/18 11:20 05/17/18 11:20 05/17/18 11:20 Oxygen Flow Rate (L/min) 2 Oxygen Delivery Method Room Air Weight: 210 lb 15.718 oz Body Mass Index (BMI) 29.8 Finger Stick Blood Glucose 134 Intake and Output for Last 24 Hours 05/15/18 05/16/18 05/17/18 23:59 23:59 23:59 Intake Total 1040 / 1040 1350 / 1350 595 / 595 Output Total 300 / 300 50 / 50 Balance 740 / 740 1350 / 1350 545 / 545 Microbiology Past 72 Hours 05/13/18 17:58 Urine Culture - Final Urine Catheter - Catheter Proteus mirabilis Laboratory Tests Past 24 Hrs 05/17/18 05/17/18 06:15 06:15 WBC 8.1 RBC 3.20 L Hgb 9.9 L Hct 32.7 L MCV 102.2 H MCH 30.9 MCHC 30.3 L RDW 12.9 RDW Differential 46.9 H Plt Count 231 MPV 10.5 Immature Gran % (Auto) 1.500 H Neut % (Auto) 62.6 Lymph % (Auto) 16.5 L [place] % (Auto) 13.4 H Eos % (Auto) 5.3 H Baso % (Auto) 0.7 Absolute Neuts (auto) 5.1 Absolute Lymphs (auto) 1.34 Total Counted Not Reportable Sodium 141 Potassium 3.9 Chloride 99 Carbon Dioxide 34.0 H Anion Gap 8 BUN 79 H Creatinine 1.82 H Estim Creat Clear Calc 33.75 Est GFR (MDRD) Af Amer 46 L Est GFR (MDRD) Non-Af 38 L BUN/Creatinine Ratio 43.4 H Glucose 142 H Calcium 9.7 POC Glucose 05/17/18 05/17/18 05/16/18 11:23 06:49 21:11 POC Glucose 172 H 146 H 201 H 05/16/18 05/16/18 05/16/18 16:34 11:33 11:32 POC Glucose 200 H 93 87 Home Medications: Medications to take at Discharge Loratadine [Claritin] 10 mg PO DAILY 10/30/13 Metoprolol Tartrate [Lopressor (beta melissa)] 50 mg PO BID 10/30/13 Clopidogrel Bisulfate [Plavix] 75 mg PO DAILY 02/04/16 Finasteride [Proscar] 5 mg PO DAILY tablet 07/13/16 Acetaminophen [Tylenol] 1,000 mg PO Q8H PRN #0 tablet 08/22/16 Bisacodyl [Dulcolax] 10 mg RECTAL DAILY PRN #0 suppos. 08/22/16 Fluoxetine [Prozac] 20 mg PO DAILY capsule 08/22/16 Ipratropium/Albuterol Sulfate [Duoneb] 3 ml INHALATION Q4H.RT PRN #0 ampul.neb 08/22/16 Iron Polysaccharide Complex [Ferrex 150] 150 mg PO DAILYCM capsule 08/22/16 Nutritional Supplement [Lloyd - ORANGE FLAVOR] 1 packet PO BIDCM packet 08/22/16 Polyethylene Glycol 3350 [Miralax] 17 gm PO DAILY packet 08/22/16 Senna/Docusate Sodium [Senokot-S] 2 tablet PO BID tablet 08/22/16 Albuterol Aerosols [Ventolin Aerosols] 2.5 mg INHALATION Q4H PRN PRN 05/13/18 Apixaban [Eliquis] 2.5 mg PO BID 05/13/18 Aspirin E.C. [Ecotrin] 81 mg PO DAILY@0800 05/13/18 Guaifenesin [Mucinex] 600 mg PO BID 05/13/18 Insulin Aspart [Novolog Flexpen] 10 units SC TIDAC 05/13/18 Insulin Detemir [Levemir FlexPen] 50 units SC DAILY 05/13/18 Lisinopril [Zestril] 20 mg PO DAILY 05/13/18 Metolazone [Zaroxolyn] 2.5 mg PO DAILY 05/13/18 Omeprazole [Prilosec] 20 mg PO DAILY 05/13/18 Tamsulosin HCl [Flomax] 0.4 mg PO DAILY 05/13/18 Amoxicillin [Amoxil] 500 mg PO Q12 #7 cap 05/17/18 Furosemide [Lasix] 40 mg PO BID #0 05/17/18 Potassium Chloride [K-Dur] 40 meq PO DAILYCM #14 tablet 05/17/18 Following Prescrptions Were Given to Patient: Amoxicillin [Amoxil] 500 mg PO Q12 #7 cap Potassium Chloride [K-Dur] 40 meq PO DAILYCM #14 tablet Primary Care Physician: Xavier Cohen MD [Primary Care Provider] - Medical Necessity - Tobacco Use Smoking Status: Former smoker Tobacco Use: Non-smoker Meaningful Use Info Meaningful Use Diagnoses (Choose all that apply): None applicable Code Visit Inpatient E&M: 13514 Disch Hosp
[2018-05-17] MEDS: Insulin Lispro 100 UNIT/ML INSULN.PEN SQ (13:21)
--- NOTE | 2018-05-17 14:16 | CASEMGMT ---
Patient is ready for discharge back to [facility]. MIGUEL faxed orders to [facility]. MIGUEL called [facility] and arranged for patient to get picked up at 3:30 via [facility] van. MIGUEL notified RN who will notify family and patient. MIGUEL also left a message for Reyna at [facility]. Plan: d/c back to [facility] under skilled level of care. [facility] transported him via [employer] van. Felicita URBAN MSW
[2018-05-17 18:00] LABS: Bedside Glucose 87 mg/dL (70-110)
[2018-05-17 20:01] LABS: Bedside Glucose 135 mg/dL (70-110)
[2018-05-17 20:01] LABS: Bedside Glucose 101 mg/dL (70-110)
[2018-05-17] MEDS: 0.9% NaCl Peripheral Flush Adult/Peds IV (21:37)
[2018-05-17 22:36] LABS: Bedside Glucose 181 mg/dL (70-110)
[2018-05-18] VITALS (9 sets, daily range): BP systolic 98–114; BP diastolic 39–69; PULSE 67–78; RESP 16–18; TEMP 36.9–37.4; O2SAT 93–98
[2018-05-18] MEDS: guaiFENesin 10 ML UDC (200MG/10ML) PO (05:43)
[2018-05-18 06:56] LABS: Bedside Glucose 134 mg/dL (70-110)
[2018-05-18] MEDS: Ipratropium/Albuterol Sulfate 3 ML AMPUL.NEB INHALATION (07:32)
[2018-05-18] MEDS: Aspirin E.C. 81 MG Tablet PO (09:55)
[2018-05-18] MEDS: Iron Polysaccharide Complex 150 MG CAPSULE PO (09:56)
[2018-05-18] MEDS: AMOXICILLIN 500 MG CAPSULE PO (09:57)
[2018-05-18] MEDS: Loratadine 10 MG Tablet PO (09:57)
[2018-05-18] MEDS: APIXABAN 2.5 MG TABLET PO (09:58)
[2018-05-18] MEDS: Tamsulosin HCl 0.4 MG Capsule PO (09:58)
[2018-05-18] MEDS: Metoprolol Tartrate 50 MG Tablet PO (10:00)
[2018-05-18] MEDS: Furosemide 40 MG/4 ML Vial IV (10:00)
[2018-05-18] MEDS: Pantoprazole Sodium 20 MG Tablet PO (10:01)
[2018-05-18] MEDS: guaiFENesin 600 MG Tablet PO (10:01)
[2018-05-18] MEDS: Clopidogrel Bisulfate 75 MG Tablet PO (10:01)
[2018-05-18] MEDS: Finasteride 5 MG Tablet PO (10:01)
[2018-05-18] MEDS: FLUoxetine 20 MG Capsule PO (10:02)
[2018-05-18] MEDS: Metolazone 2.5 MG Tablet PO (10:02)
--- NOTE | 2018-05-18 10:02 | CASEMGMT ---
Patient's d/c was canceled yesterday. MIGUEL spoke with Reyna at [facility] as no one called and let them know it was canceled. MIGUEL told her SW will let her know if he is ready today or not. Felicita URBAN MSW
--- NOTE | 2018-05-18 11:20 | CASEMGMT ---
MIGUEL called Reyna at [facility] and left her a message letting her know patient is being discharged today and cloth picker is 1p. MIGUEL also called patient's letting her know. RN was also notified. Plan: d/c back to [facility] under skilled level of care. Rosita Raygoza transported patient via [employer] van at 1p. Felicita URBAN MSW
[2018-05-18] MEDS: Acetaminophen 500 MG Tablet 1000 MG PO (11:49)
[2018-05-18] MEDS: tiZANidine HCl 2 MG Tablet 4 MG PO (11:50)
[2018-05-18] MEDS: Insulin Lispro 100 UNIT/ML INSULN.PEN 10 UNIT SC (11:54)
[2018-05-18] MEDS: Insulin Lispro 100 UNIT/ML INSULN.PEN SQ (11:54)
[2018-05-18 12:11] LABS: Bedside Glucose 171 mg/dL (70-110)
--- NOTE | 2018-05-18 17:12 | PCM.DC.SUM ---
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) Chronic ulcer of left ankle with fat layer exposed (Chronic) Ulcer of right foot with fat layer exposed (Chronic) Fall (Chronic) Congestive heart failure (Chronic) Acute kidney injury (Chronic) Peripheral vascular disease (Chronic) Diabetes mellitus with polyneuropathy (Chronic) 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) Edema, lower extremity (Chronic) Malnutrition (Chronic) BPH (benign prostatic hypertrophy) (Chronic) Hypertension (Chronic) Coronary artery disease (Chronic) Chronic ulcer of ankle (Chronic) Edema (Chronic) PAOD (peripheral arterial occlusive disease) (Chronic) Aortic valve stenosis (Chronic) Benign essential hypertension (Chronic) Chronic obstructive lung disease (Chronic) DM type 2 (diabetes mellitus, type 2) (Chronic) CAD (coronary artery disease) (Chronic) Hx of CABG (Chronic) Peripheral neuropathy (Chronic) Venous (peripheral) insufficiency (Chronic) Hyperlipidemia (Chronic) Hospital Course and Treatment Operations: None Summary of Care Provided: [] This 82-year-old gentleman with history of congestive heart failure, peripheral arterial disease was admitted with progressive worsening of shortness of breath for several days. Patient was started on BiPAP and diuretics. Patient also has pyuria in UA, 5200 cells but nitrite negative. 1. Acute heart failure, systolic in nature: 2D echo was done shows then reported estimated EF 40% with moderate segmental systolic dysfunction with akinetic inferobasal and inferior septal region. He lost about 10 pounds of fluid weight Lasix 40 mg IV is decreased to twice daily. Patient had total 6-7 times urine output on the top, he is urinary incontinent and on diaper. Fluid restriction of 1500 cc/day. Patient is discharged on Lasix 40 mg oral twice daily. Follow-up BMP and CBC on Monday in consultation with PCP. Near syncope secondary to hypotension/intravascular fluid shift: Advised to hold Lasix if systolic blood pressures less than 120. Monitor intake and output in residential. 2. Acute Proteus mirabilis UTI on recurrent UTI Urine culture shows more than 100,000 Proteus mirabilis pansensitive except nitrofurantoin. As patient has recently Keflex, antibiotic changed to amoxicillin. Does have a history of Proteus and Pseudomonas urinary tract infection. Most recently was Proteus which was sensitive to ceftriaxone. Recently treated with Keflex for 7 days in residential in March 2018. Patient discharged on 3 more days of amoxicillin. Patient may benefited by urology follow-up with history of recurrent UTI to look for a stone. 3. Acute hypoxic respiratory failure Improved with BiPAP Wean as tolerated 4. DVT prophylaxis patient is already on Eliquis 5. Advanced care planning: Confirmed the patient still is DNR Comfort Care arrest Discharge medication reconciliation done. Discharge follow-up instructions completed. Discharge process discussed with the patient. Patient is being discharged to residential. Total time spent, exact 35 minutes on discharge meds reconciliation, examination, review of imaging and blood test and discussion with the patient on follow-up instructions. Subjective: Discharge was held yesterday as patient got dizzy and mild hypotensive before discharge. Blood pressure was 90/54 for which patient was given normal saline bolus and blood pressure recovered. The morning patient did not have chest pain or shortness of breath or dizziness or near syncope symptoms. Objective: General: Alert, Oriented x3, Cooperative HEENT: Atraumatic, PERRLA, EOMI, Normocephalic Neck: Supple, No JVD, Negative Carotid Bruits Lungs: Air entry diminished in bilateral lung bases. Bibasilar occasional crepitations present. Cardiovascular: Regular rate, Normal S1, Normal S2, systolic murmur at left sternal border Abdomen: Bowel Sounds Present, Soft, Non Tender Extremities: Capillary Refill Less than 3 Seconds, Edema Skin: No rashes, No breakdown Musculoskeletal: No Tenderness to Palpation of Joints or Extremities Neurological: Cranial nerves II-XII grossly intact Psych/Mental Status: Normal Affect, Appropriate - Physical Exam Vital Signs Temp Pulse Resp BP Pulse Ox 98.4 F 70 18 113/39 L 93 05/18/18 12:30 05/18/18 12:30 05/18/18 12:30 05/18/18 12:30 05/18/18 12:30 Oxygen Flow Rate (L/min) 2 Oxygen Delivery Method Room Air Weight: 211 lb 13.828 oz Body Mass Index (BMI) 29.8 Finger Stick Blood Glucose 134 Intake and Output for Last 24 Hours 05/16/18 05/17/1805/18/19 23:59 23:59 23:59 Intake Total 1350 / 1350 920 / 920 460 / 460 Output Total 50 / 50 Balance 1350 / 1350 870 / 870 460 / 460 POC Glucose 05/18/18 05/18/18 05/17/18 11:52 06:46 22:29 POC Glucose 171 H 134 H 181 H 05/17/18 05/17/18 05/17/18 19:24 18:29 17:50 POC Glucose 135 H 101 87 Home Medications: Medications to take at Discharge Loratadine [Claritin] 10 mg PO DAILY 10/30/13 Metoprolol Tartrate [Lopressor (beta melissa)] 50 mg PO BID 10/30/13 Clopidogrel Bisulfate [Plavix] 75 mg PO DAILY 02/04/16 Finasteride [Proscar] 5 mg PO DAILY tablet 07/13/16 Acetaminophen [Tylenol] 1,000 mg PO Q8H PRN #0 tablet 08/22/16 Bisacodyl [Dulcolax] 10 mg RECTAL DAILY PRN #0 suppos. 08/22/16 Fluoxetine [Prozac] 20 mg PO DAILY capsule 08/22/16 Ipratropium/Albuterol Sulfate [Duoneb] 3 ml INHALATION Q4H.RT PRN #0 ampul.neb 08/22/16 Iron Polysaccharide Complex [Ferrex 150] 150 mg PO DAILYCM capsule 08/22/16 Nutritional Supplement [Lloyd - ORANGE FLAVOR] 1 packet PO BIDCM packet 08/22/16 Polyethylene Glycol 3350 [Miralax] 17 gm PO DAILY packet 08/22/16 Senna/Docusate Sodium [Senokot-S] 2 tablet PO BID tablet 08/22/16 Albuterol Aerosols [Ventolin Aerosols] 2.5 mg INHALATION Q4H PRN PRN 05/13/18 Apixaban [Eliquis] 2.5 mg PO BID 05/13/18 Aspirin E.C. [Ecotrin] 81 mg PO DAILY@0800 05/13/18 Guaifenesin [Mucinex] 600 mg PO BID 05/13/18 Insulin Aspart [Novolog Flexpen] 10 units SC TIDAC 05/13/18 Insulin Detemir [Levemir FlexPen] 50 units SC DAILY 05/13/18 Lisinopril [Zestril] 20 mg PO DAILY 05/13/18 Metolazone [Zaroxolyn] 2.5 mg PO DAILY 05/13/18 Omeprazole [Prilosec] 20 mg PO DAILY 05/13/18 Tamsulosin HCl [Flomax] 0.4 mg PO DAILY 05/13/18 Amoxicillin [Amoxil] 500 mg PO Q12 #7 cap 05/17/18 Furosemide [Lasix] 40 mg PO BID #0 05/17/18 Potassium Chloride [K-Dur] 40 meq PO DAILYCM #14 tablet 05/17/18 Following Prescrptions Were Given to Patient: Amoxicillin [Amoxil] 500 mg PO Q12 #7 cap Potassium Chloride [K-Dur] 40 meq PO DAILYCM #14 tablet Primary Care Physician: Xavier Cohen MD [Primary Care Provider] - Please follow up with your Primary Care Physician in: in 1 weeks Please Follow Up With: Gilmar Haddad MD When: 2-3 weeks Please Follow Up With: Panfilo Cifuentes MD When: in 4 weeks Medical Necessity - Tobacco Use Smoking Status: Former smoker Tobacco Use: Non-smoker Meaningful Use Info Meaningful Use Diagnoses (Choose all that apply): None applicable Code Visit Inpatient E&M: 58467 Disch Hosp
== END 2018-05-18 13:28 | disposition skilled nursing facility (03) | DRG 291 ==
LOC: ED 19:41 → PCU 19:54
PROVIDERS: Emergency Provider Emergency Medicine; Family Provider Family Medicine; PCP Family Medicine; Visit Provider Internal Medicine
DX: I11.0 Hypertensive heart disease with heart failure (principal); J96.01 Acute respiratory failure with hypoxia; I50.21 Acute systolic (congestive) heart failure; N39.0 Urinary tract infection, site not specified; B96.4 Proteus (mirabilis) (morganii) as the cause of diseases classified elsewhere; E78.5 Hyperlipidemia, unspecified; E11.42 Type 2 diabetes mellitus with diabetic polyneuropathy; I25.10 Atherosclerotic heart disease of native coronary artery without angina pectoris; J44.9 Chronic obstructive pulmonary disease, unspecified; I35.0 Nonrheumatic aortic (valve) stenosis; N40.0 Benign prostatic hyperplasia without lower urinary tract symptoms; Z95.1 Presence of aortocoronary bypass graft; Z87.440 Personal history of urinary (tract) infections; Z66 Do not resuscitate; Z87.891 Personal history of nicotine dependence; D64.9 Anemia, unspecified; Z95.810 Presence of automatic (implantable) cardiac defibrillator; I73.9 Peripheral vascular disease, unspecified; Z79.4 Long term (current) use of insulin
CPT/HCPCS: 36415; 71045; 80048; 81001; 82962; 83605; 83735; 84443; 84484; 85025; 87077; 87086; 87088; 87186; 87804; 93005; 93306; 94002; 94003; 94640; 97161; 97166; 97530; 99285; J7050; P9612; A4216; J1940

== ENCOUNTER 2018-05-30 10:53 | Observation (INO) | payer MEDICARE, OTHER, MEDICAID, SELFPAY ==
[2018-05-30] VITALS (12 sets, daily range): BP systolic 81–145; BP diastolic 48–63; PULSE 51–75; RESP 16–27; TEMP 36.3–36.8; O2SAT 94–100; BMI 28.3; BMI 27.1; BMI 28.5; BMI 28.6
--- NOTE | 2018-05-30 11:08 | RAD_ITS ---
STUDY: X-RAY CHEST REASON FOR EXAM: Male, 82 years old. Left-sided chest pain. TECHNIQUE: Single AP portable view of the chest. COMPARISON: Comparison is made with prior study dated May 13, 2018. FINDINGS: EKG electrodes are seen. Stable elevation of the left hemidiaphragm. There is no demonstrated pleural abnormality. Sternal cerclage wires and vascular clips are present from a prior sternotomy and coronary artery bypass graft procedure (CABG). A left-sided ICD is seen. Normal mediastinum and kisha. Normal visualized pulmonary arteries. There is atherosclerotic calcification of the aortic arch with tortuosity. Normal visualized thoracic spine. Normal visualized ribs, clavicles, and shoulders. There is no demonstrated abnormality of the visualized soft tissue structures of the upper abdomen. RAD/Chest 1 View (Portable) IMPRESSION: Stable examination. No acute abnormality is seen. Electronically Signed: Cody Silverio MD at 11:24 EST , Service support ,
--- NOTE | 2018-05-30 11:08 | EKG12_ITS ---
Test Reason : CP Blood Pressure : / mmHG Vent. Rate : 051 BPM Atrial Rate : 050 BPM P-R Int : 000 ms QRS Dur : 140 ms QT Int : 478 ms P-R-T Axes : 000 -38 -07 degrees QTc Int : 440 ms Normal sinus rhythm Left axis deviation Left bundle branch block Abnormal ECG Confirmed by MARIELENA WOODWARD, REGGIE ([id number]), subeditor EUGENE MARRUFO ([id number]) on 06/01/2018 3:10:44 PM Referred By: Confirmed By:REGGIE PEGUERO MD
[2018-05-30] MEDS: Aspirin 81 MG TAB.CHEW 162 MG PO (11:33)
[2018-05-30] MEDS: 0.9% Normal Saline 1,000 ML 150 ML IV (11:33)
[2018-05-30 11:34] LABS: Absolute Lymphocyte Count 0.94 X10^3/ul (0.83-4.51); Absolute Neutrophil Count 6.7 X10^3/uL (2.0-7.7); Basophil# 0.03 X10^3/uL; Basophil% 0.3 % (0-1); Eosinophil# 0.35 X10^3/uL; Eosinophils% 3.8 % (0-5); Hematocrit 31.6 % (40-54); Hemoglobin 9.6 g/dl (13.0-16.5); Lymphocyte # 0.94 X10^3/ul (4.0); Lymphocyte % 10.3 % (19-41); Mean Corp Hgb Conc 30.4 g/gl (32-36); Mean Corpuscular Hgb 30.3 pg (27.0-32.0); Mean Corpuscular Volume 99.7 fL (80-94); Mean Platelet Vol. 11.7 fl (6.2-12.0); Monocyte# 1.11 X10^3/uL; Monocyte% 12.2 % (0-10); Neutrophil # 6.68 X10^3/uL (2.7-7.7); Neutrophil % 73.2 % (47-70); Platelet Count 282 K/mm3 (150-450); RBC Distribution Width CV 13.8 % (11.6-14.6); Red Blood Count 3.17 M/mm3 (4.6-6.2); White Blood Count 9.1 K/mm3 (4.4-11.0)
[2018-05-30 11:35] LABS: POSITIVE COUNT NO; POSITIVE DIFFERENTIAL NO; POSITIVE MORPHOLOGY NO
[2018-05-30 11:47] LABS: Anion Gap 10 (5-15); BUN 96 mg/dL (7-18); BUN/Creat Ratio 40.3 RATIO (10-20); Calcium,Total 9.3 mg/dL (8.5-10.1); Chloride 102 mmol/L (98-107); Creatinine, Serum 2.38 mg/dL (0.70-1.30); EST Glomerular Filtration Rate 28 mL/min (>60); Est Glom Filt Rate - Afr Amer 34 mL/min (>60); Estimated Creatinine Clearance 25.81 ml/min; Glucose 162 mg/dL (74-106); Sodium Level 140 mmol/L (136-145)
--- NOTE | 2018-05-30 11:56 | ED.DCSUM_ITS ---
- ER Visit Summary Date of Service: 05/30/18 Chief Complaint: [Chest pain] History of Present Illness: The patient is a 82 M [presents to the emergency department complaint of chest pain from Dr. Schafer [facility] is office. Patient apparently started complaining of chest pain during this follow-up visit and he became diaphoretic. Patient describes the pain as dull ache in the center of his chest without any radiation. Patient states the pain is currently resolved. 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 Patient is currently at a half-way and wears oxygen as needed. Patient has a history of CHF as well as COPD. Patient has history of peripheral vascular disease, diabetes, and high cholesterol. Patient denies any recent travel.] Physical Examination: [HEENT-PERRLA, EOMI. Cranial nerves II through XII grossly intact. TMs clear. Mucous membranes moist. No adenopathy. Cardiovascular-regular rate and rhythm without murmur or ectopy Lungs-clear to auscultation, chest wall stable without crepitus or subcu emphysema Abdomen-normoactive bowel sounds, soft, nontender, no rebound or rigidity, no peritoneal signs. Extremities-intact ?4, normal range of motion, normal pulses, atraumatic] Test Results: [EKG obtained arrival showed a sinus rhythm with a ventricular rate of 51 bpm with a left bundle branch block morphology and when compared with prior EKG from May 13, 2018 no new changes noted. CBC with differential showed a white count of 9.1, hemoglobin 9.6, hematocrit 32, platelets 282. Chemistries unremarkable. BUN was 96 and creatinine 2.38. Troponin was less than 0.015. Chest x-ray showed stable changes otherwise nothing acute.] Emergency Department Course and Treatment: [Patient received aspirin in the emergency department. Patient was ordered a 500 cc normal saline fluid bolus] Treatment Plan: [Admit] Disposition: [Admit] Impression: [Chest pain Renal insufficiency Hypotension Dehydration] This note was generated with u[employer]aber dictation software. It may contain incorrect words, spelling, and punctuation that were not noted in review of the chart prior to signing ED Disposition - Plan for ED Patient: Chief Complaint: Chest Pain Referrals: Xavier Cohen MD [Primary Care Provider] -
--- NOTE | 2018-05-30 11:59 | PCM.HP.STD ---
Problem List (1) Chest pain Status: Acute Qualifiers: Chest pain type: unspecified Qualified Code(s): R07.9 - Chest pain, unspecified (2) Non-rheumatic tricuspid valve insufficiency Status: Chronic (3) Secondary pulmonary arterial hypertension Status: Chronic (4) History of implantable cardiac defibrillator (ICD) Status: Chronic (5) Chronic systolic (congestive) heart failure Status: Chronic Comment: EF: 40% from 05/14/18 (6) Paroxysmal atrial fibrillation Status: Chronic (7) Ischemic cardiomyopathy Status: Chronic Comment: EF: 40% from 05/14/18; (8) Atherosclerosis of [place] coronary artery of [place] heart without angina pectoris Status: Chronic Comment: 10/03/2003 with MENDOZA to LAD, SVG to lateral circumflex, diagonal branch to the LAD and to distal RCA (9) PAOD (peripheral arterial occlusive disease) Status: Chronic (10) Benign essential hypertension Status: Chronic (11) Chronic obstructive lung disease Status: Chronic Qualifiers: COPD type: unspecified COPD Qualified Code(s): J44.9 - Chronic obstructive pulmonary disease, unspecified (12) Hyperlipidemia Status: Chronic Qualifiers: Hyperlipidemia type: pure hypercholesterolemia Qualified Code(s): E78.00 - Pure hypercholesterolemia, unspecified; E78.0 - Pure hypercholesterolemia History of Present Illness Date of Admission: 05/30/18 Chief Complaint: Chest pain The patient is a 82 y/o M w/ PMHx: Aortic valve stenosis, HTN, HLD, CAD s/p CABG x 4, Systolic CHF/Ischemic Cardiomyopathy, Diabetes mellitus type II, PVD, PAOD, Chronic COPD, BPH s/p TURP, Iron deficiency anemia, Former Tobacco use, Former Diabetic Foot Wounds now healed previously evaluated at [facility] who presents to the [facility] ED on 05/30/18 with history of being at Dr. Haddad office for routine evaluation/follow-up with onset substernal chest dull ache, not pressure or pain, rated 1-2/10 with no radiation with associated mild dyspnea, diaphoresis quickly resolving by the time patient was transitioned to the ED. He denies any recent URI, marked cough, congestion, fever or chills. He notes upon ED evaluation feeling at his baseline and appears comfortable. Work-up in the ED included T 97.4, heart rate 51, BP initially 81/49, respiratory rate 27, 97% on room air--> repeat blood pressure 101/48, respiratory rate 20, 100% on room air, comfortable with no dyspnea complaint at that time, he C with WBC 9.1, hemoglobin 9.6, platelet 282 without marked L shift, BMP w/ BUN/Cr 96/2.38, elevated from prior, glucose 162, LA 1.5, trop < 0.015, EKG w/ SB w/ LBBB. In the ED secondary to evidence of acute kidney injury, hypotension with recent admission with diuresis suspected hypovolemia therefore IV fluids administered in addition to aspirin 162 mg p.o. x1. Past Medical History Past Medical History (Chronic Problems): Chronic Problems (Last Reviewed 05/30/18 @ 08:22 by Consuelo Dickerson) Non-rheumatic tricuspid valve insufficiency (Chronic) Secondary pulmonary arterial hypertension (Chronic) History of implantable cardiac defibrillator (ICD) (Chronic) Chronic systolic (congestive) heart failure (Chronic) EF: 40% from 05/14/18 Paroxysmal atrial fibrillation (Chronic) Ischemic cardiomyopathy (Chronic) EF: 40% from 05/14/18; Atherosclerosis of [place] coronary artery of [place] heart without angina pectoris (Chronic) 10/03/2003 with MENDOZA to LAD, SVG to lateral circumflex, diagonal branch to the LAD and to distal RCA 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) Benign essential hypertension (Chronic) Chronic obstructive lung disease (Chronic) Hyperlipidemia (Chronic) Medical History: Medical History (Last Reviewed 05/30/18 @ 08:22 by Consuelo Dickerson) Non-rheumatic tricuspid valve insufficiency (Chronic) I36.1 Secondary pulmonary arterial hypertension (Chronic) I27.21 Chronic systolic (congestive) heart failure (Chronic) I50.22 EF: 40% from 05/14/18 Paroxysmal atrial fibrillation (Chronic) I48.0 Ischemic cardiomyopathy (Chronic) I25.5 EF: 40% from 05/14/18; Atherosclerosis of [place] coronary artery of [place] heart without angina pectoris (Chronic) I25.10 10/03/2003 with MENDOZA to LAD, SVG to lateral circumflex, diagonal branch to the LAD and to distal RCA Type 2 diabetes mellitus with diabetic polyneuropathy (Chronic) E11.42 PAOD (peripheral arterial occlusive disease) (Chronic) I77.9 Benign essential hypertension (Chronic) I10 Chronic obstructive lung disease (Chronic) J44.9 Hyperlipidemia (Chronic) E78.5 Acute kidney injury N17.9 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 BPH (benign prostatic hyperplasia) N40.0 Bladder outlet obstruction N32.0 Bladder outlet obstruction N32.0 Chronic diarrhea K52.9 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 Chronic ulcer of left ankle with fat layer exposed L97.322 Chronic ulcer of left foot with fat layer exposed L97.522 Chronic ulcer of right ankle with fat layer exposed L97.312 Chronic ulcer of right ankle with fat layer exposed L97.312 Chronic ulcer of right ankle with fat layer exposed L97.312 Chronic ulcer of right foot L97.519 Edema, lower extremity R60.0 Edema, lower extremity R60.0 FTT (failure to thrive) in adult R62.7 Infection due to Amber albicans B37.9 Infection due to Amber albicans B37.9 Malnutrition E46 Peripheral neuropathy G62.9 Peripheral neuropathy G62.9 Ulcer of left lower extremity with fat layer exposed L97.922 Ulcer of left lower extremity with fat layer exposed L97.922 Ulcer of right foot with fat layer exposed L97.512 Ulcer of right foot with fat layer exposed L97.512 Urinary retention R33.9 Venous (peripheral) insufficiency I87.2 Fall W19.XXXA UTI (urinary tract infection) N39.0 Ulcer of right foot with fat layer exposed L97.512 Weakness R53.1 Chronic ulcer of ankle (Inactive) L97.309 Non-rheumatic aortic stenosis (Inactive) I35.0 Peripheral vascular disease (Inactive) I73.9 Allergies Iodinated Contrast- Oral and IV Dye [Iodinated Contrast Media - IV Dye] Allergy (Verified 05/30/18 10:58) Other Home Medications: Ambulatory Orders Medication Instructions Recorded Loratadine [Claritin] 10 mg PO DAILY 10/30/13 Metoprolol Tartrate [Lopressor 50 mg PO BID 10/30/13 (beta melissa)] Clopidogrel Bisulfate [Plavix] 75 mg PO DAILY 02/04/16 Finasteride [Proscar] 5 mg PO DAILY tablet 07/13/16 Acetaminophen [Tylenol] 1,000 mg PO Q8H PRN #0 tab 08/22/16 Bisacodyl [Dulcolax] 10 mg RECTAL DAILY PRN #0 suppos. 08/22/16 Fluoxetine [Prozac] 20 mg PO DAILY cap 08/22/16 Ipratropium/Albuterol Sulfate 3 ml INHALATION Q4H.RT PRN #0 08/22/16 [Duoneb] ampul.neb Iron Polysaccharide Complex 150 mg PO DAILYCM cap 08/22/16 [Ferrex 150] Nutritional Supplement [Lloyd - 1 packet PO BIDCM packet 08/22/16 ORANGE FLAVOR] Polyethylene Glycol 3350 [Miralax] 17 gm PO DAILY packet 08/22/16 Senna/Docusate Sodium [Senokot-S] 2 tab PO BID tab 08/22/16 Albuterol Aerosols [Ventolin 2.5 mg INHALATION Q4H PRN PRN 05/13/18 Aerosols] Apixaban [Eliquis] 2.5 mg PO BID 05/13/18 Aspirin E.C. [Ecotrin] 81 mg PO DAILY@0800 05/13/18 Guaifenesin [Mucinex] 600 mg PO BID 05/13/18 Insulin Aspart [Novolog Flexpen] 10 units SUBCUT TIDAC 05/13/18 Insulin Detemir [Levemir FlexPen] 50 units SUBCUT DAILY 05/13/18 Lisinopril [Zestril] 20 mg PO DAILY 05/13/18 Metolazone [Zaroxolyn] 2.5 mg PO DAILY 05/13/18 Omeprazole [Prilosec] 20 mg PO DAILY 05/13/18 Tamsulosin HCl [Flomax] 0.4 mg PO DAILY 05/13/18 Amoxicillin [Amoxil] 500 mg PO Q12 #7 cap 05/17/18 Potassium Chloride [K-Dur] 40 meq PO DAILYCM #14 tab 05/17/18 furosemide 40 mg tablet 40 mg PO BID 05/30/18 Surgical History: Surgical History (Last Reviewed 05/30/18 @ 08:22 by Consuelo Dickerson) History of implantable cardiac defibrillator (ICD) (Chronic) Hx of CABG (Resolved) Onset Date: 10/03/03 10/03/2003 with MENDOZA to LAD, SVG to lateral circumflex, diagonal branch to the LAD and to distal RCA; History of transurethral resection of prostate Z98.890, Z90.79 History of left heart catheterization Onset Date: 12/02/10 Z98.890 Status post insertion of iliac artery stent Z95.828 Surgical History: coronary bypass surgery - x 4., pacemaker implantation, TURP, - - AICD, Back surgery, RLE stents per Dr. Castro. Psychiatric History: Anxiety, Depression Lives: Spouse/ Significant Other Smoking Status: Former smoker Tobacco Use: Non-smoker Alcohol: None Drugs: None - *Family History Paternal History Items: Heart Disease Maternal History Items: Diabetes Review of Systems Constitutional: Reports: Malaise, Weakness, Fatigue. Denies: Chills, Fever, Weight Change HEENT: Denies: Head Aches, Sinus Congestion, Sinus Drainage Cardiovascular: Reports: Chest Pain. Denies: Chest Pressure, Chest Tightness, Edema, Heaviness, Light Headedness, Palpitations Respiratory: Reports: Shortness of Breath, Shortness of breath at rest, Shortness of breath upon exertion. Denies: Cough, Sputum production, Wheezing Gastrointestinal: Denies: Abdominal Pain, Nausea, Vomiting Genitourinary: Denies: Dysuria Musculoskeletal: Denies: Joint Pain, Joint Tenderness Skin: Reports: Skin Changes. Denies: Rash, Wounds Neurological: Denies: Numbness, Tingling, Focal weakness Psychiatric: Reports: Anxiety, Depression. Denies: Homicidal Ideations, Suicidal Ideations Hematologic/ Lymphatic: Reports: Anemia. Denies: Easy Bruising, Easy Bleeding VTE Information - Inpt Only VTE Present on Admission: No VTE Mechan Device Prophylaxis: SCD's VTE Pharm Prophylaxis ordered?: No Reason prophylaxis not ordered:: Treatment Not Indicated - On eliquis. Subjective: Seated upright in the ED bed, comfortable appearing, no evidence dyspnea, denies any current chest pain, notes resolved since ED presentation. Objective: Physical Examination: General: awake, alert, oriented x 3 and cooperative, seated upright in the ED bed in no apparent distress, comfortable appearing, no respiratory distress, notes no current chest discomfort and states it has resolved since he presented to the ED. Skin: normal color, turgor, no icterus, cyanosis, occasional various staged ecchymoses to the extremities, bilateral lower extremity chronic venous stasis skin changes. HEENT: AT/NC, EOMI, PERRLA, dry MM, no carotid bruits or JVD noted. Lungs: Diminished breath sounds, greater bilateral bases, moderate effort, no rales, ronchi or wheezing. Heart: Bradycardiac with regular rhythm; no gallop, rub audible, SM. Abdomen: soft, overweight, NTTP, ND, normal BS, no HSM. Extremities: no cyanosis, clubbing, no marked edema to BL LE, see skin. Neurological: patient awake, alert, oriented x 3; cognitive function intact; pupils equally reactive to light and accomodation; cranial nerves II-XII grossly normal, moving all 4 extremities, no focal deficits, strength mildly globally decreased. Psychiatric: affect appears normal, no acute evidence of depressive or anxiety feelings. - Physical Exam Vital Signs Temp Pulse Resp BP Pulse Ox 97.4 F L 51 L 27 H 81/49 L 97 05/30/18 10:54 05/30/18 10:54 05/30/18 10:54 05/30/18 10:54 05/30/18 10:54 Oxygen Delivery Method Room Air Weight: 200 lb Body Mass Index (BMI) 27.1 Finger Stick Blood Glucose 134 Laboratory Tests Past 24 Hrs 05/30/18 05/30/18 05/30/18 11:00 11:00 11:29 WBC 9.1 RBC 3.17 L Hgb 9.6 L Hct 31.6 L MCV 99.7 H MCH 30.3 MCHC 30.4 L RDW 13.8 RDW Differential 50.0 H Plt Count 282 MPV 11.7 Immature Gran % (Auto) 0.200 Neut % (Auto) 73.2 H Lymph % (Auto) 10.3 L Bonner % (Auto) 12.2 H Eos % (Auto) 3.8 Baso % (Auto) 0.3 Absolute Neuts (auto) 6.7 Absolute Lymphs (auto) 0.94 Total Counted Not Reportable Sodium 140 Potassium 5.0 Chloride 102 Carbon Dioxide 28.0 Anion Gap 10 BUN 96 H Creatinine 2.38 H Estim Creat Clear Calc 25.81 Est GFR (MDRD) Af Amer 34 L Est GFR (MDRD) Non-Af 28 L BUN/Creatinine Ratio 40.3 H Glucose 162 H Lactic Acid Pending Calcium 9.3 Troponin I < 0.015 Assessment/Plan All Active Problems (Last Reviewed 05/30/18 @ 08:22 by Consuelo Dickerson) Dyspnea (Acute) Chest pain (Acute) Hx of CABG (Resolved 10/03/03) The patient is a 82 y/o M w/ PMHx: Aortic valve stenosis, HTN, HLD, CAD s/p CABG x 4, Systolic CHF/Ischemic Cardiomyopathy, Diabetes mellitus type II, PVD, PAOD, Chronic COPD, BPH s/p TURP, Iron deficiency anemia, Former Tobacco use, Former Diabetic Foot Wounds now healed previously evaluated at [facility] who presents to the [facility] ED on 05/30/18 with history of being at Dr. Haddad office for routine evaluation/follow-up with onset substernal chest dull ache, not pressure or pain, rated 1-2/10 with no radiation with associated mild dyspnea, diaphoresis quickly resolving by the time patient was transitioned to the ED. (1) Chest Pain: EKG in ED sinus bradycardia with left bundle branch block similar to prior, CXR w/ chronic changes with no acute findings, no evidence of congestion, initial trop <0.015. Will admit to PCU, place on a monitored bed to assure no acute myocardial infarction with serial cardiac enzymes and EKGs. Patient is unable to perform exercise thus will proceed with AM nuclear stress testing. ASA, NG, morphine. FLP in AM. Mag pending. (2) JOAQUINA on CKD stage III: Admission BUN/Cr 96/2.38 w/ recent discharge 05/28/18 BUN/Cr 94/2.09, increased from 05/25/18 BUN/Cr 101/1.85, prior baseline appears since 08/2017 now 1.4-1.8, likely worsening disease in setting of diuretic usage w/ CHF history, will gently hydrate given underlying CHF history, suspect overdiuresis with recent admission, hold nephrotoxic medications and repeat chemistry in AM. (3) CAD: s/p CABG x 4, maintain on asa, plavix, also on eliquis, not on statin therapy, unclear if intolerance, continue BB, holding ACEI as noted, following w/ Dr. Haddad. (4) Chronic Systolic CHF/Ischemic Cardiomyopathy: 05/14/18 ECHO w/ normal LV size, EF 40%, PAS P 74 mmHg, severe pulmonary hypertension, moderate segmental systolic dysfunction, noted to be similar to prior except > RV pressures, recent admission 05/13/18 w/ acute on chronic CHF exacerbation, likely JOAQUINA secondary to recent diuresis, temporarily holding diuretics and ACEI, continue BB, not on statin, unclear if intolerance, LUIS wraps, s/p pacemaker/AICD in place. (5) ? Recent Proteus UTI: Recent admission also w/ 05/23/18 UCx w/ > 100,000 Proteus, noted also present on UCx 04/12/18 and 10/11/17, possibly colonization and not acute infection, but unclear prior admission reasons. (6) ? PAF: Noted in history prior, maintained on eliquis, metoprolol, EKG ED w/ SR w/ LBBB. (7) Chronic COPD: Continue ATC duonebs, PRN albuterol, HOB, IS parameters. (8) Fe Deficiency Anemia: Admission Hgb 9.6, baseline Hgb 8-9, stable, repeat in AM, continue home Fe supplementation. (9) Diabetes mellitus type II: Continue home insulin regimen, ADA diet, accu checks w/ ISS. (10) Hypertension: Continue home regimen including metoprolol, holding Lasix, lisinopril, as well as metolazone, PRN hydralazine. (11) PAOD, PVD: Prior stent RLE per Dr. Castro w/ history of prior diabetic foot wound, healed, previously following at [facility], maintain on asa, plavix, also on eliquis which he notes Dr. Castro initiated although chart history noting also PAF, not on statin, unclear if tolerance, BP regimen with alterations as noted, encouraged DM regimen and diet compliance. (12) Anxiety and Depression: Continue home prozac regimen; however, if renal functions worsened may need to hold or decrease dose. (13) Chronic Constipation: Continue home aggressive bowel regimen, hold if loose stools. (14) Former Tobacco use: Encouraged continued cessation. (15) GERD: PPI. (16) BPH: Continue home flomax and proscar regimen. (17) DVT Prophylaxis: SCDs, eliquis. (18) CODE status: Discussed CODE status at length including difference between FULL code, DNR-CCA and DNR-CC status. Following discussions about the differences in these status, requested DNR-CCA, no intubation status. DNR-CCA, no intubation form signed and placed on the chart. is HPCOA, notes living will in place. Advanced Care Planning Face to Face Time: 16 minutes. Code Visit OBSV E&M: 70070 Initial observation care L3 Procedures: 04204 Advncd Care Plan 30 Min
--- NOTE | 2018-05-30 12:02 | NURSING ---
DR GASTON FOR DR DONAHUE
--- NOTE | 2018-05-30 12:09 | NURSING ---
119 CP, JOAQUINA, HYPOTENSION, DEHYDRATION OBS WHITE
--- NOTE | 2018-05-30 12:11 | HP.PCM_ITS ---
Problem List (1) Chest pain Status: Acute Qualifiers: Chest pain type: unspecified Qualified Code(s): R07.9 - Chest pain, unspecified (2) Non-rheumatic tricuspid valve insufficiency Status: Chronic (3) Secondary pulmonary arterial hypertension Status: Chronic (4) History of implantable cardiac defibrillator (ICD) Status: Chronic (5) Chronic systolic (congestive) heart failure Status: Chronic Comment: EF: 40% from 05/14/18 (6) Paroxysmal atrial fibrillation Status: Chronic (7) Ischemic cardiomyopathy Status: Chronic Comment: EF: 40% from 05/14/18; (8) Atherosclerosis of [place] coronary artery of [place] heart without angina pectoris Status: Chronic Comment: 10/03/2003 with MENDOZA to LAD, SVG to lateral circumflex, diagonal branch to the LAD and to distal RCA (9) PAOD (peripheral arterial occlusive disease) Status: Chronic (10) Benign essential hypertension Status: Chronic (11) Chronic obstructive lung disease Status: Chronic Qualifiers: COPD type: unspecified COPD Qualified Code(s): J44.9 - Chronic obstructive pulmonary disease, unspecified (12) Hyperlipidemia Status: Chronic Qualifiers: Hyperlipidemia type: pure hypercholesterolemia Qualified Code(s): E78.00 - Pure hypercholesterolemia, unspecified; E78.0 - Pure hypercholesterolemia History of Present Illness Date of Admission: 05/30/18 Chief Complaint: Chest pain The patient is a 82 y/o M w/ PMHx: Aortic valve stenosis, HTN, HLD, CAD s/p CABG x 4, Systolic CHF/Ischemic Cardiomyopathy, Diabetes mellitus type II, PVD, PAOD, Chronic COPD, BPH s/p TURP, Iron deficiency anemia, Former Tobacco use, Former Diabetic Foot Wounds now healed previously evaluated at [facility] who presents to the [facility] ED on 05/30/18 with history of being at Dr. Haddad office for routine evaluation/follow-up with onset substernal chest dull ache, not pressure or pain, rated 1-2/10 with no radiation with associated mild dyspnea, diaphoresis quickly resolving by the time patient was transitioned to the ED. He denies any recent URI, marked cough, congestion, fever or chills. He notes upon ED evaluation feeling at his baseline and appears comfortable. Work-up in the ED included T 97.4, heart rate 51, BP initially 81/49, respiratory rate 27, 97% on room air--> repeat blood pressure 101/48, respiratory rate 20, 100% on room air, comfortable with no dyspnea complaint at that time, he C with WBC 9.1, hemoglo bin 9.6, platelet 282 without marked L shift, BMP w/ BUN/Cr 96/2.38, elevated from prior, glucose 162, LA 1.5, trop < 0.015, EKG w/ SB w/ LBBB. In the ED secondary to evidence of acute kidney injury, hypotension with recent admission with diuresis suspected hypovolemia therefore IV fluids administered in addition to aspirin 162 mg p.o. x1. Past Medical History Past Medical History (Chronic Problems): Chronic Problems (Last Reviewed 05/30/18 @ 08:22 by Consuelo Dickerson) Non-rheumatic tricuspid valve insufficiency (Chronic) Secondary pulmonary arterial hypertension (Chronic) History of implantable cardiac defibrillator (ICD) (Chronic) Chronic systolic (congestive) heart failure (Chronic) EF: 40% from 05/14/18 Paroxysmal atrial fibrillation (Chronic) Ischemic cardiomyopathy (Chronic) EF: 40% from 05/14/18; Atherosclerosis of [place] coronary artery of [place] heart without angina pectoris (Chronic) 10/03/2003 with MENDOZA to LAD, SVG to lateral circumflex, diagonal branch to the LAD and to distal RCA 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) Benign essential hypertension (Chronic) Chronic obstructive lung disease (Chronic) Hyperlipidemia (Chronic) Medical History: Medical History (Last Reviewed 05/30/18 @ 08:22 by Consuelo Dickerson) Non-rheumatic tricuspid valve insufficiency (Chronic) I36.1 Secondary pulmonary arterial hypertension (Chronic) I27.21 Chronic systolic (congestive) heart failure (Chronic) I50.22 EF: 40% from 05/14/18 Paroxysmal atrial fibrillation (Chronic) I48.0 Ischemic cardiomyopathy (Chronic) I25.5 EF: 40% from 05/14/18; Atherosclerosis of [place] coronary artery of [place] heart without angina pectoris (Chronic) I25.10 10/03/2003 with MENDOZA to LAD, SVG to lateral circumflex, diagonal branch to the LAD and to distal RCA Type 2 diabetes mellitus with diabetic polyneuropathy (Chronic) E11.42 PAOD (peripheral arterial occlusive disease) (Chronic) I77.9 Benign essential hypertension (Chronic) I10 Chronic obstructive lung disease (Chronic) J44.9 Hyperlipidemia (Chronic) E78.5 Acute kidney injury N17.9 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 BPH (benign prostatic hyperplasia) N40.0 Bladder outlet obstruction N32.0 Bladder outlet obstruction N32.0 Chronic diarrhea K52.9 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 Chronic ulcer of left ankle with fat layer exposed L97.322 Chronic ulcer of left foot with fat layer exposed L97.522 Chronic ulcer of right ankle with fat layer exposed L97.312 Chronic ulcer of right ankle with fat layer exposed L97.312 Chronic ulcer of right ankle with fat layer exposed L97.312 Chronic ulcer of right foot L97.519 Edema, lower extremity R60.0 Edema, lower extremity R60.0 FTT (failure to thrive) in adult R62.7 Infection due to Amber albicans B37.9 Infection due to Amber albicans B37.9 Malnutrition E46 Peripheral neuropathy G62.9 Peripheral neuropathy G62.9 Ulcer of left lower extremity with fat layer exposed L97.922 Ulcer of left lower extremity with fat layer exposed L97.922 Ulcer of right foot with fat layer exposed L97.512 Ulcer of right foot with fat layer exposed L97.512 Urinary retention R33.9 Venous (peripheral) insufficiency I87.2 Fall W19.XXXA UTI (urinary tract infection) N39.0 Ulcer of right foot with fat layer exposed L97.512 Weakness R53.1 Chronic ulcer of ankle (Inactive) L97.309 Non-rheumatic aortic stenosis (Inactive) I35.0 Peripheral vascular disease (Inactive) I73.9 Allergies Iodinated Contrast- Oral and IV Dye [Iodinated Contrast Media - IV Dye] Allergy (Verified 05/30/18 10:58) Other Home Medications: Ambulatory Orders Medication Instructions Recorded Loratadine [Claritin] 10 mg PO DAILY 10/30/13 Metoprolol Tartrate [Lopressor 50 mg PO BID 10/30/13 (beta melissa)] Clopidogrel Bisulfate [Plavix] 75 mg PO DAILY 02/04/16 Finasteride [Proscar] 5 mg PO DAILY tablet 07/13/16 Acetaminophen [Tylenol] 1,000 mg PO Q8H PRN #0 tab 08/22/16 Bisacodyl [Dulcolax] 10 mg RECTAL DAILY PRN #0 suppos. 04/24/17 Fluoxetine [Prozac] 20 mg PO DAILY cap 08/22/16 Ipratropium/Albuterol Sulfate 3 ml INHALATION Q4H.RT PRN #0 08/22/16 [Duoneb] ampul.neb Iron Polysaccharide Complex 150 mg PO DAILYCM cap 08/22/16 [Ferrex 150] Nutritional Supplement [Lloyd - 1 packet PO BIDCM packet 08/22/16 ORANGE FLAVOR] Polyethylene Glycol 3350 [Miralax] 17 gm PO DAILY packet 08/22/16 Senna/Docusate Sodium [Senokot-S] 2 tab PO BID tab 08/22/16 Albuterol Aerosols [Ventolin 2.5 mg INHALATION Q4H PRN PRN 05/13/18 Aerosols] Apixaban [Eliquis] 2.5 mg PO BID 05/13/18 Aspirin E.C. [Ecotrin] 81 mg PO DAILY@0800 05/13/18 Guaifenesin [Mucinex] 600 mg PO BID 05/13/18 Insulin Aspart [Novolog Flexpen] 10 units SUBCUT TIDAC 05/13/18 Insulin Detemir [Levemir FlexPen] 50 units SUBCUT DAILY 05/13/18 Lisinopril [Zestril] 20 mg PO DAILY 05/13/18 Metolazone [Zaroxolyn] 2.5 mg PO DAILY 05/13/18 Omeprazole [Prilosec] 20 mg PO DAILY 05/13/18 Tamsulosin HCl [Flomax] 0.4 mg PO DAILY 05/13/18 Amoxicillin [Amoxil] 500 mg PO Q12 #7 cap 05/17/18 Potassium Chloride [K-Dur] 40 meq PO DAILYCM #14 tab 05/17/18 furosemide 40 mg tablet 40 mg PO BID 05/30/18 Surgical History: Surgical History (Last Reviewed 05/30/18 @ 08:22 by Consuelo Dickerson) History of implantable cardiac defibrillator (ICD) (Chronic) Hx of CABG (Resolved) Onset Date: 10/03/03 10/03/2003 with MENDOZA to LAD, SVG to lateral circumflex, diagonal branch to the LAD and to distal RCA; History of transurethral resection of prostate Z98.890, Z90.79 History of left heart catheterization Onset Date: 12/02/10 Z98.890 Status post insertion of iliac artery stent Z95.828 Surgical History: coronary bypass surgery - x 4., pacemaker implantation, TURP, - - AICD, Back surgery, RLE stents per Dr. Castro. Psychiatric History: Anxiety, Depression Lives: Spouse/ Significant Other Smoking Status: Former smoker Tobacco Use: Non-smoker Alcohol: None Drugs: None - *Family History Paternal History Items: Heart Disease Maternal History Items: Diabetes Review of Systems Constitutional: Reports: Malaise, Weakness, Fatigue. Denies: Chills, Fever, Weight Change HEENT: Denies: Head Aches, Sinus Congestion, Sinus Drainage Cardiovascular: Reports: Chest Pain. Denies: Chest Pressure, Chest Tightness, Edema, Heaviness, Light Headedness, Palpitations Respiratory: Reports: Shortness of Breath, Shortness of breath at rest, Shortnes s of breath upon exertion. Denies: Cough, Sputum production, Wheezing Gastrointestinal: Denies: Abdominal Pain, Nausea, Vomiting Genitourinary: Denies: Dysuria Musculoskeletal: Denies: Joint Pain, Joint Tenderness Skin: Reports: Skin Changes. Denies: Rash, Wounds Neurological: Denies: Numbness, Tingling, Focal weakness Psychiatric: Reports: Anxiety, Depression. Denies: Homicidal Ideations, Suicidal Ideations Hematologic/ Lymphatic: Reports: Anemia. Denies: Easy Bruising, Easy Bleeding VTE Information - Inpt Only VTE Present on Admission: No VTE Mechan Device Prophylaxis: SCD's VTE Pharm Prophylaxis ordered?: No Reason prophylaxis not ordered:: Treatment Not Indicated - On eliquis. Subjective: Seated upright in the ED bed, comfortable appearing, no evidence dyspnea, denies any current chest pain, notes resolved since ED presentation. Objective: Physical Examination: General: awake, alert, oriented x 3 and cooperative, seated upright in the ED bed in no apparent distress, comfortable appearing, no respiratory distress, notes no current chest discomfort and states it has resolved since he presented to the ED. Skin: normal color, turgor, no icterus, cyanosis, occasional various staged ecchymoses to the extremities, bilateral lower extremity chronic venous stasis skin changes. HEENT: AT/NC, EOMI, PERRLA, dry MM, no carotid bruits or JVD noted. Lungs: Diminished breath sounds, greater bilateral bases, moderate effort, no rales, ronchi or wheezing. Heart: Bradycardiac with regular rhythm; no gallop, rub audible, SM. Abdomen: soft, overweight, NTTP, ND, normal BS, no HSM. Extremities: no cyanosis, clubbing, no marked edema to BL LE, see skin. Neurological: patient awake, alert, oriented x 3; cognitive function intact; pupils equally reactive to light and accomodation; cranial nerves II-XII grossly normal, moving all 4 extremities, no focal deficits, strength mildly globally decreased. Psychiatric: affect appears normal, no acute evidence of depressive or anxiety feelings. - Physical Exam Vital Signs Temp Pulse Resp BP Pulse Ox 97.4 F L 51 L 27 H 81/49 L 97 05/30/18 10:54 05/30/18 10:54 05/30/18 10:54 05/30/18 10:54 05/30/18 10:54 Oxygen Delivery Method Room Air Weight: 200 lb Body Mass Index (BMI) 27.1 Finger Stick Blood Glucose 134 Laboratory Tests Past 24 Hrs 05/30/18 05/30/18 05/30/18 11:00 11:00 11:29 WBC 9.1 RBC 3.17 L Hgb 9.6 L Hct 31.6 L MCV 99.7 H MCH 30.3 MCHC 30.4 L RDW 13.8 RDW Differential 50.0 H Plt Count 282 MPV 11.7 Immature Gran % (Auto) 0.200 Neut % (Auto) 73.2 H Lymph % (Auto) 10.3 L [place] % (Auto) 12.2 H Eos % (Auto) 3.8 Baso % (Auto) 0.3 Absolute Neuts (auto) 6.7 Absolute Lymphs (auto) 0.94 Total Counted Not Reportable Sodium 140 Potassium 5.0 Chloride 102 Carbon Dioxide 28.0 Anion Gap 10 BUN 96 H Creatinine 2.38 H Estim Creat Clear Calc 25.81 Est GFR (MDRD) Af Amer 34 L Est GFR (MDRD) Non-Af 28 L BUN/Creatinine Ratio 40.3 H Glucose 162 H Lactic Acid Pending Calcium 9.3 Troponin I < 0.015 Assessment/Plan All Active Problems (Last Reviewed 05/30/18 @ 08:22 by Consuelo Dickerson) Dyspnea (Acute) Chest pain (Acute) Hx of CABG (Resolved 10/03/03) The patient is a 82 y/o M w/ PMHx: Aortic valve stenosis, HTN, HLD, CAD s/p CABG x 4, Systolic CHF/Ischemic Cardiomyopathy, Diabetes mellitus type II, PVD, PAOD, Chronic COPD, BPH s/p TURP, Iron deficiency anemia, Former Tobacco use, Former Diabetic Foot Wounds now healed previously evaluated at [facility] who presents to the [facility] ED on 05/30/18 with history of being at Dr. Haddad office for routine evaluation/follow-up with onset substernal chest dull ache, not pressure or pain, rated 1-2/10 with no radiation with associated mild dyspnea, diaphoresis quickly resolving by the time patient was transitioned to the ED. (1) Chest Pain: EKG in ED sinus bradycardia with left bundle branch block similar to prior, CXR w/ chronic changes with no acute findings, no evidence of congestion, initial trop <0.015. Will admit to PCU, place on a monitored bed to assure no acute myocardial infarction with serial cardiac enzymes and EKGs. Patient is unable to perform exercise thus will proceed with AM nuclear stress testing. ASA, NG, morphine. FLP in AM. Mag pending. (2) JOAQUINA on CKD stage III: Admission BUN/Cr 96/2.38 w/ recent discharge 05/28/18 BUN/Cr 94/2.09, increased from 05/25/18 BUN/Cr 101/1.85, prior baseline appears since 08/2017 now 1.4-1.8, likely worsening disease in setting of diuretic usage w/ CHF history, will gently hydrate given underlying CHF history, suspect overdiuresis with recent admission, hold nephrotoxic medications and repeat chemistry in AM. (3) CAD: s/p CABG x 4, maintain on asa, plavix, also on eliquis, not on statin therapy, unclear if intolerance, continue BB, holding ACEI as noted, following w/ Dr. Haddad. (4) Chronic Systolic CHF/Ischemic Cardiomyopathy: 05/14/18 ECHO w/ normal LV size, EF 40%, PAS P 74 mmHg, severe pulmonary hypertension, moderate segmental systolic dysfunction, noted to be similar to prior except > RV pressures, recent admission 05/13/18 w/ acute on chronic CHF exacerbation, likely JOAQUINA secondary to recent diuresis, temporarily holding diuretics and ACEI, continue BB, not on statin, unclear if intolerance, LUIS wraps, s/p pacemaker/AICD in place. (5) ? Recent Proteus UTI: Recent admission also w/ 05/23/18 UCx w/ > 100,000 Proteus, noted also present on UCx 04/12/18 and 10/11/17, possibly colonization and not acute infection, but unclear prior admission reasons. (6) ? PAF: Noted in history prior, maintained on eliquis, metoprolol, EKG ED w/ SR w/ LBBB. (7) Chronic COPD: Continue ATC duonebs, PRN albuterol, HOB, IS parameters. (8) Fe Deficiency Anemia: Admission Hgb 9.6, baseline Hgb 8-9, stable, repeat in AM, continue home Fe supplementation. (9) Diabetes mellitus type II: Continue home insulin regimen, ADA diet, accu checks w/ ISS. (10) Hypertension: Continue home regimen including metoprolol, holding Lasix, lisinopril, as well as metolazone, PRN hydralazine. (11) PAOD, PVD: Prior stent RLE per Dr. Castro w/ history of prior diabetic foot wound, healed, previously following at [facility], maintain on asa, plavix, also on eliquis which he notes Dr. Castro initiated although chart history noting also PAF, not on statin, unclear if tolerance, BP regimen with alterations as noted, encouraged DM regimen and diet compliance. (12) Anxiety and Depression: Continue home prozac regimen; however, if renal functions worsened may need to hold or decrease dose. (13) Chronic Constipation: Continue home aggressive bowel regimen, hold if loose stools. (14) Former Tobacco use: Encouraged continued cessation. (15) GERD: PPI. (16) BPH: Continue home flomax and proscar regimen. (17) DVT Prophylaxis: SCDs, eliquis. (18) CODE status: Discussed CODE status at length including difference between FULL code, DNR-CCA and DNR-CC status. Following discussions about the differences in these status, requested DNR-CCA, no intubation status. DNR-CCA, no intubation form signed and placed on the chart. is HPCOA, notes living will in place. Advanced Care Planning Face to Face Time: 16 minutes. Code Visit OBSV E&M: 45703 Initial observation care L3 Procedures: 33732 Advncd Care Plan 30 Min
[2018-05-30 12:14] LABS: Lactic Acid 1.5 mmol/L (0.4-2.0)
--- NOTE | 2018-05-30 12:40 | EKG12_ITS ---
Test Reason : CHEST PAIN Blood Pressure : / mmHG Vent. Rate : 054 BPM Atrial Rate : 054 BPM P-R Int : 236 ms QRS Dur : 136 ms QT Int : 484 ms P-R-T Axes : 056 -39 -07 degrees QTc Int : 458 ms Sinus bradycardia with 1st degree A-V block Left axis deviation Left bundle branch block Abnormal ECG When compared with ECG of 30-MAY-2018 10:53, MANUAL COMPARISON REQUIRED, DATA IS UNCONFIRMED Confirmed by MARIELENA WOODWARD, REGGIE ([id number]), brands editor EUGENE MARRUFO ([id number]) on 06/05/2018 9:04:25 AM Referred By: ALEK Confirmed By:REGGIE PEGUERO MD
[2018-05-30 12:57] LABS: Magnesium 3.2 mg/dL (1.6-2.6)
[2018-05-30 13:46] LABS: Bedside Glucose 179 mg/dL (70-110)
[2018-05-30] MEDS: 0.9% Normal Saline 1,000 ML 100 ML IV (14:26)
--- NOTE | 2018-05-30 15:48 | CASEMGMT ---
Social Work SW met with pt in room. Pt confirms he has been a resident of [facility] for the past two years and will return there upon discharge from the hospital. Clinical update faxed to Reyna at [facility]. Plan: [facility], when medically ready BERT Foster
[2018-05-30] MEDS: Insulin Lispro 100 UNIT/ML INSULN.PEN SC ×2 (17:20→22:22)
[2018-05-30] MEDS: Insulin Lispro 100 UNIT/ML INSULN.PEN 10 UNIT SC (17:20)
[2018-05-30 17:40] LABS: Bedside Glucose 252 mg/dL (70-110)
[2018-05-30] MEDS: Ipratropium/Albuterol Sulfate 3 ML AMPUL.NEB INHALATION (19:00)
[2018-05-30] MEDS: APIXABAN 2.5 MG TABLET PO (22:21)
[2018-05-30] MEDS: Metoprolol Tartrate 50 MG Tablet PO (22:21)
[2018-05-30] MEDS: Senna/Docusate Sodium 1 Tablet 2 TABLET PO (22:21)
[2018-05-30 22:31] LABS: Bedside Glucose 280 mg/dL (70-110)
[2018-05-31] VITALS (9 sets, daily range): BP systolic 110–149; BP diastolic 55–104; PULSE 62–71; RESP 18–20; TEMP 36.6–36.8; O2SAT 96–99
[2018-05-31] MEDS: 0.9% Normal Saline 1,000 ML 100 ML IV
[2018-05-31 03:59] LABS: Hematocrit 27.6 % (40-54); Hemoglobin 8.6 g/dl (13.0-16.5); Mean Corp Hgb Conc 31.2 g/gl (32-36); Mean Corpuscular Hgb 30.9 pg (27.0-32.0); Mean Corpuscular Volume 99.3 fL (80-94); Mean Platelet Vol. 11.6 fl (6.2-12.0); Platelet Count 202 K/mm3 (150-450); RBC Distribution Width CV 13.2 % (11.6-14.6); RBC Distribution Width SD 46.1 fl (35.1-43.9); Red Blood Count 2.78 M/mm3 (4.6-6.2); Scan Indicated on CBC? Y/N NO; White Blood Count 6.6 K/mm3 (4.4-11.0)
[2018-05-31 04:04] LABS: International Normalized Ratio 1.3; Prothrombin Time (Protime)PT. 15.9 SECONDS (11.7-14.9)
[2018-05-31 04:05] LABS: Partial Thromboplast Time 40.6 Seconds (24.1-36.2)
[2018-05-31 04:13] LABS: ALB/GLOB Ratio 0.8 RATIO (0.9-2.4); AST(SGOT) 13 U/L (15-37); Alanine Aminotransfer ALT/SGPT 24 U/L (16-61); Albumin, Serum 2.8 g/dL (3.2-5.0); Alkaline Phosphatase 77 U/L (45-117); Anion Gap 10 (5-15); BUN 76 mg/dL (7-18); BUN/Creat Ratio 45.5 RATIO (10-20); Calcium,Total 8.3 mg/dL (8.5-10.1); Chloride 108 mmol/L (98-107); Cholesterol 136 mg/dL (200); Creatinine, Serum 1.67 mg/dL (0.70-1.30); EST Glomerular Filtration Rate 42 mL/min (>60); Est Glom Filt Rate - Afr Amer 51 mL/min (>60); Estimated Creatinine Clearance 36.79 ml/min; Globulin 3.7 g/dL (2.2-4.2); Glucose 197 mg/dL (74-106); High Density Lipoprotein 29 mg/dL; Potassium 4.6 mmol/L (3.5-5.1); Protein, Total 6.5 g/dL (6.4-8.2); Sodium Level 142 mmol/L (136-145); Triglycerides 140 mg/dL; Very Low Density Lipoprotein 28 mg/dL (5-40)
--- NOTE | 2018-05-31 05:55 | EKG12_ITS ---
Test Reason : AM Blood Pressure : / mmHG Vent. Rate : 070 BPM Atrial Rate : 070 BPM P-R Int : 000 ms QRS Dur : 132 ms QT Int : 430 ms P-R-T Axes : 000 -44 027 degrees QTc Int : 464 ms Atrial fibrillation Left axis deviation Left bundle branch block Abnormal ECG When compared with ECG of 30-MAY-2018 12:57, MANUAL COMPARISON REQUIRED, DATA IS UNCONFIRMED Confirmed by MARIELENA WOODWARD, REGGIE ([id number]), greeting card editor EUGENE MARRUFO ([id number]) on 06/05/2018 9:02:01 AM Referred By: ALEK Confirmed By:REGGIE PEGUERO MD
[2018-05-31] MEDS: Clopidogrel Bisulfate 75 MG Tablet PO (06:26)
[2018-05-31] MEDS: Aspirin E.C. 81 MG Tablet PO (06:26)
[2018-05-31 07:00] LABS: Bedside Glucose 145 mg/dL (70-110)
[2018-05-31] MEDS: Ipratropium/Albuterol Sulfate 3 ML AMPUL.NEB INHALATION (07:52)
[2018-05-31 13:16] LABS: Bedside Glucose 174 mg/dL (70-110)
[2018-05-31] MEDS: Loratadine 10 MG Tablet PO (13:21)
[2018-05-31] MEDS: Tamsulosin HCl 0.4 MG Capsule PO (13:21)
[2018-05-31] MEDS: FLUoxetine 20 MG Capsule PO (13:21)
[2018-05-31] MEDS: Senna/Docusate Sodium 1 Tablet 2 TABLET PO (13:22)
[2018-05-31] MEDS: Pantoprazole Sodium 20 MG Tablet PO (13:22)
[2018-05-31] MEDS: Metoprolol Tartrate 50 MG Tablet PO (13:23)
[2018-05-31] MEDS: Iron Polysaccharide Complex 150 MG CAPSULE PO (13:23)
[2018-05-31] MEDS: Finasteride 5 MG Tablet PO (13:24)
--- NOTE | 2018-05-31 13:54 | STRESSREP_ITS ---
Stress Test Report Date: 05/31/2018 Procedure: Pharmacologic stress nuclear imaging study Indications: Chest pain; CAD; CABG; atrial fibrillation Consent: Per the patient Procedure: The patient underwent pharmacologic (regadenoson) evaluation with a peak heart rate of 79 beats per minute (57% predicted maximal heart rate) with a peak blood pressure 104/62 mmHg. The baseline ECG demonstrated underlying sinus rhythm with a nonspecific IVCD pattern. The peak pharmacological ECG demonstrated no obvious ECG changes. There were occasional PVCs during recovery. There was no report of chest discomfort during pharmacologic infusion or recovery. The examination was discontinued secondary to completion of protocol. Impression: 1. Pharmacologic (regadenoson) evaluation 2. Peak pharmacologic ECG with continued nonspecific IVCD pattern with no obvious ECG changes 3. No cardiac dysrhythmias pretest or during infusion with occasional PVCs during recovery 4. Nuclear images pending Myocardial perfusion imaging study: Technique: The patient was injected with 14.3 mci of technetium 99 M Cardiolite and subsequently respect Cardiolite nuclear imaging was obtained in the horizontal long, vertical long, and short axis views. The patient underwent pharmacologic (regadenoson) evaluation with a peak heart rate of 79 beats per minute (57% predicted maximal heart rate) with a peak blood pressure 104/62 mmHg. The patient was injected with 42.5 mci of technetium-99m Cardiolite and subsequent stress SPECT Cardiolite nuclear imaging was obtained in the horizontal long, vertical, and short axis views. A gated Cardiolite study at peak stress was not obtained. Interpretation: Rest and stress SPECT Cardiolite nuclear imaging status post realignment, no rmalization, and attenuation correction appears demonstrate areas of extra cardiac/gastrointestinal tracer uptake near the inferior segments. Otherwise there appears to be relative uniform tracer uptake. A gated Cardiolite study at peak stress was not obtained. Impression: 1. Rest and stress but Cardiolite nuclear imaging demonstrates the appearance of relative uniform tracer uptake and myocardial perfusion appearing within normal limits. 2. A gated Cardiolite study at peak stress was not obtained. This note was generated using a voice recognition system and there may be incorrect words, spelling or punctuation that were not noted when reviewing the office note prior to saving.
--- NOTE | 2018-05-31 14:00 | PCM.TXEXTCAR ---
- Diet 05/31/18 10:13 Diet: Cardiac: Calorie-Controlled Food consistency:: Regular Liquid Consistency:: Regular/Thin Type of Dietary Supplement:: Glucerna Shake TID Is pt able to select menu?: Yes How many daily calories?: 1800 calorie - Routine Orders/Code Status Enema Type: Fleetz Enema Frequency: Daily PRN Suppository Type: Dulcolax 10mg Suppository Frequency: Daily PRN Keep PO Greater than or Equal to (%): 92 Routine Lab Work: - - Repeat CBC, BMP within 1 week. Code Status: DNRCC-A - DNR-CCA, no intubation. - Suggestions for Active Care Change Position every (hours): 2 Hours to sit in a chair: 6 Times a day to sit in chair: 3 - Therapies Weight Bearing: Weight bearing as tolerated Physical Therapy: Eval and Treat Occupational Therapy: Eval and Treat - Problem/Diagnosis (1) Chest pain Status: Acute Current Visit: No (2) JOAQUINA (acute kidney injury) Status: Acute Current Visit: Yes (3) Non-rheumatic tricuspid valve insufficiency Status: Chronic Current Visit: No (4) Secondary pulmonary arterial hypertension Status: Chronic Current Visit: No (5) History of implantable cardiac defibrillator (ICD) Status: Chronic Current Visit: No (6) Chronic systolic (congestive) heart failure Status: Chronic Comment: EF: 40% from 05/14/18 Current Visit: No (7) Paroxysmal atrial fibrillation Status: Chronic Current Visit: No (8) Ischemic cardiomyopathy Status: Chronic Comment: EF: 40% from 05/14/18; Current Visit: No (9) Atherosclerosis of [place] coronary artery of [place] heart without angina pectoris Status: Chronic Comment: 10/03/2003 with MENDOZA to LAD, SVG to lateral circumflex, diagonal branch to the LAD and to distal RCA Current Visit: No (10) PAOD (peripheral arterial occlusive disease) Status: Chronic Current Visit: No (11) Benign essential hypertension Status: Chronic Current Visit: No (12) Chronic obstructive lung disease Status: Chronic Current Visit: No (13) Hyperlipidemia Status: Chronic Current Visit: No (14) CKD (chronic kidney disease) Status: Chronic Current Visit: Yes - Allergies/Procedures Done in Hospital Allergies/Adverse Reactions: Allergies Iodinated Contrast- Oral and IV Dye [Iodinated Contrast Media - IV Dye] Allergy (Verified 05/30/18 10:58) Other Procedures: EKG, Stress Test - Type of Care/Length of Stay Estimated LOS: More Than 30 Days Type of Care Needed: Skilled Rehab Potential: Good Prognosis: Good - Additional Orders/Day of Discharge Additional Orders: (1) HOB. (2) IS 10x/hr 7a-7p. (3) Fall and Aspiration precautions. (4) Please have repeat labs as noted to assure acute kidney injury resolved. If repeat BMP with worsening function again please contact Dr. Haddad to alter patient diuretic regimen and possible his ACEI also. (5) Unclear stop date on patient amoxicillin for your facility noted recent UTI, please verify the stop date on this medication. H&P will serve as current which was dated: 05/30/18 Day of Discharge: 05/31/18 - Dietary and Speech Recommendations Dietitian Recommendations/Changes: Rec diet change to CHO controlled, cardiac, low sodium. - Follow Up Care Primary Care Physician: Xavier Cohen MD [Primary Care Provider] - Please follow up with your Primary Care Physician in: Follow-up within 3-5 days discharge to SNF. Please Follow Up With: Gilmar Haddad MD When: Please call office to re-arrange visit.
--- NOTE | 2018-05-31 14:01 | CASEMGMT ---
MIGUEL called Reyna and left her a message letting her know patient will likely be returning today. Felicita URBAN MSW
--- NOTE | 2018-05-31 14:11 | PCM.DC.SUM ---
Discharge Date and Diagnosis - Problem List Patient Problems: Active and Suspected Problems (Last Reviewed 05/30/18 @ 08:22 by Consuelo Dickerson) JOAQUINA (acute kidney injury) (Acute) Date of Admission: 05/30/18 Date of Discharge: 05/31/18 - Primary Discharge Diagnosis Active and Suspected Problems (Last Reviewed 05/30/18 @ 08:22 by Consuelo Dickerson) (1) Chest Pain, Suspected Non-cardiac, Unclear Exact Etiology (negative stress testing, unremarkable cardiac enzymes) (2) JOAQUINA on CKD stage III, Possible secondary to recent diuresis w/ CHF exacerbation (3) CAD s/p CABG x 4 (4) Chronic Systolic CHF/Ischemic Cardiomyopathy (5) ? Recent Proteus UTI, Recent admission also w/ 05/23/18 UCx w/ > 100,000 Proteus, noted also present on UCx 04/12/18 and 10/11/17, possibly colonization (6) ? PAF (7) Chronic COPD (8) Fe Deficiency Anemia (9) Diabetes mellitus type II (10) Hypertension (11) PAOD, PVD (12) Anxiety and Depression (13) Chronic Constipation (14) Former Tobacco use (15) GERD (16) BPH (17) CODE status: DNR-CCA, no intubation status. - Secondary Discharge Diagnosis Chronic Problems (Last Reviewed 05/30/18 @ 08:22 by Consuelo Dickerson) CKD (chronic kidney disease) (Chronic) Non-rheumatic tricuspid valve insufficiency (Chronic) Secondary pulmonary arterial hypertension (Chronic) History of implantable cardiac defibrillator (ICD) (Chronic) Chronic systolic (congestive) heart failure (Chronic) EF: 40% from 05/14/18 Paroxysmal atrial fibrillation (Chronic) Ischemic cardiomyopathy (Chronic) EF: 40% from 05/14/18; Atherosclerosis of [place] coronary artery of [place] heart without angina pectoris (Chronic) 10/03/2003 with MENDOZA to LAD, SVG to lateral circumflex, diagonal branch to the LAD and to distal RCA 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) Benign essential hypertension (Chronic) Chronic obstructive lung disease (Chronic) Hyperlipidemia (Chronic) Hospital Course and Treatment Imaging Results: 05/31/18 10:27 Nuclear Stress Test - Chemical [NM] Routine Operations: None Procedures: EKG, Stress test Summary of Care Provided: The patient is a 82 y/o M w/ PMHx: Aortic valve stenosis, HTN, HLD, CAD s/p CABG x 4, Systolic CHF/Ischemic Cardiomyopathy, Diabetes mellitus type II, PVD, PAOD, Chronic COPD, BPH s/p TURP, Iron deficiency anemia, Former Tobacco use, Former Diabetic Foot Wounds now healed previously evaluated at [facility] who presented to the [facility] ED on 05/30/18 with history of being at Dr. Haddad office for routine evaluation/follow-up with onset substernal chest dull ache, not pressure or pain, rated 1-2/10 with no radiation with associated mild dyspnea, diaphoresis quickly resolving by the time patient was transitioned to the ED. EKG in ED sinus bradycardia with left bundle branch block similar to prior, CXR w/ chronic changes with no acute findings, no evidence of congestion, initial trop <0.015. Admitted to PCU, placed on a monitored bed to assure no acute myocardial infarction with serial cardiac enzymes and EKGs which remained unremarkable. Patient is unable to perform exercise with prior CABG history, thus proceeded with 05/31/18 AM nuclear stress testing which resulted negative for inducible ischemia. Also noted upon presentation, evidence JOAQUINA on CKD stage III w/ admission BUN/Cr 96/2.38 w/ recent discharge 05/28/18 BUN/Cr 94/2.09, increased from 05/25/18 BUN/Cr 101/1.85, prior baseline appears since 08/2017 now 1.4-1.8, likely worsening disease in setting of diuretic usage w/ CHF history, gently hydrated given underlying CHF history, suspected overdiuresis with recent admission, held nephrotoxic medications with repeat 05/31/18 BUN/Cr 76/1.67, improved. Patient discharged to SNF in stable condition with no further chest discomfort. Patient restarted on his medications with requested repeat BMP to assure renal function appropriate. Recommended follow-up with PCP in addition to re-making his appointment with Dr. Haddad. DAY OF DISCHARGE PROGRESS NOTE: Subjective: Patient without acute event overnight per self and nursing report. Patient with recent cardiac stress testing which was negative for inducible ischemia with unremarkable serial cardiac enzymes and no recurrent chest discomfort events. Patient is very eager for discharge back to his long-term facility. Patient denies fever, chills, nausea, emesis, abdominal pain or dyspnea. Patient will be discharged with follow-up with primary care physician within 3-5 days in addition to re-arranging his Cardiology visit. Objective: T 97.9, heart rate 71, BP 149/104, respiratory rate 18, 96% on room air. Physical Examination: General: awake, alert, oriented x 3 and cooperative, seated upright in the bed, NAD, no recurrent chest pain events since admission. Skin: normal color, turgor, no icterus, cyanosis, occasional various staged ecchymoses to the extremities, bilateral lower extremity chronic venous stasis skin changes. HEENT: AT/NC, EOMI, PERRLA, improved MMM. Lungs: Diminished breath sounds, greater bilateral bases, moderate effort, no rales, ronchi or wheezing. Heart: Bradycardiac with regular rhythm; no gallop, rub audible, SM. Abdomen: soft, overweight, NTTP, ND, normal BS. Extremities: no cyanosis, clubbing, no marked edema to BL LE, see skin. Neurological: patient awake, alert, oriented x 3; cognitive function intact; pupils equally reactive to light and accomodation; cranial nerves II-XII grossly normal, moving all 4 extremities, no focal deficits, strength improved, mildly to moderate globally decreased, at baseline, wheelchair usage chronically. Psychiatric: affect appears normal, no acute evidence of depressive or anxiety feelings. Assessment and Plan: Please see hospital summary above. Patient Problems: Active and Suspected Problems (Last Reviewed 05/30/18 @ 08:22 by Consuelo Dickerson) JOAQUINA (acute kidney injury) (Acute) - Physical Exam Vital Signs Temp Pulse Resp BP Pulse Ox 97.9 F 71 18 149/104 H 96 05/31/18 13:01 05/31/18 13:23 05/31/18 13:01 05/31/18 13:01 05/31/18 13:01 Oxygen Flow Rate (L/min) 2 Oxygen Delivery Method Room Air Weight: 212 lb 4.882 oz Body Mass Index (BMI) 28.5 Finger Stick Blood Glucose 134 Intake and Output for Last 24 Hours 05/29/18 05/30/18 05/31/18 23:59 23:59 23:59 Intake Total 2391 / 2391 Output Total 400 / 400 2900 / 2900 Balance -400 / -400 -509 / -509 Laboratory Tests Past 24 Hrs 05/30/18 05/30/18 05/31/18 14:20 18:10 03:50 WBC 6.6 RBC 2.78 L Hgb 8.6 L Hct 27.6 L MCV 99.3 H MCH 30.9 MCHC 31.2 L RDW 13.2 RDW Differential 46.1 H Plt Count 202 MPV 11.6 PT INR APTT Sodium Potassium Chloride Carbon Dioxide Anion Gap BUN Creatinine Estim Creat Clear Calc Est GFR (MDRD) Af Amer Est GFR (MDRD) Non-Af BUN/Creatinine Ratio Glucose Calcium Total Bilirubin AST ALT Alkaline Phosphatase Troponin I < 0.015 < 0.015 Total Protein Albumin Globulin Albumin/Globulin Ratio Triglycerides Cholesterol LDL Cholesterol VLDL Cholesterol HDL Cholesterol 05/31/18 05/31/18 03:50 03:50 WBC RBC Hgb Hct MCV MCH MCHC RDW RDW Differential Plt Count MPV PT 15.9 H INR 1.3 APTT 40.6 H Sodium 142 Potassium 4.6 Chloride 108 H Carbon Dioxide 24.0 Anion Gap 10 BUN 76 H Creatinine 1.67 H Estim Creat Clear Calc 36.79 Est GFR (MDRD) Af Amer 51 L Est GFR (MDRD) Non-Af 42 L BUN/Creatinine Ratio 45.5 H Glucose 197 H Calcium 8.3 L Total Bilirubin 0.20 AST 13 L ALT 24 Alkaline Phosphatase 77 Troponin I Total Protein 6.5 Albumin 2.8 L Globulin 3.7 Albumin/Globulin Ratio 0.8 L Triglycerides 140 Cholesterol 136 LDL Cholesterol 79 VLDL Cholesterol 28 HDL Cholesterol 29 L POC Glucose 05/31/18 05/31/18 05/30/18 13:04 06:29 22:16 POC Glucose 174 H 145 H 280 H 05/30/18 17:14 POC Glucose 252 H Home Medications: Medications to take at Discharge Loratadine [Claritin] 10 mg PO DAILY 10/30/13 Metoprolol Tartrate [Lopressor (beta melissa)] 50 mg PO BID 10/30/13 Clopidogrel Bisulfate [Plavix] 75 mg PO DAILY 02/04/16 Finasteride [Proscar] 5 mg PO DAILY tablet 07/13/16 Acetaminophen [Tylenol] 1,000 mg PO Q8H PRN #0 tab 08/22/16 Bisacodyl [Dulcolax] 10 mg RECTAL DAILY PRN #0 suppos. 08/22/16 Fluoxetine [Prozac] 20 mg PO DAILY cap 08/22/16 Ipratropium/Albuterol Sulfate [Duoneb] 3 ml INHALATION Q4H.RT PRN #0 ampul.neb 08/22/16 Iron Polysaccharide Complex [Ferrex 150] 150 mg PO DAILYCM cap 08/22/16 Nutritional Supplement [Lloyd - ORANGE FLAVOR] 1 packet PO BIDCM packet 08/22/16 Polyethylene Glycol 3350 [Miralax] 17 gm PO DAILY packet 08/22/16 Senna/Docusate Sodium [Senokot-S] 2 tab PO BID tab 08/22/16 Albuterol Aerosols [Ventolin Aerosols] 2.5 mg INHALATION Q4H PRN PRN 05/13/18 Apixaban [Eliquis] 2.5 mg PO BID 05/13/18 Aspirin E.C. [Ecotrin] 81 mg PO DAILY@0800 05/13/18 Guaifenesin [Mucinex] 600 mg PO BID 05/13/18 Insulin Aspart [Novolog Flexpen] 10 units SUBCUT TIDAC 05/13/18 Insulin Detemir [Levemir FlexPen] 50 units SUBCUT DAILY 05/13/18 Lisinopril [Zestril] 20 mg PO DAILY 05/13/18 Metolazone [Zaroxolyn] 2.5 mg PO DAILY 05/13/18 Omeprazole [Prilosec] 20 mg PO DAILY 05/13/18 Tamsulosin HCl [Flomax] 0.4 mg PO DAILY 05/13/18 Amoxicillin [Amoxil] 500 mg PO Q12 #7 cap 05/17/18 Potassium Chloride [K-Dur] 40 meq PO DAILYCM #14 tab 05/17/18 furosemide 40 mg tablet 40 mg PO BID 05/30/18 Primary Care Physician: Xavier Cohen MD [Primary Care Provider] - Please follow up with your Primary Care Physician in: Follow-up within 3-5 days discharge to SNF. Please Follow Up With: Gilmar Haddad MD When: Please call office to re-arrange visit. Disposition: Senior Care facility Minutes spent on discharge:: 35 Patient Condition:: Fair Medical Necessity - Tobacco Use Smoking Status: Former smoker Tobacco Use: Non-smoker Meaningful Use Info Meaningful Use Diagnoses (Choose all that apply): None applicable Code Visit OBSV E&M: 92419 Observation care discharge
--- NOTE | 2018-05-31 14:18 | DS.PCM_ITS ---
Discharge Date and Diagnosis - Problem List Patient Problems: Active and Suspected Problems (Last Reviewed 05/30/18 @ 08:22 by Consuelo Dickerson) JOAQUINA (acute kidney injury) (Acute) Date of Admission: 05/30/18 Date of Discharge: 05/31/18 - Primary Discharge Diagnosis Active and Suspected Problems (Last Reviewed 05/30/18 @ 08:22 by Consuelo Dickerson) (1) Chest Pain, Suspected Non-cardiac, Unclear Exact Etiology (negative stress testing, unremarkable cardiac enzymes) (2) JOAQUINA on CKD stage III, Possible secondary to recent diuresis w/ CHF exacerbation (3) CAD s/p CABG x 4 (4) Chronic Systolic CHF/Ischemic Cardiomyopathy (5) ? Recent Proteus UTI, Recent admission also w/ 05/23/18 UCx w/ > 100,000 Proteus, noted also present on UCx 04/12/18 and 10/11/17, possibly colonization (6) ? PAF (7) Chronic COPD (8) Fe Deficiency Anemia (9) Diabetes mellitus type II (10) Hypertension (11) PAOD, PVD (12) Anxiety and Depression (13) Chronic Constipation (14) Former Tobacco use (15) GERD (16) BPH (17) CODE status: DNR-CCA, no intubation status. - Secondary Discharge Diagnosis Chronic Problems (Last Reviewed 05/30/18 @ 08:22 by Consuelo Dickerson) CKD (chronic kidney disease) (Chronic) Non-rheumatic tricuspid valve insufficiency (Chronic) Secondary pulmonary arterial hypertension (Chronic) History of implantable cardiac defibrillator (ICD) (Chronic) Chronic systolic (congestive) heart failure (Chronic) EF: 40% from 05/14/18 Paroxysmal atrial fibrillation (Chronic) Ischemic cardiomyopathy (Chronic) EF: 40% from 05/14/18; Atherosclerosis [place] coronary artery of [place] heart without angina p ectoris (Chronic) 10/03/2003 with MENDOZA to LAD, SVG to lateral circumflex, diagonal branch to the LAD and to distal RCA 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) Benign essential hypertension (Chronic) Chronic obstructive lung disease (Chronic) Hyperlipidemia (Chronic) Hospital Course and Treatment Imaging Results: 05/31/18 10:27 Nuclear Stress Test - Chemical [NM] Routine Operations: None Procedures: EKG, Stress test Summary of Care Provided: The patient is a 82 y/o M w/ PMHx: Aortic valve stenosis, HTN, HLD, CAD s/p CABG x 4, Systolic CHF/Ischemic Cardiomyopathy, Diabetes mellitus type II, PVD, PAOD, Chronic COPD, BPH s/p TURP, Iron deficiency anemia, Former Tobacco use, Former Diabetic Foot Wounds now healed previously evaluated at [facility] who presented to the [facility] ED on 05/30/18 with history of being at Dr. Haddad office for routine evaluation/follow-up with onset substernal chest dull ache, not pressure or pain, rated 1-2/10 with no radiation with associated mild dyspnea, diaphoresis quickly resolving by the time patient was transitioned to the ED. EKG in ED sinus bradycardia with left bundle branch block similar to prior, CXR w/ chronic changes with no acute findings, no evidence of congestion, initial trop <0.015. Admitted to PCU, placed on a monitored bed to assure no acute myocardial infarction with serial cardiac enzymes and EKGs which remained unremarkable. Patient is unable to perform exercise with prior CABG history, thus proceeded with 05/31/18 AM nuclear stress testing which resulted negative for inducible ischemia. Also noted upon presentation, evidence JOAQUINA on CKD stage III w/ admission BUN/Cr 96/2.38 w/ recent discharge 05/28/18 BUN/Cr 94/2.09, increased from 05/25/18 BUN/Cr 101/1.85, prior baseline appears since 08/2017 now 1.4-1.8, likely worsening disease in setting of diuretic usage w/ CHF history, gently hydrated given underlying CHF history, suspected overdiuresis with recent admission, held nephrotoxic medications with repeat 05/31/18 BUN/Cr 76/1.67, im proved. Patient discharged to SNF in stable condition with no further chest discomfort. Patient restarted on his medications with requested repeat BMP to assure renal function appropriate. Recommended follow-up with PCP in addition to re-making his appointment with Dr. Haddad. DAY OF DISCHARGE PROGRESS NOTE: Subjective: Patient without acute event overnight per self and nursing report. Patient with recent cardiac stress testing which was negative for inducible ischemia with unremarkable serial cardiac enzymes and no recurrent chest discomfort events. Patient is very eager for discharge back to his custodial facility. Patient denies fever, chills, nausea, emesis, abdominal pain or dyspnea. Patient will be discharged with follow-up with primary care physician within 3-5 days in addition to re-arranging his Cardiology visit. Objective: T 97.9, heart rate 71, BP 149/104, respiratory rate 18, 96% on room air. Physical Examination: General: awake, alert, oriented x 3 and cooperative, seated upright in the bed, NAD, no recurrent chest pain events since admission. Skin: normal color, turgor, no icterus, cyanosis, occasional various staged ecchymoses to the extremities, bilateral lower extremity chronic venous stasis skin changes. HEENT: AT/NC, EOMI, PERRLA, improved MMM. Lungs: Diminished breath sounds, greater bilateral bases, moderate effort, no rales, ronchi or wheezing. Heart: Bradycardiac with regular rhythm; no gallop, rub audible, SM. Abdomen: soft, overweight, NTTP, ND, normal BS. Extremities: no cyanosis, clubbing, no marked edema to BL LE, see skin. Neurological: patient awake, alert, oriented x 3; cognitive function intact; pupils equally reactive to light and accomodation; cranial nerves II-XII grossly normal, moving all 4 extremities, no focal deficits, strength improved, mildly to moderate globally decreased, at baseline, wheelchair usage chronically. Psychiatric: affect appears normal, no acute evidence of depressive or anxiety feelings. Assessment and Plan: Please see hospital summary above. Patient Problems: Active and Suspected Problems (Last Reviewed 05/30/18 @ 08:22 by Consuelo Dickerson) JOAQUINA (acute kidney injury) (Acute) - Physical Exam Vital Signs Temp Pulse Resp BP Pulse Ox 97.9 F 71 18 149/104 H 96 05/31/18 13:01 05/31/18 13:23 05/31/18 13:01 05/31/18 13:05/31/18 13:01 Oxygen Flow Rate (L/min) 2 Oxygen Delivery Method Room Air Weight: 212 lb 4.882 oz Body Mass Index (BMI) 28.5 Finger Stick Blood Glucose 134 Intake and Output for Last 24 Hours 05/29/18 05/30/18 05/31/18 23:59 23:59 23:59 Intake Total 2391 / 2391 Output Total 400 / 400 2900 / 2900 Balance -400 / -400 -509 / -509 Laboratory Tests Past 24 Hrs 05/30/18 05/30/18 05/31/18 14:20 18:10 03:50 WBC 6.6 RBC 2.78 L Hgb 8.6 L Hct 27.6 L MCV 99.3 H MCH 30.9 MCHC 31.2 L RDW 13.2 RDW Differential 46.1 H Plt Count 202 MPV 11.6 PT INR APTT Sodium Potassium Chloride Carbon Dioxide Anion Gap BUN Creatinine Estim Creat Clear Calc Est GFR (MDRD) Af Amer Est GFR (MDRD) Non-Af BUN/Creatinine Ratio Glucose Calcium Total Bilirubin AST ALT Alkaline Phosphatase Troponin I < 0.015 < 0.015 Total Protein Albumin Globulin Albumin/Globulin Ratio Triglycerides Cholesterol LDL Cholesterol VLDL Cholesterol HDL Cholesterol 05/31/18 05/31/18 03:50 03:50 WBC RBC Hgb Hct MCV MCH MCHC RDW RDW Differential Plt Count MPV PT 15.9 H INR 1.3 APTT 40.6 H Sodium 142 Potassium 4.6 Chloride 108 H Carbon Dioxide 24.0 Anion Gap 10 BUN 76 H Creatinine 1.67 H Estim Creat Clear Calc 36.79 Est GFR (MDRD) Af Amer 51 L Est GFR (MDRD) Non-Af 42 L BUN/Creatinine Ratio 45.5 H Glucose 197 H Calcium 8.3 L Total Bilirubin 0.20 AST 13 L ALT 24 Alkaline Phosphatase 77 Troponin I Total Protein 6.5 Albumin 2.8 L Globulin 3.7 Albumin/Globulin Ratio 0.8 L Triglycerides 140 Cholesterol 136 LDL Cholesterol 79 VLDL Cholesterol 28 HDL Cholesterol 29 L POC Glucose 05/31/18 05/31/18 05/30/18 13:04 06:29 22:16 POC Glucose 174 H 145 H 280 H 05/30/18 17:14 POC Glucose 252 H Home Medications: Medications to take at Discharge Loratadine [Claritin] 10 mg PO DAILY 10/30/13 Metoprolol Tartrate [Lopressor (beta melissa)] 50 mg PO BID 10/30/13 Clopidogrel Bisulfate [Plavix] 75 mg PO DAILY 02/04/16 Finasteride [Proscar] 5 mg PO DAILY tablet 07/13/16 Acetaminophen [Tylenol] 1,000 mg PO Q8H PRN #0 tab 08/22/16 Bisacodyl [Dulcolax] 10 mg RECTAL DAILY PRN #0 suppos. 08/22/16 Fluoxetine [Prozac] 20 mg PO DAILY cap 08/22/16 Ipratropium/Albuterol Sulfate [Duoneb] 3 ml INHALATION Q4H.RT PRN #0 ampul.neb 08/22/16 Iron Polysaccharide Complex [Ferrex 150] 150 mg PO DAILYCM cap 08/22/16 Nutritional Supplement [Lloyd - ORANGE FLAVOR] 1 packet PO BIDCM packet 08/22/16 Polyethylene Glycol 3350 [Miralax] 17 gm PO DAILY packet 08/22/16 Senna/Docusate Sodium [Senokot-S] 2 tab PO BID tab 08/22/16 Albuterol Aerosols [Ventolin Aerosols] 2.5 mg INHALATION Q4H PRN PRN 05/13/18 Apixaban [Eliquis] 2.5 mg PO BID 05/13/18 Aspirin E.C. [Ecotrin] 81 mg PO DAILY@0800 05/13/18 Guaifenesin [Mucinex] 600 mg PO BID 05/13/18 Insulin Aspart [Novolog Flexpen] 10 units SUBCUT TIDAC 05/13/18 Insulin Detemir [Levemir FlexPen] 50 units SUBCUT DAILY 05/13/18 Lisinopril [Zestril] 20 mg PO DAILY 05/13/18 Metolazone [Zaroxolyn] 2.5 mg PO DAILY 05/13/18 Omeprazole [Prilosec] 20 mg PO DAILY 05/13/18 Tamsulosin HCl [Flomax] 0.4 mg PO DAILY 05/13/18 Amoxicillin [Amoxil] 500 mg PO Q12 #7 cap 05/17/18 Potassium Chloride [K-Dur] 40 meq PO DAILYCM #14 tab 05/17/18 furosemide 40 mg tablet 40 mg PO BID 05/30/18 Primary Care Physician: Xavier Cohen MD [Primary Care Provider] - Please follow up with your Primary Care Physician in: Follow-up within 3-5 days discharge to SNF. Please Follow Up With: Gilmar Haddad MD When: Please call office to re-arrange visit. Disposition: Detention facility Minutes spent on discharge:: 35 Patient Condition:: Fair Medical Necessity - Tobacco Use Smoking Status: Former smoker Tobacco Use: Non-smoker Meaningful Use Info Meaningful Use Diagnoses (Choose all that apply): None applicable Code Visit OBSV E&M: 64739 Observation care discharge
--- NOTE | 2018-05-31 14:24 | CASEMGMT ---
Patient is ready for discharge. MIGUEL faxed orders to [facility]. MIGUEL called [facility], [facility], and [facility] and none of them have availability. MIGUEL called [facility] and left a message for Reyna asking her if they would be able to provide transportation. Await return call. MIGUEL faxed orders to [place]. Felicita URBAN MSW
--- NOTE | 2018-05-31 14:38 | PHA.DC.MR ---
Pharmacy Service has performed discharge medication reconciliation for this patient upon transfer to [facility]. The patient's discharge medication list was reviewed for discrepancies and discrepancies were resolved. Home Medications Loratadine [Claritin] 10 mg PO DAILY 10/30/13 Metoprolol Tartrate [Lopressor (beta melissa)] 50 mg PO BID 10/30/13 Clopidogrel Bisulfate [Plavix] 75 mg PO DAILY 02/04/16 Finasteride [Proscar] 5 mg PO DAILY tablet 07/13/16 Acetaminophen [Tylenol] 1,000 mg PO Q8H PRN #0 tab 08/22/16 Bisacodyl [Dulcolax] 10 mg RECTAL DAILY PRN #0 suppos. 08/22/16 Fluoxetine [Prozac] 20 mg PO DAILY cap 08/22/16 Ipratropium/Albuterol Sulfate [Duoneb] 3 ml INHALATION Q4H.RT PRN #0 ampul.neb 08/22/16 Iron Polysaccharide Complex [Ferrex 150] 150 mg PO DAILYCM cap 08/22/16 Nutritional Supplement [Lloyd - [place]ANGE FLAVOR] 1 packet PO BIDCM packet 08/22/16 Polyethylene Glycol 3350 [Miralax] 17 gm PO DAILY packet 08/22/16 Senna/Docusate Sodium [Senokot-S] 2 tab PO BID tab 08/22/16 Albuterol Aerosols [Ventolin Aerosols] 2.5 mg INHALATION Q4H PRN PRN 05/13/18 Apixaban [Eliquis] 2.5 mg PO BID 05/13/18 Aspirin E.C. [Ecotrin] 81 mg PO DAILY@0800 05/13/18 Guaifenesin [Mucinex] 600 mg PO BID 05/13/18 Insulin Aspart [Novolog Flexpen] 10 units SUBCUT TIDAC 05/13/18 Insulin Detemir [Levemir FlexPen] 50 units SUBCUT DAILY 05/13/18 Lisinopril [Zestril] 20 mg PO DAILY 05/13/18 Metolazone [Zaroxolyn] 2.5 mg PO DAILY 05/13/18 Omeprazole [Prilosec] 20 mg PO DAILY 05/13/18 Tamsulosin HCl [Flomax] 0.4 mg PO DAILY 05/13/18 Amoxicillin [Amoxil] 500 mg PO Q12 #7 cap 05/17/18 Potassium Chloride [K-Dur] 40 meq PO DAILYCM #14 tab 05/17/18 furosemide 40 mg tablet 40 mg PO BID 05/30/18
== END 2018-05-31 14:07 | disposition skilled nursing facility (03) ==
LOC: ED 11:52 → PCU 12:19
PROVIDERS: Admitting Provider Family Medicine; Emergency Provider Emergency Medicine; Family Provider Family Medicine; PCP Family Medicine; Visit Provider Family Medicine
DX: R07.89 Other chest pain (principal); I25.10 Atherosclerotic heart disease of native coronary artery without angina pectoris; E11.51 Type 2 diabetes mellitus with diabetic peripheral angiopathy without gangrene; E78.00 Pure hypercholesterolemia, unspecified; J44.9 Chronic obstructive pulmonary disease, unspecified; E86.0 Dehydration; I95.9 Hypotension, unspecified; I44.7 Left bundle-branch block, unspecified; I48.0 Paroxysmal atrial fibrillation; I27.21 Secondary pulmonary arterial hypertension; I50.22 Chronic systolic (congestive) heart failure; Z95.1 Presence of aortocoronary bypass graft; Z79.899 Other long term (current) drug therapy; Z79.02 Long term (current) use of antithrombotics/antiplatelets; Z79.4 Long term (current) use of insulin; Z79.82 Long term (current) use of aspirin; Z95.810 Presence of automatic (implantable) cardiac defibrillator; D50.9 Iron deficiency anemia, unspecified; Z87.891 Personal history of nicotine dependence; E78.5 Hyperlipidemia, unspecified; E11.42 Type 2 diabetes mellitus with diabetic polyneuropathy; F41.9 Anxiety disorder, unspecified; F32.9 Major depressive disorder, single episode, unspecified; Z79.01 Long term (current) use of anticoagulants; I13.0 Hypertensive heart and chronic kidney disease with heart failure and stage 1 through stage 4 chronic kidney disease, or unspecified chronic kidney disease; E11.22 Type 2 diabetes mellitus with diabetic chronic kidney disease; N18.3 Chronic kidney disease, stage 3 (moderate); N17.9 Acute kidney failure, unspecified; K59.09 Other constipation; K21.9 Gastro-esophageal reflux disease without esophagitis; Z66 Do not resuscitate
CPT/HCPCS: 36415; 71045; 78452; 80048; 80053; 80061; 82962; 83605; 83735; 84484; 85025; 85027; 85610; 85730; 93005; 93017; 94640; 96360; 96361; 97162; 97166; 97802; 99218; 99285; A9500; J7030; J7040; A4216; G0378; J2785

== ENCOUNTER → 2018-06-18 04:00 | Outpatient (REF) | payer SELFPAY ==
[2018-05-30 13:24] VITALS: BMI 28.5
[2018-06-18 08:26] LABS: Anion Gap 9 (5-15); BUN 107 mg/dL (7-18); BUN/Creat Ratio 54.6 RATIO (10-20); Calcium,Total 9.3 mg/dL (8.5-10.1); Chloride 96 mmol/L (98-107); Creatinine, Serum 1.96 mg/dL (0.70-1.30); EST Glomerular Filtration Rate 35 mL/min (>60); Est Glom Filt Rate - Afr Amer 42 mL/min (>60); Glucose 128 mg/dL (74-106); Potassium 4.3 mmol/L (3.5-5.1); Sodium Level 137 mmol/L (136-145)
== END ==
LOC: OLS.WHLCAR 04:00
PROVIDERS: Visit Provider Family Medicine
DX: I11.0 Hypertensive heart disease with heart failure (principal); I50.9 Heart failure, unspecified; J44.9 Chronic obstructive pulmonary disease, unspecified; E11.9 Type 2 diabetes mellitus without complications; E78.5 Hyperlipidemia, unspecified
CPT/HCPCS: 36415; 80048

== ENCOUNTER → 2018-06-22 05:00 | Outpatient (REF) | payer MEDICARE, OTHER, MEDICAID, SELFPAY ==
[2018-06-19 13:46] VITALS: BMI 27.6
[2018-06-22 07:41] LABS: Anion Gap 9 (5-15); BUN 120 mg/dL (7-18); BUN/Creat Ratio 54.5 RATIO (10-20); Calcium,Total 8.8 mg/dL (8.5-10.1); Chloride 99 mmol/L (98-107); EST Glomerular Filtration Rate 31 mL/min (>60); Est Glom Filt Rate - Afr Amer 37 mL/min (>60); Glucose 84 mg/dL (74-106); Mean Corpuscular Hgb 30.4 pg (27.0-32.0); Mean Platelet Vol. 11.8 fl (6.2-12.0); Platelet Count 186 K/mm3 (150-450); Potassium 4.2 mmol/L (3.5-5.1); RBC Distribution Width CV 13.7 % (11.6-14.6); RBC Distribution Width SD 48.7 fl (35.1-43.9); Red Blood Count 2.96 M/mm3 (4.6-6.2); Sodium Level 137 mmol/L (136-145)
[2018-06-22 07:46] LABS: Scan Indicated on CBC? Y/N NO
[2018-06-23 19:03] VITALS: BMI 33.9
== END ==
LOC: OLS.WHLCAR 05:00
PROVIDERS: Visit Provider Family Medicine
DX: I11.0 Hypertensive heart disease with heart failure (principal); I50.9 Heart failure, unspecified; J44.9 Chronic obstructive pulmonary disease, unspecified; E11.9 Type 2 diabetes mellitus without complications; E78.5 Hyperlipidemia, unspecified
CPT/HCPCS: 36415; 80048; 85027

== ENCOUNTER 2018-06-23 18:48 | Emergency (ER) | payer MEDICARE, OTHER, MEDICAID, SELFPAY ==
[2018-06-23 18:48] VITALS: BMI 28.5
--- NOTE | 2018-06-23 18:59 | ED.VISSUMM ---
- ER Visit Summary Date of Service: 06/23/18 Chief Complaint: Urinary retention History of Present Illness: The patient is a 82 M with history of prostate hypertrophy comes in for Jacobson catheter placement. Apparently 3 different nurses tried at the [facility]. Patient is complaining only of suprapubic pain he has no other complaints Physical Examination: Otherwise normal exam he has suprapubic tenderness and some slight suprapubic distention. He has normal external genitalia. No signs of infection Emergency Department Course and Treatment: Jacobson was placed by emergency nurse. We will discharge the patient back. He will follow-up with urology Discharge stable condition Impression: Urinary retention This note was generated with [employer] dictation software. It may contain incorrect words, spelling, and punctuation that were not noted in review of the chart prior to signing ED Disposition - Plan for ED Patient: Disposition: Home or Assisted Living Instructions: Discharge Instructions: Caring for Your Indwelling Urinary Catheter Referrals: Loki Contreras MD [STAFF PHYSICIAN] - 2 Days
[2018-06-23 19:03] VITALS: BP 121/84; PULSE 68; RESP 18; TEMP 37.1; O2SAT 99; BMI 33.9
--- NOTE | 2018-06-23 19:03 | ED.DCSUM_ITS ---
- ER Visit Summary Date of Service: 06/23/18 Chief Complaint: Urinary retention History of Present Illness: The patient is a 82 M with history of prostate hypertrophy comes in for Jacobson catheter placement. Apparently 3 different nurses tried at the [facility]. Patient is complaining only of suprapubic pain he has no other complaints Physical Examination: Otherwise normal exam he has suprapubic tenderness and some slight suprapubic distention. He has normal external genitalia. No signs of infection Emergency Department Course and Treatment: Jacobson was placed by emergency nurse. We will discharge the patient back. He will follow-up with urology Discharge stable condition Impression: Urinary retention This note was generated with [employer] dictation software. It may contain incorrect words, spelling, and punctuation that were not noted in review of the chart prior to signing ED Disposition - Plan for ED Patient: Disposition: Home or Assisted Living Instructions: Discharge Instructions: Caring for Your Indwelling Urinary Catheter Referrals: Loki Contreras MD [STAFF PHYSICIAN] - 2 Days
== END 2018-06-23 19:13 | disposition home or self-care (01) ==
LOC: ED 19:09
PROVIDERS: Emergency Provider Emergency Medicine; Family Provider Family Medicine; PCP Family Medicine
DX: N40.1 Benign prostatic hyperplasia with lower urinary tract symptoms (principal); R33.8 Other retention of urine; Z79.01 Long term (current) use of anticoagulants; Z79.02 Long term (current) use of antithrombotics/antiplatelets; Z79.82 Long term (current) use of aspirin; Z79.4 Long term (current) use of insulin; Z79.899 Other long term (current) drug therapy
CPT/HCPCS: 51702; 99285

== ENCOUNTER → 2018-06-25 04:00 | Outpatient (REF) | payer MEDICARE, MEDICAID, OTHER, SELFPAY ==
[2018-06-23 19:03] VITALS: BMI 33.9
[2018-06-25 09:40] LABS: Anion Gap 11 (5-15); BUN 103 mg/dL (7-18); BUN/Creat Ratio 59.9 RATIO (10-20); Calcium,Total 8.8 mg/dL (8.5-10.1); Chloride 100 mmol/L (98-107); Creatinine, Serum 1.72 mg/dL (0.70-1.30); EST Glomerular Filtration Rate 41 mL/min (>60); Est Glom Filt Rate - Afr Amer 49 mL/min (>60); Glucose 96 mg/dL (74-106); Potassium 4.6 mmol/L (3.5-5.1); Sodium Level 141 mmol/L (136-145)
== END ==
LOC: OLS.WHLCAR 04:00
PROVIDERS: Visit Provider Family Medicine
DX: I11.0 Hypertensive heart disease with heart failure (principal); I50.9 Heart failure, unspecified; J44.9 Chronic obstructive pulmonary disease, unspecified; E78.5 Hyperlipidemia, unspecified
CPT/HCPCS: 36415; 80048

== ENCOUNTER → 2018-06-29 04:00 | Outpatient (REF) | payer MEDICARE, OTHER, MEDICAID, SELFPAY ==
[2018-06-23 19:03] VITALS: BMI 33.9
[2018-06-29 07:11] LABS: Hematocrit 29.2 % (40-54); Hemoglobin 8.9 g/dl (13.0-16.5); Mean Corp Hgb Conc 30.5 g/gl (32-36); Mean Corpuscular Hgb 30.6 pg (27.0-32.0); Mean Corpuscular Volume 100.3 fL (80-94); Mean Platelet Vol. 12.1 fl (6.2-12.0); Platelet Count 152 K/mm3 (150-450); RBC Distribution Width CV 12.9 % (11.6-14.6); RBC Distribution Width SD 46.1 fl (35.1-43.9); Red Blood Count 2.91 M/mm3 (4.6-6.2); White Blood Count 8.7 K/mm3 (4.4-11.0)
[2018-06-29 07:13] LABS: Scan Indicated on CBC? Y/N NO
[2018-06-29 07:23] LABS: Anion Gap 4 (5-15); BUN 70 mg/dL (7-18); BUN/Creat Ratio 43.5 RATIO (10-20); Calcium,Total 8.9 mg/dL (8.5-10.1); Chloride 103 mmol/L (98-107); Creatinine, Serum 1.61 mg/dL (0.70-1.30); EST Glomerular Filtration Rate 44 mL/min (>60); Est Glom Filt Rate - Afr Amer 53 mL/min (>60); Glucose 119 mg/dL (74-106); Potassium 4.5 mmol/L (3.5-5.1); Sodium Level 138 mmol/L (136-145)
== END ==
LOC: OLS.WHLCAR 04:00
PROVIDERS: Visit Provider Family Medicine
DX: D64.9 Anemia, unspecified (principal); I11.0 Hypertensive heart disease with heart failure; I50.9 Heart failure, unspecified; E11.9 Type 2 diabetes mellitus without complications; E78.5 Hyperlipidemia, unspecified
CPT/HCPCS: 36415; 80048; 85027

== ENCOUNTER → 2018-07-06 05:30 | Outpatient (REF) | payer MEDICARE, OTHER, MEDICAID, SELFPAY ==
[2018-06-23 19:03] VITALS: BMI 33.9
[2018-07-06 08:31] LABS: Hematocrit 29.2 % (40-54); Mean Corp Hgb Conc 30.8 g/gl (32-36); Mean Corpuscular Volume 97.3 fL (80-94); Mean Platelet Vol. 11.7 fl (6.2-12.0); Platelet Count 180 K/mm3 (150-450); RBC Distribution Width CV 13.3 % (11.6-14.6); RBC Distribution Width SD 46.7 fl (35.1-43.9)
[2018-07-06 08:32] LABS: Anion Gap 8 (5-15); BUN 48 mg/dL (7-18); BUN/Creat Ratio 33.1 RATIO (10-20); Calcium,Total 8.8 mg/dL (8.5-10.1); Chloride 103 mmol/L (98-107); Creatinine, Serum 1.45 mg/dL (0.70-1.30); EST Glomerular Filtration Rate 49 mL/min (>60); Est Glom Filt Rate - Afr Amer 60 mL/min (>60); Glucose 149 mg/dL (74-106); Potassium 4.3 mmol/L (3.5-5.1); Sodium Level 140 mmol/L (136-145)
[2018-07-06 08:35] LABS: Scan Indicated on CBC? Y/N NO
== END ==
LOC: OLS.WHLCAR 05:30
PROVIDERS: Visit Provider Family Medicine
DX: D64.9 Anemia, unspecified (principal); I11.0 Hypertensive heart disease with heart failure; I50.9 Heart failure, unspecified; J44.9 Chronic obstructive pulmonary disease, unspecified; E11.9 Type 2 diabetes mellitus without complications; E78.5 Hyperlipidemia, unspecified
CPT/HCPCS: 36415; 80048; 85027

== ENCOUNTER → 2018-07-13 05:00 | Outpatient (REF) | payer MEDICARE, OTHER, MEDICAID, SELFPAY ==
[2018-06-23 19:03] VITALS: BMI 33.9
[2018-07-13 07:47] LABS: Hematocrit 31.7 % (40-54); Hemoglobin 9.5 g/dl (13.0-16.5); Mean Corpuscular Hgb 29.6 pg (27.0-32.0); Mean Corpuscular Volume 98.8 fL (80-94); Mean Platelet Vol. 11.2 fl (6.2-12.0); Platelet Count 196 K/mm3 (150-450); RBC Distribution Width CV 12.9 % (11.6-14.6); RBC Distribution Width SD 44.9 fl (35.1-43.9); Red Blood Count 3.21 M/mm3 (4.6-6.2); White Blood Count 12.8 K/mm3 (4.4-11.0)
[2018-07-13 07:49] LABS: Scan Indicated on CBC? Y/N NO
[2018-07-13 08:07] LABS: Anion Gap 7 (5-15); BUN 45 mg/dL (7-18); BUN/Creat Ratio 26.9 RATIO (10-20); Chloride 100 mmol/L (98-107); Creatinine, Serum 1.67 mg/dL (0.70-1.30); EST Glomerular Filtration Rate 42 mL/min (>60); Est Glom Filt Rate - Afr Amer 51 mL/min (>60); Glucose 254 mg/dL (74-106); Potassium 4.5 mmol/L (3.5-5.1); Sodium Level 137 mmol/L (136-145)
== END ==
LOC: OLS.WHLCAR 05:00
PROVIDERS: Visit Provider Family Medicine
DX: D64.9 Anemia, unspecified (principal); I11.0 Hypertensive heart disease with heart failure; I50.9 Heart failure, unspecified; J44.9 Chronic obstructive pulmonary disease, unspecified; E11.9 Type 2 diabetes mellitus without complications; E78.5 Hyperlipidemia, unspecified
CPT/HCPCS: 36415; 80048; 85027

== ENCOUNTER → 2018-07-13 19:00 | Outpatient (REF) | payer MEDICARE, OTHER, MEDICAID, SELFPAY ==
[2018-06-23 19:03] VITALS: BMI 33.9
== END ==
LOC: OLS.WHLCAR 19:00
PROVIDERS: Visit Provider Family Medicine
DX: N39.0 Urinary tract infection, site not specified (principal)
CPT/HCPCS: 87077; 87086; 87088; 87186

== ENCOUNTER → 2018-07-17 08:57 | Outpatient (CLI) | payer MEDICARE, OTHER, MEDICAID, SELFPAY ==
[2018-06-23 19:03] VITALS: BMI 33.9
--- NOTE | 2018-07-17 09:02 | AAVD_ITS ---
Reason For Study: atherosclerosis Aorta Measurements Aorta Doppler Measurements Proximal aorta measures1.37 x 1.45cm. in cross- Peak systolic flow velocities within the proximal sectional axis. aorta measure 42.9 cm/sec. Proximal aorta measures1.23cm. in longitudinal Peak systolic flow velocities within the mid aorta axis. measure 50.2 cm/sec. Mid aorta measures1.42 x 1.42cm. in cross- Peak systolic flow velocities within the distal sectional axis. aorta measure 50.2 cm/sec. Mid aorta measures1.28cm. in longitudinal axis. Distal aorta measures1.17 x 1.14cm. in cross- sectional axis. Distal aorta measures1.11cm. in longitudinal axis. Left Iliac Artery Peak systolic velocity in the left iliac artery measures 214 cm/sec. Right Iliac Artery Peak systolic velocity in the right iliac artery measures 222 cm/sec. Procedure The exam was of fair technical quality due to gas and pt inabiity to lay flat. Unable to image iliacs in arnold scale. Exam performed in department. Interpretation Summary 1. no significant aortoiliac occlussive disease. Ordering Physician: José Antonio Castro Performed By: Breezy Myles RVT
--- NOTE | 2018-07-17 09:02 | ART_ITS ---
Reason For Study: atherosclerosis Left Segmental Pressures Left brachial= 132mmHg. Left dorsalis pedis artery = 76mmHg. The left dorsalis pedis waveforms are monophasic. Right Segmental Pressures Right brachial= 125mmHg. Right dorsalis pedis artery = 81mmHg. The right dorsalis pedis waveforms are monophasic. Indices The right ankle brachial index by the dorsalis pedis is .61. The left ankle brachial index by the dorsalis pedis is .58. Interpretation Summary 1.Bilateral monophasic flow berta 0.61/0.58 and bilateral moderate occlussive disease. Ordering Physician: José Antonio Castro Performed By: ENRIQUE LOMAX T
--- NOTE | 2018-07-17 09:02 | ADU_ITS ---
Reason For Study: atherosclerosis Right Velocities Left Velocities Ext. Iliac Artery, dist = 239 cm./sec. Ext Iliac Artery, dist = 147 cm./sec. Common Femoral Artery, mid = 256 cm./sec. Common Femoral Artery, mid = 153 cm./sec. Profunda Femoral Artery = 114 cm./sec. Supf. Femoral Artery, prox = 18.6 cm./sec. Popliteal Artery, mid = 24.0 cm./sec. Profunda Femoral Artery = 301 cm./sec. Post. Tibial Artery, prox = 33.1 cm./sec. Popliteal Artery, mid = 53.4 cm./sec. Peroneal Artery, mid = 31.2 cm./sec. Post. Tibial Artery, prox = 31.1 cm./sec. Peroneal Artery,dist = 24.0 cm./sec. Peroneal Artery, mid = 31.7 cm./sec. Ant. Tibial Artery, prox = 40.0 cm./sec. Peroneal Artery,dist. = 22.9 cm./sec. Ant. Tibial Artery, mid = 27.6 cm./sec. Ant.Tibial Artery, prox = 23.5 cm./sec. Ant. Tibial Artery, dist = 30.5 cm./sec. Ant Tibial Artery, mid = 27.6 cm./sec. Unable to demonstrate flow in the SFA and mid/distAnt. Tibial Artery, distal = 31.1 cm./sec. VETERINARY ANATOMIST. Unable to demonstrate flow mid/dist SFA and mid/dist VETERINARY ANATOMIST. Procedure The exam was diagnostic. Exam performed in department. Interpretation Summary 1. Bilateral SFA occlusison.s 2. Left profunda severe stenosis. Ordering Physician: José Antonio Castro Performed By: Breezy Myles, RVT
== END ==
PROVIDERS: Family Provider Family Medicine; PCP Family Medicine; Referring Provider Surgery Vascular Surgery; Visit Provider Surgery Vascular Surgery
DX: I70.222 Atherosclerosis of native arteries of extremities with rest pain, left leg (principal); I70.238 Atherosclerosis of native arteries of right leg with ulceration of other part of lower leg; M79.604 Pain in right leg; M79.89 Other specified soft tissue disorders; E11.59 Type 2 diabetes mellitus with other circulatory complications; I51.9 Heart disease, unspecified; I25.2 Old myocardial infarction; Z87.891 Personal history of nicotine dependence
CPT/HCPCS: 93922; 93925; 93978

== ENCOUNTER → 2018-07-20 05:00 | Outpatient (REF) | payer MEDICARE, OTHER, MEDICAID, SELFPAY ==
[2018-06-23 19:03] VITALS: BMI 33.9
[2018-07-20 08:12] LABS: Hematocrit 29.4 % (40-54); Hemoglobin 9.3 g/dl (13.0-16.5); Mean Corp Hgb Conc 31.6 g/gl (32-36); Mean Corpuscular Hgb 30.4 pg (27.0-32.0); Mean Corpuscular Volume 96.1 fL (80-94); Mean Platelet Vol. 11.7 fl (6.2-12.0); Platelet Count 198 K/mm3 (150-450); RBC Distribution Width CV 13.5 % (11.6-14.6); RBC Distribution Width SD 46.7 fl (35.1-43.9); Red Blood Count 3.06 M/mm3 (4.6-6.2); White Blood Count 8.2 K/mm3 (4.4-11.0)
[2018-07-20 08:15] LABS: Scan Indicated on CBC? Y/N NO
[2018-07-20 08:23] LABS: Anion Gap 4 (5-15); BUN 45 mg/dL (7-18); BUN/Creat Ratio 28.5 RATIO (10-20); Calcium,Total 8.6 mg/dL (8.5-10.1); Chloride 104 mmol/L (98-107); Creatinine, Serum 1.58 mg/dL (0.70-1.30); EST Glomerular Filtration Rate 45 mL/min (>60); Est Glom Filt Rate - Afr Amer 54 mL/min (>60); Glucose 244 mg/dL (74-106); Potassium 3.8 mmol/L (3.5-5.1); Sodium Level 137 mmol/L (136-145)
== END ==
LOC: OLS.WHLCAR 05:00
PROVIDERS: Visit Provider Family Medicine
DX: D64.9 Anemia, unspecified (principal); I11.0 Hypertensive heart disease with heart failure; J44.9 Chronic obstructive pulmonary disease, unspecified; E11.9 Type 2 diabetes mellitus without complications; E78.5 Hyperlipidemia, unspecified
CPT/HCPCS: 36415; 80048; 85027

== ENCOUNTER → 2018-07-27 05:00 | Outpatient (REF) | payer MEDICARE, MEDICAID, OTHER, SELFPAY ==
[2018-07-27 07:35] LABS: Hematocrit 29.8 % (40-54); Hemoglobin 9.2 g/dl (13.0-16.5); Mean Corp Hgb Conc 30.9 g/gl (32-36); Mean Corpuscular Hgb 29.4 pg (27.0-32.0); Mean Corpuscular Volume 95.2 fL (80-94); Mean Platelet Vol. 11.8 fl (6.2-12.0); Platelet Count 183 K/mm3 (150-450); RBC Distribution Width CV 13.7 % (11.6-14.6); RBC Distribution Width SD 47.3 fl (35.1-43.9); Red Blood Count 3.13 M/mm3 (4.6-6.2); White Blood Count 8.9 K/mm3 (4.4-11.0)
[2018-07-27 07:38] LABS: Scan Indicated on CBC? Y/N NO
[2018-07-27 07:53] LABS: Anion Gap 9 (5-15); BUN 48 mg/dL (7-18); Calcium,Total 9.1 mg/dL (8.5-10.1); Chloride 102 mmol/L (98-107); Creatinine, Serum 1.55 mg/dL (0.70-1.30); EST Glomerular Filtration Rate 46 mL/min (>60); Est Glom Filt Rate - Afr Amer 55 mL/min (>60); Glucose 135 mg/dL (74-106); Potassium 3.5 mmol/L (3.5-5.1); Sodium Level 139 mmol/L (136-145)
== END ==
LOC: OLS.WHLCAR 05:00
PROVIDERS: Visit Provider Family Medicine
DX: D64.9 Anemia, unspecified (principal); I11.0 Hypertensive heart disease with heart failure; I50.9 Heart failure, unspecified; J44.9 Chronic obstructive pulmonary disease, unspecified; E11.9 Type 2 diabetes mellitus without complications; E78.5 Hyperlipidemia, unspecified
CPT/HCPCS: 36415; 80048; 85027

== ENCOUNTER → 2018-08-03 05:00 | Outpatient (REF) | payer MEDICARE, MEDICAID, OTHER, SELFPAY ==
[2018-08-03 08:13] LABS: Hematocrit 30.2 % (40-54); Hemoglobin 9.2 g/dl (13.0-16.5); Mean Corp Hgb Conc 30.5 g/gl (32-36); Mean Corpuscular Hgb 29.3 pg (27.0-32.0); Mean Corpuscular Volume 96.2 fL (80-94); Mean Platelet Vol. 12.1 fl (6.2-12.0); Platelet Count 192 K/mm3 (150-450); RBC Distribution Width CV 13.7 % (11.6-14.6); Red Blood Count 3.14 M/mm3 (4.6-6.2)
[2018-08-03 08:15] LABS: Anion Gap 7 (5-15); BUN 41 mg/dL (7-18); Calcium,Total 9.1 mg/dL (8.5-10.1); Chloride 103 mmol/L (98-107); Creatinine, Serum 1.52 mg/dL (0.70-1.30); EST Glomerular Filtration Rate 47 mL/min (>60); Est Glom Filt Rate - Afr Amer 57 mL/min (>60); Glucose 205 mg/dL (74-106); Potassium 3.9 mmol/L (3.5-5.1); Sodium Level 139 mmol/L (136-145)
[2018-08-03 08:24] LABS: Scan Indicated on CBC? Y/N NO
== END ==
LOC: OLS.WHLCAR 05:00
PROVIDERS: Visit Provider Family Medicine
DX: D64.9 Anemia, unspecified (principal); I11.0 Hypertensive heart disease with heart failure; I50.9 Heart failure, unspecified; J44.9 Chronic obstructive pulmonary disease, unspecified; E11.9 Type 2 diabetes mellitus without complications; E78.5 Hyperlipidemia, unspecified
CPT/HCPCS: 36415; 80048; 85027

== ENCOUNTER → 2018-08-27 05:00 | Outpatient (REF) | payer MEDICARE, OTHER, MEDICAID, SELFPAY ==
[2018-08-27 07:43] LABS: Hematocrit 29.8 % (40-54); Hemoglobin 8.8 g/dl (13.0-16.5); Mean Corp Hgb Conc 29.5 g/gl (32-36); Mean Corpuscular Volume 94.9 fL (80-94); Mean Platelet Vol. 12.2 fl (6.2-12.0); Platelet Count 175 K/mm3 (150-450); RBC Distribution Width CV 14.4 % (11.6-14.6); RBC Distribution Width SD 49.3 fl (35.1-43.9); Red Blood Count 3.14 M/mm3 (4.6-6.2); White Blood Count 8.4 K/mm3 (4.4-11.0)
[2018-08-27 07:45] LABS: Scan Indicated on CBC? Y/N NO
[2018-08-27 07:55] LABS: Anion Gap 7 (5-15); BUN 52 mg/dL (7-18); BUN/Creat Ratio 29.7 RATIO (10-20); Calcium,Total 8.7 mg/dL (8.5-10.1); Chloride 103 mmol/L (98-107); Creatinine, Serum 1.75 mg/dL (0.70-1.30); EST Glomerular Filtration Rate 40 mL/min (>60); Est Glom Filt Rate - Afr Amer 48 mL/min (>60); Glucose 237 mg/dL (74-106); Potassium 3.9 mmol/L (3.5-5.1); Sodium Level 140 mmol/L (136-145)
== END ==
LOC: OLS.WHLCAR 05:00
PROVIDERS: Visit Provider Family Medicine
DX: D64.9 Anemia, unspecified (principal); N40.0 Benign prostatic hyperplasia without lower urinary tract symptoms; I50.9 Heart failure, unspecified
CPT/HCPCS: 36415; 80048; 85027

== ENCOUNTER → 2018-09-03 05:50 | Outpatient (REF) | payer MEDICARE, OTHER, MEDICAID, SELFPAY ==
[2018-09-03 09:24] LABS: Hematocrit 32.5 % (40-54); Hemoglobin 9.7 g/dl (13.0-16.5); Mean Corp Hgb Conc 29.8 g/gl (32-36); Mean Corpuscular Hgb 28.6 pg (27.0-32.0); Mean Corpuscular Volume 95.9 fL (80-94); Mean Platelet Vol. 12.2 fl (6.2-12.0); Platelet Count 182 K/mm3 (150-450); RBC Distribution Width CV 14.5 % (11.6-14.6); RBC Distribution Width SD 50.5 fl (35.1-43.9); Red Blood Count 3.39 M/mm3 (4.6-6.2); White Blood Count 8.5 K/mm3 (4.4-11.0)
[2018-09-03 09:36] LABS: Scan Indicated on CBC? Y/N NO
[2018-09-03 09:40] LABS: BUN 46 mg/dL (7-18); Creatinine, Serum 1.48 mg/dL (0.70-1.30); EST Glomerular Filtration Rate 48 mL/min (>60); Glucose 140 mg/dL (74-106)
[2018-09-03 09:41] LABS: Anion Gap 7 (5-15); BUN/Creat Ratio 31.1 RATIO (10-20); Calcium,Total 9.1 mg/dL (8.5-10.1); Chloride 107 mmol/L (98-107); Est Glom Filt Rate - Afr Amer 58 mL/min (>60); Potassium 3.8 mmol/L (3.5-5.1); Sodium Level 144 mmol/L (136-145)
[2018-09-03 09:50] LABS: Hemoglobin A1c 7.3 % (4.2-6.3)
== END ==
LOC: OLS.WHLCAR 05:50
PROVIDERS: Visit Provider Family Medicine
DX: D64.9 Anemia, unspecified (principal); I11.0 Hypertensive heart disease with heart failure; I50.9 Heart failure, unspecified; E11.9 Type 2 diabetes mellitus without complications; E78.5 Hyperlipidemia, unspecified
CPT/HCPCS: 36415; 80048; 83036; 85027

== ENCOUNTER → 2018-10-01 | Outpatient (REF) | payer MEDICARE, OTHER, MEDICAID, SELFPAY ==
[2018-10-01 08:47] LABS: Anion Gap 3 (5-15); BUN 39 mg/dL (7-18); BUN/Creat Ratio 22.5 RATIO (10-20); Calcium,Total 8.5 mg/dL (8.5-10.1); Chloride 102 mmol/L (98-107); Creatinine, Serum 1.73 mg/dL (0.70-1.30); EST Glomerular Filtration Rate 40 mL/min (>60); Est Glom Filt Rate - Afr Amer 49 mL/min (>60); Glucose 354 mg/dL (74-106); Potassium 3.7 mmol/L (3.5-5.1); Sodium Level 137 mmol/L (136-145)
[2018-10-01 08:58] LABS: Absolute Neutrophil Count 4.9 X10^3/uL (2.0-7.7); Basophil# 0.03 X10^3/uL; Basophil% 0.4 % (0-1); Eosinophil# 0.58 X10^3/uL; Eosinophils% 7.9 % (0-5); Hematocrit 29.5 % (40-54); Hemoglobin 9.1 g/dl (13.0-16.5); Lymphocyte % 9.5 % (19-41); Mean Corp Hgb Conc 30.8 g/gl (32-36); Mean Corpuscular Hgb 29.2 pg (27.0-32.0); Mean Corpuscular Volume 94.6 fL (80-94); Mean Platelet Vol. 11.4 fl (6.2-12.0); Neutrophil # 4.87 X10^3/uL (2.7-7.7); Neutrophil % 66.5 % (47-70); Platelet Count 172 K/mm3 (150-450); RBC Distribution Width CV 14.6 % (11.6-14.6); Red Blood Count 3.12 M/mm3 (4.6-6.2); White Blood Count 7.3 K/mm3 (4.4-11.0)
[2018-10-01 09:02] LABS: POSITIVE COUNT NO; POSITIVE DIFFERENTIAL NO
== END | disposition home or self-care (01) ==
LOC: OLS.WHLCAR 04:00
PROVIDERS: Visit Provider Family Medicine
DX: D64.9 Anemia, unspecified (principal); I11.0 Hypertensive heart disease with heart failure; I50.9 Heart failure, unspecified; J44.9 Chronic obstructive pulmonary disease, unspecified; E11.9 Type 2 diabetes mellitus without complications; E78.5 Hyperlipidemia, unspecified
CPT/HCPCS: 36415; 80048; 85025

== ENCOUNTER → 2018-10-29 06:40 | Outpatient (REF) | payer MEDICARE, OTHER, MEDICAID, SELFPAY ==
[2018-10-29 08:00] LABS: Absolute Lymphocyte Count 1.21 X10^3/ul (0.83-4.51); Absolute Neutrophil Count 4.6 X10^3/uL (2.0-7.7); Basophil# 0.03 X10^3/uL; Basophil% 0.4 % (0-1); Eosinophil# 0.52 X10^3/uL; Eosinophils% 7.1 % (0-5); Hematocrit 27.4 % (40-54); Hemoglobin 8.3 g/dl (13.0-16.5); Lymphocyte # 1.21 X10^3/ul (4.0); Lymphocyte % 16.4 % (19-41); Mean Corp Hgb Conc 30.3 g/gl (32-36); Mean Corpuscular Hgb 28.7 pg (27.0-32.0); Mean Corpuscular Volume 94.8 fL (80-94); Mean Platelet Vol. 11.5 fl (6.2-12.0); Monocyte# 1.03 X10^3/uL; Neutrophil # 4.56 X10^3/uL (2.7-7.7); Neutrophil % 61.8 % (47-70); Platelet Count 161 K/mm3 (150-450); RBC Distribution Width CV 14.8 % (11.6-14.6); RBC Distribution Width SD 50.9 fl (35.1-43.9); Red Blood Count 2.89 M/mm3 (4.6-6.2); White Blood Count 7.4 K/mm3 (4.4-11.0)
[2018-10-29 08:05] LABS: Anion Gap 4 (5-15); BUN 49 mg/dL (7-18); BUN/Creat Ratio 28.2 RATIO (10-20); Calcium,Total 8.9 mg/dL (8.5-10.1); Chloride 102 mmol/L (98-107); Creatinine, Serum 1.74 mg/dL (0.70-1.30); EST Glomerular Filtration Rate 40 mL/min (>60); Est Glom Filt Rate - Afr Amer 48 mL/min (>60); Glucose 139 mg/dL (74-106); Potassium 3.9 mmol/L (3.5-5.1); Sodium Level 139 mmol/L (136-145)
[2018-10-29 08:12] LABS: POSITIVE COUNT NO; POSITIVE DIFFERENTIAL NO; POSITIVE MORPHOLOGY NO
== END ==
LOC: OLS.WHLCAR 06:40
PROVIDERS: Visit Provider Family Medicine
DX: D64.9 Anemia, unspecified (principal); I50.9 Heart failure, unspecified; J44.9 Chronic obstructive pulmonary disease, unspecified; F03.90 Unspecified dementia, unspecified severity, without behavioral disturbance, psychotic disturbance, mood disturbance, and anxiety; E11.9 Type 2 diabetes mellitus without complications; I11.0 Hypertensive heart disease with heart failure; E78.5 Hyperlipidemia, unspecified
CPT/HCPCS: 36415; 80048; 85025

== ENCOUNTER 2018-11-15 15:53 | Emergency (ER) | payer MEDICARE, OTHER, MEDICAID, SELFPAY ==
[2018-11-15 15:54] VITALS: BP 118/49; PULSE 62; RESP 18; TEMP 36.6; O2SAT 97; BMI 28.8
[2018-11-15 16:01] VITALS: BP 129/56; PULSE 62; RESP 20; TEMP 36.6; O2SAT 95
--- NOTE | 2018-11-15 16:26 | CT_ITS ---
STUDY: CT ABDOMEN AND PELVIS WITHOUT CONTRAST REASON FOR EXAM: Male, 83 years old. Hematuria RADIATION DOSAGE (If Supplied By Facility): CTDIvol = ( 14.51 ) mGy, DLP = ( 845.89 ) mGycm TECHNIQUE: Transaxial images were obtained from the dome of the diaphragm to the symphysis pubis without oral contrast, and without intravenous contrast. Sagittal and coronal images were reconstructed. Individualized dose optimization techniques were used for this CT. COMPARISON: 2009 FINDINGS: There are chronic interstitial fibrotic changes of the lung bases. The visualized portions of the heart are within normal limits. Calcified granuloma in the liver. No discrete solid lesion. Normal gallbladder and extrahepatic biliary system. There are multiple benign calcified granulomata of the spleen. Normal pancreas. Normal bilateral adrenal glands. No obstructive uropathy is identified. There are vascular calcifications leading to both kidneys as well as nonspecific perinephric inflammatory stranding likely age related. Normal visualized stomach. Normal small intestine. Retained stool noted throughout the colon. Scattered colonic diverticulosis is noted. Retained stool noted in the sigmoid and rectum suggesting it may be impacted. There is non-visualization of the appendix. There is diffuse atherosclerotic calcification of the abdominal aorta, without a demonstrated aneurysm. Normal inferior vena cava. Normal retroperitoneum. There is bladder wall thickening. However, it is not symmetric and it is thicker on the right wall and the base than the left wall. An underlying neoplastic process cannot be excluded and further evaluation with cystoscopy is recommended. At the base of the penis is a well-defined fluid density measuring 3.6 x 2.9 cm. Normal abdominal wall. There are diffuse degenerative changes of the visualized lumbar spine, and pelvis. CT/Abdomen/Pelvis without Cont IMPRESSION: Asymmetric bladder wall thickening with more thickening noted in the right wall and the base of the bladder than the left wall. An underlying neoplastic process cannot be excluded. Further evaluation with cystoscopy recommended. This could also be due to chronic cystitis No obstructive uropathy, vascular calcifications noted in the both kidneys, there is nonspecific induration of the perinephric fat likely age-related Calcified granulomata in the liver and spleen Retained stool throughout the colon which may be impacted, there is scattered colonic diverticula Nonspecific well-defined fluid density at the base of the penis measuring 3.6 x 2.9 cm Electronically Signed: Anton Ritter MD at 18:01 EDT , Service support ,
--- NOTE | 2018-11-15 16:29 | ED.VIS.GEN ---
History of Present Illness Chief Complaint: Complaint Detail of Chief Complaint: hematuria Informant: Patient Onset: Today Context: Sudden Onset Timing: Continuous Quality: gross hematuria Location: urethral Current Severity: Moderate Maximum Severity: Moderate Worsened by: n/a Relieved by: n/a Associated Symptoms: pt denies injury, pain, urinary retention sx, fever, back pain, n/v Narrative: Patient states he lives in a rest home, they placed a Jacobson and sent him to the emergency department. He has a history of BPH, and chronic kidney disease. He states he has never had this that he knows of. His medication list includes Eliquis and Plavix. He did not know he was on any blood thinners and is a relatively poor historian. - Past Medical History (1) Atherosclerosis of [place] coronary artery of [place] heart without angina pectoris Status: Chronic Comment: 10/03/2003 with MENDOZA to LAD, SVG to lateral circumflex, diagonal branch to the LAD and to distal RCA (2) Benign essential hypertension Status: Chronic (3) CKD (chronic kidney disease) Status: Chronic (4) Chronic obstructive lung disease Status: Chronic (5) Chronic systolic (congestive) heart failure Status: Chronic Comment: EF: 40% from 05/14/18 (6) History of implantable cardiac defibrillator (ICD) Status: Chronic (7) Hyperlipidemia Status: Chronic (8) Non-rheumatic tricuspid valve insufficiency Status: Chronic (9) PAOD (peripheral arterial occlusive disease) Status: Chronic (10) Paroxysmal atrial fibrillation Status: Chronic (11) Secondary pulmonary arterial hypertension Status: Chronic (12) Type 2 diabetes mellitus with diabetic polyneuropathy Status: Chronic (13) BPH (benign prostatic hyperplasia) Status: Chronic (14) Aortic stenosis Status: Chronic (15) Pseudophakia of both eyes Status: Chronic Past Medical History - Allergies and Home Meds Allergies/Adverse Reactions: Allergies Iodinated Contrast- Oral and IV Dye [Iodinated Contrast Media - IV Dye] Allergy (Verified 11/15/18 16:00) Other Primary Care Physician: Xavier Cohen MD [Primary Care Provider] - Surgical History: coronary bypass surgery - x 4., pacemaker implantation, TURP, - - AICD, Back surgery, RLE stents per Dr. Castro. [facility] Smoking Status: Former smoker Drugs: None - Family History Paternal Family History: Reports: Heart Disease Maternal Family History: Reports: Diabetes Review of Systems General: Denies: Chills, Fever, Sweats Eyes: Denies: Visual changes - bilaterally, Diplopia ENT: Denies: Rhinorrhea, Sore throat Cardiovascular: Denies: Chest pain, Palpitations Respiratory: Denies: Dyspnea, Cough, Dyspnea on exertion Gastrointestinal: Denies: Abdominal pain, Nausea, Vomiting, Diarrhea, Melena, Hematochezia Genitourinary: Reports: Hematuria. Denies: Dysuria, Frequency Musculoskeletal: Denies: Back pain, Extremity Pain Skin: Denies: Rash, Wounds Neurological: Denies: Headache, Weakness, Numbness Physical Exam Vital Signs/Narrative: Vital Signs Temp Pulse Resp BP Pulse Ox 11/15/18 16:01 97.9 F 62 20 H 129/56 H 95 11/15/18 15:54 97.9 F 62 18 118/49 L 97 Inital Vital Signs reviewed: Yes General: Well nourished, Well developed, No Acute Distress Head: Normocephalic, Atraumatic Eyes: Perrl, EOMI ENT: Moist mucous membranes, No rhinorrhea Neck: Supple, Nontender Cardiovascular: Regular rate, Regular rhythm, No murmurs Respiratory: No distress, CTA bilaterally, Chest nontender Abdomen: Soft, Nontender, Nondistended, Normal bowel sounds : - - Gross hematuria flowing in Jacobson which is in place, patient tolerating well, no clots seen. Back: Nontender, Normal Inspection. Negative for: CVA tenderness Extremities: Nontender, No edema. Negative for: Calf Tenderness Skin: Normal color, No rash, No Trauma Neurological: Alert, Oriented x3, Cranial nerves II-XII grossly intact, Normal Strength, Normal Sensation Psychological: Normal affect, Normal Mood Diagnostic/Tx/Re-eval Impressions Abdomen/Pelvis CT 11/15/18 16:26 IMPRESSION: Asymmetric bladder wall thickening with more thickening noted in the right wall and the base of the bladder than the left wall. An underlying neoplastic process cannot be excluded. Further evaluation with cystoscopy recommended. This could also be due to chronic cystitis No obstructive uropathy, vascular calcifications noted in the both kidneys, there is nonspecific induration of the perinephric fat likely age-related Calcified granulomata in the liver and spleen Retained stool throughout the colon which may be impacted, there is scattered colonic diverticula Nonspecific well-defined fluid density at the base of the penis measuring 3.6 x 2.9 cm Electronically Signed: Anton Ritter MD at 18:01 EDT , Service support , 11/15/18 16:26 Abdomen/Pelvis without Cont [CT] Stat Laboratory Results 11/15/18 11/15/18 11/15/18 16:52 16:52 19:00 WBC 12.2 H RBC 3.11 L Hgb 8.9 L Hct 29.8 L MCV 95.8 H MCH 28.6 MCHC 29.9 L RDW Std Deviation 50.4 H RDW Coeff of Ju 14.4 Plt Count 180 MPV 11.3 Immature Gran % (Auto) 0.400 Neut % (Auto) 80.7 H Lymph % (Auto) 6.9 L [place] % (Auto) 10.1 H Eos % (Auto) 1.6 Baso % (Auto) 0.3 Absolute Neuts (auto) 9.9 H Absolute Lymphs (auto) 0.84 Absolute Nucleated RBC 0.00 Nucleated RBC % 0 Sodium 140 Potassium 3.3 L Chloride 104 Carbon Dioxide 31.0 Anion Gap 5 BUN 54 H Creatinine 1.87 H Estim Creat Clear Calc 32.28 Est GFR (MDRD) Af Amer 44 L Est GFR (MDRD) Non-Af 37 L BUN/Creatinine Ratio 28.9 H Glucose 47 L Calcium 9.0 Urine Color Urine Clarity Urine pH Ur Specific [place] Urine Protein Urine Glucose (UA) Urine Ketones Urine Occult Blood Urine Nitrite Urine Bilirubin Urine Urobilinogen Ur Leukocyte Esterase Urine RBC Urine WBC Ur Squamous Epith Cells Amorphous Sediment Urine Bacteria Urine Mucus POC Glucose 46 L 11/15/18 11/15/18 19:40 19:50 WBC RBC Hgb Hct MCV MCH MCHC RDW Std Deviation RDW Coeff of Ju Plt Count MPV Immature Gran % (Auto) Neut % (Auto) Lymph % (Auto) [place] % (Auto) Eos % (Auto) Baso % (Auto) Absolute Neuts (auto) Absolute Lymphs (auto) Absolute Nucleated RBC Nucleated RBC % Sodium Potassium Chloride Carbon Dioxide Anion Gap BUN Creatinine Estim Creat Clear Calc Est GFR (MDRD) Af Amer Est GFR (MDRD) Non-Af BUN/Creatinine Ratio Glucose Calcium Urine Color [place] Urine Clarity Cloudy Urine pH 6.0 Ur Specific [place] 1.010 Urine Protein 100 H Urine Glucose (UA) Normal Urine Ketones Negative Urine Occult Blood 250 H Urine Nitrite Positive H Urine Bilirubin Negative Urine Urobilinogen Normal Ur Leukocyte Esterase 100 H Urine RBC > 100 SEEN Urine WBC 5-10 SEEN Ur Squamous Epith Cells 0-5 SEEN Amorphous Sediment 1+ URATE Urine Bacteria RARE Urine Mucus 0 SEEN POC Glucose 72 - Medical Decision Making Patient will obtain CT before we were able to do anything with the catheter, it showed that the Jacobson was inflated within the penile urethra. This was probably the cause of the majority of the bleeding. Nursing removed it, attempted once to replace a new catheter but were unable, so we called Dr. Contreras to evaluate. He was able to get a catheter placed, flushed the bladder, the urine cleared and then became a little bloody but not bad enough that he felt he should be admitted. The rest of his blood work showed chronic anemia and chronic renal insufficiency, the patient is clinically doing well, and per urology is okay to be discharged with close outpatient follow-up with the catheter in. ED Disposition - Plan for ED Patient: Disposition: Home or Assisted Living Diagnosis: Hematuria, Urethral tear, CKD (chronic kidney disease) Instructions: Hematuria, Jacobson Catheter, Care Referrals: Loki Contreras MD [STAFF PHYSICIAN] - 3-5 Days Additional Instructions: Continue your medications. If the bleeding becomes worse, or you feel weak/lightheaded, or you are having blood clots, or the catheter gets obstructed, return to the ER immediately.
[2018-11-15 17:14] LABS: Absolute Lymphocyte Count 0.84 X10^3/uL (0.83-4.51); Absolute Neutrophil Count 9.9 X10^3/uL (2.0-7.7); Basophil# 0.04 X10^3/uL; Basophil% 0.3 % (0-1); Eosinophils% 1.6 % (0-5); Hematocrit 29.8 % (40-54); Hemoglobin 8.9 g/dL (13.0-16.5); Lymphocyte # 0.84 X10^3/ul (4.0); Lymphocyte % 6.9 % (19-41); Mean Corp Hgb Conc 29.9 g/dL (32-36); Mean Corpuscular Hgb 28.6 pg (27.0-32.0); Mean Corpuscular Volume 95.8 fL (80-94); Mean Platelet Vol. 11.3 fl (6.2-12.0); Monocyte# 1.24 X10^3/uL; Monocyte% 10.1 % (0-10); NRBC Flagged by Analyzer 0 % (0-5); Neutrophil # 9.87 X10^3/uL (2.7-7.7); Neutrophil % 80.7 % (47-70); Platelet Count 180 K/mm3 (150-450); RBC Distribution Width CV 14.4 % (11.6-14.6); RBC Distribution Width SD 50.4 fl (35.1-43.9); Red Blood Count 3.11 M/mm3 (4.6-6.2); White Blood Count 12.2 K/mm3 (4.4-11.0)
[2018-11-15 17:15] LABS: Anion Gap 5 (5-15); BUN 54 mg/dL (7-18); BUN/Creat Ratio 28.9 RATIO (10-20); Chloride 104 mmol/L (98-107); Creatinine, Serum 1.87 mg/dL (0.70-1.30); EST Glomerular Filtration Rate 37 mL/min (>60); Est Glom Filt Rate - Afr Amer 44 mL/min (>60); Estimated Creatinine Clearance 32.28 ml/min; Glucose 47 mg/dL (74-106); Potassium 3.3 mmol/L (3.5-5.1); Sodium Level 140 mmol/L (136-145)
--- NOTE | 2018-11-15 17:56 | NURSING ---
DR MARIA DE JESUS MANZO
--- NOTE | 2018-11-15 18:38 | NURSING ---
DR PRETTY IN ER
[2018-11-15 19:05] LABS: Bedside Glucose 46 mg/dL (70-110)
--- NOTE | 2018-11-15 19:05 | PCM.CONS.U ---
Reason for Consult Date of Consultation: 11/15/18 Reason for Consultation: Gross hematuria or urinary retention History of Present Illness: The patient is a 83 year old male who is known to our office he was last seen in July by a nurse practitioner, at that point he had been with a chronic catheter which was changed every month because of urinary retention he also was taken Flomax and finasteride the patient and his daughter wanted to have the catheter removed for another voiding trial which was done in the office and then he was discharged to the skilled facility to continue to monitor and the instructions were to place a catheter if his PVRs were elevated. Patient reported to have some blood in the urine he denies having problems with retention of urine the assisted attempted to place a catheter and appears to be that the catheter was blown up in the middle of his prostate which cause significant bleeding. I then came into the emergency room to remove the old catheter was able to navigate a new catheter into the bladder irrigated all the clots out and the urine is now clear and draining. Past Medical History Past Medical History (Chronic Problems): Chronic Problems (Last Reviewed 06/19/18 @ 13:45 by Caty Sandhu) CKD (chronic kidney disease) (Chronic) BPH (benign prostatic hyperplasia) (Chronic) Aortic stenosis (Chronic) Pseudophakia of both eyes (Chronic) Non-rheumatic tricuspid valve insufficiency (Chronic) Secondary pulmonary arterial hypertension (Chronic) History of implantable cardiac defibrillator (ICD) (Chronic) Chronic systolic (congestive) heart failure (Chronic) EF: 40% from 05/14/18 Paroxysmal atrial fibrillation (Chronic) Ischemic cardiomyopathy (Chronic) EF: 40% from 05/14/18; Atherosclerosis of [place] coronary artery of [place] heart without angina pectoris (Chronic) 10/03/2003 with MENDOZA to LAD, SVG to lateral circumflex, diagonal branch to the LAD and to distal RCA 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) Benign essential hypertension (Chronic) Chronic obstructive lung disease (Chronic) Hyperlipidemia (Chronic) Medical History: Medical History (Last Reviewed 06/19/18 @ 13:45 by Caty Sandhu) Non-rheumatic tricuspid valve insufficiency (Chronic) I36.1 Secondary pulmonary arterial hypertension (Chronic) I27.21 Chronic systolic (congestive) heart failure (Chronic) I50.22 EF: 40% from 05/14/18 Paroxysmal atrial fibrillation (Chronic) I48.0 Ischemic cardiomyopathy (Chronic) I25.5 EF: 40% from 05/14/18; Atherosclerosis of [place] coronary artery of [place] heart without angina pectoris (Chronic) I25.10 10/03/2003 with MENDOZA to LAD, SVG to lateral circumflex, diagonal branch to the LAD and to distal RCA Type 2 diabetes mellitus with diabetic polyneuropathy (Chronic) E11.42 PAOD (peripheral arterial occlusive disease) (Chronic) I77.9 Benign essential hypertension (Chronic) I10 Chronic obstructive lung disease (Chronic) J44.9 Hyperlipidemia (Chronic) E78.5 Acute kidney injury N17.9 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 BPH (benign prostatic hyperplasia) N40.0 Bladder outlet obstruction N32.0 Bladder outlet obstruction N32.0 Chronic diarrhea K52.9 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 Chronic ulcer of left ankle with fat layer exposed L97.322 Chronic ulcer of left foot with fat layer exposed L97.522 Chronic ulcer of right ankle with fat layer exposed L97.312 Chronic ulcer of right ankle with fat layer exposed L97.312 Chronic ulcer of right ankle with fat layer exposed L97.312 Chronic ulcer of right foot L97.519 Edema, lower extremity R60.0 Edema, lower extremity R60.0 FTT (failure to thrive) in adult R62.7 Infection due to Amber albicans B37.9 Infection due to Amber albicans B37.9 Malnutrition E46 Peripheral neuropathy G62.9 Peripheral neuropathy G62.9 Ulcer of left lower extremity with fat layer exposed L97.922 Ulcer of left lower extremity with fat layer exposed L97.922 Ulcer of right foot with fat layer exposed L97.512 Ulcer of right foot with fat layer exposed L97.512 Urinary retention R33.9 Venous (peripheral) insufficiency I87.2 Fall W19.XXXA UTI (urinary tract infection) N39.0 Ulcer of right foot with fat layer exposed L97.512 Chronic ulcer of ankle (Inactive) L97.309 Non-rheumatic aortic stenosis (Inactive) I35.0 Peripheral vascular disease (Inactive) I73.9 Weakness R53.1 Allergies Iodinated Contrast- Oral and IV Dye [Iodinated Contrast Media - IV Dye] Allergy (Verified 11/15/18 16:00) Other Home Medications: Ambulatory Orders Medication Instructions Recorded Loratadine [Claritin] 10 mg PO DAILY 10/30/13 Clopidogrel Bisulfate [Plavix] 75 mg PO DAILY 02/04/16 Finasteride [Proscar] 5 mg PO DAILY tab 07/13/16 Acetaminophen [Tylenol] 1,000 mg PO Q8H PRN #0 tab 08/22/16 Bisacodyl [Dulcolax] 10 mg RECTAL DAILY PRN #0 suppos. 08/22/16 Fluoxetine [Prozac] 20 mg PO DAILY cap 08/22/16 Ipratropium/Albuterol Sulfate 3 ml INHALATION Q4H.RT PRN #0 08/22/16 [Duoneb] ampul.neb Polyethylene Glycol 3350 [Miralax] 17 gm PO DAILY packet 08/22/16 Senna/Docusate Sodium [Senokot-S] 2 tab PO BID tab 08/22/16 Albuterol Aerosols [Ventolin 2.5 mg INHALATION Q4H PRN PRN 05/13/18 Aerosols] Apixaban [Eliquis] 2.5 mg PO BID 05/13/18 Aspirin E.C. [Ecotrin] 81 mg PO DAILY@0800 05/13/18 Guaifenesin [Mucinex] 600 mg PO BID 05/13/18 Omeprazole [Prilosec] 20 mg PO DAILY 05/13/18 Tamsulosin HCl [Flomax] 0.4 mg PO DAILY 05/13/18 furosemide 40 mg tablet 40 mg PO BID 05/30/18 Furosemide [Lasix] 20 mg PO BID 11/15/18 Glycerin/Propylene Glycol 1 drp EACH EYE 4X/DAY 11/15/18 [Artificial Tears Drops] Insulin Aspart [Novolog Flexpen 10 units SUBCUT DAILY 11/15/18 ([facility])] Insulin Aspart [Novolog Flexpen 12 units SUBCUT BID 11/15/18 ([facility])] Insulin Glargine,Hum.rec.anlog 50 unit SQ DAILY 11/15/18 [Basaglar Kwikpen U-100] Loperamide HCl [Imodium A-D] 2 mg PO TID PRN PRN 11/15/18 Memantine HCl [Memantine HCl ER] 28 mg PO QHS 11/15/18 Metoprolol Tartrate 25 mg PO BID 11/15/18 Multivitamin with Iron [Daily Sandra 1 ea PO DAILY 11/15/18 with Iron] Nut.tx.gluc.intoler,Lac-Fr,Soy 120 ml PO 4X/DAY 11/15/18 [Glucerna] Phenazopyridine HCl 100 mg PO DAILY 11/15/18 Surgical History: Surgical History (Last Reviewed 06/19/18 @ 13:45 by Caty Sandhu) History of implantable cardiac defibrillator (ICD) (Chronic) Hx of CABG (Resolved) Onset Date: 10/03/03 10/03/2003 with MENDOZA to LAD, SVG to lateral circumflex, diagonal branch to the LAD and to distal RCA; History of transurethral resection of prostate Z98.890, Z90.79 History of left heart catheterization Onset Date: 12/02/10 Z98.890 Status post insertion of iliac artery stent Z95.828 Surgical History: coronary bypass surgery - x 4., pacemaker implantation, TURP, - - AICD, Back surgery, RLE stents per Dr. Castro. Psychiatric History: Anxiety, Depression Lives: [facility] Smoking Status: Former smoker Drugs: None - *Family History Paternal History Items: Heart Disease Maternal History Items: Diabetes Review of Systems Constitutional: Denies: Chills, Fever, Weight Change HEENT: Denies: Head Aches, Sinus Congestion, Sinus Drainage Cardiovascular: Denies: Chest Pain, Palpitations Respiratory: Denies: Cough, Shortness of breath at rest, Sputum production Gastrointestinal: Denies: Abdominal Pain, Nausea, Vomiting Genitourinary: Reports: Hematuria, Retention. Denies: Dysuria Musculoskeletal: Denies: Joint Pain, Joint Tenderness Skin: Denies: Rash, Wounds Neurological: Denies: Numbness, Tingling, Focal weakness Psychiatric: Denies: Anxiety, Depression, Homicidal Ideations, Suicidal Ideations Hematologic/ Lymphatic: Denies: Easy Bruising, Easy Bleeding Physical Exam - Physical Exam Vital Signs Temp 97.9 F 11/15/18 16:01 Pulse 62 11/15/18 16:01 Resp 20 H 11/15/18 16:01 BP 129/56 H 11/15/18 16:01 Pulse Ox 95 11/15/18 16:01 Intake & Output 11/13/18 11/14/18 11/15/18 23:59 23:59 23:59 Weight: 96.6 kg General: Alert, No apparent distress, Disoriented HEENT: Atraumatic Oral: Moist Mucosa Neck: Supple Lungs: Normal air movement Cardiovascular: Regular rate, Regular Rhythm Abdomen: Bowel Sounds Present, Soft Rectal: Exam deferred Testicle: Right Normal, Left Normal Epididymis: Right Normal, Left Normal Penis: Uncircumcised Groin: No hernia Extremities: No clubbing, No cyanosis, No edema Skin: No rashes Neurological: Cranial nerves II-XII grossly intact Psych/Mental Status: Normal Affect Laboratory Tests Past 24 Hrs 11/15/18 11/15/18 16:52 16:52 WBC 12.2 H RBC 3.11 L Hgb 8.9 L Hct 29.8 L MCV 95.8 H MCH 28.6 MCHC 29.9 L RDW Std Deviation 50.4 H RDW Coeff of Ju 14.4 Plt Count 180 MPV 11.3 Immature Gran % (Auto) 0.400 Neut % (Auto) 80.7 H Lymph % (Auto) 6.9 L [place] % (Auto) 10.1 H Eos % (Auto) 1.6 Baso % (Auto) 0.3 Absolute Neuts (auto) 9.9 H Absolute Lymphs (auto) 0.84 Absolute Nucleated RBC 0.00 Nucleated RBC % 0 Sodium 140 Potassium 3.3 L Chloride 104 Carbon Dioxide 31.0 Anion Gap 5 BUN 54 H Creatinine 1.87 H Estim Creat Clear Calc 32.28 Est GFR (MDRD) Af Amer 44 L Est GFR (MDRD) Non-Af 37 L BUN/Creatinine Ratio 28.9 H Glucose 47 L Calcium 9.0 Assessment/Plan All Active Problems (Last Reviewed 06/19/18 @ 13:45 by Caty Sandhu) JOAQUINA (acute kidney injury) (Acute) Dyspnea (Acute) Chest pain (Acute) Hx of CABG (Resolved 10/03/03) 83-year-old male who presented to the emergency room with gross hematuria, Jacobson catheter was placed at the bedside somewhat difficult but able to get into the bladder then irrigate out the bladder completely he can go back to the assisted facility with a catheter he can follow-up in the office for discussion about the options of management he really is not a good surgical candidate anymore for another TURP given how frail and old he is would fail medically and probably would not pass anesthesia. His long-term best option may be a chronic catheter change on a monthly basis. For now he can go home from the emergency room but this catheter we can send the office for follow-up in a few weeks and have a discussion with the family.
[2018-11-15 19:06] VITALS: BP 114/39; PULSE 66; RESP 17; TEMP 36.8; O2SAT 98
[2018-11-15 19:50] LABS: Mucous, Urine 0 SEEN /hpf (<or=2+)
[2018-11-15 19:52] LABS: Color, Urine Amber (Yellow); Glucose, Dipstick Normal (Normal); Ketone-Dipstick Negative (Negative); Leukocyte Esterase-Dipstick 100 /ul (Negative); Nitrite-Dipstick Positive (Negative); Occult Blood-Urine 250 /ul (Negative); Protein-Dipstick 100 mg/dl (Negative); Urine Bilirubin Dipstick Negative (Negative); Urine Clarity Cloudy (Clear); Urine Urobilinogen Normal (Normal)
[2018-11-15 19:56] LABS: Bedside Glucose 72 mg/dL (70-110)
[2018-11-15 19:59] LABS: Amorphous Sediment 1+ URATE; Bacteria RARE /hpf (None Seen); Red Blood Cells-Urine > 100 SEEN /hpf (0-5); Squamous Epithelial Cells - UA 0-5 SEEN /hpf (0-5); White Blood Cells 5-10 SEEN /hpf (0-5)
[2018-11-15 20:53] VITALS: BP 134/50; PULSE 70; RESP 20; O2SAT 98
[2018-11-15 20:54] VITALS: BP 134/50; PULSE 70; RESP 20; TEMP 36.7; O2SAT 98
== END 2018-11-15 21:13 | disposition skilled nursing facility (03) ==
PROVIDERS: Emergency Provider Emergency Medicine; Family Provider Family Medicine; PCP Family Medicine
DX: R31.0 Gross hematuria (principal); S37.33XA Laceration of urethra, initial encounter; X58.XXXA Exposure to other specified factors, initial encounter; Y93.9 Activity, unspecified; Y92.9 Unspecified place or not applicable; Y99.9 Unspecified external cause status; N40.1 Benign prostatic hyperplasia with lower urinary tract symptoms; R33.8 Other retention of urine; N31.2 Flaccid neuropathic bladder, not elsewhere classified; N32.0 Bladder-neck obstruction; E11.22 Type 2 diabetes mellitus with diabetic chronic kidney disease; I13.0 Hypertensive heart and chronic kidney disease with heart failure and stage 1 through stage 4 chronic kidney disease, or unspecified chronic kidney disease; I50.22 Chronic systolic (congestive) heart failure; N18.9 Chronic kidney disease, unspecified; I25.10 Atherosclerotic heart disease of native coronary artery without angina pectoris; J44.9 Chronic obstructive pulmonary disease, unspecified; E11.51 Type 2 diabetes mellitus with diabetic peripheral angiopathy without gangrene; E11.42 Type 2 diabetes mellitus with diabetic polyneuropathy; I48.0 Paroxysmal atrial fibrillation; I27.21 Secondary pulmonary arterial hypertension; I25.5 Ischemic cardiomyopathy; I35.0 Nonrheumatic aortic (valve) stenosis; E78.5 Hyperlipidemia, unspecified; F32.9 Major depressive disorder, single episode, unspecified; F41.9 Anxiety disorder, unspecified; Z79.01 Long term (current) use of anticoagulants; Z79.02 Long term (current) use of antithrombotics/antiplatelets; Z79.82 Long term (current) use of aspirin; Z79.4 Long term (current) use of insulin; Z79.899 Other long term (current) drug therapy; Z95.810 Presence of automatic (implantable) cardiac defibrillator; Z95.1 Presence of aortocoronary bypass graft; Z95.5 Presence of coronary angioplasty implant and graft; Z95.0 Presence of cardiac pacemaker; Z87.891 Personal history of nicotine dependence
CPT/HCPCS: 51702; 74176; 80048; 81001; 82962; 85025; 87077; 87086; 87088; 87186; 99285; A4216

== ENCOUNTER → 2018-11-29 05:00 | Outpatient (REF) | payer MEDICARE, OTHER, MEDICAID, SELFPAY ==
[2018-11-15 15:54] VITALS: BMI 28.8
[2018-11-29 10:09] LABS: Absolute Lymphocyte Count 1.39 X10^3/uL (0.83-4.51); Absolute Neutrophil Count 5.4 X10^3/uL (2.0-7.7); Basophil# 0.04 X10^3/uL; Basophil% 0.5 % (0-1); Eosinophil# 0.51 X10^3/uL; Eosinophils% 6.1 % (0-5); Hematocrit 26.4 % (40-54); Hemoglobin 7.6 g/dL (13.0-16.5); Lymphocyte # 1.39 X10^3/ul (4.0); Lymphocyte % 16.5 % (19-41); Mean Corp Hgb Conc 28.8 g/dL (32-36); Mean Corpuscular Hgb 28.4 pg (27.0-32.0); Mean Corpuscular Volume 98.5 fL (80-94); Mean Platelet Vol. 11.8 fl (6.2-12.0); Monocyte# 0.98 X10^3/uL; Monocyte% 11.7 % (0-10); NRBC Flagged by Analyzer 0 % (0-5); Neutrophil # 5.44 X10^3/uL (2.7-7.7); Neutrophil % 64.7 % (47-70); Platelet Count 176 K/mm3 (150-450); RBC Distribution Width CV 14.4 % (11.6-14.6); RBC Distribution Width SD 51.7 fl (35.1-43.9); Red Blood Count 2.68 M/mm3 (4.6-6.2); White Blood Count 8.4 K/mm3 (4.4-11.0)
[2018-11-29 10:20] LABS: Anion Gap 8 (5-15); BUN 44 mg/dL (7-18); BUN/Creat Ratio 23.5 RATIO (10-20); Calcium,Total 8.9 mg/dL (8.5-10.1); Chloride 104 mmol/L (98-107); Creatinine, Serum 1.87 mg/dL (0.70-1.30); EST Glomerular Filtration Rate 37 mL/min (>60); Est Glom Filt Rate - Afr Amer 44 mL/min (>60); Glucose 67 mg/dL (74-106); Potassium 3.7 mmol/L (3.5-5.1); Sodium Level 145 mmol/L (136-145)
== END ==
LOC: OLS.WHLCAR 05:00
PROVIDERS: Visit Provider Family Medicine
DX: I12.9 Hypertensive chronic kidney disease with stage 1 through stage 4 chronic kidney disease, or unspecified chronic kidney disease (principal); N18.9 Chronic kidney disease, unspecified
CPT/HCPCS: 36415; 80048; 85025

== ENCOUNTER → 2018-12-27 05:00 | Outpatient (REF) | payer MEDICARE, OTHER, MEDICAID, SELFPAY ==
[2018-12-27 07:36] LABS: Absolute Lymphocyte Count 1.13 X10^3/uL (0.83-4.51); Absolute Neutrophil Count 5.4 X10^3/uL (2.0-7.7); Basophil# 0.02 X10^3/uL; Basophil% 0.3 % (0-1); Eosinophil# 0.44 X10^3/uL; Eosinophils% 5.6 % (0-5); Hematocrit 27.2 % (40-54); Lymphocyte # 1.13 X10^3/ul (4.0); Lymphocyte % 14.5 % (19-41); Mean Corp Hgb Conc 29.4 g/dL (32-36); Mean Corpuscular Hgb 28.4 pg (27.0-32.0); Mean Corpuscular Volume 96.5 fL (80-94); Mean Platelet Vol. 11.8 fl (6.2-12.0); Monocyte# 0.77 X10^3/uL; Monocyte% 9.9 % (0-10); NRBC Flagged by Analyzer 0 % (0-5); Neutrophil # 5.41 X10^3/uL (2.7-7.7); Neutrophil % 69.2 % (47-70); Platelet Count 174 K/mm3 (150-450); RBC Distribution Width CV 13.6 % (11.6-14.6); RBC Distribution Width SD 48.1 fl (35.1-43.9); Red Blood Count 2.82 M/mm3 (4.6-6.2); White Blood Count 7.8 K/mm3 (4.4-11.0)
[2018-12-27 07:58] LABS: Anion Gap 5 (5-15); BUN 52 mg/dL (7-18); BUN/Creat Ratio 30.1 RATIO (10-20); Calcium,Total 8.7 mg/dL (8.5-10.1); Chloride 105 mmol/L (98-107); Creatinine, Serum 1.73 mg/dL (0.70-1.30); EST Glomerular Filtration Rate 40 mL/min (>60); Est Glom Filt Rate - Afr Amer 49 mL/min (>60); Glucose 198 mg/dL (74-106); Potassium 4.1 mmol/L (3.5-5.1); Sodium Level 142 mmol/L (136-145)
== END ==
LOC: OLS.WHLCAR 05:00
PROVIDERS: Visit Provider Family Medicine
DX: I50.23 Acute on chronic systolic (congestive) heart failure (principal); J44.9 Chronic obstructive pulmonary disease, unspecified; R41.841 Cognitive communication deficit; M62.81 Muscle weakness (generalized); R26.2 Difficulty in walking, not elsewhere classified
CPT/HCPCS: 36415; 80048; 85025

== ENCOUNTER → 2019-01-24 | Outpatient (REF) | payer MEDICARE, OTHER, MEDICAID, SELFPAY ==
[2019-01-24 07:19] LABS: Absolute Lymphocyte Count 1.33 X10^3/uL (0.83-4.51); Absolute Neutrophil Count 6.3 X10^3/uL (2.0-7.7); Basophil# 0.04 X10^3/uL; Basophil% 0.4 % (0-1); Eosinophil# 0.41 X10^3/uL; Eosinophils% 4.5 % (0-5); Hematocrit 29.4 % (40-54); Hemoglobin 8.7 g/dL (13.0-16.5); Lymphocyte # 1.33 X10^3/ul (4.0); Lymphocyte % 14.7 % (19-41); Mean Corp Hgb Conc 29.6 g/dL (32-36); Mean Corpuscular Hgb 27.8 pg (27.0-32.0); Mean Corpuscular Volume 93.9 fL (80-94); Mean Platelet Vol. 11.9 fl (6.2-12.0); Monocyte# 0.96 X10^3/uL; Monocyte% 10.6 % (0-10); NRBC Flagged by Analyzer 0 % (0-5); Neutrophil # 6.27 X10^3/uL (2.7-7.7); Neutrophil % 69.2 % (47-70); Platelet Count 156 K/mm3 (150-450); RBC Distribution Width CV 14.1 % (11.6-14.6); RBC Distribution Width SD 47.3 fl (35.1-43.9); Red Blood Count 3.13 M/mm3 (4.6-6.2); White Blood Count 9.1 K/mm3 (4.4-11.0)
[2019-01-24 07:58] LABS: Anion Gap 8 (5-15); BUN 58 mg/dL (7-18); BUN/Creat Ratio 32.2 RATIO (10-20); Calcium,Total 9.2 mg/dL (8.5-10.1); Chloride 103 mmol/L (98-107); EST Glomerular Filtration Rate 38 mL/min (>60); Est Glom Filt Rate - Afr Amer 46 mL/min (>60); Glucose 168 mg/dL (74-106); Potassium 3.7 mmol/L (3.5-5.1); Sodium Level 143 mmol/L (136-145)
== END | disposition home or self-care (01) ==
LOC: OLS.WHLCAR 05:00
PROVIDERS: Visit Provider Family Medicine
DX: J44.9 Chronic obstructive pulmonary disease, unspecified (principal)
CPT/HCPCS: 36415; 80048; 85025

== ENCOUNTER 2019-02-05 18:53 | Emergency (ER) | payer MEDICARE, OTHER, SELFPAY ==
[2019-02-05 18:53] VITALS: BP 104/51; PULSE 62; RESP 16; O2SAT 95
[2019-02-05 18:54] VITALS: BP 112/64; PULSE 64; RESP 18; TEMP 36.8; O2SAT 92; BMI 28.8
--- NOTE | 2019-02-05 19:22 | ED.VISSUMM ---
- ER Visit Summary Date of Service: 02/05/19 Chief Complaint: Nosebleed History of Present Illness: The patient is a 83 M who presents from his nursing facility for nosebleed. He said the bleeding started about an hour prior to arrival. It has since resolved. He was treated with Afrin and pressure. He said that the bleeding was from his right nostril only. He denies any other bleeding. Denies trauma or inciting events. He does take Eliquis for history of atrial fibrillation. Physical Examination: Afebrile and vital signs unremarkable. Head and neck atraumatic and inspection is unremarkable except for some dried blood to his right nostril and some to his oropharynx. There is an area of erythema in his right nostril towards the septal wall. There is no active bleeding. No sign of trauma, laceration, or other abnormality otherwise. I suspect this was the site of bleeding. Otherwise his exam is unremarkable. Breathing comfortably. Airway normal. Lungs clear. Test Results: None indicated Emergency Department Course and Treatment: Patient had self-described mild bleeding for less than an hour which resolved. I do not suspect he is anemic. His airway is intact. The bleeding has stopped. I talked about different treatment options. He elected to be observed in the ED. Will perform a PO challenge and reassess. Treatment Plan: As above Disposition: Discharge Impression: 1. Right anterior epistaxis This note was generated with [employer] dictation software. It may contain incorrect words, spelling, and punctuation that were not noted in review of the chart prior to signing ED Disposition - Plan for ED Patient: Referrals: Xavier Cohen MD [Primary Care Provider] -
--- NOTE | 2019-02-05 20:19 | ED.DEP ---
ED Disposition - Plan for ED Patient: Instructions: Nosebleed Referrals: Xavier Cohen MD [Primary Care Provider] -
[2019-02-05 21:21] VITALS: PULSE 84; RESP 20
== END 2019-02-05 21:22 | disposition home or self-care (01) ==
LOC: ED 19:34
PROVIDERS: Emergency Provider Emergency Medicine; Family Provider Family Medicine; PCP Family Medicine
DX: R04.0 Epistaxis (principal); I48.91 Unspecified atrial fibrillation; I12.9 Hypertensive chronic kidney disease with stage 1 through stage 4 chronic kidney disease, or unspecified chronic kidney disease; E11.22 Type 2 diabetes mellitus with diabetic chronic kidney disease; N18.9 Chronic kidney disease, unspecified; Z79.01 Long term (current) use of anticoagulants; Z79.02 Long term (current) use of antithrombotics/antiplatelets; Z79.82 Long term (current) use of aspirin; Z79.4 Long term (current) use of insulin; Z79.899 Other long term (current) drug therapy; Z87.891 Personal history of nicotine dependence; Z95.1 Presence of aortocoronary bypass graft; Z95.810 Presence of automatic (implantable) cardiac defibrillator
CPT/HCPCS: 99283

== ENCOUNTER 2019-02-20 01:52 | Emergency (ER) | payer MEDICARE, OTHER, SELFPAY ==
[2019-02-20 01:53] VITALS: BP 137/62; PULSE 93; RESP 24; TEMP 36.9; O2SAT 95; BMI 27.8
[2019-02-20 01:59] VITALS: BP 137/62; PULSE 93; RESP 24; TEMP 36.9; O2SAT 95
--- NOTE | 2019-02-20 02:25 | ED.VISSUMM ---
- ER Visit Summary Date of Service: 02/20/19 Chief Complaint: Bladder pain, Jacobson catheter not draining History of Present Illness: The patient is a 83 M who comes in from [facility] complaining having a lot of pain around his Jacobson catheter. Apparently it is not draining. He has no urine in the bag. He states that this all started today. Pushing on this area makes it worse. He does not know when the last time this was changed. States he has had a Jacobson catheter placed for a long time. 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 Physical Examination: Vital signs reviewed. HEENT exam unremarkable. Heart is regular rate and rhythm. Lungs clear to auscultation. Abdomen is soft with suprapubic tenderness to palpation. Jacobson catheter is in place. There is no urine in the bag. He is alert and oriented in all spheres. His neurologic exam is unremarkable. Test Results: Urine culture was sent Emergency Department Course and Treatment: I did a bedside ultrasound and it shows a fair amount of urine still in the bladder despite a catheter in place. When the old catheter was taken out he had a lot of urine that came out onto the bed. A new Jacobson catheter was placed in 600 cc of urine returned. Patient feels much better. The urine is very foul-smelling I suspect he has a UTI. I will go ahead and treat with Keflex. He will follow-up with at the [facility] Treatment Plan: [] Disposition: Discharge Impression: Clogged Jacobson catheter, urinary retention, UTI This note was generated with Tabbed[employer] dictation software. It may contain incorrect words, spelling, and punctuation that were not noted in review of the chart prior to signing ED Disposition - Plan for ED Patient: Referrals: Xavier Cohen MD [Primary Care Provider] -
[2019-02-20] MEDS: Cephalexin 250 MG Capsule 500 MG PO (02:28)
--- NOTE | 2019-02-20 02:28 | ED.DEP ---
ED Disposition - Plan for ED Patient: Disposition: Home or Assisted Living Instructions: URINARY RETENTION, Male, Bladder Infection, Male (Adult) Prescriptions: Cephalexin [Keflex] 500 mg PO Q12 #14 cap Prescription Printed Referrals: Xavier Cohen MD [Primary Care Provider] -
[2019-02-20 02:29] LABS: Mucous, Urine 0 SEEN /hpf (<or=2+); Squamous Epithelial Cells - UA 0 SEEN /hpf (0-5)
[2019-02-20 02:30] LABS: Color, Urine Amber (Yellow); Glucose, Dipstick Normal (Normal); Ketone-Dipstick Negative (Negative); Leukocyte Esterase-Dipstick 500 /ul (Negative); Nitrite-Dipstick Positive (Negative); Occult Blood-Urine 250 /ul (Negative); Protein-Dipstick 100 mg/dl (Negative); Urine Bilirubin Dipstick Negative (Negative); Urine Clarity Cloudy (Clear); Urine Urobilinogen Normal (Normal); Urine pH 6.5 (5.0 - 8.0)
[2019-02-20 02:37] LABS: Bacteria 4+ /hpf (None Seen); Red Blood Cells-Urine > 100 SEEN /hpf (0-5); White Blood Cells 5-10 SEEN /hpf (0-5)
[2019-02-20 02:44] VITALS: BP 120/54; PULSE 87; RESP 16; O2SAT 96
== END 2019-02-20 03:23 | disposition home or self-care (01) ==
PROVIDERS: Emergency Provider Emergency Medicine; Family Provider Family Medicine; PCP Family Medicine
DX: T83.098A Other mechanical complication of other urinary catheter, initial encounter (principal); N39.0 Urinary tract infection, site not specified; R33.9 Retention of urine, unspecified; Z79.01 Long term (current) use of anticoagulants; Z79.02 Long term (current) use of antithrombotics/antiplatelets; Z79.82 Long term (current) use of aspirin; Z79.4 Long term (current) use of insulin; Z79.899 Other long term (current) drug therapy
CPT/HCPCS: 81001; 99284; A4216

== ENCOUNTER → 2019-02-21 05:00 | Outpatient (REF) | payer MEDICARE, OTHER, SELFPAY ==
[2019-02-20 01:53] VITALS: BMI 27.8
[2019-02-21 08:56] LABS: Absolute Lymphocyte Count 1.23 X10^3/uL (0.83-4.51); Absolute Neutrophil Count 7.7 X10^3/uL (2.0-7.7); Basophil# 0.03 X10^3/uL; Basophil% 0.3 % (0-1); Eosinophil# 0.31 X10^3/uL; Hematocrit 29.2 % (40-54); Hemoglobin 8.5 g/dL (13.0-16.5); Lymphocyte # 1.23 X10^3/ul (4.0); Mean Corp Hgb Conc 29.1 g/dL (32-36); Mean Corpuscular Hgb 27.4 pg (27.0-32.0); Mean Corpuscular Volume 94.2 fL (80-94); Mean Platelet Vol. 11.9 fl (6.2-12.0); Monocyte# 0.92 X10^3/uL; NRBC Flagged by Analyzer 0 % (0-5); Neutrophil % 75.3 % (47-70); Platelet Count 187 K/mm3 (150-450); RBC Distribution Width SD 48.1 fl (35.1-43.9); White Blood Count 10.2 K/mm3 (4.4-11.0)
[2019-02-21 09:08] LABS: Anion Gap 5 (5-15); BUN 51 mg/dL (7-18); BUN/Creat Ratio 29.7 RATIO (10-20); Calcium,Total 9.4 mg/dL (8.5-10.1); Chloride 105 mmol/L (98-107); Creatinine, Serum 1.72 mg/dL (0.70-1.30); EST Glomerular Filtration Rate 40 mL/min (>60); Est Glom Filt Rate - Afr Amer 49 mL/min (>60); Glucose 92 mg/dL (74-106); Potassium 3.4 mmol/L (3.5-5.1); Sodium Level 142 mmol/L (136-145)
== END ==
LOC: OLS.WHLCAR 05:00
PROVIDERS: Visit Provider Family Medicine
DX: I50.23 Acute on chronic systolic (congestive) heart failure (principal); J44.9 Chronic obstructive pulmonary disease, unspecified; R41.841 Cognitive communication deficit; M62.81 Muscle weakness (generalized); R26.2 Difficulty in walking, not elsewhere classified
CPT/HCPCS: 36415; 80048; 85025

== ENCOUNTER 2019-03-05 11:48 | Emergency (ER) | payer MEDICARE, OTHER, SELFPAY ==
[2019-03-05 11:50] VITALS: BP 116/50; PULSE 79; RESP 31; TEMP 36.7; O2SAT 93; BMI 28.3
--- NOTE | 2019-03-05 11:56 | RAD_ITS ---
STUDY: X-RAY CHEST REASON FOR EXAM: Male, 83 years old. Left-sided chest pain. TECHNIQUE: Single AP portable view of the chest. COMPARISON: Comparison is made with prior study dated May 30, 2018. FINDINGS: EKG electrodes are seen. Stable elevation of the left hemidiaphragm. There is no demonstrated pleural abnormality. Sternal cerclage wires and vascular clips are present from a prior sternotomy and coronary artery bypass graft procedure (CABG). A left-sided ICD is seen. Normal mediastinum and kisha. Normal visualized pulmonary arteries. There is atherosclerotic calcification of the aortic arch with tortuosity. Normal visualized thoracic spine. Normal visualized ribs, clavicles, and shoulders. There is no demonstrated abnormality of the visualized soft tissue structures of the upper abdomen. RAD/Chest 1 View (Portable) IMPRESSION: No focal pulmonary opacity or evidence for other acute process. Electronically Signed: Osmel Claudio, at 13:16 EST Tel , Service support ,
--- NOTE | 2019-03-05 11:56 | EKG12_ITS ---
Test Reason : NOSEBLEED Blood Pressure : / mmHG Vent. Rate : 068 BPM Atrial Rate : 068 BPM P-R Int : 182 ms QRS Dur : 142 ms QT Int : 452 ms P-R-T Axes : 069 -39 025 degrees QTc Int : 480 ms Sinus rhythm with occasional Premature ventricular complexes Left axis deviation Left bundle branch block Abnormal ECG Confirmed by MARIELENA WOODWARD, REGGIE ([id number]), mapping editor KRISHNA ALTAMIRANO ([id number]) on 03/12/2019 2:07:10 PM Referred By: ANTONIO Confirmed By:REGGIE PEGUERO MD
[2019-03-05 11:58] VITALS: O2SAT 98
--- NOTE | 2019-03-05 11:58 | ED.DCSUM_ITS ---
History of Present Illness Chief Complaint: Nosebleed Narrative: Patient presents by EMS, he is brought from an F, he is on aspirin, Plavix, Eliquis they noticed blood in his Jacobson left-sided nasal bleed and was found to be hypotensive at the ECF although he has been normotensive in the emergency department. Patient denies any chest pain or shortness of breath he does admit to a nosebleed that stopped. He denies recent dark stools although he has not been paying much attention. He has no abdominal pain. He has no back or flank pain. Past Medical History - Allergies and Home Meds Allergies/Adverse Reactions: Allergies Iodinated Contrast Media [Iodinated Contrast Media - IV Dye] Allergy (Verified 03/05/19 11:50) Other Primary Care Physician: Xavier Cohen MD [Primary Care Provider] - Past Medical History: - - Extensive medical history reviewed in [facility] paperwork Surgical History: coronary bypass surgery - x 4., pacemaker implantation, TURP, - - AICD, Back surgery, RLE stents per Dr. Castro. Smoking Status: Former smoker - Family History Paternal Family History: Reports: Heart Disease Maternal Family History: Reports: Diabetes Review of Systems All systems negative except as indicated General: Denies: Fever Eyes: Denies: Visual changes - bilaterally ENT: Reports: - - Epistaxis Cardiovascular: Denies: Chest pain Respiratory: Denies: Dyspnea, Cough Genitourinary: Reports: Hematuria Musculoskeletal: Denies: Neck pain, Back pain Skin: Denies: Rash Neurological: Reports: Weakness Endocrine: Denies: Polydipsia Hematologic: Reports: Easy bruising Physical Exam Vital Signs/Narrative: Vital Signs Temp Pulse Resp BP Pulse Ox 03/05/19 11:58 98 03/05/19 11:50 98.1 F 79 31 H 116/50 L 93 General: Well nourished, Well developed Eyes: Perrl, EOMI ENT: - - Left nare does not have any active bleeding, there is an anterior left medial clot that I did not disrupt Neck: Supple Cardiovascular: Regular rate, Regular rhythm Respiratory: No distress Abdomen: Soft, Nontender : - - Intact Jacobson, quite a bit of hematuria present Back: Nontender, Normal Inspection Extremities: Nontender, No edema Skin: - Neurological: Alert Psychological: Normal affect Diagnostic/Tx/Re-eval - Medical Decision Making Patient has an unremarkable ED work-up. His Jacobson was flushed and cleared. He has no epistaxis in the ED. His hemoglobin is stable, same as February 21 per outpatient blood work, and his blood pressure has been normal in the emergency department. His stool was negative. He appears well I will discharge him he will be followed up and observed in the ECF if anything worsens they will send him back ED Disposition - Plan for ED Patient: Diagnosis: Hematuria, Patient in stable condition at discharge Instructions: Nosebleed Referrals: Xavier Cohen MD [Primary Care Provider] - 3-5 Days
[2019-03-05 12:11] LABS: Hematocrit 29.7 % (40-54); Hemoglobin 8.5 g/dL (13.0-16.5); Mean Corp Hgb Conc 28.6 g/dL (32-36); Mean Corpuscular Volume 94.3 fL (80-94); Platelet Count 216 K/mm3 (150-450); RBC Distribution Width CV 13.9 % (11.6-14.6); RBC Distribution Width SD 47.4 fl (35.1-43.9); Red Blood Count 3.15 M/mm3 (4.6-6.2); White Blood Count 9.3 K/mm3 (4.4-11.0)
[2019-03-05 12:27] LABS: ALB/GLOB Ratio 0.7 RATIO (0.9-2.4); AST(SGOT) 12 U/L (15-37); Alanine Aminotransfer ALT/SGPT 16 U/L (16-61); Albumin, Serum 2.9 g/dL (3.2-5.0); Alkaline Phosphatase 86 U/L (45-117); Anion Gap 6 (5-15); BUN 40 mg/dL (7-18); BUN/Creat Ratio 25.5 RATIO (10-20); Calcium,Total 8.9 mg/dL (8.5-10.1); Chloride 102 mmol/L (98-107); Creatinine, Serum 1.57 mg/dL (0.70-1.30); EST Glomerular Filtration Rate 45 mL/min (>60); Est Glom Filt Rate - Afr Amer 54 mL/min (>60); Estimated Creatinine Clearance 38.44 ml/min; Globulin 4.3 g/dL (2.2-4.2); Glucose 160 mg/dL (74-106); Potassium 3.4 mmol/L (3.5-5.1); Protein, Total 7.2 g/dL (6.4-8.2); Sodium Level 141 mmol/L (136-145)
[2019-03-05 12:33] LABS: International Normalized Ratio 1.2; Prothrombin Time (Protime)PT. 15.4 SECONDS (11.7-14.9)
[2019-03-05 12:34] LABS: Partial Thromboplast Time 39.1 Seconds (24.1-36.2)
[2019-03-05 13:12] VITALS: BP 116/50; PULSE 79; RESP 20; TEMP 36.7; O2SAT 98
[2019-03-05 13:13] LABS: Mucous, Urine 0 SEEN /hpf (<or=2+); Squamous Epithelial Cells - UA 0 SEEN /hpf (0-5)
[2019-03-05 13:20] LABS: Glucose, Dipstick Normal (Normal); Ketone-Dipstick Negative (Negative); Leukocyte Esterase-Dipstick 100 /ul (Negative); Nitrite-Dipstick Positive (Negative); Occult Blood-Urine 250 /ul (Negative); Protein-Dipstick 30 mg/dl (Negative); Urine Bilirubin Dipstick Negative (Negative); Urine Clarity Cloudy (Clear); Urine Urobilinogen 1 mg/dl (Normal); Urine pH 6.5 (5.0 - 8.0)
[2019-03-05 13:23] LABS: Color, Urine SEE COMMENT BELOW (Yellow)
[2019-03-05 13:26] LABS: Bacteria RARE /hpf (None Seen); Red Blood Cells-Urine > 100 SEEN /hpf (0-5); White Blood Cells 0-5 SEEN /hpf (0-5)
[2019-03-05 14:22] VITALS: BP 127/52; PULSE 78; RESP 23
--- NOTE | 2019-03-05 14:23 | ED.RN ---
pt marie irrigated with 180 cc distilled water. urine flushed til clear
[2019-03-05 14:57] VITALS: BP 117/53; PULSE 71; RESP 20; O2SAT 93
[2019-03-05 16:05] VITALS: BP 117/62; PULSE 71; RESP 18; O2SAT 98
== END 2019-03-05 16:08 | disposition home or self-care (01) ==
PROVIDERS: Emergency Provider Emergency Medicine; Family Provider Family Medicine; PCP Family Medicine
DX: R31.9 Hematuria, unspecified (principal); R04.0 Epistaxis; I95.9 Hypotension, unspecified; Z79.01 Long term (current) use of anticoagulants; Z79.02 Long term (current) use of antithrombotics/antiplatelets; Z79.82 Long term (current) use of aspirin; Z79.4 Long term (current) use of insulin; Z79.899 Other long term (current) drug therapy; Z87.891 Personal history of nicotine dependence; Z95.1 Presence of aortocoronary bypass graft; Z95.810 Presence of automatic (implantable) cardiac defibrillator
CPT/HCPCS: 71045; 80053; 81001; 82274; 84484; 85027; 85610; 85730; 93005; 99285

== ENCOUNTER → 2019-03-07 05:00 | Outpatient (REF) | payer MEDICARE, OTHER, SELFPAY ==
[2019-03-05 11:50] VITALS: BMI 28.3
[2019-03-07 09:27] LABS: Hemoglobin A1c 6.2 % (4.2-6.3)
== END ==
LOC: OLS.WHLCAR 05:00
PROVIDERS: Visit Provider Family Medicine
DX: E11.21 Type 2 diabetes mellitus with diabetic nephropathy (principal); I50.23 Acute on chronic systolic (congestive) heart failure; J44.9 Chronic obstructive pulmonary disease, unspecified; R41.841 Cognitive communication deficit; M62.81 Muscle weakness (generalized); R26.2 Difficulty in walking, not elsewhere classified
CPT/HCPCS: 36415; 83036

== ENCOUNTER → 2019-03-08 05:00 | Outpatient (REF) | payer MEDICARE, OTHER, MEDICAID, SELFPAY ==
[2019-03-05 11:50] VITALS: BMI 28.3
[2019-03-08 07:03] LABS: Absolute Lymphocyte Count 1.32 X10^3/uL (0.83-4.51); Absolute Neutrophil Count 4.6 X10^3/uL (2.0-7.7); Basophil# 0.02 X10^3/uL; Basophil% 0.3 % (0-1); Eosinophil# 0.38 X10^3/uL; Eosinophils% 5.4 % (0-5); Hematocrit 25.8 % (40-54); Hemoglobin 7.4 g/dL (13.0-16.5); Lymphocyte # 1.32 X10^3/ul (4.0); Lymphocyte % 18.6 % (19-41); Mean Corp Hgb Conc 28.7 g/dL (32-36); Mean Corpuscular Hgb 27.3 pg (27.0-32.0); Mean Corpuscular Volume 95.2 fL (80-94); Mean Platelet Vol. 11.5 fl (6.2-12.0); Monocyte# 0.73 X10^3/uL; Monocyte% 10.3 % (0-10); NRBC Flagged by Analyzer 0 % (0-5); Neutrophil # 4.62 X10^3/uL (2.7-7.7); Neutrophil % 65.1 % (47-70); Platelet Count 182 K/mm3 (150-450); RBC Distribution Width CV 14.1 % (11.6-14.6); RBC Distribution Width SD 49.1 fl (35.1-43.9); Red Blood Count 2.71 M/mm3 (4.6-6.2); White Blood Count 7.1 K/mm3 (4.4-11.0)
[2019-03-08 07:06] LABS: Anion Gap 4 (5-15); BUN 34 mg/dL (7-18); BUN/Creat Ratio 24.1 RATIO (10-20); Calcium,Total 8.9 mg/dL (8.5-10.1); Chloride 107 mmol/L (98-107); Creatinine, Serum 1.41 mg/dL (0.70-1.30); EST Glomerular Filtration Rate 51 mL/min (>60); Est Glom Filt Rate - Afr Amer 62 mL/min (>60); Glucose 152 mg/dL (74-106); Potassium 3.3 mmol/L (3.5-5.1); Sodium Level 144 mmol/L (136-145)
== END ==
LOC: OLS.WHLCAR 05:00
PROVIDERS: Visit Provider Family Medicine
DX: I50.23 Acute on chronic systolic (congestive) heart failure (principal); J44.9 Chronic obstructive pulmonary disease, unspecified; R41.841 Cognitive communication deficit; M62.81 Muscle weakness (generalized); R26.2 Difficulty in walking, not elsewhere classified; D64.9 Anemia, unspecified
CPT/HCPCS: 36415; 80048; 85025

== ENCOUNTER → 2019-03-11 05:00 | Outpatient (REF) | payer MEDICARE, OTHER, SELFPAY ==
[2019-03-05 11:50] VITALS: BMI 28.3
[2019-03-11 08:04] LABS: Absolute Lymphocyte Count 1.02 X10^3/uL (0.83-4.51); Absolute Neutrophil Count 4.7 X10^3/uL (2.0-7.7); Basophil# 0.03 X10^3/uL; Basophil% 0.4 % (0-1); Eosinophil# 0.36 X10^3/uL; Eosinophils% 5.2 % (0-5); Hematocrit 24.9 % (40-54); Hemoglobin 7.3 g/dL (13.0-16.5); Lymphocyte # 1.02 X10^3/ul (4.0); Lymphocyte % 14.7 % (19-41); Mean Corp Hgb Conc 29.3 g/dL (32-36); Mean Corpuscular Hgb 27.1 pg (27.0-32.0); Mean Corpuscular Volume 92.6 fL (80-94); Mean Platelet Vol. 11.8 fl (6.2-12.0); Monocyte# 0.83 X10^3/uL; Monocyte% 11.9 % (0-10); NRBC Flagged by Analyzer 0 % (0-5); Neutrophil # 4.68 X10^3/uL (2.7-7.7); Neutrophil % 67.4 % (47-70); Platelet Count 151 K/mm3 (150-450); RBC Distribution Width CV 14.5 % (11.6-14.6); RBC Distribution Width SD 48.6 fl (35.1-43.9); Red Blood Count 2.69 M/mm3 (4.6-6.2)
[2019-03-11 08:14] LABS: Anion Gap 7 (5-15); BUN 38 mg/dL (7-18); BUN/Creat Ratio 25.3 RATIO (10-20); Calcium,Total 8.6 mg/dL (8.5-10.1); Chloride 106 mmol/L (98-107); EST Glomerular Filtration Rate 47 mL/min (>60); Est Glom Filt Rate - Afr Amer 57 mL/min (>60); Glucose 157 mg/dL (74-106); Potassium 3.1 mmol/L (3.5-5.1); Sodium Level 145 mmol/L (136-145)
== END ==
LOC: OLS.WHLCAR 05:00
PROVIDERS: Visit Provider Family Medicine
DX: I50.23 Acute on chronic systolic (congestive) heart failure (principal)
CPT/HCPCS: 36415; 80048; 85025

== ENCOUNTER → 2019-03-18 05:00 | Outpatient (REF) | payer MEDICARE, OTHER, SELFPAY ==
[2019-03-05 11:50] VITALS: BMI 28.3
[2019-03-18 06:47] LABS: Absolute Lymphocyte Count 1.22 X10^3/uL (0.83-4.51); Absolute Neutrophil Count 4.9 X10^3/uL (2.0-7.7); Basophil# 0.04 X10^3/uL; Basophil% 0.5 % (0-1); Eosinophil# 0.42 X10^3/uL; Eosinophils% 5.6 % (0-5); Hematocrit 28.5 % (40-54); Hemoglobin 8.4 g/dL (13.0-16.5); Lymphocyte # 1.22 X10^3/ul (4.0); Lymphocyte % 16.3 % (19-41); Mean Corp Hgb Conc 29.5 g/dL (32-36); Mean Corpuscular Hgb 27.4 pg (27.0-32.0); Mean Corpuscular Volume 92.8 fL (80-94); Monocyte# 0.83 X10^3/uL; Monocyte% 11.1 % (0-10); NRBC Flagged by Analyzer 0 % (0-5); Neutrophil # 4.94 X10^3/uL (2.7-7.7); Platelet Count 191 K/mm3 (150-450); RBC Distribution Width CV 14.6 % (11.6-14.6); RBC Distribution Width SD 49.7 fl (35.1-43.9); Red Blood Count 3.07 M/mm3 (4.6-6.2); White Blood Count 7.5 K/mm3 (4.4-11.0)
[2019-03-18 07:11] LABS: Anion Gap 7 (5-15); BUN 43 mg/dL (7-18); BUN/Creat Ratio 25.3 RATIO (10-20); Calcium,Total 9.2 mg/dL (8.5-10.1); Chloride 101 mmol/L (98-107); EST Glomerular Filtration Rate 41 mL/min (>60); Est Glom Filt Rate - Afr Amer 50 mL/min (>60); Glucose 121 mg/dL (74-106); PSA,Total - Annual Screen 0.12 ng/mL (0.00-4.00); Potassium 3.9 mmol/L (3.5-5.1); Sodium Level 141 mmol/L (136-145)
== END ==
LOC: OLS.WHLCAR 05:00
PROVIDERS: Visit Provider Family Medicine
DX: N18.3 Chronic kidney disease, stage 3 (moderate) (principal); I50.23 Acute on chronic systolic (congestive) heart failure; J44.9 Chronic obstructive pulmonary disease, unspecified; R41.841 Cognitive communication deficit; M62.81 Muscle weakness (generalized); R26.2 Difficulty in walking, not elsewhere classified; N40.1 Benign prostatic hyperplasia with lower urinary tract symptoms; Z12.5 Encounter for screening for malignant neoplasm of prostate
CPT/HCPCS: 36415; 80048; 84153; 85025; G0103

== ENCOUNTER 2019-03-29 17:58 | Emergency (ER) | payer MEDICARE, OTHER, SELFPAY ==
[2019-03-29 17:59] VITALS: BP 123/64; PULSE 76; RESP 18; TEMP 36.3; O2SAT 94; BMI 27.3
--- NOTE | 2019-03-29 18:10 | ED.RN ---
Catheter reportedly was pulled while moving pt from wc to chair. Pt arrived in pain. Catheter was draining without blood. I removed a full 10cc from balloon and fully inserted catheter then refilled balloon. The catheter continued to drain without blood. Pt admits pain relief. Drainage bag labeled 03/25/19.
--- NOTE | 2019-03-29 18:24 | ED.DCSUM_ITS ---
- ER Visit Summary Date of Service: 03/29/19 Chief Complaint: Jacobson catheter complaint History of Present Illness: The patient is a 83 M who presents with possible dislodged Jacobson catheter that occurred today. Patient was sitting in a chair and his Jacobson catheter bag was on a wheelchair. A family member move the wheelchair and pulled the Jacobson catheter. Patient complained of pain in the urethra and suprapubic area with this. Patient denies any hematuria. Currently, patient feels better. Physical Examination: Vital signs are stable. Patient is afebrile. Patient is in no acute distress. Oral mucosa is pink and moist. Neck is supple. Trachea is midline there is no JVD. Heart was regular rate and rhythm. Lungs are clear and equal bilaterally. Abdomen is soft. Bowel sounds are normal. There is no tenderness. Jacobson catheter is in place. There is clear urine in the Jacobson bag. Emergency Department Course and Treatment: The balloon of the Jacobson bag was deflated and the Jacobson was inserted further into the bladder and the balloon was reinflated. Patient tolerated this well. Catheter has been draining without difficulty. There is no hematuria noted. Patient was instructed to follow-up with his primary care physician in 5 to 7 days. Patient and family understood and were agreeable with the plan. All questions were answered. Disposition: Discharge home Impression: Dislodged Jacobson catheter This note was generated with [employer] dictation software. It may contain incorrect words, spelling, and punctuation that were not noted in review of the chart prior to signing ED Disposition - Plan for ED Patient: Disposition: Home or Assisted Living Diagnosis: Dislodged Jacobson catheter Instructions: Jacobson Catheter, Care Referrals: Xavier Cohen MD [Primary Care Provider] - 5-7 Days
[2019-03-29 18:45] VITALS: PULSE 76; RESP 18
== END 2019-03-29 18:46 | disposition home or self-care (01) ==
LOC: ED 18:29
PROVIDERS: Emergency Provider Emergency Medicine; Family Provider Family Medicine; PCP Family Medicine
DX: T83.028A Displacement of other urinary catheter, initial encounter (principal); E11.40 Type 2 diabetes mellitus with diabetic neuropathy, unspecified; I73.9 Peripheral vascular disease, unspecified; I50.9 Heart failure, unspecified; Z79.01 Long term (current) use of anticoagulants; Z79.82 Long term (current) use of aspirin; Z79.4 Long term (current) use of insulin; Z79.899 Other long term (current) drug therapy; Z95.1 Presence of aortocoronary bypass graft
CPT/HCPCS: 99283; A4216

== ENCOUNTER → 2019-04-16 05:00 | Outpatient (REF) | payer MEDICARE, OTHER, SELFPAY ==
[2019-03-29 17:59] VITALS: BMI 27.3
[2019-04-16 07:29] LABS: Hematocrit 32.7 % (40-54); Hemoglobin 9.5 g/dL (13.0-16.5); Mean Corp Hgb Conc 29.1 g/dL (32-36); Mean Corpuscular Hgb 27.1 pg (27.0-32.0); Mean Corpuscular Volume 93.2 fL (80-94); Mean Platelet Vol. 11.9 fl (6.2-12.0); Platelet Count 196 K/mm3 (150-450); RBC Distribution Width CV 14.7 % (11.6-14.6); RBC Distribution Width SD 50.3 fl (35.1-43.9); Red Blood Count 3.51 M/mm3 (4.6-6.2); White Blood Count 8.9 K/mm3 (4.4-11.0)
[2019-04-16 07:46] LABS: Anion Gap 3 (5-15); BUN 39 mg/dL (7-18); BUN/Creat Ratio 22.7 RATIO (10-20); Calcium,Total 8.8 mg/dL (8.5-10.1); Chloride 105 mmol/L (98-107); Creatinine, Serum 1.72 mg/dL (0.70-1.30); EST Glomerular Filtration Rate 40 mL/min (>60); Est Glom Filt Rate - Afr Amer 49 mL/min (>60); Glucose 69 mg/dL (74-106); Potassium 3.2 mmol/L (3.5-5.1); Sodium Level 141 mmol/L (136-145)
== END ==
LOC: OLS.WHLCAR 05:00
PROVIDERS: Family Provider Family Medicine; PCP Family Medicine; Visit Provider Family Medicine
DX: I25.10 Atherosclerotic heart disease of native coronary artery without angina pectoris (principal); I50.23 Acute on chronic systolic (congestive) heart failure; J44.9 Chronic obstructive pulmonary disease, unspecified; R41.841 Cognitive communication deficit; M62.81 Muscle weakness (generalized); R26.2 Difficulty in walking, not elsewhere classified
CPT/HCPCS: 36415; 80048; 85027

== ENCOUNTER → 2019-05-21 05:00 | Outpatient (REF) | payer MEDICARE, OTHER, MEDICAID, SELFPAY ==
[2019-05-21 07:56] LABS: Absolute Lymphocyte Count 1.31 X10^3/uL (0.83-4.51); Absolute Neutrophil Count 5.3 X10^3/uL (2.0-7.7); Basophil# 0.03 X10^3/uL; Basophil% 0.4 % (0-1); Eosinophil# 0.29 X10^3/uL; Eosinophils% 3.8 % (0-5); Hematocrit 32.1 % (40-54); Hemoglobin 9.1 g/dL (13.0-16.5); Lymphocyte # 1.31 X10^3/ul (4.0); Lymphocyte % 17.1 % (19-41); Mean Corp Hgb Conc 28.3 g/dL (32-36); Mean Corpuscular Volume 91.7 fL (80-94); Mean Platelet Vol. 11.9 fl (6.2-12.0); Monocyte# 0.71 X10^3/uL; Monocyte% 9.3 % (0-10); NRBC Flagged by Analyzer 0 % (0-5); Neutrophil # 5.29 X10^3/uL (2.7-7.7); Neutrophil % 69.1 % (47-70); Platelet Count 197 K/mm3 (150-450); RBC Distribution Width CV 14.5 % (11.6-14.6); RBC Distribution Width SD 48.9 fl (35.1-43.9); White Blood Count 7.7 K/mm3 (4.4-11.0)
[2019-05-21 08:20] LABS: Anion Gap 4 (5-15); BUN 34 mg/dL (7-18); Chloride 104 mmol/L (98-107); Creatinine, Serum 1.62 mg/dL (0.70-1.30); EST Glomerular Filtration Rate 43 mL/min (>60); Est Glom Filt Rate - Afr Amer 52 mL/min (>60); Glucose 125 mg/dL (74-106); Potassium 3.3 mmol/L (3.5-5.1); Sodium Level 141 mmol/L (136-145)
== END ==
LOC: OLS.WHLCAR 05:00
PROVIDERS: PCP Family Medicine; Visit Provider Family Medicine
DX: I25.10 Atherosclerotic heart disease of native coronary artery without angina pectoris (principal); I50.23 Acute on chronic systolic (congestive) heart failure; J44.9 Chronic obstructive pulmonary disease, unspecified; R41.841 Cognitive communication deficit; M62.81 Muscle weakness (generalized); R26.2 Difficulty in walking, not elsewhere classified
CPT/HCPCS: 36415; 80048; 85025

== ENCOUNTER → 2019-06-18 05:00 | Outpatient (REF) | payer MEDICARE, OTHER, MEDICAID, SELFPAY ==
[2019-06-18 07:04] LABS: Hematocrit 32.2 % (40-54); Hemoglobin 9.4 g/dL (13.0-16.5); Mean Corp Hgb Conc 29.2 g/dL (32-36); Mean Corpuscular Hgb 26.6 pg (27.0-32.0); Platelet Count 180 K/mm3 (150-450); RBC Distribution Width CV 14.8 % (11.6-14.6); RBC Distribution Width SD 49.1 fl (35.1-43.9); Red Blood Count 3.54 M/mm3 (4.6-6.2); White Blood Count 7.9 K/mm3 (4.4-11.0)
[2019-06-18 07:12] LABS: Anion Gap 5 (5-15); BUN 35 mg/dL (7-18); BUN/Creat Ratio 22.9 RATIO (10-20); Calcium,Total 9.3 mg/dL (8.5-10.1); Chloride 102 mmol/L (98-107); Creatinine, Serum 1.53 mg/dL (0.70-1.30); EST Glomerular Filtration Rate 46 mL/min (>60); Est Glom Filt Rate - Afr Amer 56 mL/min (>60); Glucose 103 mg/dL (74-106); Potassium 3.3 mmol/L (3.5-5.1); Sodium Level 141 mmol/L (136-145)
== END ==
LOC: OLS.WHLCAR 05:00
PROVIDERS: PCP Family Medicine; Visit Provider Family Medicine
DX: I25.10 Atherosclerotic heart disease of native coronary artery without angina pectoris (principal); I50.23 Acute on chronic systolic (congestive) heart failure; J44.9 Chronic obstructive pulmonary disease, unspecified; R41.841 Cognitive communication deficit; M62.81 Muscle weakness (generalized); R26.2 Difficulty in walking, not elsewhere classified
CPT/HCPCS: 36415; 80048; 85027

== ENCOUNTER 2019-07-05 18:48 | Inpatient (IN) | payer MEDICARE, OTHER, SELFPAY ==
[2019-07-05] VITALS (11 sets, daily range): BP systolic 117–159; BP diastolic 60–91; PULSE 73–105; RESP 14–25; TEMP 36.3–36.6; O2SAT 96–98; BMI 30.3; BMI 25.0
--- NOTE | 2019-07-05 18:53 | CT_ITS ---
We are attempting to reach an attending provider to discuss findings. An addendum with communication details will be sent when the communication is complete. STUDY: CT BRAIN WITHOUT CONTRAST REASON FOR EXAM: Male, 83 years old. Stroke RADIATION DOSAGE (If Supplied By Facility): DLP = ( 914.22 ) mGycm TECHNIQUE: Transaxial CT imaging of the brain was performed without administration of intravenous contrast material. Individualized dose optimization techniques were used for this CT. COMPARISON: None. FINDINGS: There is no evidence of acute intracranial bleed. Right parietal encephalomalacia and periventricular decreased attenuation is present. Chronic ischemic and atrophic changes are present. There is right The ventricles are normal in configuration. There is no hydrocephalus. The visualized paranasal sinuses are clear. The mastoid air cells are well aerated. There is no skull fracture. CT/Brain/Head without Contrast IMPRESSION: Decreased attenuation and encephalomalacia of the right parietal lobe, consistent with prior infarct, although acute on chronic disease is a consideration. CTA suggested. Chronic ischemic and atrophic changes. No evidence of acute intracranial bleed. Electronically Signed: Trent Saucedo, at 19:06 EST Tel , Service support ,
--- NOTE | 2019-07-05 18:53 | EKG12_ITS ---
Test Reason : Blood Pressure : / mmHG Vent. Rate : 083 BPM Atrial Rate : 312 BPM P-R Int : 000 ms QRS Dur : 138 ms QT Int : 420 ms P-R-T Axes : 000 -42 -33 degrees QTc Int : 493 ms Atrial fibrillation with premature ventricular or aberrantly conducted complexes Left axis deviation Left bundle branch block Abnormal ECG Confirmed by MARIELENA WOODWARD, REGGIE ([id number]), purchasing expeditor EUGENE MARRUFO ([id number]) on 07/08/2019 3:30:16 PM Referred By: RU Confirmed By:REGGIE PEGUERO MD
[2019-07-05] MEDS: 0.9% Normal Saline 1,000 ML 100 ML IV (19:00)
--- NOTE | 2019-07-05 19:05 | CM.ED ---
SOCIAL WORK RESPONDED TO STROKE ALERT. PATIENT FROM [facility]. DAUGHTER AT BEDSIDE WITH NURSING. THIS WORKER TO REMAIN AVAILABLE FOR SUPPORT. Grey BUSTILLO, [employer] DIST[employer]OR OPERATOR, DRIVER/SAL[employer] WORK[employer].
[2019-07-05 19:10] LABS: Absolute Lymphocyte Count 1.57 X10^3/uL (0.83-4.51); Absolute Neutrophil Count 6.2 X10^3/uL (2.0-7.7); Basophil# 0.04 X10^3/uL; Basophil% 0.4 % (0-1); Eosinophil# 0.29 X10^3/uL; Eosinophils% 3.2 % (0-5); Hematocrit 36.8 % (40-54); Hemoglobin 10.7 g/dL (13.0-16.5); Lymphocyte # 1.57 X10^3/ul (4.0); Lymphocyte % 17.4 % (19-41); Mean Corp Hgb Conc 29.1 g/dL (32-36); Mean Corpuscular Hgb 26.8 pg (27.0-32.0); Mean Platelet Vol. 11.5 fl (6.2-12.0); Monocyte# 0.93 X10^3/uL; Monocyte% 10.3 % (0-10); NRBC Flagged by Analyzer 0 % (0-5); Neutrophil # 6.15 X10^3/uL (2.7-7.7); Neutrophil % 68.3 % (47-70); Platelet Count 205 K/mm3 (150-450); RBC Distribution Width CV 15.2 % (11.6-14.6); RBC Distribution Width SD 50.8 fl (35.1-43.9)
[2019-07-05 19:16] LABS: Chloride 100 mmol/L (98-107); Potassium 4.3 mmol/L (3.5-5.1); Sodium Level 139 mmol/L (136-145)
[2019-07-05 19:22] LABS: Prothrombin Time (Protime)PT. 13.3 SECONDS (11.7-14.9)
[2019-07-05 19:23] LABS: Partial Thromboplast Time 31.9 Seconds (24.1-36.2)
--- NOTE | 2019-07-05 19:27 | ED.RN ---
dr alejandre on phone with [facility] telestroke. request for stat cta to rule out large vessel occullsion. no tpa at present time
--- NOTE | 2019-07-05 19:28 | CT_ITS ---
We are attempting to reach an attending provider to discuss findings. An addendum with communication details will be sent when the communication is complete. STUDY: CTA HEAD AND NECK WITH CONTRAST REASON FOR EXAM: Male, 83 years old. DECREASED ATTENUATION R PARIETAL LOBE - SUBACUTE INFARCT? RADIATION DOSAGE (If Supplied By Facility): CTDIvol = ( 26.25 ) mGy, DLP = ( 805.27 ) mGycm TECHNIQUE: CT angiography was performed with a multi-detector CT scanner. Data acquisition was obtained from the skull base through the vertex following intravenous administration of IV 100 ML ISOVUE 300. MIP images were reconstructed from the axial data set. Post-processing of the angiographic images was performed, with multiplanar reformation and 3D reconstruction. Individualized dose optimization techniques were used for this CT. COMPARISON: CT scan earlier today. FINDINGS: There is prominent calcified plaque along the length of the bilateral petrous carotid arteries. There is calcified plaque formation of the right cavernous carotid artery, with a moderate stenosis (50-75%). There is calcified plaque formation of the left cavernous carotid artery, with a moderate stenosis (50-75%). Normal right A1 segments of the anterior cerebral artery. Normal left A1 segments of the anterior cerebral artery. Normal intact anterior communicating artery (ACOM). Normal bilateral A2 segments of the anterior cerebral arteries. Normal right M1 and M2 segments of the middle cerebral arteries, with a normal M1 bifurcation. On the left, approximately 6 mm beyond the origin of the MCA, there is a 1 cm segment of completely absent blood flow consistent with complete occlusion of indeterminate age. This can best be seen on coronal images 51-56 and axial images to 25-227. There is blood flow of the more distal left MCA branches in the sylvian fissure related to collateral flow via the tor[place]. Normal right posterior communicating artery (PCOM). Normal left posterior communicating artery (PCOM). Normal bilateral vertebral arteries. Normal basilar artery with a normal basilar bifurcation. The visualized bilateral superior cerebellar (SCA) arteries are normal. Normal bilateral P1, P2 and visualized P3 segments of the posterior cerebral arteries. There is no demonstrated aneurysm of the torres martinez of [place]. There is no demonstrated abnormality of the visualized brain. AORTIC ARCH: There is atherosclerotic calcific plaque formation of the aortic arch and great vessels arising from the aortic arch, without a hemodynamically significant stenosis. There is a normal origin of the brachiocephalic, left common carotid, and left subclavian arteries. RIGHT CAROTID ARTERIES: Normal right common carotid artery (CCA). There is extensive atherosclerotic plaque formation with severe narrowing of the right carotid bulb with a hemodynamically significant stenosis. There is extensive atherosclerotic plaque formation of the origin of the right internal carotid artery with an estimated stenosis of 70% or greater. Normal visualized cervical portion of the right internal carotid artery. Normal origin of the right external carotid artery (ECA). LEFT CAROTID ARTERIES: Normal left common carotid artery (CCA). There is extensive atherosclerotic plaque formation with severe narrowing of the carotid bulb with a hemodynamically significant stenosis. There is extensive atherosclerotic plaque formation of the origin of the left internal carotid artery with an estimated stenosis of 70% or greater. Normal visualized cervical portion of the left internal carotid artery. Normal origin of the left external carotid artery (ECA). VERTEBRAL ARTERIES: Normal bilateral vertebral arteries. There is a spiculated and lobulated 1.6 cm mass in the left upper lobe suspicious for malignancy. CT of the chest with contrast is recommended. 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 Severe calcified atherosclerotic plaque formation in both carotid bulbs, both ICAs, the petrous and cavernous carotid arteries bilaterally. 70% or greater stenosis of both ICAs. Electronically Signed: Romeo Ghosh MD at 21:07 EST , Service support ,
[2019-07-05 19:38] LABS: Anion Gap 6 (5-15); BUN 40 mg/dL (7-18); BUN/Creat Ratio 23.1 RATIO (10-20); Calcium,Total 9.7 mg/dL (8.5-10.1); Creatinine, Serum 1.73 mg/dL (0.70-1.30); EST Glomerular Filtration Rate 40 mL/min (>60); Est Glom Filt Rate - Afr Amer 49 mL/min (>60); Estimated Creatinine Clearance 30.75 ml/min; Glucose 178 mg/dL (74-106)
--- NOTE | 2019-07-05 19:49 | RAD_ITS ---
STUDY: X-RAY CHEST REASON FOR EXAM: Male, 83 years old. STROKE ALERT. UNRESPONSIVE. TECHNIQUE: Frontal view of the chest COMPARISON: None. FINDINGS: There are increased interstitial markings bilaterally in the lung apices and left middle lobe. Inspiratory volumes are low. There is no pneumothorax or pleural effusions. There is moderate cardiomegaly. This prior sternotomy wires and coronary bypass. Pacemaker is present in left upper chest with an intact lead remaining in the right ventricle. Osseous structures are intact. RAD/Chest 1 View IMPRESSION: Nonspecific bilateral upper lung interstitial opacities, possibly technical and/or mild pulmonary edema. Moderate cardiomegaly. Prior bypass. Electronically Signed: Kyaw Myers, at 21:03 EST Tel , Service support ,
[2019-07-05 20:06] LABS: Bedside Glucose 164 mg/dL (70-110)
--- NOTE | 2019-07-05 20:21 | ED.RN ---
and family at bedside. VSS. lungs clear.
--- NOTE | 2019-07-05 21:31 | ED.DCSUM_ITS ---
- ER Visit Summary Date of Service: 07/05/19 Chief Complaint: [Stroke] History of Present Illness: The patient is a 83 M [presents to the emergency department with possible stroke from care home. Patient was last seen well today at 5 PM and it was his normal self and was joking with the nursing staff. Prior to arrival in the emergency department patient was noted to be unresponsive and not moving his right side. There was concern of right-sided facial droop. Patient cannot give any history. Patient's daughter did arrive to the emergency department and is able to give history. She is not aware of any prior strokes per the patient. He does have history of coronary artery disease, GERD, diabetes, CHF, COPD, severe peripheral vascular disease. Patient has been bedbound and nonambulatory for the last 3 years. Physical Examination: [SALLIE, SUSANAMI. Cranial nerves II through XII grossly intact. TMs clear. Mucous membranes moist. No adenopathy. Patient's eyes are deviated to the left. Patient does not answer questions. Eyes are open. Cardiovascular-irregularly irregular. No murmurs auscultated. Lungs-clear to auscultation, chest wall stable without crepitus or subcu emphysema Abdomen-normoactive bowel sounds, soft, nontender, no rebound or rigidity, no peritoneal signs. Neuro exam-NIH stroke scale was a 16 on arrival however exam was very difficult as patient will not follow any commands. Patient does appear to have flaccid right upper and lower extremities. Appears that he has a slight right-sided facial droop. He is nonverbal. He will my fingers with his left hand. Extremities-intact ?4, normal range of motion, normal pulses, atraumatic] Test Results: [CT scan of the brain without contrast obtained showed old right- sided infarcts and on further discussion with patient's daughter she states that over the last 2 months she is noted that patient has not been using his left arm as well. CBC with differential was unremarkable. Chemistries unremarkable. EKG obtained on arrival showed atrial fibrillation with a ventricular rate of 82 bpm with no acute ST segment changes. Patient did have a left bundle branch block noted. CTA of the brain obtained showed left MCA occlusion and old right- sided strokes.] Emergency Department Course and Treatment: [Patient was evaluated by stroke neurologist at [facility]. Given the fact that patient has had recent stroke wh ich is believed to have occurred within the last 2 months he did not meet TPA criteria. In discussion with stroke neurologist she did not feel patient would be a candidate for endovascular retrieval given patient's bedbound status, age, and comorbidities. She did not feel he would be a good surgical candidate. I discussed these results with the patient's family and they are all in agreement that they want to make him comfortable and do not want a pursue any type of heroic measures.] Treatment Plan: [Admit] Disposition: [Admit] Impression: [CVA] This note was generated with [employer] dictation software. It may contain incorrect words, spelling, and punctuation that were not noted in review of the chart prior to signing ED Disposition - Plan for ED Patient: Referrals: Xavier Cohen MD [Primary Care Provider] -
--- NOTE | 2019-07-05 21:36 | PCM.HP.STD ---
Problem List (1) CVA (cerebral vascular accident) Status: Acute History of Present Illness Date of Admission: 07/05/19 Chief Complaint: NONRESPONSIVENESS The patient is a 83 year old M with a significant history of quadruple bypass and stent in his coronaries; diabetes mellitus; peripheral artery disease with vein stripping; and defibrillator who lives at a long-term presenting because of unresponsiveness. At baseline patient is bedbound; able to talk and always very jovial. Per family patient has had some left side weakness. Brain CT at emergency department showed prior infarct of the right parietal area. Head and neck CTA showed occlusion of the left MCA and 70% or greater stenosis of both ICAs. Emergency Department doctor discussed the case with tele-neurologist. Because of patient comorbidities he was not a candidate of surgery or thrombectomy. Past Medical History Medical History: Medical History (Last Reviewed 07/06/19 @ 01:[address] Claude Oshea MD) Diabetes E11.9 Hypertension I10 Allergies Iodinated Contrast Media [CT] Adverse Reaction (Verified 07/05/19 19:44) Rash Home Medications: Ambulatory Orders Medication Instructions Recorded Aspirin E.C. [Ecotrin] 81 mg PO DAILY@0800 07/05/19 Clopidogrel Bisulfate [Clopidogrel] 75 mg PO DAILY 07/05/19 Fluoxetine HCl [Prozac] 20 mg PO DAILY 07/05/19 Furosemide [Lasix] 20 mg PO BID 07/05/19 Furosemide [Lasix] 40 mg PO BID 07/05/19 Guaifenesin [Mucinex] 600 mg PO BID 07/05/19 Insulin Aspart [Novolog Flexpen 8 units SUBCUT TIDCM 07/05/19 ([facility])] Insulin Glargine,Hum.rec.anlog 30 unit SQ DAILY 07/05/19 [Basaglar Kwikpen U-100] Loperamide HCl [Imodium A-D] 2 mg PO DAILY PRN PRN 07/05/19 Memantine HCl [Namenda Xr] 28 mg PO DAILY 07/05/19 Metoprolol Tartrate 25 mg PO BID 07/05/19 Multivitamin with Iron [Daily Sandra 1 ea PO DAILY 07/05/19 with Iron] Nut.tx.gluc.intoler,Lac-Fr,Soy 120 ml PO TIDCM 07/05/19 [Glucerna] Pantoprazole Sodium [Protonix] 20 mg PO DAILY 07/05/19 Phenazopyridine [Pyridium] 100 mg PO DAILY 07/05/19 Polyethylene Glycol 3350 [Miralax] 17 gm PO DAILY MDD constipation 07/05/19 Potassium Chloride [Klor-Con M20] 20 meq PO DAILY 07/05/19 Sennosides/Docusate Sodium [Senna 2 tab PO BID 07/05/19 Plus 8.6-50 mg Tablet] Surgical History: coronary bypass surgery, pacemaker implantation, - - Coronary stent; vein stripping Lives: Longterm Smoking Status: Former smoker - *Family History Maternal History Items: Diabetes Paternal History Items: - - His father suddenly at about age 65. Review of Systems Constitutional: Denies: Chills, Fever, Weight Change HEENT: Denies: Head Aches, Sinus Congestion, Sinus Drainage Cardiovascular: Denies: Chest Pain, Palpitations Respiratory: Denies: Cough, Shortness of breath at rest, Sputum production Gastrointestinal: Denies: Abdominal Pain, Nausea, Vomiting Genitourinary: Denies: Dysuria Musculoskeletal: Denies: Joint Pain, Joint Tenderness Skin: Denies: Rash, Wounds Neurological: Reports: Focal weakness. Denies: Numbness, Tingling Psychiatric: Denies: Anxiety, Depression, Homicidal Ideations, Suicidal Ideations Hematologic/ Lymphatic: Denies: Easy Bruising, Easy Bleeding VTE Information - Inpt Only VTE Present on Admission: No VTE Mechan Device Prophylaxis: None VTE Pharm Prophylaxis ordered?: Yes Patient Problems: Active and Suspected Problems (Last Updated 07/06/19 @ 00:[address] Claude Oshea MD) CVA (cerebral vascular accident) (Acute) - Physical Exam Vitals/I&O's: Vital Signs Temp Pulse Resp BP Pulse Ox 98 F 73 15 117/85 H 97 07/05/19 19:29 07/05/19 21:01 07/05/19 21:01 07/05/19 21:01 07/05/19 21:01 Oxygen Flow Rate (L/min) 2 Oxygen Delivery Method Nasal Cannula Weight: 90.6 kg Body Mass Index (BMI) 30.3 Finger Stick Blood Glucose 161 General: Alert, - - Open eyes to command. HEENT: Atraumatic, PERRLA, Normocephalic Neck: Supple, Trachea Midline Lungs: Diminished Cardiovascular: Normal S1, Normal S2, Irregular Rate Abdomen: Bowel Sounds Present, Soft, Non Tender Extremities: No edema, Capillary Refill Less than 3 Seconds Skin: No rashes Musculoskeletal: No Tenderness to Palpation of Joints or Extremities Neurological: - - Left-sided gaze. Unable to raise extremities bilaterally. However hold left arm up if passively raised. Hold left leg up momentarily if passively raise. Aphasic Psych/Mental Status: Flat Affect Laboratory Results 07/05/19 19:00: WBC 9.0, RBC 4.00 L, Hgb 10.7 L, Hct 36.8 L, MCV 92.0, MCH 26.8 L, MCHC 29.1 L, RDW Std Deviation 50.8 H, RDW Coeff of Ju 15.2 H, Plt Count 205, MPV 11.5, Immature Gran % (Auto) 0.400, Neut % (Auto) 68.3, Lymph % (Auto) 17.4 L, [place] % (Auto) 10.3 H, Eos % (Auto) 3.2, Baso % (Auto) 0.4, Absolute Neuts (auto) 6.2, Absolute Lymphs (auto) 1.57, Nucleated RBC % 0 07/05/19 19:00: PT 13.3, INR 1.0, APTT 31.9 07/05/19 19:00: Sodium 139, Potassium 4.3, Chloride 100, Carbon Dioxide 33.0 H, Anion Gap 6, BUN 40 H, Creatinine 1.73 H, Estim Creat Clear Calc 30.75, Est GFR (MDRD) Af Amer 49 L, Est GFR (MDRD) Non-Af 40 L, BUN/Creatinine Ratio 23.1 H, Glucose 178 H, Calcium 9.7, Troponin I < 0.015 07/05/19 19:04: POC Glucose 164 H Current Medications Acetaminophen (Tylenol) 650 mg PO .X1 PRN PRN Reason: Temp > 99.6 F Diphenhydramine HCl (Benadryl) 50 mg IV .X1 PRN PRN Reason: Allergic Reaction Stop: 07/07/19 19:15 Epinephrine HCl () 0.3 mg IM .X1 PRN PRN Reason: Allergic Reaction Stop: 07/07/19 19:15 Sodium Chloride () 1,000 mls @ 100 mls/hr IV .Q10H ONE Stop: 07/06/19 04:52 Last Admin: 07/05/19 19:00 Dose: 100 mls/hr Documented by: Sodium Chloride () 1,000 mls @ 100 mls/hr IV .Q10H JUAREZ Famotidine 20 mg/ Sodium (Chloride) 10 mls @ 300 mls/hr IV .X1 PRN PRN Reason: Allergic Reaction Stop: 07/07/19 19:15 Nicardipine/Dextrose (Cardene-Dex 20 Mg/200 Ml Soln) 20 mg in 200 mls @ 50 mls/hr IV .Q4H PRN; Protocol PRN Reason: See Instructions Labetalol HCl (Trandate) 20 mg IV X1 PRN PRN Reason: BLOOD PRESSURE Methylprednisolone (Solu-Medrol) 125 mg IV .X1 PRN PRN Reason: Allergic Reaction Stop: 07/07/19 19:15 Assessment/Plan All Active Problems (Last Updated 07/06/19 @ 00:[address] 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 Left MCA stroke. Emergency department doctor discussed the case with tele-neurologist who recommended that patient not be a candidate for any vascular or surgical intervention and also patient is not a candidate of TPA since he probably had left-sided extremity stroke (right parietal stroke ) in the past 3 months Family said to do comfort care. While his daughter is amenable to hospice patient's wants to hold off hospice at this time. Daughter is agreeable to hospice evaluation after 07/07/2019. Physical therapy; speech therapy and Occupational Therapy to follow-up with patient. Hold off all p.o. medications until speech eval. Get an echocardiogram. Atrial fibrillation We will hold off therapeutic anticoagulation at this time. DVT prophylaxis Subcutaneous Lovenox Inpatient E&M: 05912 Init Hosp L3
--- NOTE | 2019-07-05 22:01 | ED.RN ---
FELIPE HYDE NOTIFIED PT BEING ADMITTED
--- NOTE | 2019-07-05 23:17 | ECHOCS_ITS ---
Reason For Study: TIA/CVA Procedure This was a 2D Doppler, Color Flow transthoracic echocardiogram. The study was technically difficult. Contrast injection was performed. Exam performed portable in ICU/CCU. Left Ventricle Normal LV size. Left ventricular systolic function is lower limits of normal. The estimated ejection fraction is 50 %. No regional wall motion abnormalities noted. Right Ventricle Normal RV size. ICD or pacer leads identified within the right ventricle. Normal systolic function. Atria The left atrium is mildly enlarged. The right atrium is not well visualized. Mitral Valve Mitral valve not well visualized. Tricuspid Valve The tricuspid valve is not well visualized. Mild (1+) tricuspid valve insufficiency. Pulmonary artery systolic pressure is 33 mmHg. Pericardium/Pleural No pericardial effusion. Medication Diluted definity 3.0ml given slow IV push to enhance endocardial definition. Performed a rapid injection of agitated mix of 9 cc saline and 1cc air to assess for atrial septal defect. MMode/2D Measurements & Calculations LVIDd: 5.5 cm IVSd: 1.0 cm Ao root diam: 3.2 cm LVIDs: 4.2 cm LVPWd: 1.1 cm RVDd: 3.5 cm FS: 23.3 % LAV(MOD-bp): 88.7 ml LA dimension(2D): 4.6 cm LA A4 area: 26.6 cm2 LAV(MOD-bp) Indexed: 44.9 ml/m2 LAV(MOD-sp2): 89.4 ml LAV(MOD-sp4): 88.9 ml Doppler Measurements & Calculations MV E max nedra: 100.9 cm/sec Ao V2 max: 112.1 cm/sec LV V1 max: 83.9 cm/sec Ao max P.1 mmHg LV V1 max P.8 mmHg PA V2 max: 101.3 cm/sec TR max nedra: 263.4 cm/sec TR max P.8 mmHg Interpretation Summary Normal LV size. Left ventricular systolic function is lower limits of normal. The estimated ejection fraction is 50 %. Contrast injection was performed. The study was technically difficult. Ordering Physician: Claude Oshea Referring Physician: Xavier Cohen Performed By: Sarah Pineda, DANIEL, RVT
--- NOTE | 2019-07-05 23:53 | EKG12_ITS ---
Test Reason : DYSRHYTHMIA Blood Pressure : / mmHG Vent. Rate : 098 BPM Atrial Rate : 113 BPM P-R Int : 000 ms QRS Dur : 136 ms QT Int : 348 ms P-R-T Axes : 000 -39 099 degrees QTc Int : 444 ms Atrial fibrillation Left axis deviation Left bundle branch block Abnormal ECG Confirmed by VINCENT WOODWARD, MONTY ([id number]), assistant film editor ABBE MOSS ([id number]) on 07/10/2019 10:05:14 AM Referred By: PRANAY Confirmed By:MONTY KAUR MD
[2019-07-06] VITALS (18 sets, daily range): BP systolic 108–127; BP diastolic 51–70; PULSE 78–135; RESP 16–19; TEMP 36.6–37; O2SAT 94–97; BMI 25.1; BMI 25.0
[2019-07-06 01:56] LABS: Bedside Glucose 208 mg/dL (70-110)
--- NOTE | 2019-07-06 02:21 | NURSING ---
Pt daughter (Samra Butler) phone number: [phone].
[2019-07-06] MEDS: 0.9% Saline Lock 10 ML Syringe IV ×2 (04:45→06:55)
--- NOTE | 2019-07-06 06:16 | NURSING ---
Date of last pneumonia shot unknown.
[2019-07-06] MEDS: Insulin Lispro 100 UNIT/ML INSULN.PEN SC ×4 (06:55→23:29)
[2019-07-06 07:10] LABS: Bedside Glucose 246 mg/dL (70-110)
[2019-07-06 07:43] LABS: Absolute Lymphocyte Count 0.64 X10^3/uL (0.83-4.51); Absolute Neutrophil Count 8.1 X10^3/uL (2.0-7.7); Basophil# 0.02 X10^3/uL; Basophil% 0.2 % (0-1); Eosinophil# 0.01 X10^3/uL; Eosinophils% 0.1 % (0-5); Hematocrit 35.3 % (40-54); Hemoglobin 10.4 g/dL (13.0-16.5); Lymphocyte # 0.64 X10^3/ul (4.0); Lymphocyte % 6.7 % (19-41); Mean Corp Hgb Conc 29.5 g/dL (32-36); Mean Corpuscular Hgb 26.7 pg (27.0-32.0); Mean Corpuscular Volume 90.5 fL (80-94); Mean Platelet Vol. 11.5 fl (6.2-12.0); Monocyte# 0.62 X10^3/uL; Monocyte% 6.5 % (0-10); NRBC Flagged by Analyzer 0 % (0-5); Neutrophil # 8.14 X10^3/uL (2.7-7.7); Neutrophil % 85.9 % (47-70); Platelet Count 189 K/mm3 (150-450); RBC Distribution Width CV 15.4 % (11.6-14.6); RBC Distribution Width SD 50.4 fl (35.1-43.9); White Blood Count 9.5 K/mm3 (4.4-11.0)
[2019-07-06 08:08] LABS: Anion Gap 8 (5-15); BUN 40 mg/dL (7-18); BUN/Creat Ratio 24.8 RATIO (10-20); Calcium,Total 9.3 mg/dL (8.5-10.1); Chloride 100 mmol/L (98-107); Cholesterol 151 mg/dL (200); Creatinine, Serum 1.61 mg/dL (0.70-1.30); EST Glomerular Filtration Rate 44 mL/min (>60); Est Glom Filt Rate - Afr Amer 53 mL/min (>60); Estimated Creatinine Clearance 37.49 ml/min; Glucose 258 mg/dL (74-106); High Density Lipoprotein 37 mg/dL; Potassium 4.4 mmol/L (3.5-5.1); Sodium Level 140 mmol/L (136-145); Triglycerides 134 mg/dL; Very Low Density Lipoprotein 27 mg/dL (5-40)
[2019-07-06 08:39] LABS: Magnesium 3.3 mg/dL (1.6-2.6)
[2019-07-06] MEDS: Enoxaparin 40 MG/0.4 ML Syringe SC (09:58)
--- NOTE | 2019-07-06 12:03 | PCM.PN.HOSP ---
Patient Problems: Active and Suspected Problems (Last Reviewed 07/06/19 @ 01:[address] Claude Oshea MD) CVA (cerebral vascular accident) (Acute) Reason for Visit: CVA Subjective: Patient unable to provide any history given lethargy. Vitals/I&O's: Vital Signs Temp Pulse Resp BP Pulse Ox 36.6 C 90 18 126/70 H 97 07/06/19 08:13 07/06/19 11:03 07/06/19 08:13 07/06/19 08:13 07/06/19 08:13 Oxygen Flow Rate (L/min) 2 Oxygen Delivery Method Nasal Cannula Weight: 83.9 kg Body Mass Index (BMI) 25.0 Finger Stick Blood Glucose 161 Intake and Output for Last 24 Hours 07/04/19 07/05/19 07/06/19 23:59 23:59 23:59 Intake Total 0 / 0 757.33 / 757.33 Output Total 550 / 550 275 / 275 Balance -550 / -550 482.33 / 482.33 General: Confused HEENT: Atraumatic, Normocephalic Oral: Moist Mucosa, No Gingival or Mucosal Lesions/ Ulcerations Lungs: Clear to auscultation, No rhonchi, No wheeze, - - poor inspiratory effort Cardiovascular: Regular rate, Regular Rhythm, Normal S1, Normal S2, No murmurs Abdomen: Bowel Sounds Present, Soft, Non Tender, Non-Distended Extremities: No edema, No Calf Tenderness, - - contracted RLE Neurological: - - MS 0/5 on RUE. Lets LUE drop slowly to bed. Does not follow any commands. Does track me slightly on the left. Unable to accurately guage if track to right. Laboratory Results 07/05/19 19:00: WBC 9.0, RBC 4.00 L, Hgb 10.7 L, Hct 36.8 L, MCV 92.0, MCH 26.8 L, MCHC 29.1 L, RDW Std Deviation 50.8 H, RDW Coeff of Ju 15.2 H, Plt Count 205, MPV 11.5, Immature Gran % (Auto) 0.400, Neut % (Auto) 68.3, Lymph % (Auto) 17.4 L, [place] % (Auto) 10.3 H, Eos % (Auto) 3.2, Baso % (Auto) 0.4, Absolute Neuts (auto) 6.2, Absolute Lymphs (auto) 1.57, Nucleated RBC % 0 07/05/19 19:00: PT 13.3, INR 1.0, APTT 31.9 07/05/19 19:00: Sodium 139, Potassium 4.3, Chloride 100, Carbon Dioxide 33.0 H, Anion Gap 6, BUN 40 H, Creatinine 1.73 H, Estim Creat Clear Calc 30.75, Est GFR (MDRD) Af Amer 49 L, Est GFR (MDRD) Non-Af 40 L, BUN/Creatinine Ratio 23.1 H, Glucose 178 H, Calcium 9.7, Troponin I < 0.015 07/05/19 19:04: POC Glucose 164 H 07/06/19 01:01: POC Glucose 208 H 07/06/19 06:37: POC Glucose 246 H 07/06/19 07:19: WBC 9.5, RBC 3.90 L, Hgb 10.4 L, Hct 35.3 L, MCV 90.5, MCH 26.7 L, MCHC 29.5 L, RDW Std Deviation 50.4 H, RDW Coeff of Ju 15.4 H, Plt Count 189, MPV 11.5, Immature Gran % (Auto) 0.600, Neut % (Auto) 85.9 H, Lymph % (Auto) 6.7 L, [place] % (Auto) 6.5, Eos % (Auto) 0.1, Baso % (Auto) 0.2, Absolute Neuts (auto) 8.1 H, Absolute Lymphs (auto) 0.64 L, Nucleated RBC % 0 07/06/19 07:19: Sodium 140, Potassium 4.4, Chloride 100, Carbon Dioxide 32.0, Anion Gap 8, BUN 40 H, Creatinine 1.61 H, Estim Creat Clear Calc 37.49, Est GFR (MDRD) Af Amer 53 L, Est GFR (MDRD) Non-Af 44 L, BUN/Creatinine Ratio 24.8 H, Glucose 258 H, Calcium 9.3, Triglycerides 134, Cholesterol 151, LDL Cholesterol 87, VLDL Cholesterol 27, HDL Cholesterol 37 L 07/06/19 07:19: Magnesium 3.3 H Current Medications Acetaminophen (Tylenol) 650 mg PO Q6H PRN PRN PRN Reason: Pain Score 1-10/Temp > 100.7 F Enoxaparin Sodium (Lovenox) 40 mg SC DAILY [facility] Last Admin: 07/06/19 09:58 Dose: 40 mg Documented by: Glucagon () 1 mg IM .X1 PRN PRN Reason: Hypoglycemia Dextrose (Dextrose 10%-Water) 250 mls @ 999 mls/hr IV .Q16M PRN; Protocol PRN Reason: HYPOGLYCEMIA Sodium Chloride () 250 mls @ 15 mls/hr IV .[id number] PRN PRN Reason: Saline Flush Sodium Chloride () 250 mls @ 15 mls/hr IV .[id number] PRN PRN Reason: Additional IVPB Infusion Pantoprazole Sodium 40 mg/ (Sodium Chloride) 110 mls @ 330 mls/hr IV Q24 [facility] Last Infusion: 07/06/19 10:55 Dose: Infused Documented by: Insulin Human Lispro (Humalog Kwikpen (Bkc)) 0 unit SC Q6 [facility]; Protocol Last Admin: 07/06/19 11:29 Dose: 4 u Documented by: Labetalol HCl (Trandate) 10 mg IV Q10M PRN PRN Reason: MAINTAIN BP < 220/120 Stop: 07/06/19 23:18 Ondansetron HCl (Zofran) 4 mg IV Q8H PRN PRN PRN Reason: NAUSEA/VOMITING Sodium Chloride () 10 - 40 ml IV UD PRN PRN Reason: SALINE FLUSH Last Admin: 07/06/19 06:55 Dose: 10 ml Documented by: STROKE Vital Signs/Narrative: Vital Signs Temp Pulse Resp BP Pulse Ox 07/06/19 11:03 90 07/06/19 08:14 102 H 07/06/19 08:13 36.6 C 105 H 18 126/70 H 97 Medical Necessity - Tobacco Use Smoking Status: Former smoker Assessment/Plan All Active Problems (Last Reviewed 07/06/19 @ 01:[address] Claude Oshea MD) CVA (cerebral vascular accident) (Acute) 1. CVA: L MCA. subacute to chronic, favor the latter. not a candidate for TPA. Called to find out his baseline status. No answer, left voice mail. 2. debility: Karnofsky score 20. Extremely poor performance status. Unclear baseline, but I am concerned that this is not new. Awaiting on family input. Family requested for hospice eval after the 8th, unclear why that specific date. informed nursing to let me know when family arrives. Hospice appropriate, unless patient shows a dramatic changes, which is highly unlikely. 3. VTE prophylaxis: LMWH. Inpatient E&M: 30444 Subs Hosp L2
[2019-07-06 12:05] LABS: Bedside Glucose 220 mg/dL (70-110)
[2019-07-06] MEDS: Menthol/Lanolin/Calamine/Znox 113 GM Tube 1 APPLIC TOPICAL ×2 (14:03→23:23)
--- NOTE | 2019-07-06 14:09 | CT_ITS ---
STUDY: CT BRAIN WITHOUT CONTRAST REASON FOR EXAM: Male, 83 years old. CVA, decreased attenuation right parietal lobe. Hx hypertension. RADIATION DOSAGE (If Supplied By Facility): CTDIvol = ( 44.99 ) mGy, DLP = ( 880.47 ) mGycm TECHNIQUE: Transaxial CT imaging of the brain was performed without administration of intravenous contrast material. Individualized dose optimization techniques were used for this CT. COMPARISON: 07/05/2019 FINDINGS: Normal soft tissue structures. Normal calvarium. There is mild cerebral atrophy with widening of the extra-axial spaces and ventricular dilatation. There are areas of decreased attenuation within the white matter tracts of the supratentorial brain, consistent with microvascular disease changes. Localized encephalomalacia and gliosis of the right frontal and parietal lobes table since the prior study. Normal basal ganglia and thalami. Normal brainstem. Normal cerebellum. There is no intracranial hemorrhage. There are no findings of an acute ischemic infarction. There is atherosclerosis of the carotid siphons and left vertebral artery. Normal visualized paranasal sinuses. CT/Brain/Head without Contrast IMPRESSION: 1. Stable exam. No acute change or evolving process. 2. 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 Electronically Signed: Sanchez Garza MD (Brooks) at 16:13 EST , Service support ,
--- NOTE | 2019-07-06 14:10 | PCM.HOSP.N ---
Hospitalist Note Advanced care planning: Spent 20 minutes as I met with the patient's , 2 daughters and son-in-law. Discussed the patient's clinical condition and grave prognosis. Explained that the patient had strokes and that he has severe neurologic deficits with that. They explained that prior to this, the patient was very mentally alert and interactive. Currently, he is encephalopathic and not following commands. I explained that he has had a very significant stroke and his likelihood for significant recovery is very low. Explained that we will check a repeat head CT and evaluate the patient overnight. Barring any kind of acute worsening on his CT, and if the patient does not improve tomorrow then I would recommend hospice. They were in agreement with that and I also discouraged a PEG tube as it would not provide him any quality of life and they seemed amenable to that. I did tell them if the CAT scan shows significant brain swelling, then he would need to be initiated on hospice at that time as seeing neurosurgery for decompression would be too much for this very debilitated patient. They were in agreement with that. Procedures: 00535 Advncd Care Plan 30 Min
[2019-07-06 17:26] LABS: Bedside Glucose 164 mg/dL (70-110)
--- NOTE | 2019-07-06 19:33 | NURSING ---
Pt daughter upset; verbalizes that she wanted some alone time with her father and was unable to have that. This RN states we can have respiratory therapy step out of the room. Pt left floor crying.
--- NOTE | 2019-07-06 19:34 | NURSING ---
Pt daughter upset; verbalizes that she wanted some alone time with her father and was unable to have that. This RN states we can have respiratory therapy step out of the room. Pt daughter left floor crying.
[2019-07-06 23:41] LABS: Bedside Glucose 196 mg/dL (70-110)
[2019-07-07] VITALS (12 sets, daily range): BP systolic 90–165; BP diastolic 52–85; PULSE 89–165; RESP 21–42; TEMP 36.3–38.1; O2SAT 86–98; BMI 25.0
--- NOTE | 2019-07-07 06:07 | NURSING ---
Pt daughter (Samra) called by this RN at this time. This RN spoke with Samra and notified her that pt continues to decline. Notified that patient is breathing harder and his level of consciousness has continued to decline. This RN inquired about informing pt , Samra states she will take care of it. This RN states to call with any additional questions. Samra voices appreciation.
[2019-07-07] MEDS: Insulin Lispro 100 UNIT/ML INSULN.PEN SC (06:24)
[2019-07-07] MEDS: Menthol/Lanolin/Calamine/Znox 113 GM Tube 1 APPLIC TOPICAL (06:27)
[2019-07-07 06:36] LABS: Bedside Glucose 247 mg/dL (70-110)
--- NOTE | 2019-07-07 08:58 | PCM.PN.HOSP ---
Patient Problems: Active and Suspected Problems (Last Reviewed 07/06/19 @ 01:[address] Claude Oshea MD) CVA (cerebral vascular accident) (Acute) Reason for Visit: CVA Subjective: Less responsive. Placed on high flow oxygen. Vitals/I&O's: Vital Signs Temp Pulse Resp BP Pulse Ox 36.3 C L 134 H 28 H 148/85 H 96 07/07/19 06:18 07/07/19 06:52 07/07/19 07:41 07/07/19 06:18 07/07/19 07:40 Oxygen Flow Rate (L/min) 15 Oxygen Delivery Method Non-Rebreather Weight: 83.9 kg Body Mass Index (BMI) 25.0 Finger Stick Blood Glucose 161 Intake and Output for Last 24 Hours 07/05/19 07/06/19 07/08/19 23:59 23:59 00:59 Intake Total 0 / 0 757.33 / 757.33 0 / 0 Output Total 550 / 550 925 / 925 250 / 250 Balance -550 / -550 -167.67 / -167.67 -250 / -250 General: - - unresponsive. mouth agape. HEENT: Atraumatic, Normocephalic Laboratory Results 07/06/19 07:19: Sodium 140, Potassium 4.4, Chloride 100, Carbon Dioxide 32.0, Anion Gap 8, BUN 40 H, Creatinine 1.61 H, Estim Creat Clear Calc 37.49, Est GFR (MDRD) Af Amer 53 L, Est GFR (MDRD) Non-Af 44 L, BUN/Creatinine Ratio 24.8 H, Glucose 258 H, Calcium 9.3, Triglycerides 134, Cholesterol 151, LDL Cholesterol 87, VLDL Cholesterol 27, HDL Cholesterol 37 L 07/06/19 07:19: Magnesium 3.3 H 07/06/19 11:27: POC Glucose 220 H 07/06/19 17:20: POC Glucose 164 H 07/06/19 23:27: POC Glucose 196 H 07/07/19 06:22: POC Glucose 247 H Current Medications Acetaminophen (Tylenol) 650 mg PO Q6H PRN PRN PRN Reason: Pain Score 1-10/Temp > 100.7 F Calamine/Phenol (Calmoseptine Ointment) 1 applic TOPICAL TID [facility]; Protocol Last Admin: 07/07/19 06:27 Dose: 1 applicatio Documented by: Enoxaparin Sodium (Lovenox) 40 mg SC DAILY [facility] Last Admin: 07/06/19 09:58 Dose: 40 mg Documented by: Glucagon () 1 mg IM .X1 PRN PRN Reason: Hypoglycemia Dextrose (Dextrose 10%-Water) 250 mls @ 999 mls/hr IV .Q16M PRN; Protocol PRN Reason: HYPOGLYCEMIA Sodium Chloride () 250 mls @ 15 mls/hr IV .[id number] PRN PRN Reason: Saline Flush Sodium Chloride () 250 mls @ 15 mls/hr IV .[id number] PRN PRN Reason: Additional IVPB Infusion Pantoprazole Sodium 40 mg/ (Sodium Chloride) 110 mls @ 330 mls/hr IV Q24 [facility] Last Infusion: 07/06/19 10:55 Dose: Infused Documented by: Insulin Human Lispro (Humalog Kwikpen (Bkc)) 0 unit SC Q6 JUAREZ; Protocol Last Admin: 07/07/19 06:24 Dose: 4 u Documented by: Ondansetron HCl (Zofran) 4 mg IV Q8H PRN PRN PRN Reason: NAUSEA/VOMITING Sodium Chloride () 10 - 40 ml IV UD PRN PRN Reason: SALINE FLUSH Last Admin: 07/06/19 06:55 Dose: 10 ml Documented by: STROKE Vital Signs/Narrative: Vital Signs Temp Pulse Resp BP Pulse Ox 07/07/19 07:41 28 H 07/07/19 07:40 96 07/07/19 06:52 134 H 07/07/19 06:18 36.3 C L 113 H 25 H 148/85 H 98 Medical Necessity - Tobacco Use Smoking Status: Former smoker Assessment/Plan All Active Problems (Last Reviewed 07/06/19 @ 01:[address] Claude Oshea MD) CVA (cerebral vascular accident) (Acute) 1. CVA: L MCA. subacute to chronic, favor the latter. not a candidate for TPA. 2. debility: Karnofsky score 10. Extremely poor performance status. Unclear baseline, but I am concerned that this is not new. Awaiting on family input. Family requested for hospice eval after the 8th, unclear why that specific date. informed nursing to let me know when family arrives. Hospice appropriate, unless patient shows a dramatic changes, which is highly unlikely. 3. Advanced care planning: DW patient's dtr. Given worsening condition and unlikelihood of significant recovery, I recommended hospice. She agreed. Placed hospice consult. Deescalated therapy. Focus strictly on symptom control. Prognosis terminal. Inpatient E&M: 97304 Subs Hosp L1
[2019-07-07] MEDS: morphine (oral solution) 10MG/0.5ML Syringe 10 MG SL/PO ×3 (11:34→17:13)
[2019-07-08 01:40] VITALS: BP 87/44; PULSE 115; RESP 18; TEMP 36.4; O2SAT 98
[2019-07-08 04:27] VITALS: BP 103/59; PULSE 139; RESP 19; TEMP 36.8; O2SAT 97
[2019-07-08 06:18] VITALS: BP 104/65; PULSE 125; RESP 16; TEMP 36.9; O2SAT 98
[2019-07-08 08:42] VITALS: BMI 25.0
[2019-07-08 09:03] VITALS: BP 96/80; PULSE 72; RESP 21; TEMP 38.2; O2SAT 99
[2019-07-08] MEDS: morphine (oral solution) 10MG/0.5ML Syringe 10 MG SL/PO (10:34)
--- NOTE | 2019-07-08 10:37 | CASEMGMT ---
Call from [facility] and per Reyna, they spoke with family and family would like pt transported back to [facility], if able. Per Reyna, they have a private room set up for pt at this time. Jose Luis RIVERA aware, voices understanding. Jann LINDA CM
[2019-07-08 10:40] VITALS: RESP 24
--- NOTE | 2019-07-08 11:10 | PCM.EXTCARCO ---
- Diet 07/05/19 23:17 Diet: Nothing Per Oral - Routine Orders/Code Status O2 Frequency: Continuous - NRB 15lpm Code Status: DNRCC - Wound(s) Left Thigh Wound Type: Abrasion Scrotum Wound Type: Pressure Injury BLE Wound Type: Abrasion - Problem/Diagnosis (1) CVA (cerebral vascular accident) Status: Acute Current Visit: Yes - Allergies/Procedures Done in Hospital Allergies/Adverse Reactions: Allergies Iodinated Contrast Media [CT] Adverse Reaction (Verified 07/05/19 19:44) Rash Procedures: 2-D Echocardiogram - Type of Care/Length of Stay Estimated LOS: Convalescent Care Less Than 30 days Type of Care Needed: Skilled Rehab Potential: Poor Prognosis: Poor - Additional Orders/Day of Discharge Day of Discharge: 07/08/19 - Dietary and Speech Recommendations Dietitian Recommendations/Changes: Rec KWAME to liberal Regular - consistency per [employer] - when medically able. Rec Lloyd bid to help w/ wound healing once po diet resumes. Will provide ONS at meals for increased nutrition if consumed - Follow Up Care Primary Care Physician: Xavier Cohen MD [Primary Care Provider] - Please Follow Up With: Hospice When: today
--- NOTE | 2019-07-08 11:37 | CASEMGMT ---
Social Work Pt is from [facility]. Pt is now on hospice care and per Reyna at [facility], family would like pt to return there and they are able to accept back. MIGUEL met with pt family in room and they confirm they would like pt to return to [facility] as soon as possible. Transportation arranged with [facility] and they are able to come at this time. Phone call to Faith at [facility] and notified of pt d/c. They will see pt today at [facility]. MIGUEL met with family and informed that ambulance is on the way and that hospice has been informed and will see pt today. Nursing made aware. Orders and clinical update faxed to [facility]. BERT Foster
--- NOTE | 2019-07-08 11:43 | PHA.DC.MR ---
Pharmacy Service has performed discharge medication reconciliation for this patient. Patient to be transferred back to [facility] with Hospice care. The patient's discharge medication list was reviewed for discrepancies and discrepancies were resolved. Home Medications Acetaminophen [Tylenol Tablet] 650 mg PO Q6H PRN PRN tab 07/08/19 Lorazepam Intensol [Ativan Intensol] 0.5 mg SL Q4H PRN PRN #1 bottle 07/08/19 morphine solution (IR) [Roxanol (IR oral solution)] 10 mg SL/PO Q1H PRN PRN 1 Days #12 syringe 07/08/19
[2019-07-08 11:44] VITALS: BP 118/59; PULSE 108; RESP 20; TEMP 37; O2SAT 98
--- NOTE | 2019-07-08 12:01 | NURSING ---
Report called to Sangeeta at [facility]. VSS. Family aware of transfer. Our magnet left in place over left chest defibrillator. [facility] aware. transport here for pickup.
--- NOTE | 2019-07-08 12:27 | DS.PCM_ITS ---
<Isaiah German - Last Filed: 07/08/19 12:27> Discharge Date and Diagnosis Date of Admission: 07/05/19 Date of Discharge: 07/08/19 - Primary Discharge Diagnosis Acute ischemic infarct, LMCA Severe debility Vtach Acute metabolic encephalopathy 2/2 stroke DM HTN Hospital Course and Treatment Imaging Results: ADDENDUM by Trent Saucedo MD on 07/05/[address]/Brain/Head without Contrast IMPRESSION: FINDINGS: There is no evidence of acute intracranial bleed. Right parietal encephalomalacia and periventricular decreased attenuation is present. Chronic ischemic and atrophic changes are present. There is right The ventricles are normal in configuration. There is no hydrocephalus. The visualized paranasal sinuses are clear. The mastoid air cells are well aerated. There is no skull fracture. Decreased attenuation and encephalomalacia of the right parietal lobe, consistent with prior infarct, although acute on chronic disease is a consideration. CTA suggested. Chronic ischemic and atrophic changes. No evidence of acute intracranial bleed. ADDENDUM by Romeo Ghosh on 07/05/[address]/CTA Head AND Neck W/ Contrast IMPRESSION: Occlusion of the left MCA of indeterminate age. Severe calcified atherosclerotic plaque formation in both carotid bulbs, both ICAs, the petrous and cavernous carotid arteries bilaterally. 70% or greater stenosis of both ICAs. RAD/Chest 1 View IMPRESSION: Nonspecific bilateral upper lung interstitial opacities, possibly technical and/or mild pulmonary edema. Moderate cardiomegaly. Prior bypass. 2D echo: Interpretation Summary Normal LV size. Left ventricular systolic function is lower limits of normal. The estimated ejection fraction is 50 %. Contrast injection was performed. The study was technically difficult. CT/Brain/Head without Contrast IMPRESSION: 1. Stable exam. No acute change or evolving process. 2. 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 Consults: SOC teleneuro Operations: None Procedures: 2-D Echocardiogram Summary of Care Provided: Hospital course: The patient is a 83 year old M with pmhx of CAD with prior CABG, hypertension, hyperlipidemia, PAD, diabetes, defibrillator, who presented to the ER from SNF where he is chronically bedbound however is normally talkative. He presented to the ER with left-sided weakness. CTA of the head and neck showed occlusion of the left MCA and 70% or greater stenosis of both ICAs. He was admitted to the PCU for acute infarct. He was not a TPA candidate. He remained unresponsive and severely debilitated. The patient's condition continued to deteriorate deteriorate he developed V. tach. He was made DNR CC and hospice was agreed upon by family. The patient's respiratory status continued to deteriorate and he was placed on nonrebreather. The family decided that they wanted him to go back to assisted on hospice. He was transported back to [facility] in guarded condition. Further care as directed by hospice. This patient was seen by Isaiah German PA-C under the supervision of Doctor Beyer. [] - Physical Exam Vitals/I&O's: Vital Signs Temp Pulse Resp BP Pulse Ox 98.6 F 108 H 20 H 118/59 L 98 07/08/19 11:44 07/08/19 11:44 07/08/19 11:44 07/08/19 11:44 07/08/19 11:44 Oxygen Flow Rate (L/min) 15 Oxygen Delivery Method Non-Rebreather Weight: 184 lb 15.485 oz Body Mass Index (BMI) 25.0 Finger Stick Blood Glucose 161 Intake and Output for Last 24 Hours 07/06/19 07/07/19 07/08/19 22:59 23:59 23:59 Intake Total Output Total 45 / 45 Balance -45 / -45 General: - - obtunded HEENT: Atraumatic, PERRLA, EOMI, Normocephalic Neck: Supple, No JVD, Negative Carotid Bruits Lungs: Diminished, Rales, - - coarse respirations Cardiovascular: No murmurs, Irregular Rate Abdomen: Bowel Sounds Present, Soft, Non Tender Extremities: No edema, Capillary Refill Less than 3 Seconds Skin: No rashes, No breakdown Musculoskeletal: No Tenderness to Palpation of Joints or Extremities Neurological: - - obtunded Psych/Mental Status: - - obtunded Discharge Diet: - - as directed by hospice Discharge Activity: - - as directed by hospice Home Medications: Medications to take at Discharge Acetaminophen [Tylenol Tablet] 650 mg PO Q6H PRN PRN tab 07/08/19 Lorazepam Intensol [Ativan Intensol] 0.5 mg SL Q4H PRN PRN #1 bottle 03/09/20 morphine solution (IR) [Roxanol (IR oral solution)] 10 mg SL/PO Q1H PRN PRN 1 Days #12 syringe 07/08/19 Following Prescrptions Were Given to Patient: Lorazepam Intensol [Ativan Intensol] 0.5 mg SL Q4H PRN PRN #1 bottle PRN Reason: Anxiety Prescription Printed morphine solution (IR) [Roxanol (IR oral solution)] 10 mg SL/PO Q1H PRN PRN 1 Days #12 syringe PRN Reason: Pain Score 6-10/10, dyspnea Prescription Printed Primary Care Physician: Xavier Cohen MD [Primary Care Provider] - Please Follow Up With: Hospice When: today Disposition: Assisted facility Minutes spent on discharge:: 35 Patient Condition:: Stable Medical Necessity - Tobacco Use Smoking Status: Former smoker Meaningful Use Info Meaningful Use Diagnoses (Choose all that apply): Ischemic CVA - CVA Therapy Assessed for PT,OT and/or ST?: No Reason therapy not assessed?: Hospice - Ischemic Stroke Antithrombotic order at d/c?: No Reason antithrombotic not ordered: Hospice Dx of Atrial fib/flutter?: Yes Anticoagulant at discharge?: No Reason anticoagulant not ordered: Hospice Statins at discharge?: No Reason Statin not ordered: Hospice Primary Dx Acute Ischemic CVA?: Yes IV tPA ordered during stay?: No Reason IV t-PA not ordered: Procedure not Indicated <José Luis Beyer - Last Filed: 07/08/19 14:45> Hospital Course and Treatment Summary of Care Provided: This patient was seen in conjunction with Isaiah German PA-C . I have independently interviewed and examined the patient and reviewed pertinent historical, laboratory, and other data. Please refer to Isaiah German PA-C note for details of this patient's presentation, findings, and recommendations. I have reviewed Isaiah German PA-C note and concur with documented findings. In brief, patient is a 83-year-old gentleman with multiple comorbidities admitted with left-sided weakness. Patient's evaluation was consistent with Acute ischemic infarct, LMCA as well as bilateral severe carotid artery stenosis. Patient condition continued to deteriorate was in the hospital. Family elected to opt for hospice. Patient was discharged to a assisted facility with hospice Hospital course: As documented above - Physical Exam Vitals/I&O's: Vital Signs Temp Pulse Resp BP Pulse Ox 98.6 F 108 H 20 H 118/59 L 98 07/08/19 11:44 07/08/19 11:44 07/08/19 11:44 07/08/19 11:44 07/08/19 11:44 Oxygen Flow Rate (L/min) 15 Oxygen Delivery Method Non-Rebreather Weight: 83.9 kg Body Mass Index (BMI) 25.0 Finger Stick Blood Glucose 161 Intake and Output for Last 24 Hours 07/06/19 07/07/19 07/08/19 22:59 23:59 23:59 Intake Total Output Total 45 / 45 Balance -45 / -45 Inpatient E&M: 07180 Disch Hosp
== END 2019-07-08 12:10 | disposition skilled nursing facility (03) | DRG 65 ==
LOC: ED 21:30 → PCU 22:49
PROVIDERS: Admitting Provider Hospitalist; Emergency Provider Emergency Medicine; Visit Provider Internal Medicine
DX: I63.512 Cerebral infarction due to unspecified occlusion or stenosis of left middle cerebral artery (principal); G81.94 Hemiplegia, unspecified affecting left nondominant side; I47.2 Ventricular tachycardia; G93.40 Encephalopathy, unspecified; R29.810 Facial weakness; R29.716 NIHSS score 16; R53.81 Other malaise; I25.10 Atherosclerotic heart disease of native coronary artery without angina pectoris; I65.23 Occlusion and stenosis of bilateral carotid arteries; I11.0 Hypertensive heart disease with heart failure; I50.9 Heart failure, unspecified; I48.91 Unspecified atrial fibrillation; J44.9 Chronic obstructive pulmonary disease, unspecified; E78.5 Hyperlipidemia, unspecified; E11.51 Type 2 diabetes mellitus with diabetic peripheral angiopathy without gangrene; Z66 Do not resuscitate; Z74.01 Bed confinement status; Z95.1 Presence of aortocoronary bypass graft; Z95.5 Presence of coronary angioplasty implant and graft; Z79.82 Long term (current) use of aspirin; Z79.02 Long term (current) use of antithrombotics/antiplatelets; Z79.4 Long term (current) use of insulin; Z87.891 Personal history of nicotine dependence; Z86.73 Personal history of transient ischemic attack (TIA), and cerebral infarction without residual deficits
CPT/HCPCS: 36415; 70450; 70496; 70498; 71045; 80048; 80061; 82962; 83735; 84484; 85025; 85610; 85730; 92610; 93005; 93306; 94762; 97802; 99285; J2997; Q9957; Q9967; A4216; C8929